=== PATIENT | female | born 1995 | race Caucasian/White ===

== ENCOUNTER 2017-11-25 06:38 | Emergency (ER) | payer MEDICAID, OTHER ==
[2017-11-25] MEDS ORDERED: Sodium Chloride 0.9% 1000 ML 1,000 ML IV STA ×2 (07:07→07:51)
--- NOTE | 2017-11-25 07:12 | ERPHSYRPT ---
- History of Present Illness Time Seen by Provider: 11/25/17 07:04 Source: patient Exam Limitations: no limitations Patient Subjective Stated Complaint: pt states her blood sugars have been running high since monday and she has Triage Nursing Assessment: pt alert and oriented, answers qeustions approp. pt ambulatory with steady gait noted. respirations nonlabored with lungs cta. Physician History: 22-year-old white female arrives with complaint of just not feeling well for the last 5 days she states that she has been having intermittent elevated blood sugars and ketones in her urine. No vomiting no abdominal pain denies urinary symptoms. Past medical history includes diabetes, anxiety, depression. Timing/Duration: day(s) Severity: moderate (5 days) Modifying Factors: Improves With: nothing Associated Symptoms: No nausea, No vomiting, No abdominal pain, No shortness of breath, No heartburn, No diaphoresis, No cough, No chills, No chest pain, No headaches, No loss of appetite, No malaise, No rash, No syncope, No seizure, No weakness Allergies/Adverse Reactions: No Known Drug Allergies Allergy (Verified 11/25/17 06:52) Home Medications: Insulin Aspart [NovoLOG Insulin] 10 unit SQ AC 11/25/17 [History] Insulin Glargine,Hum.rec.anlog [Basaglar Kwikpen U-100] 26 unit SQ HS 11/25/17 [ History] Hx Tetanus, Diphtheria Vaccination/Date Given: Yes (up to date) Hx Influenza Vaccination/Date Given: No Hx Pneumococcal Vaccination/Date Given: No Immunizations Up to Date: Yes - Review of Systems Constitutional: No Fever, No Chills Eyes: No Symptoms Ears, Nose, & Throat: No Symptoms Respiratory: No Cough, No Dyspnea Cardiac: No Chest Pain, No Edema, No Syncope Abdominal/Gastrointestinal: No Abdominal Pain, No Nausea, No Vomiting, No Diarrhea Genitourinary Symptoms: No Dysuria Musculoskeletal: No Back Pain, No Neck Pain Skin: No Rash Neurological: No Dizziness, No Focal Weakness, No Sensory Changes Psychological: No Symptoms Endocrine: No Symptoms All Other Systems: Reviewed and Negative - Past Medical History Pertinent Past Medical History: Yes Neurological History: Migraines ENT History: No Pertinent History Cardiac History: No Pertinent History Respiratory History: No Pertinent History Endocrine Medical History: Diabetes Type I Musculoskeletal History: No Pertinent History GI Medical History: No Pertinent History History: No Pertinent History Psycho-Social History: Anxiety, Depression Female Reproductive Disorders: No Pertinent History Other Medical History: DIABETES - Past Surgical History Past Surgical History: Yes Neuro Surgical History: No Pertinent History Cardiac: No Pertinent History Respiratory: No Pertinent History Gastrointestinal: No Pertinent History Genitourinary: No Pertinent History Musculoskeletal: No Pertinent History Female Surgical History: Dilation & Curettage Other Surgical History: INSULIN PUMP - Social History Smoking Status: Never smoker Exposure to second hand smoke: No Drug Use: none Patient Lives Alone: No - Female History Hx Last Menstrual Period: last month Hx Now: No - Nursing Vital Signs Nursing Vital Signs: Initial Vital Signs Temperature 97.4 F 11/25/17 06:44 Pulse Rate 84 11/25/17 06:44 Respiratory Rate 16 11/25/17 06:44 Blood Pressure 121/61 11/25/17 06:44 O2 Sat by Pulse Oximetry 100 11/25/17 06:44 Pain Scale Pain Intensity 0 - Physical Exam General Appearance: no apparent distress, alert Eye Exam: PERRL/EOMI, eyes nml inspection Ears, Nose, Throat Exam: normal ENT inspection, TMs normal, pharynx normal, moist mucous membranes Neck Exam: normal inspection, non-tender, supple, full range of motion Respiratory Exam: normal breath sounds, lungs clear, No respiratory distress Cardiovascular Exam: regular rate/rhythm, normal heart sounds, normal peripheral pulses Gastrointestinal/Abdomen Exam: soft, normal bowel sounds, No tenderness, No mass Back Exam: normal inspection, normal range of motion, No CVA tenderness, No vertebral tenderness Extremity Exam: normal inspection, normal range of motion, pelvis stable Neurologic Exam: alert, oriented x 3, cooperative, 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, normal mood/affect, nml cerebellar function, nml station & gait, sensation nml, No motor deficits Skin Exam: normal color, warm, dry, No rash Lymphatic Exam: No adenopathy SpO2 Interpretation: normal (100%) SpO2: 100 Oxygen Delivery: Room Air Ordered Tests: Active Orders 24 hr Category Date Time Status Accucheck STAT Care 11/25/17 07:07 Active Accucheck STAT Care 11/25/17 09:33 Active IV Insertion STAT Care 11/25/17 07:07 Active CBC W DIFF Stat Lab 11/25/17 06:55 Completed CMP Stat Lab 11/25/17 06:55 Completed CULTURE,URINE Stat Lab 11/25/17 07:07 Received HCG QUALITATIVE,SERUM Stat Lab 11/25/17 06:55 Completed UA W/ MICROSCOPIC Stat Lab 11/25/17 07:07 Completed VENOUS BLOOD GAS Urgent Lab 11/25/17 07:25 Completed Medication Summary Discontinued Medications Generic Name Dose Route Start Last Admin Trade Name Chioma PRN Reason Stop Dose Admin Sodium Chloride 1,000 mls @ 999 mls/hr 11/25/17 07:07 11/25/17 09:06 Sodium Chloride 0.9% 1000 Ml IV 11/25/17 08:07 Infused .Q1H1M STA Infusion Sodium Chloride Confirm 11/25/17 07:20 Sodium Chloride 0.9% 1000 Ml Administered 11/25/17 07:21 Dose 1,000 mls @ ud .ROUTE .STK-MED ONE Ceftriaxone Sodium/Dextrose 1 g in 50 mls @ 100 mls/hr 11/25/17 07:42 09:04 Rocephin 1 Gm-D5w 50 Ml Bag IV 11/25/17 08:11 Infused STAT STA Infusion Ceftriaxone Sodium/Dextrose Confirm 11/25/17 07:44 Rocephin 1 Gm-D5w 50 Ml Bag Administered 11/25/17 07:45 Dose 1 g in 50 mls @ ud IV .STK-MED ONE Sodium Chloride 1,000 mls @ 999 mls/hr 11/25/17 07:51 11/25/17 08:10 Sodium Chloride 0.9% 1000 Ml IV 11/25/17 08:51 999 mls/hr .Q1H1M STA Administration Sodium Chloride Confirm 11/25/17 08:10 Sodium Chloride 0.9% 1000 Ml Administered 11/25/17 08:11 Dose 1,000 mls @ ud .ROUTE .STK-MED ONE Potassium Bicarbonate 25 meq 11/25/17 08:15 11/25/17 08:21 K-Lyte 25 Meq PO 11/25/17 08:16 25 meq STAT ONE Administration Potassium Bicarbonate Confirm 11/25/17 08:19 K-Lyte 25 Meq Administered 11/25/17 08:20 Dose 25 meq .ROUTE .STK-MED ONE Potassium Chloride 20 meq 11/25/17 08:02 09/08/18 08:37 Klor Con 10 Meq PO 11/25/17 08:03 Not Given STAT ONE Potassium Chloride Confirm 11/25/17 08:10 Klor Con 10 Meq Administered 11/25/17 08:11 Dose 20 meq PO .STK-MED ONE Lab/Rad Data: Laboratory Result Diagrams 11/25/17 06:55 11/25/17 06:55 Laboratory Results 11/25/17 11/25/17 11/25/17 Range/Units 07:25 07:07 06:55 WBC (4.0-10.5) K/mm3 RBC (4.1-5.4) M/mm3 Hgb (12.0-16.0) gm/dl Hct (35-47) % MCV (78-100) fl MCH (26-32) pg MCHC (32-36) g/dl RDW (11.5-14.0) % Plt Count (150-450) K/mm3 MPV (6-9.5) fl Gran % (36.0-66.0) % Eos # (Auto) (0-0.5) Absolute Lymphs (auto) (1.0-4.6) Absolute Monos (auto) (0.0-1.3) Lymphocytes % (24.0-44.0) % Monocytes % (0.0-12.0) % Eosinophils % (0.00-5.0) % Basophils % (0.0-0.4) % Absolute Granulocytes (1.4-6.9) Basophils # (0-0.4) pO2/FiO2 Ratio 21.0 % VBG pH 7.32 (7.32-7.42) VBG pCO2 at Pat Temp 41 L (42-55) mm/Hg VBG pO2 at Pat Temp 35 (25-40) mm/Hg VBG HCO3 21.1 L (22-28) meq/L VBG O2 Sat (Jason) 71.1 L (95-100) VBG Base Excess -4.8 L (-2.0-2.0) VBG Hemoglobin 13.8 VBG Carboxyhemoglobin 3.0 (0.0-6.9) % T HGB POC Potassium 4.0 (3.5-5.1) Sodium (137-145) mmol/L Potassium (3.5-5.1) mmol/L Chloride (98-107) mmol/L Carbon Dioxide (22-30) mmol/L Anion Gap (5-15) MEQ/L BUN (7-17) mg/dL Creatinine (0.52-1.04) mg/dL Estimated GFR ML/MIN Glucose (74-106) mg/dL Calcium (8.4-10.2) mg/dL Total Bilirubin (0.2-1.3) mg/dL AST (14-36) U/L ALT (0-35) U/L Alkaline Phosphatase (38-126) U/L Serum Total Protein (6.3-8.2) g/dL Albumin (3.5-5.0) g/dL Serum , Qual NEGATIVE (Negative) Ur Collection Type VOID Urine Color YELLOW (YELLOW) Urine Appearance HAZY (CLEAR) Urine pH 5.0 (5-6) Ur Specific [place] 1.020 (1.005-1.025) Urine Protein NEGATIVE (Negative) Urine Ketones LARGE (NEGATIVE) Urine Blood 5-10 (0-5) Isaac/ul Urine Nitrite NEGATIVE (NEGATIVE) Urine Bilirubin NEGATIVE (NEGATIVE) Urine Urobilinogen NORMAL (0-1) mg/dL Ur Leukocyte Esterase 2+ (NEGATIVE) Urine Microscopic RBC 2-5 (0-2) /HPF Urine Microscopic WBC 50-100 (0-5) /HPF Ur Epithelial Cells MODERATE (FEW) /HPF Urine Bacteria MODERATE (NEGATIVE) /HPF Urine Yeast FEW (NEGATIVE) /HPF Urine Culture Reflexed YES (NO) Urine Glucose 1000 (NEGATIVE) mg/dL Specimen Received 11/26/17 0700 11/25/17 11/25/17 Range/Units 06:55 06:55 WBC 9.9 (4.0-10.5) K/mm3 RBC 4.17 (4.1-5.4) M/mm3 Hgb 12.9 (12.0-16.0) gm/dl Hct 37.7 (35-47) % MCV 90.4 (78-100) fl MCH 30.9 (26-32) pg MCHC 34.2 (32-36) g/dl RDW 13.3 (11.5-14.0) % Plt Count 287 (150-450) K/mm3 MPV 10.8 H (6-9.5) fl Gran % 73.7 H (36.0-66.0) % Eos # (Auto) 0.13 (0-0.5) Absolute Lymphs (auto) 1.55 (1.0-4.6) Absolute Monos (auto) 0.90 (0.0-1.3) Lymphocytes % 15.7 L (24.0-44.0) % Monocytes % 9.1 (0.0-12.0) % Eosinophils % 1.3 (0.00-5.0) % Basophils % 0.2 (0.0-0.4) % Absolute Granulocytes 7.27 H (1.4-6.9) Basophils # 0.02 (0-0.4) pO2/FiO2 Ratio % VBG pH (7.32-7.42) VBG pCO2 at Pat Temp (42-55) mm/Hg VBG pO2 at Pat Temp (25-40) mm/Hg VBG HCO3 (22-28) meq/L VBG O2 Sat (Jason) (95-100) VBG Base Excess (-2.0-2.0) VBG Hemoglobin VBG Carboxyhemoglobin (0.0-6.9) % T HGB POC Potassium (3.5-5.1) Sodium 138 (137-145) mmol/L Potassium 3.9 (3.5-5.1) mmol/L Chloride 105 (98-107) mmol/L Carbon Dioxide 20 L (22-30) mmol/L Anion Gap 17.0 H (5-15) MEQ/L BUN 13 (7-17) mg/dL Creatinine 0.53 (0.52-1.04) mg/dL Estimated GFR > 60.0 ML/MIN Glucose 348 H (74-106) mg/dL Calcium 8.7 (8.4-10.2) mg/dL Total Bilirubin 0.40 (0.2-1.3) mg/dL AST 10 L (14-36) U/L ALT 8 (0-35) U/L Alkaline Phosphatase 60 (38-126) U/L Serum Total Protein 6.9 (6.3-8.2) g/dL Albumin 4.0 (3.5-5.0) g/dL Serum , Qual (Negative) Ur Collection Type Urine Color (YELLOW) Urine Appearance (CLEAR) Urine pH (5-6) Ur Specific [place] (1.005-1.025) Urine Protein (Negative) Urine Ketones (NEGATIVE) Urine Blood (0-5) Isaac/ul Urine Nitrite (NEGATIVE) Urine Bilirubin (NEGATIVE) Urine Urobilinogen (0-1) mg/dL Ur Leukocyte Esterase (NEGATIVE) Urine Microscopic RBC (0-2) /HPF Urine Microscopic WBC (0-5) /HPF Ur Epithelial Cells (FEW) /HPF Urine Bacteria (NEGATIVE) /HPF Urine Yeast (NEGATIVE) /HPF Urine Culture Reflexed (NO) Urine Glucose (NEGATIVE) mg/dL Specimen Received - Progress Progress: improved Progress Note: 11/25/17 09 This is a 22-year-old white female with history of diabetes she has been feeling ill for the last several days she states her blood sugars have been going up and down and she's had ketones in her urine. Patient does not appear to be in acute distress on arrival she does have a blood sugar which is 348 on her chemistry she has a CO2 on her chemistry of 20 and and gap is 17 she does have 50-100 white cells per high-power field in her urine, also large amount of ketones in her urine pH on her ABGs are 7.32 PCO2 is 41 CBC essentially normal Patient is feeling better after IV normal saline urine culture and sensitivity has been obtained patient was given Rocephin 1 g IV. Repeat Accu-Chek is 226. Will plan to discharge patient on Bactrim DS one orally twice a day patient to continue her insulin regime and make note of her blood sugars. She is to follow-up with her family doctor - Departure Time of Disposition: 09:53 Departure Disposition: Home Clinical Impression: Hyperglycemia Urinary tract infection Qualifiers: Urinary tract infection type: site unspecified Hematuria presence: without hematuria Qualified Code(s): N39.0 - Urinary tract infection, site not specified Condition: Fair Critical Care Time: No Referrals: MAGDY ORTA [Primary Care Provider] - Instructions: Hyperglycemia, Adult (DC) Additional Instructions: Return home. Plenty of fluids. Continue your current insulin regime. Monitor your blood sugars and write down. Bactrim DS one orally twice a day for 10 days. Follow-up with her family doctor and/or your backbreaker. Return for acute distress or for severe symptoms. Prescriptions: Smz/Tmp Ds Tablet [Bactrim Ds Tablet] 1 tab PO BID #20 tablet
[2017-11-25 07:20] LABS: Appearance HAZY (CLEAR); Bilirubin NEGATIVE (NEGATIVE); Glucose 1000 mg/dL (NEGATIVE); Ketones LARGE (NEGATIVE); Leukocyte Esterase 2+ (NEGATIVE); Nitrite NEGATIVE (NEGATIVE); Protein,Urine Dip NEGATIVE (Negative); Urobilinogen NORMAL mg/dL (0-1)
[2017-11-25] MEDS ORDERED: Sodium Chloride 0.9% 1000 ML 1,000 ML ONE ×2 (07:20→08:10)
[2017-11-25 07:24] LABS: BASOPHIL % 0.2 % (0.0-0.4); Basophil (Absolute #) 0.02 (0-0.4); Eosinophil % 1.3 % (0.00-5.0); Eosinophil (Absolute #) 0.13 (0-0.5); Granulocyte Absolute (ANC) 7.27 (1.4-6.9); Granulocytes % 73.7 % (36.0-66.0); Hematocrit 37.7 % (35-47); Hemoglobin 12.9 gm/dl (12.0-16.0); Lymphocyte (Absolute #) 1.55 (1.0-4.6); Lymphocytes % 15.7 % (24.0-44.0); Mean Cell Volume 90.4 fl (78-100); Mean Corpuscular Hemoglobin 30.9 pg (26-32); Mean Corpuscular Hgb Concent. 34.2 g/dl (32-36); Mean Platelet Volume 10.8 fl (6-9.5); Monocytes % 9.1 % (0.0-12.0); Platelet Count 287 K/mm3 (150-450); Red Blood Count 4.17 M/mm3 (4.1-5.4); Red Cell Distribution Width 13.3 % (11.5-14.0); White Blood Count 9.9 K/mm3 (4.0-10.5)
[2017-11-25 07:26] LABS: Bacteria MODERATE /HPF (NEGATIVE); Epithelial Cells MODERATE /HPF (FEW); WBC 50-100 /HPF (0-5)
[2017-11-25 07:31] LABS: VBG BASE EXCESS -4.8 (-2.0-2.0); VBG HCO3- 21.1 meq/L (22-28); VBG HEMOGLOBIN 13.8; VBG O2 SATURATION 71.1 (95-100); VBG pH 7.32 (7.32-7.42)
[2017-11-25] MEDS ORDERED: ROCEPHIN 1 Gm-D5w 50 ml Bag** 1 G/50 ML IVPB IV STA (07:42)
[2017-11-25] MEDS ORDERED: ROCEPHIN 1 Gm-D5w 50 ml Bag** 1 G/50 ML IVPB IV ONE (07:44)
[2017-11-25 07:46] LABS: ALKALINE PHOSPHATASE 60 U/L (38-126); BLOOD UREA NITROGEN 13 mg/dL (7-17); CHLORIDE 105 mmol/L (98-107); Calcium 8.7 mg/dL (8.4-10.2); Carbon Dioxide 20 mmol/L (22-30); Creatinine 1 0.53 mg/dL (0.52-1.04); Glucose 348 mg/dL (74-106); Potassium 3.9 mmol/L (3.5-5.1); SGOT/AST 10 U/L (14-36); SGPT/ALT 8 U/L (0-35); SODIUM 138 mmol/L (137-145); Total Protein 6.9 g/dL (6.3-8.2)
[2017-11-25] MEDS ORDERED: Klor Con 10 MEQ PO ONE (08:10)
[2017-11-25] MEDS: Klor Con 10 MEQ PO ONE ×2 (08:10→08:37)
[2017-11-25] MEDS ORDERED: K-LYTE 25 MEQ PO ONE (08:15)
[2017-11-25] MEDS ORDERED: K-LYTE 25 MEQ ONE (08:19)
[2017-11-25 09:38] VITALS: PULSE 98
[2017-11-25 10:12] VITALS: BP 108/60; O2SAT 99
== END 2017-11-25 10:13 | disposition home or self-care (01) ==
LOC: ED 06:38
DX: E10.65 Type 1 diabetes mellitus with hyperglycemia (principal); N39.0 Urinary tract infection, site not specified; Z79.4 Long term (current) use of insulin
CPT/HCPCS: 36415; 80053; 81000; 82805; 82962; 84703; 85025; 87086; 96360; 96361; 96365; 99284; J0696; A9270-GY

== ENCOUNTER 2017-12-06 02:29 | Emergency (ER) | payer OTHER ==
--- NOTE | 2017-12-06 02:46 | ERPHSYRPT ---
- History of Present Illness Time Seen by Provider: 12/06/17 02:45 Source: patient Exam Limitations: no limitations Physician History: 22 y/o iddm white female presents with generalized myalgias and arthralgias every instance she takes bactrim ds she was prescribed 11/25/17 for uti. seen at another facility which told her to continue taking meds. took meds again today and sx recurred. no rash and no respiratory issues. Timing/Duration: day(s) (10), intermittent Severity: mild Modifying Factors: Improves With: medication (associated with) Associated Symptoms: other (arthralgias and malgias), No nausea, No vomiting, No abdominal pain, No shortness of breath, No chest pain, No fever, No headaches , No malaise, No rash, No syncope Allergies/Adverse Reactions: No Known Drug Allergies Allergy (Verified 12/06/17 02:52) Home Medications: Insulin Aspart [NovoLOG Insulin] 10 unit SQ AC 11/25/17 [History] Insulin Glargine,Hum.rec.anlog [Basaglar Kwikpen U-100] 26 unit SQ HS 11/25/17 [ History] Hx Tetanus, Diphtheria Vaccination/Date Given: Yes (up to date) Hx Influenza Vaccination/Date Given: No Hx Pneumococcal Vaccination/Date Given: No - Review of Systems Constitutional: No Symptoms, No Fever Eyes: No Symptoms, No Discharge, No Eye Pain Ears, Nose, & Throat: No Symptoms, No Ear Pain, No Ear Discharge Respiratory: No Symptoms, No Cough, No Dyspnea, No Stridor, No Wheezing Cardiac: No Symptoms, No Chest Pain, No Palpitations, No Syncope Abdominal/Gastrointestinal: No Symptoms, No Abdominal Pain Genitourinary Symptoms: No Symptoms, No Dysuria, No Frequency, No Hematuria Musculoskeletal: Arthralgias, Myalgias Skin: No Symptoms Neurological: No Symptoms, No Dizziness, No Headache Psychological: No Symptoms, No Alcohol Abuse, No Drug Abuse, No Anxiety Endocrine: No Symptoms Hematologic/Lymphatic: No Symptoms Immunological/Allergic: No Symptoms All Other Systems: Reviewed and Negative - Past Medical History Pertinent Past Medical History: Yes Neurological History: Migraines ENT History: No Pertinent History Cardiac History: No Pertinent History Respiratory History: No Pertinent History Endocrine Medical History: Diabetes Type I Musculoskeletal History: No Pertinent History GI Medical History: No Pertinent History History: No Pertinent History Psycho-Social History: Anxiety, Depression Female Reproductive Disorders: No Pertinent History Other Medical History: DIABETES - Past Surgical History Past Surgical History: Yes Neuro Surgical History: No Pertinent History Cardiac: No Pertinent History Respiratory: No Pertinent History Gastrointestinal: No Pertinent History Genitourinary: No Pertinent History Musculoskeletal: No Pertinent History Female Surgical History: Dilation & Curettage Other Surgical History: INSULIN PUMP - Social History Smoking Status: Never smoker Exposure to second hand smoke: No Drug Use: none Patient Lives Alone: No - Nursing Vital Signs Nursing Vital Signs: Initial Vital Signs Temperature 98.9 F 12/06/17 02:37 Pulse Rate 80 12/06/17 02:37 Blood Pressure 130/70 12/06/17 02:37 O2 Sat by Pulse Oximetry 98 12/06/17 02:37 Pain Scale Pain Intensity 3 - Physical Exam General Appearance: no apparent distress, alert, anxiety Eye Exam: PERRL/EOMI, eyes nml inspection Ears, Nose, Throat Exam: normal ENT inspection, TMs normal Neck Exam: normal inspection, non-tender, supple, full range of motion Respiratory Exam: normal breath sounds, lungs clear, airway intact, No respiratory distress, No accessory muscle use, No rhonchi, No wheezing, No stridor Cardiovascular Exam: regular rate/rhythm, normal heart sounds, normal peripheral pulses Gastrointestinal/Abdomen Exam: soft, normal bowel sounds, No tenderness, No guarding, No rebound Pelvic Exam: not done Rectal Exam: not done Extremity Exam: normal inspection, normal range of motion, pelvis stable Neurologic Exam: alert, oriented x 3, cooperative, 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, normal mood/affect Skin Exam: normal color, warm, dry Lymphatic Exam: No adenopathy SpO2 Interpretation: normal - Course Nursing assessment & vital signs reviewed: Yes Ordered Tests: Active Orders 24 hr Category Date Time Status HCG,QUALITATIVE URINE Stat Lab 12/06/17 02:50 Completed UA W/ MICROSCOPIC Stat Lab 12/06/17 02:50 Completed Lab/Rad Data: Laboratory Results 12/06/17 12/06/17 Range/Units 02:50 02:50 Ur Collection Type CLEAN CATCH Urine Color LT.YELLOW (YELLOW) Urine Appearance CLEAR (CLEAR) Urine pH 7.0 (5-6) Ur Specific [place] 1.005 (1.005-1.025) Urine Protein NEGATIVE (Negative) Urine Ketones MODERATE (NEGATIVE) Urine Blood TRACE NON-HEM (0-5) Isaac/ul Urine Nitrite NEGATIVE (NEGATIVE) Urine Bilirubin NEGATIVE (NEGATIVE) Urine Urobilinogen NORMAL (0-1) mg/dL Ur Leukocyte Esterase 1+ (NEGATIVE) Urine Microscopic RBC 0-2 (0-2) /HPF Urine Microscopic WBC 0-2 (0-5) /HPF Ur Epithelial Cells FEW (FEW) /HPF Urine Bacteria RARE (NEGATIVE) /HPF Urine Culture Reflexed NO (NO) Urine Glucose 1000 (NEGATIVE) mg/dL Urine HCG, Qual NEGATIVE (Negative) - Progress Progress: improved, re-examined Counseled pt/family regarding: lab results, diagnosis, need for follow-up - Departure Time of Disposition: 04:25 Departure Disposition: Home Clinical Impression: UTI (urinary tract infection), Dehydration Condition: Stable Critical Care Time: No Referrals: MAGDY ORTA [Primary Care Provider] - Additional Instructions: drink lots of fluids at home. use tylenol and ibuprofen at home.follow up with primary doctor for further management Prescriptions: Nitrofurantoin Macrocrystal [Macrodantin] 100 mg PO BID 7 Days #14 capsule
[2017-12-06 03:44] LABS: Appearance CLEAR (CLEAR); Bilirubin NEGATIVE (NEGATIVE); Glucose 1000 mg/dL (NEGATIVE); Ketones MODERATE (NEGATIVE); Leukocyte Esterase 1+ (NEGATIVE); Nitrite NEGATIVE (NEGATIVE); Protein,Urine Dip NEGATIVE (Negative); Specific Gravity 1.005 (1.005-1.025); Urobilinogen NORMAL mg/dL (0-1)
[2017-12-06 03:45] LABS: Blood TRACE NON-HEM Ery/ul (0-5)
[2017-12-06 03:50] LABS: Bacteria RARE /HPF (NEGATIVE); Epithelial Cells FEW /HPF (FEW); RBC 0-2 /HPF (0-2); WBC 0-2 /HPF (0-5)
[2017-12-06 04:02] VITALS: PULSE 103
[2017-12-06] MEDS ORDERED: Macrobid 100MG Capsule PO ONE (04:23)
[2017-12-06] MEDS ORDERED: Macrobid 100MG Capsule ONE (04:38)
[2017-12-06] MEDS ORDERED: NORCO 5/325 MG ONE (04:38)
[2017-12-06] MEDS: NORCO 5/325 MG PO ONE ×2 (04:39→04:40)
[2017-12-06] MEDS ORDERED: MOTRIN 400 MG PO ONE (04:41)
[2017-12-06] MEDS ORDERED: MOTRIN 400 MG ONE (04:42)
[2017-12-06 04:45] VITALS: BP 119/65; O2SAT 99
== END 2017-12-06 04:51 | disposition home or self-care (01) ==
LOC: ED 02:29
DX: N39.0 Urinary tract infection, site not specified (principal); E86.0 Dehydration; E10.9 Type 1 diabetes mellitus without complications; Z79.4 Long term (current) use of insulin
CPT/HCPCS: 81000; 84703; 99283; A9270-GY

== ENCOUNTER 2018-11-10 12:14 | Emergency (ER) | payer MEDICAID, OTHER ==
[2018-11-10 12:48] VITALS: O2SAT 100
[2018-11-10 13:19] LABS: BASOPHIL % 0.2 % (0.0-0.4); Basophil (Absolute #) 0.01 (0-0.4); Eosinophil % 0.7 % (0.00-5.0); Eosinophil (Absolute #) 0.04 (0-0.5); Granulocyte Absolute (ANC) 4.19 (1.4-6.9); Granulocytes % 77.3 % (36.0-66.0); Hematocrit 35.8 % (35-47); Hemoglobin 11.9 gm/dl (12.0-16.0); Lymphocyte (Absolute #) 0.92 (1.0-4.6); Mean Cell Volume 94.7 fl (78-100); Mean Corpuscular Hemoglobin 31.4 pg (26-32); Mean Corpuscular Hgb Concent. 33.2 g/dl (32-36); Mean Platelet Volume 10.3 fl (6-9.5); Monocyte (Absolute #) 0.26 (0.0-1.3); Monocytes % 4.8 % (0.0-12.0); Platelet Count 282 K/mm3 (150-450); Red Blood Count 3.78 M/mm3 (4.1-5.4); Red Cell Distribution Width 13.2 % (11.5-14.0); White Blood Count 5.4 K/mm3 (4.0-10.5)
[2018-11-10 13:27] LABS: Appearance CLEAR (CLEAR); Bacteria RARE /HPF (NEGATIVE); Bilirubin NEGATIVE (NEGATIVE); Blood MODERATE Ery/ul (0-5); Glucose >=500 mg/dL (NEGATIVE); Ketones MODERATE (NEGATIVE); Leukocyte Esterase NEGATIVE (NEGATIVE); Mucus SLIGHT /HPF (NEGATIVE); Nitrite NEGATIVE (NEGATIVE); Protein,Urine Dip NEGATIVE (Negative); Specific Gravity 1.018 (1.005-1.025); Urobilinogen NEGATIVE mg/dL (0-1)
[2018-11-10 13:30] LABS: ALBUMIN 3.9 g/dL (3.5-5.0); ALKALINE PHOSPHATASE 53 U/L (38-126); ANION GAP 15.1 MEQ/L (5-15); BLOOD UREA NITROGEN 8 mg/dL (7-17); CHLORIDE 102 mmol/L (98-107); Carbon Dioxide 23 mmol/L (22-30); Creatinine 1 0.43 mg/dL (0.52-1.04); Glucose 376 mg/dL (74-106); Potassium 4.1 mmol/L (3.5-5.1); SGOT/AST 15 U/L (14-36); SGPT/ALT 9 U/L (0-35); SODIUM 137 mmol/L (137-145); Total Protein 6.9 g/dL (6.3-8.2)
[2018-11-10 13:40] LABS: ACETAMINOPHEN < 10 ug/ml (10-30); Amphetamine,Urine NEGATIVE (NEGATIVE); Barbiturate,Urine NEGATIVE (NEGATIVE); Benzodiazepine,Urine NEGATIVE (NEGATIVE); Cocaine,Urine NEGATIVE (NEGATIVE); ETHYL ALCOHOL < 10 mg/dL (0-10); Methadone,Urine NEGATIVE (NEGATIVE); Opiate,Urine NEGATIVE (NEGATIVE); PCP,Urine NEGATIVE (NEGATIVE); SALICYLATE < 1.0 mg/dL (2-20); THC,Urine NEGATIVE (NEGATIVE)
[2018-11-10] MEDS ORDERED: NovoLOG Insulin SQ ONE (14:21)
--- NOTE | 2018-11-10 14:25 | ERPHSYRPT ---
- History of Present Illness Time Seen by Provider: 11/10/18 12:56 Source: patient Exam Limitations: no limitations Patient Subjective Stated Complaint: pt is stressed, felt this morning that she wanted to harm self. pt states that for several weeks she has been feeling stressed. states that her stress has been building up for a while and she cant take any more. has history of depression. Triage Nursing Assessment: pt is alert and oriented, states that she is stresses and cannot handle all the stress. pt mother with her today. states that pt has been having trouble in her marriage and work life. Physician History: Pt states, she has been depressed for about one month, became suicidal, but denies any specific plan, or attempt. She is insulin dependent diabetic, she has been using Basaglar 26 units every evening, and Humalog as needed SQ. She states, she had breakfast today, denies vomiting, diarrhea, headaches, fever or other complaints. Timing/Duration: week(s) (4), constant Severity of Symptoms-Max: moderate Severity of Symptoms-Current: moderate Context related to: other (denies) Associated Symptoms: denies symptoms Previous symptoms: same symptoms as today Allergies/Adverse Reactions: sulfamethoxazole [From Bactrim] Allergy (Verified 11/10/18 12:55) trimethoprim [From Bactrim] Allergy (Verified 11/10/18 12:55) Home Medications: Insulin Aspart [NovoLOG Insulin] 10 unit SQ AC 11/25/17 [History] Insulin Glargine,Hum.rec.anlog [Basaglar Kwikpen U-100] 26 unit SQ HS 11/25/17 [ History] Hx Tetanus, Diphtheria Vaccination/Date Given: Yes (up to date) Hx Influenza Vaccination/Date Given: No Hx Pneumococcal Vaccination/Date Given: No - Past Medical History Pertinent Past Medical History: Yes Neurological History: No Pertinent History ENT History: No Pertinent History Cardiac History: No Pertinent History Respiratory History: No Pertinent History Endocrine Medical History: Diabetes Type I Musculoskeletal History: No Pertinent History GI Medical History: No Pertinent History History: No Pertinent History Psycho-Social History: Depression Female Reproductive Disorders: No Pertinent History Other Medical History: DIABETES - Past Surgical History Past Surgical History: Yes (d&c june 2016) Neuro Surgical History: No Pertinent History Cardiac: No Pertinent History Respiratory: No Pertinent History Gastrointestinal: No Pertinent History Genitourinary: No Pertinent History Musculoskeletal: No Pertinent History Female Surgical History: Dilation & Curettage Other Surgical History: INSULIN PUMP - Social History Smoking Status: Never smoker How long have you smoked: 2 years Exposure to second hand smoke: Yes Drug Use: none Patient Lives Alone: No - Female History Hx Last Menstrual Period: 11/11/18 Hx Now: No - Review of Systems Constitutional: No Symptoms Eyes: No Symptoms Ears, Nose, & Throat: No Symptoms Respiratory: No Symptoms Cardiac: No Symptoms Genitourinary Symptoms: No Symptoms Musculoskeletal: No Symptoms Skin: No Symptoms Neurological: No Symptoms Psychological: Depression All Other Systems: Reviewed and Negative - Nursing Vital Signs Nursing Vital Signs: Initial Vital Signs Temperature 98.1 F 11/10/18 12:29 Pulse Rate 100 H 11/10/18 12:29 Respiratory Rate 16 11/10/18 12:29 Blood Pressure 124/87 11/10/18 12:29 O2 Sat by Pulse Oximetry 100 11/10/18 12:29 Pain Scale Pain Intensity 0 - Physical Exam General Appearance: no apparent distress Eyes, Ears, Nose, Throat Exam: normal ENT inspection, pharynx normal, moist mucous membranes Neck Exam: normal inspection, non-tender, supple, No JVD Respiratory Exam: normal breath sounds, lungs clear, airway intact Cardiovascular Exam: regular rate/rhythm, normal heart sounds, normal peripheral pulses, capillary refill <2 sec, No murmur Gastrointestinal/Abdominal Exam: soft, normal bowel sounds, No tenderness, No distention, No mass, No ecchymosis Extremities Exam: normal inspection, No edema Peripheral Pulses: dorsalis-pedis (R): 3+, dorsalis-pedis (L): 3+ Current Suicidality: denies suicide plan Neurological Exam: alert, normal mood/affect, oriented x 3 Appearance: appropriate appearance Behavior/Eye Contact/Speech: alert & cooperative Thoughts/Hallucinations: normal thought pattern, no apparent hallucination, No delusions Skin Exam: normal color, warm, dry, No rash, No petechiae, No diaphoresis SpO2 Interpretation: normal SpO2: 100 O2 Delivery: Room Air - Course Nursing assessment & vital signs reviewed: Yes EKG Interpreted by Me: RATE (100/min), Sinus Tach, NORMAL AXIS, NORMAL INTERVALS , NORMAL QRS, NORMAL ST-T Ordered Tests: Active Orders 24 hr Category Date Time Status ACCUCHECK [Accucheck] STAT Care 11/10/18 15:07 Active EKG-ER Only STAT Care 11/10/18 12:56 Active ACETAMINOPHEN Stat Lab 11/10/18 13:17 Completed CBC W DIFF Stat Lab 11/10/18 13:17 Completed CMP Stat Lab 11/10/18 13:17 Completed ETHYL ALCOHOL Stat Lab 11/10/18 13:17 Completed HCG,QUALITATIVE URINE Stat Lab 11/10/18 13:17 Completed SALICYLATE Stat Lab 11/10/18 13:17 Completed UA W/RFX UR CULTURE Stat Lab 11/10/18 13:17 Completed Urine Triage Profile Stat Lab 11/10/18 13:17 Completed Medication Summary Discontinued Medications Generic Name Dose Route Start Last Admin Trade Name Freq PRN Reason Stop Dose Admin Insulin Aspart 10 unit 11/10/18 14:21 11/10/18 14:33 Novolog Insulin SQ 11/10/18 14:22 10 unit STAT ONE Administration Insulin Aspart Confirm 11/10/18 14:28 Novolog Insulin Administered 11/10/18 14:29 Dose 10 unit .ROUTE .STK-MED ONE Lab/Rad Data: Laboratory Result Diagrams 11/10/18 13:17 11/10/18 13:17 Laboratory Results 11/10/18 11/10/18 11/10/18 Range/Units 13:17 13:17 13:17 WBC (4.0-10.5) K/mm3 RBC (4.1-5.4) M/mm3 Hgb (12.0-16.0) gm/dl Hct (35-47) % MCV (78-100) fl MCH (26-32) pg MCHC (32-36) g/dl RDW (11.5-14.0) % Plt Count (150-450) K/mm3 MPV (6-9.5) fl Gran % (36.0-66.0) % Eos # (Auto) (0-0.5) Absolute Lymphs (auto) (1.0-4.6) Absolute Monos (auto) (0.0-1.3) Lymphocytes % (24.0-44.0) % Monocytes % (0.0-12.0) % Eosinophils % (0.00-5.0) % Basophils % (0.0-0.4) % Absolute Granulocytes (1.4-6.9) Basophils # (0-0.4) Sodium (137-145) mmol/L Potassium (3.5-5.1) mmol/L Chloride (98-107) mmol/L Carbon Dioxide (22-30) mmol/L Anion Gap (5-15) MEQ/L BUN (7-17) mg/dL Creatinine (0.52-1.04) mg/dL Estimated GFR ML/MIN Glucose (74-106) mg/dL Calcium (8.4-10.2) mg/dL Total Bilirubin (0.2-1.3) mg/dL AST (14-36) U/L ALT (0-35) U/L Alkaline Phosphatase (38-126) U/L Serum Total Protein (6.3-8.2) g/dL Albumin (3.5-5.0) g/dL Urine Color YELLOW (YELLOW) Urine Appearance CLEAR (CLEAR) Urine pH 5.0 (5-6) Ur Specific [place] 1.018 (1.005-1.025) Urine Protein NEGATIVE (Negative) Urine Ketones MODERATE (NEGATIVE) Urine Blood MODERATE (0-5) Isaac/ul Urine Nitrite NEGATIVE (NEGATIVE) Urine Bilirubin NEGATIVE (NEGATIVE) Urine Urobilinogen NEGATIVE (0-1) mg/dL Ur Leukocyte Esterase NEGATIVE (NEGATIVE) Urine WBC (Auto) 3-5 (0-5) /HPF Urine RBC (Auto) NONE (0-2) /HPF U Epithel Cells (Auto) NONE (FEW) /HPF Urine Bacteria (Auto) RARE (NEGATIVE) /HPF Urine Mucus (Auto) SLIGHT (NEGATIVE) /HPF Urine Culture Reflexed NO (NO) Urine Glucose >=500 (NEGATIVE) mg/dL Urine HCG, Qual NEGATIVE (Negative) Salicylates (2-20) mg/dL Urine Opiates Level NEGATIVE (NEGATIVE) Ur Methadone NEGATIVE (NEGATIVE) Acetaminophen (10-30) ug/ml Urine Barbiturates NEGATIVE (NEGATIVE) Ur Phencyclidine (PCP) NEGATIVE (NEGATIVE) Urine Amphetamine NEGATIVE (NEGATIVE) U Benzodiazepine Level NEGATIVE (NEGATIVE) Urine Cocaine NEGATIVE (NEGATIVE) Urine Marijuana (THC) NEGATIVE (NEGATIVE) Ethyl Alcohol (0-10) mg/dL 11/10/18 11/10/18 Range/Units 13:17 13:17 WBC 5.4 (4.0-10.5) K/mm3 RBC 3.78 L (4.1-5.4) M/mm3 Hgb 11.9 L (12.0-16.0) gm/dl Hct 35.8 (35-47) % MCV 94.7 (78-100) fl MCH 31.4 (26-32) pg MCHC 33.2 (32-36) g/dl RDW 13.2 (11.5-14.0) % Plt Count 282 (150-450) K/mm3 MPV 10.3 H (6-9.5) fl Gran % 77.3 H (36.0-66.0) % Eos # (Auto) 0.04 (0-0.5) Absolute Lymphs (auto) 0.92 L (1.0-4.6) Absolute Monos (auto) 0.26 (0.0-1.3) Lymphocytes % 17.0 L (24.0-44.0) % Monocytes % 4.8 (0.0-12.0) % Eosinophils % 0.7 (0.00-5.0) % Basophils % 0.2 (0.0-0.4) % Absolute Granulocytes 4.19 (1.4-6.9) Basophils # 0.01 (0-0.4) Sodium 137 (137-145) mmol/L Potassium 4.1 (3.5-5.1) mmol/L Chloride 102 (98-107) mmol/L Carbon Dioxide 23 (22-30) mmol/L Anion Gap 15.1 H (5-15) MEQ/L BUN 8 (7-17) mg/dL Creatinine 0.43 L (0.52-1.04) mg/dL Estimated GFR > 60.0 ML/MIN Glucose 376 H (74-106) mg/dL Calcium 9.0 (8.4-10.2) mg/dL Total Bilirubin 0.40 (0.2-1.3) mg/dL AST 15 (14-36) U/L ALT 9 (0-35) U/L Alkaline Phosphatase 53 (38-126) U/L Serum Total Protein 6.9 (6.3-8.2) g/dL Albumin 3.9 (3.5-5.0) g/dL Urine Color (YELLOW) Urine Appearance (CLEAR) Urine pH (5-6) Ur Specific [place] (1.005-1.025) Urine Protein (Negative) Urine Ketones (NEGATIVE) Urine Blood (0-5) Isaac/ul Urine Nitrite (NEGATIVE) Urine Bilirubin (NEGATIVE) Urine Urobilinogen (0-1) mg/dL Ur Leukocyte Esterase (NEGATIVE) Urine WBC (Auto) (0-5) /HPF Urine RBC (Auto) (0-2) /HPF U Epithel Cells (Auto) (FEW) /HPF Urine Bacteria (Auto) (NEGATIVE) /HPF Urine Mucus (Auto) (NEGATIVE) /HPF Urine Culture Reflexed (NO) Urine Glucose (NEGATIVE) mg/dL Urine HCG, Qual (Negative) Salicylates < 1.0 L (2-20) mg/dL Urine Opiates Level (NEGATIVE) Ur Methadone (NEGATIVE) Acetaminophen < 10 L (10-30) ug/ml Urine Barbiturates (NEGATIVE) Ur Phencyclidine (PCP) (NEGATIVE) Urine Amphetamine (NEGATIVE) U Benzodiazepine Level (NEGATIVE) Urine Cocaine (NEGATIVE) Urine Marijuana (THC) (NEGATIVE) Ethyl Alcohol < 10 (0-10) mg/dL - Progress Progress: unchanged Progress Note: 11/10/18 15:08 Pt was given 10 units of Humalog SQ, blood glucose is 325, she is asymptomatic, medically stable for psychiatric evaluation and care. Counseled pt/family regarding: lab results, diagnosis, need for follow-up - Departure Departure Disposition: Transfer ([facility] Extended Care Facility Clinical Impression: Suicidal ideation, Acute hyperglycemia Condition: Stable Critical Care Time: No Referrals: MAGDY ORTA [Primary Care Provider] - Instructions: Hyperglycemia, Adult (DC), Self-Harm (DC) Additional Instructions: Return if severe weakness, dizziness, vomiting, or blood glucose > 450 or < 60!
[2018-11-10] MEDS ORDERED: NovoLOG Insulin ONE (14:28)
[2018-11-10 15:11] VITALS: BP 118/74; PULSE 80
== END 2018-11-10 17:55 | disposition short-term general hospital (02) ==
LOC: ED 12:14
DX: R45.851 Suicidal ideations (principal); E10.65 Type 1 diabetes mellitus with hyperglycemia
CPT/HCPCS: 36415; 80053; 80307; 81001; 82962; 84703; 85025; 93005; 96372; 99285; G0481; 90791; Q3014; A9270-GY; G0480

== ENCOUNTER 2021-11-06 13:41 | Emergency (ER) | payer OTHER ==
[2021-11-06] MEDS ORDERED: Zofran 4 MG/2 ML VIAL IV ONE (14:26)
[2021-11-06] MEDS ORDERED: MORPHINE SULFATE 4 MG INJ IV ONE (14:26)
[2021-11-06] MEDS ORDERED: Sodium Chloride 0.9% 1000 ML 1,000 ML IV STA ×2 (14:26→16:51)
[2021-11-06] MEDS ORDERED: Zofran 4 MG/2 ML VIAL ONE (14:32)
[2021-11-06] MEDS ORDERED: Sodium Chloride 0.9% 1000 ML 1,000 ML ONE ×2 (14:33→17:27)
[2021-11-06] MEDS ORDERED: MORPHINE SULFATE 4 MG INJ ONE (14:33)
--- NOTE | 2021-11-06 14:36 | ERPHSYRPT ---
- History of Present Illness Time Seen by Provider: 11/06/21 13:50 Source: patient Exam Limitations: no limitations Patient Subjective Stated Complaint: pt here for n/v for 4 days, with weakness. no fever pt is diabetic and states bs have been low and high . does co lower abd pain today Triage Nursing Assessment: pt alert, resp easy, skin w/d/pale, no edema noted, face mask in place, no cough abd soft Physician History: 26 years old type I diabetic on insulin pump presented in the ER with 4-day history of feeling generalized body aches fatigue tiredness, congestion, and nonproductive cough and occasional lower abdominal cramping. Also reports 2-3 episodes of nonprojectile, nonbilious vomiting yesterday. Abdominal cramping is better at present and thinks is more because of her being on cycle and also possible constipation. Does have history of chronic constipation. Patient has a positive contact with COVID-19 at home. No difficulty breathing or chest pain reported. This morning she woke up and her blood sugar was in 60s and currently in 200s. Timing/Duration: day(s) (4), intermittent, gradual onset, worse Severity: moderate Modifying Factors: Improves With: rest Associated Symptoms: nausea, vomiting, abdominal pain, chills, fever, headaches, loss of appetite, malaise, weakness, No shortness of breath Allergies/Adverse Reactions: sulfamethoxazole [From Bactrim] Allergy (Verified 11/06/21 13:55) trimethoprim [From Bactrim] Allergy (Verified 11/06/21 13:55) Home Medications: Dextroamphetamine/Amphetamine [Dextroamp-Amphet ER 20 mg Cap] 20 mg PO DAILY 11/06/21 [History] Insulin Aspart Prot/Insuln Asp [Relion Novolog Mix 70-30 Flxpn] 100 unit SQ DAILY 11/06/21 [History] Ondansetron [Ondansetron Odt ] 4 mg PO Q6H PRN 11/06/21 [History] Sertraline HCl [Zoloft] 100 mg PO DAILY 11/06/21 [History] Hx Tetanus, Diphtheria Vaccination/Date Given: No Hx Influenza Vaccination/Date Given: Yes Hx Pneumococcal Vaccination/Date Given: No Immunizations Up to Date: Yes Travel Risk - International Travel Have you traveled outside of the country in past 3 weeks: No - Coronavirus Screening Are you exhibiting any of the following symptoms?: Yes Symptoms: Vomiting/Diarrhea, Headaches/Body Aches/Fatigue Close contact with a COVID-19 positive Pt in past 14-21 Days: Yes - Vaccine Status Have you recieved a Covid-19 vaccination: No - Review of Systems Constitutional: Fever, Chills, Fatigue, Weakness Eyes: No Symptoms Ears, Nose, & Throat: Nose Congestion, Throat Pain Respiratory: Cough, No Dyspnea Cardiac: No Symptoms Abdominal/Gastrointestinal: Abdominal Pain, Nausea, Vomiting, Constipation Musculoskeletal: Myalgias Neurological: Headache Psychological: No Symptoms Endocrine: No Symptoms Hematologic/Lymphatic: No Symptoms Immunological/Allergic: No Symptoms - Past Medical History Pertinent Past Medical History: Yes Neurological History: No Pertinent History ENT History: No Pertinent History Cardiac History: No Pertinent History Respiratory History: No Pertinent History Endocrine Medical History: Diabetes Type I Musculoskeletal History: No Pertinent History GI Medical History: No Pertinent History History: No Pertinent History Psycho-Social History: Depression Female Reproductive Disorders: No Pertinent History Other Medical History: DIABETES - Past Surgical History Past Surgical History: Yes (d&c june 2016) Neuro Surgical History: No Pertinent History Cardiac: No Pertinent History Respiratory: No Pertinent History Gastrointestinal: No Pertinent History Genitourinary: No Pertinent History Musculoskeletal: No Pertinent History Female Surgical History: Dilation & Curettage, Section Other Surgical History: INSULIN PUMP - Social History Smoking Status: Never smoker How long have you smoked: 2 years Exposure to second hand smoke: No Drug Use: marijuana Patient Lives Alone: No - Female History Hx Last Menstrual Period: now Hx Now: No - Nursing Vital Signs Nursing Vital Signs: Initial Vital Signs Pulse Rate 80 11/06/21 14:17 Respiratory Rate 20 11/06/21 14:17 Blood Pressure 126/70 11/06/21 14:17 O2 Sat by Pulse Oximetry 100 11/06/21 14:17 Pain Scale Pain Intensity 2 - Physical Exam General Appearance: no apparent distress, alert Eye Exam: PERRL/EOMI, eyes nml inspection Ears, Nose, Throat Exam: normal ENT inspection, TMs normal, pharynx normal, moist mucous membranes Neck Exam: normal inspection, non-tender, supple, full range of motion Respiratory Exam: normal breath sounds, lungs clear Cardiovascular Exam: regular rate/rhythm, normal heart sounds Gastrointestinal/Abdomen Exam: soft, normal bowel sounds, tenderness (Minimal tenderness in suprapubic and bilateral lower quadrants without guarding or rebound tenderness.) Back Exam: normal inspection, normal range of motion, No CVA tenderness Extremity Exam: normal inspection, normal range of motion Neurologic Exam: alert, oriented x 3, cooperative Skin Exam: normal color SpO2 Interpretation: normal SpO2: 100 O2 Delivery: Room Air Ordered Tests: Active Orders 24 hr Category Date Time Status IV Insertion STAT Care 11/06/21 14:26 Active OBSTR/ACUTE ABDOMEN SERIES Stat Exams 11/06/21 14:27 Taken BMP Stat Lab 11/06/21 18:04 Completed CBC W DIFF Stat Lab 11/06/21 14:49 Completed CMP Stat Lab 11/06/21 14:49 Completed HCG QUALITATIVE,SERUM Stat Lab 11/06/21 Completed LIPASE Stat Lab 11/06/21 14:49 Completed Lactic Acid Stat Lab 11/06/21 14:40 Completed POCT GLUCOSE Stat Lab 11/06/21 14:03 Completed UA W/RFX CULTURE Stat Lab 11/06/21 17:30 Completed VENOUS BLOOD GAS Stat Lab 11/06/21 16:06 Completed Medication Summary Discontinued Medications Generic Name Dose Route Start Last Admin Trade Name Freq PRN Reason Stop Dose Admin Sodium Chloride 1,000 mls @ 999 mls/hr 11/06/21 14:26 11/06/21 15:49 Sodium Chloride 0.9% 1000 Ml IV 11/06/21 15:26 Infused .Q1H1M STA Infusion Sodium Chloride Confirm 11/06/21 14:33 Sodium Chloride 0.9% 1000 Ml Administered 11/06/21 14:34 Dose 1,000 mls @ ud .ROUTE .STK-MED ONE Sodium Chloride 1,000 mls @ 999 mls/hr 11/06/21 16:51 11/06/21 18:34 Sodium Chloride 0.9% 1000 Ml IV 11/06/21 17:51 Infused .Q1H1M STA Infusion Sodium Chloride Confirm 11/06/21 17:27 Sodium Chloride 0.9% 1000 Ml Administered 11/06/21 17:28 Dose 1,000 mls @ ud .ROUTE .STK-MED ONE Morphine Sulfate 4 mg 11/06/21 14:26 11/06/21 14:34 Morphine Sulfate 4 Mg/Ml Injection IV 11/06/21 14:27 4 mg STAT ONE Administration Morphine Sulfate Confirm 11/06/21 14:33 Morphine Sulfate 4 Mg/Ml Injection Administered 11/06/21 14:34 Dose 4 mg .ROUTE .STK-MED ONE Ondansetron HCl 4 mg 11/06/21 14:26 11/06/21 14:34 Ondansetron Hcl 4 Mg/2 Ml Vial IV 11/06/21 14:27 4 mg STAT ONE Administration Ondansetron HCl Confirm 11/06/21 14:32 Ondansetron Hcl 4 Mg/2 Ml Vial Administered 11/06/21 14:33 Dose 4 mg .ROUTE .STK-MED ONE Lab/Rad Data: Laboratory Result Diagrams 11/06/21 14:49 11/06/21 18:04 Laboratory Results 11/06/21 11/06/21 11/06/21 Range/Units Unknown Unknown 18:04 WBC (4.0-10.5) x10^3/uL RBC (4.1-5.4) x10^6/uL Hgb (12.0-16.0) g/dL Hct (35-47) % MCV (78-100) fL MCH (26-32) pg MCHC (32-36) g/dL RDW (11.5-14.0) % Plt Count (150-450) x10^3/uL MPV (7.5-11.0) fL Gran % (36.0-66.0) % Immature Gran % (Auto) (0.00-0.4) % Nucleat RBC Rel Count (0.00-0.1) % Eos # (Auto) (0-0.5) x10^3/uL Immature Gran # (Auto) (0.00-0.03) x10^3u/L Absolute Lymphs (auto) (1.0-4.6) x10^3/uL Absolute Monos (auto) (0.0-1.3) x10^3/uL Absolute Nucleated RBC (0.00-0.01) x10^3u/L Lymphocytes % (24.0-44.0) % Monocytes % (0.0-12.0) % Eosinophils % (0.00-5.0) % Basophils % (0.0-0.4) % Absolute Granulocytes (1.4-6.9) x10^3/uL Basophils # (0-0.4) x10^3/uL pO2/FiO2 Ratio % VBG pH (7.32-7.42) VBG pCO2 at Pat Temp (42-55) mm/Hg VBG pO2 at Pat Temp (25-40) mm/Hg VBG HCO3 (22-28) meq/L VBG O2 Sat (Jason) (95-100) VBG Base Excess (-2.0-2.0) VBG Hemoglobin VBG Carboxyhemoglobin (0.0-6.9) % T HGB POC Potassium (3.5-5.1) Sodium 138 (137-145) mmol/L Potassium 4.1 (3.5-5.1) mmol/L Chloride 105 (98-107) mmol/L Carbon Dioxide 20 L (22-30) mmol/L Anion Gap 17.1 H (5-15) MEQ/L BUN 8 (7-17) mg/dL Creatinine 0.60 (0.52-1.04) mg/dL Estimated GFR > 60.0 ML/MIN Glucose 181 H (74-106) mg/dL POC Glucometer (74 to 106) mg/dL Lactic Acid (0.4-2.0) Calcium 8.5 (8.4-10.2) mg/dL Total Bilirubin (0.2-1.3) mg/dL AST (14-36) U/L ALT (0-35) U/L Alkaline Phosphatase (38-126) U/L Serum Total Protein (6.3-8.2) g/dL Albumin (3.5-5.0) g/dL Lipase (23-300) U/L Serum , Qual NEGATIVE (Negative) Urinalys Dipstick Clnc Urine Color (YELLOW) Urine Appearance (CLEAR) Urine pH (5-6) Ur Specific [place] (1.005-1.025) POC Urine Protein Conf (Negative) Urine Ketones (NEGATIVE) Urine Nitrite (NEGATIVE) Urine Bilirubin (NEGATIVE) Urine Urobilinogen (0-1) mg/dL Urine Leukocytes (NEGATIVE) Urine WBC (Auto) (0-5) /HPF Urine RBC (Auto) (0-2) /HPF U Epithel Cells (Auto) (FEW) /HPF Urine Bacteria (Auto) (NEGATIVE) /HPF Urine RBC (0-5) Isaac/ul Urine Mucus (Auto) (NEGATIVE) /HPF Ur Culture Indicated? Urine Glucose (NEGATIVE) mg/dL Influenza Type A Ag NEGATIVE (NEGATIVE) Influenza Type B Ag NEGATIVE (NEGATIVE) RSV (PCR) NEGATIVE (Negative) SARS-CoV-2 (PCR) POSITIVE A (NEGATIVE) 11/06/21 11/06/21 11/06/21 Range/Units 17:30 16:06 14:49 WBC (4.0-10.5) x10^3/uL RBC (4.1-5.4) x10^6/uL Hgb (12.0-16.0) g/dL Hct (35-47) % MCV (78-100) fL MCH (26-32) pg MCHC (32-36) g/dL RDW (11.5-14.0) % Plt Count (150-450) x10^3/uL MPV (7.5-11.0) fL Gran % (36.0-66.0) % Immature Gran % (Auto) (0.00-0.4) % Nucleat RBC Rel Count (0.00-0.1) % Eos # (Auto) (0-0.5) x10^3/uL Immature Gran # (Auto) (0.00-0.03) x10^3u/L Absolute Lymphs (auto) (1.0-4.6) x10^3/uL Absolute Monos (auto) (0.0-1.3) x10^3/uL Absolute Nucleated RBC (0.00-0.01) x10^3u/L Lymphocytes % (24.0-44.0) % Monocytes % (0.0-12.0) % Eosinophils % (0.00-5.0) % Basophils % (0.0-0.4) % Absolute Granulocytes (1.4-6.9) x10^3/uL Basophils # (0-0.4) x10^3/uL pO2/FiO2 Ratio 21.0 % VBG pH 7.42 (7.32-7.42) VBG pCO2 at Pat Temp 25 L (42-55) mm/Hg VBG pO2 at Pat Temp 126 H (25-40) mm/Hg VBG HCO3 16.2 L* (22-28) meq/L VBG O2 Sat (Jason) 99.4 (95-100) VBG Base Excess -6.5 L (-2.0-2.0) VBG Hemoglobin 12.7 VBG Carboxyhemoglobin 2.5 (0.0-6.9) % T HGB POC Potassium 4.5 (3.5-5.1) Sodium 135 L (137-145) mmol/L Potassium 4.2 (3.5-5.1) mmol/L Chloride 103 (98-107) mmol/L Carbon Dioxide 15 L* (22-30) mmol/L Anion Gap 20.8 H (5-15) MEQ/L BUN 10 (7-17) mg/dL Creatinine 0.58 (0.52-1.04) mg/dL Estimated GFR > 60.0 ML/MIN Glucose 294 H (74-106) mg/dL POC Glucometer (74 to 106) mg/dL Lactic Acid (0.4-2.0) Calcium 8.7 (8.4-10.2) mg/dL Total Bilirubin 0.40 (0.2-1.3) mg/dL AST 23 (14-36) U/L ALT 11 (0-35) U/L Alkaline Phosphatase 59 (38-126) U/L Serum Total Protein 6.9 (6.3-8.2) g/dL Albumin 4.0 (3.5-5.0) g/dL Lipase 51 (23-300) U/L Serum , Qual (Negative) Urinalys Dipstick Clnc MAIN LAB Urine Color YELLOW (YELLOW) Urine Appearance CLEAR (CLEAR) Urine pH 5.5 (5-6) Ur Specific [place] 1.020 (1.005-1.025) POC Urine Protein Conf NEGATIVE (Negative) Urine Ketones >=160 (NEGATIVE) Urine Nitrite NEGATIVE (NEGATIVE) Urine Bilirubin SMALL (NEGATIVE) Urine Urobilinogen 0.2 (0-1) mg/dL Urine Leukocytes NEGATIVE (NEGATIVE) Urine WBC (Auto) 3-5 (0-5) /HPF Urine RBC (Auto) 51-100 (0-2) /HPF U Epithel Cells (Auto) RARE (FEW) /HPF Urine Bacteria (Auto) NONE SEEN (NEGATIVE) /HPF Urine RBC LARGE (0-5) Isaac/ul Urine Mucus (Auto) SLIGHT (NEGATIVE) /HPF Ur Culture Indicated? NO Urine Glucose 250 (NEGATIVE) mg/dL Influenza Type A Ag (NEGATIVE) Influenza Type B Ag (NEGATIVE) RSV (PCR) (Negative) SARS-CoV-2 (PCR) (NEGATIVE) 11/06/21 11/06/21 11/06/21 Range/Units 14:49 14:40 14:03 WBC 7.6 (4.0-10.5) x10^3/uL RBC 4.17 (4.1-5.4) x10^6/uL Hgb 12.2 (12.0-16.0) g/dL Hct 37.6 (35-47) % MCV 90.2 (78-100) fL MCH 29.3 (26-32) pg MCHC 32.4 (32-36) g/dL RDW 13.4 (11.5-14.0) % Plt Count 192 (150-450) x10^3/uL MPV 10.1 (7.5-11.0) fL Gran % 85.1 H (36.0-66.0) % Immature Gran % (Auto) 0.3 (0.00-0.4) % Nucleat RBC Rel Count 0.0 (0.00-0.1) % Eos # (Auto) 0.03 (0-0.5) x10^3/uL Immature Gran # (Auto) 0.02 (0.00-0.03) x10^3u/L Absolute Lymphs (auto) 0.70 L (1.0-4.6) x10^3/uL Absolute Monos (auto) 0.36 (0.0-1.3) x10^3/uL Absolute Nucleated RBC 0.00 (0.00-0.01) x10^3u/L Lymphocytes % 9.2 L (24.0-44.0) % Monocytes % 4.7 (0.0-12.0) % Eosinophils % 0.4 (0.00-5.0) % Basophils % 0.3 (0.0-0.4) % Absolute Granulocytes 6.49 (1.4-6.9) x10^3/uL Basophils # 0.02 (0-0.4) x10^3/uL pO2/FiO2 Ratio % VBG pH (7.32-7.42) VBG pCO2 at Pat Temp (42-55) mm/Hg VBG pO2 at Pat Temp (25-40) mm/Hg VBG HCO3 (22-28) meq/L VBG O2 Sat (Jason) (95-100) VBG Base Excess (-2.0-2.0) VBG Hemoglobin VBG Carboxyhemoglobin (0.0-6.9) % T HGB POC Potassium (3.5-5.1) Sodium (137-145) mmol/L Potassium (3.5-5.1) mmol/L Chloride (98-107) mmol/L Carbon Dioxide (22-30) mmol/L Anion Gap (5-15) MEQ/L BUN (7-17) mg/dL Creatinine (0.52-1.04) mg/dL Estimated GFR ML/MIN Glucose (74-106) mg/dL POC Glucometer 244 H (74 to 106) mg/dL Lactic Acid 0.6 (0.4-2.0) Calcium (8.4-10.2) mg/dL Total Bilirubin (0.2-1.3) mg/dL AST (14-36) U/L ALT (0-35) U/L Alkaline Phosphatase (38-126) U/L Serum Total Protein (6.3-8.2) g/dL Albumin (3.5-5.0) g/dL Lipase (23-300) U/L Serum , Qual (Negative) Urinalys Dipstick Clnc Urine Color (YELLOW) Urine Appearance (CLEAR) Urine pH (5-6) Ur Specific [place] (1.005-1.025) POC Urine Protein Conf (Negative) Urine Ketones (NEGATIVE) Urine Nitrite (NEGATIVE) Urine Bilirubin (NEGATIVE) Urine Urobilinogen (0-1) mg/dL Urine Leukocytes (NEGATIVE) Urine WBC (Auto) (0-5) /HPF Urine RBC (Auto) (0-2) /HPF U Epithel Cells (Auto) (FEW) /HPF Urine Bacteria (Auto) (NEGATIVE) /HPF Urine RBC (0-5) Isaac/ul Urine Mucus (Auto) (NEGATIVE) /HPF Ur Culture Indicated? Urine Glucose (NEGATIVE) mg/dL Influenza Type A Ag (NEGATIVE) Influenza Type B Ag (NEGATIVE) RSV (PCR) (Negative) SARS-CoV-2 (PCR) (NEGATIVE) - Progress Progress: improved, re-examined Progress Note: 11/06/21 18:42 26-year-old is evaluated for nausea vomiting with flulike symptoms. She also had abdominal pain but on exam no peritoneal signs. She is given fluid bolus along with symptomatic treatment, on reevaluation she is feeling much better. Work-up showed blood glucose in 200s with a gap of almost 21 and bicarb of 15 with normal venous pH. Does have ketones in urine. I have repeated BMP and has improvement in gap and bicarb. Blood sugar is 181. Patient does have insulin pump. Reports that blood sugar usually stays between [id number]. I think patient's work-up is more secondary to dehydration, she is getting second bolus of fluid. I have offered her observation admission but she wants to go home. Feel the COVID-positive as well but chest x-ray with, x-ray of abdomen reviewed by me did not show any acute findings. He is being discharged with outpatient follow-up. Discussed signs symptoms of worsening needing return to ER which he seems understanding. Counseled pt/family regarding: lab results, diagnosis, need for follow-up, rad results - Departure Departure Disposition: Home Clinical Impression: Nausea & vomiting, Dehydration, Hyperglycemia due to type 1 diabetes mellitus, COVID-19 Condition: Stable Critical Care Time: No Referrals: MAGDY BELTRAN [Primary Care Provider] - Follow up/PCP as directed (In 2 days for reevaluation.) Instructions: High Blood Sugar, Adult (DC), COVID-19 (DC) Additional Instructions: Drink plenty of fluids. Follow-up with primary care for reevaluation. Monitor your blood sugar regularly and increase dose of insulin if needed. Return to ER for having abdominal pain, intractable nausea vomiting. Take Tylenol as needed for fever or chills. Follow contact/droplet precautions for COVID-19.
[2021-11-06 14:51] LABS: Absolute Neutrophil Ct (ANC) 6.49 x10^3/uL (1.4-6.9); Basophil (Absolute #) 0.02 x10^3/uL (0-0.4); Eosinophil % 0.4 % (0.00-5.0); Eosinophil (Absolute #) 0.03 x10^3/uL (0-0.5); Hematocrit 37.6 % (35-47); Hemoglobin 12.2 g/dL (12.0-16.0); Lymphocytes % 9.2 % (24.0-44.0); Mean Cell Volume 90.2 fL (78-100); Mean Corpuscular Hemoglobin 29.3 pg (26-32); Mean Corpuscular Hgb Concent. 32.4 g/dL (32-36); Mean Platelet Volume 10.1 fL (7.5-11.0); Monocyte (Absolute #) 0.36 x10^3/uL (0.0-1.3); Monocytes % 4.7 % (0.0-12.0); Neutrophil % 85.1 % (36.0-66.0); Platelet Count 192 x10^3/uL (150-450); Red Blood Count 4.17 x10^6/uL (4.1-5.4); Red Cell Distribution Width 13.4 % (11.5-14.0); White Blood Count 7.6 x10^3/uL (4.0-10.5)
[2021-11-06 15:05] LABS: ALKALINE PHOSPHATASE 59 U/L (38-126); ANION GAP 20.8 MEQ/L (5-15); BLOOD UREA NITROGEN 10 mg/dL (7-17); CHLORIDE 103 mmol/L (98-107); Calcium 8.7 mg/dL (8.4-10.2); Creatinine 1 0.58 mg/dL (0.52-1.04); EST GLOMERULAR FILTRATION RATE > 60.0 ML/MIN; Glucose 294 mg/dL (74-106); LIPASE 51 U/L (23-300); Potassium 4.2 mmol/L (3.5-5.1); SGOT/AST 23 U/L (14-36); SGPT/ALT 11 U/L (0-35); SODIUM 135 mmol/L (137-145); Total Protein 6.9 g/dL (6.3-8.2)
[2021-11-06 15:06] LABS: Carbon Dioxide 15 mmol/L (22-30)
[2021-11-06 15:55] LABS: INFLUENZA A NEGATIVE (NEGATIVE); INFLUENZA B NEGATIVE (NEGATIVE); RESPIRATORY SYNCTIAL VIRUS NEGATIVE (Negative)
[2021-11-06 16:00] LABS: SARS-CoV-2 Xpert Express POSITIVE (NEGATIVE)
[2021-11-06 16:10] LABS: VBG BASE EXCESS -6.5 (-2.0-2.0); VBG CARBOXYHEMOGLOBIN 2.5 % T HGB (0.0-6.9); VBG HCO3- 16.2 meq/L (22-28); VBG HEMOGLOBIN 12.7; VBG O2 SATURATION 99.4 (95-100); VBG POTASSIUM 4.5 (3.5-5.1); VBG pH 7.42 (7.32-7.42)
[2021-11-06 17:52] LABS: Epithelial Cells RARE /HPF (FEW); Mucus SLIGHT /HPF (NEGATIVE); RBC 51-100 /HPF (0-2)
[2021-11-06 17:53] LABS: Appearance CLEAR (CLEAR); Bilirubin SMALL (NEGATIVE); Dipstick done @ ? MAIN LAB; Glucose 250 mg/dL (NEGATIVE); Ketones >=160 (NEGATIVE); Nitrite NEGATIVE (NEGATIVE); Ph 5.5 (5-6); Protein,Urine Dip NEGATIVE (Negative); RBC LARGE Ery/ul (0-5); Urobilinogen 0.2 mg/dL (0-1)
[2021-11-06 17:54] LABS: Bacteria NONE SEEN /HPF (NEGATIVE); Urine Cultured Indicated? NO
[2021-11-06 18:18] LABS: ANION GAP 17.1 MEQ/L (5-15); BLOOD UREA NITROGEN 8 mg/dL (7-17); CHLORIDE 105 mmol/L (98-107); Calcium 8.5 mg/dL (8.4-10.2); Carbon Dioxide 20 mmol/L (22-30); EST GLOMERULAR FILTRATION RATE > 60.0 ML/MIN; Glucose 181 mg/dL (74-106); Potassium 4.1 mmol/L (3.5-5.1); SODIUM 138 mmol/L (137-145)
[2021-11-06 19:38] VITALS: BP 125/66; PULSE 64; O2SAT 100
--- NOTE | 2021-11-06 21:22 | XRAY ---
Indication: Cough and cramps. Comparison: Chest exam January 01, 2016 2 view abdomen nonacute and nonobstructed with incidental right lateral electronic device. Solid organs unremarkable. Osseous structures intact with mild double curvature thoracolumbar scoliosis. AP chest again demonstrates normal heart, lungs, and bony thorax. Impression: Negative abdomen. Continued normal 1 view chest. Incidental scoliosis.
== END 2021-11-06 19:40 | disposition home or self-care (01) ==
LOC: ED 13:41
DX: E86.0 Dehydration (principal); R11.2 Nausea with vomiting, unspecified; E10.65 Type 1 diabetes mellitus with hyperglycemia; U07.1 COVID-19; M79.10 Myalgia, unspecified site; R53.83 Other fatigue; R09.81 Nasal congestion; R05.9 Cough, unspecified; Z79.4 Long term (current) use of insulin; Z96.41 Presence of insulin pump (external) (internal); Z28.310 Unvaccinated for COVID-19; Z20.822 Contact with and (suspected) exposure to COVID-19
CPT/HCPCS: 0241U; 36000; 36415; 74022; 80048; 80053; 81015; 82805; 82947; 83605; 83690; 84703; 85025; 96360; 96361; 96374; 96375; 99284; J2270; J2405

== ENCOUNTER 2022-04-19 18:57 | Emergency (ER) | payer OTHER ==
--- NOTE | 2022-04-19 19:02 | ERPHSYRPT ---
- History of Present Illness Time Seen by Provider: 04/19/22 19:02 Historian: patient Exam Limitations: no limitations Physician History: This is a 26-year-old white female who has a history of insulin-dependent diabetes and has insulin pump in place. She was brought into the emergency room 1-1/2 hours after sudden onset of generalized abdominal pain with immediate vo miting and several episodes of dry heaving. In the emergency department, her significant other brought her and confirmed the history. Patient woke up this morning feeling fine. Patient has no known exposure to any individuals with flulike symptoms. Patient did not suffer any trauma to her abdomen. Patient has not had any diarrhea. Patient denies shortness of breath and denies chest pain Timing/Duration: today Activities at Onset: none Quality: cramping Abdominal Pain Onset Location: generalized abdomen Pain Radiation: no radiation Severity of Pain-Max: moderate Severity of Pain-Current: moderate Modifying Factors: Improves With: vomiting Associated Symptoms: loss of appetite, nausea, vomiting Previous symptoms: no prior history Allergies/Adverse Reactions: sulfamethoxazole [From Bactrim] Allergy (Verified 11/06/21 13:55) trimethoprim [From Bactrim] Allergy (Verified 11/06/21 13:55) Home Medications: Dextroamphetamine/Amphetamine [Dextroamp-Amphet ER 20 mg Cap] 20 mg PO DAILY 11/06/21 [History] Insulin Aspart Prot/Insuln Asp [Relion Novolog Mix 70-30 Flxpn] 100 unit SQ DAILY 11/06/21 [History] PARoxetine HCL [Paxil] 20 mg PO DAILY 04/19/22 [History] Hx Tetanus, Diphtheria Vaccination/Date Given: No Hx Influenza Vaccination/Date Given: Yes Hx Pneumococcal Vaccination/Date Given: No Travel Risk - International Travel Have you traveled outside of the country in past 3 weeks: No - Coronavirus Screening Are you exhibiting any of the following symptoms?: Yes Symptoms: Vomiting/Diarrhea, Headaches/Body Aches/Fatigue Close contact with a COVID-19 positive Pt in past 14-21 Days: No - Vaccine Status Have you recieved a Covid-19 vaccination: No - Review of Systems Constitutional: Weakness Eyes: No Symptoms Ears, Nose, & Throat: No Symptoms Respiratory: No Symptoms Cardiac: No Symptoms Abdominal/Gastrointestinal: Abdominal Pain, Nausea, Vomiting Genitourinary Symptoms: No Symptoms Musculoskeletal: No Symptoms Skin: No Symptoms Neurological: No Symptoms Psychological: No Symptoms Endocrine: No Symptoms Hematologic/Lymphatic: No Symptoms Immunological/Allergic: No Symptoms All Other Systems: Reviewed and Negative - Past Medical History Pertinent Past Medical History: Yes Neurological History: No Pertinent History ENT History: No Pertinent History Cardiac History: No Pertinent History Respiratory History: No Pertinent History Endocrine Medical History: Diabetes Type I Musculoskeletal History: No Pertinent History GI Medical History: No Pertinent History History: No Pertinent History Psycho-Social History: Depression Female Reproductive Disorders: No Pertinent History Other Medical History: DIABETES - Past Surgical History Past Surgical History: Yes (d&c june 2016) Neuro Surgical History: No Pertinent History Cardiac: No Pertinent History Respiratory: No Pertinent History Gastrointestinal: No Pertinent History Genitourinary: No Pertinent History Musculoskeletal: No Pertinent History Female Surgical History: Dilation & Curettage, Section Other Surgical History: INSULIN PUMP - Social History Smoking Status: Never smoker How long have you smoked: 2 years Exposure to second hand smoke: No Drug Use: marijuana Patient Lives Alone: No - Nursing Vital Signs Nursing Vital Signs: Initial Vital Signs Temperature 97.2 F 04/19/22 18:58 Pulse Rate 108 H 04/19/22 18:58 Respiratory Rate 28 H 04/19/22 18:58 Blood Pressure 112/72 04/19/22 18:58 O2 Sat by Pulse Oximetry 99 04/19/22 18:58 Pain Scale Pain Intensity 2 - Physical Exam General Appearance: mild distress, alert, anxiety, thin Eye Exam: PERRL/EOMI, eyes nml inspection Ears, Nose, Throat Exam: dry mucous membranes Neck Exam: normal inspection, non-tender, supple, full range of motion Respiratory Exam: normal breath sounds, lungs clear, airway intact, No chest tenderness, No respiratory distress Cardiovascular Exam: tachycardia Gastrointestinal/Abdomen Exam: soft, normal bowel sounds, tenderness (Gene ralized), guarding, No rebound Pelvic Exam: not done Rectal Exam: not done Back Exam: normal inspection, normal range of motion, No CVA tenderness Extremity Exam: normal inspection, normal range of motion, pelvis stable Neurologic Exam: alert, oriented x 3, cooperative, 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, normal mood/affect, nml cerebellar function, nml station & gait, sensation nml Skin Exam: normal color, warm, dry Lymphatic Exam: No adenopathy SpO2 Interpretation: normal O2 Delivery: Room Air - Course Nursing assessment & vital signs reviewed: Yes Ordered Tests: Active Orders 24 hr Category Date Time Status IV Insertion STAT Care 04/19/22 19:20 Active ABDOMEN AND PELVIS W/0 CONTRAS [CT] Stat Exams 04/19/22 19:20 Taken AMYLASE Stat Lab 04/19/22 19:20 Completed BMP Stat Lab 04/19/22 23:35 Completed CBC W DIFF Stat Lab 04/19/22 19:20 Completed CBC W DIFF Stat Lab 04/19/22 23:35 Completed CMP Stat Lab 04/19/22 19:20 Completed CULTURE,URINE Stat Lab 04/19/22 21:59 Received HCG QUALITATIVE,SERUM Stat Lab 04/19/22 19:00 Completed LIPASE Stat Lab 04/19/22 19:20 Completed UA W/RFX UR CULTURE Stat Lab 04/19/22 21:59 Completed Medication Summary Discontinued Medications Generic Name Dose Route Start Last Admin Trade Name Freq PRN Reason Stop Dose Admin Hydromorphone HCl 1 mg 04/19/22 19:20 04/19/22 19:28 Hydromorphone 1 Mg/1ml Inj 1 Mg/Ml Syringe IV 04/19/22 19:21 1 mg STAT ONE Administration Hydromorphone HCl Confirm 04/19/22 19:27 Hydromorphone 1 Mg/1ml Inj 1 Mg/Ml Syringe Administered 04/19/22 19:28 Dose 1 mg .ROUTE .STK-MED ONE Sodium Chloride 1,000 mls @ 999 mls/hr 04/19/22 19:20 04/19/22 20:52 Sodium Chloride 0.9% 1000 Ml IV 04/19/22 20:20 Infused .Q1H1M STA Infusion Sodium Chloride Confirm 04/19/22 19:27 Sodium Chloride 0.9% 1000 Ml Administered 04/19/22 19:28 Dose 1,000 mls @ ud .ROUTE .STK-MED ONE Sodium Chloride 1,000 mls @ 999 mls/hr 04/19/22 19:54 04/19/22 22:08 Sodium Chloride 0.9% 1000 Ml IV 04/19/22 20:54 Infused .Q1H1M STA Infusion Sodium Chloride Confirm 04/19/22 20:39 Sodium Chloride 0.9% 1000 Ml Administered 04/19/22 20:40 Dose 1,000 mls @ ud .ROUTE .STK-MED ONE Sodium Chloride 1,000 mls @ 999 mls/hr 04/19/22 22:03 04/20/22 00:04 Sodium Chloride 0.9% 1000 Ml IV 04/19/22 23:03 Infused .Q1H1M STA Infusion Sodium Chloride Confirm 04/19/22 22:11 Sodium Chloride 0.9% 1000 Ml Administered 04/19/22 22:12 Dose 1,000 mls @ ud .ROUTE .STK-MED ONE Ondansetron HCl 4 mg 04/19/22 19:20 04/19/22 19:28 Ondansetron Hcl 4 Mg/2 Ml Vial IV 04/19/22 19:21 4 mg STAT ONE Administration Ondansetron HCl Confirm 04/19/22 19:27 Ondansetron Hcl 4 Mg/2 Ml Vial Administered 04/19/22 19:28 Dose 4 mg .ROUTE .STK-MED ONE Lab/Rad Data: Laboratory Result Diagrams 04/19/22 23:35 04/19/22 23:35 Laboratory Results 04/19/22 04/19/22 04/19/22 Range/Units 23:35 23:35 21:59 WBC 12.1 H (4.0-10.5) x10^3/uL RBC 3.84 L (4.1-5.4) x10^6/uL Hgb 11.4 L D (12.0-16.0) g/dL Hct 35.6 (35-47) % MCV 92.7 D (78-100) fL MCH 29.7 (26-32) pg MCHC 32.0 (32-36) g/dL RDW 13.6 (11.5-14.0) % Plt Count 250 D (150-450) x10^3/uL MPV 9.9 (7.5-11.0) fL Gran % 95.5 H (36.0-66.0) % Immature Gran % (Auto) 0.2 (0.00-0.4) % Nucleat RBC Rel Count 0.0 (0.00-0.1) % Eos # (Auto) 0.01 (0-0.5) x10^3/uL Immature Gran # (Auto) 0.03 (0.00-0.03) x10^3u/L Absolute Lymphs (auto) 0.13 L (1.0-4.6) x10^3/uL Absolute Monos (auto) 0.35 (0.0-1.3) x10^3/uL Absolute Nucleated RBC 0.00 (0.00-0.01) x10^3u/L Lymphocytes % 1.1 L (24.0-44.0) % Monocytes % 2.9 (0.0-12.0) % Eosinophils % 0.1 (0.00-5.0) % Basophils % 0.2 (0.0-0.4) % Absolute Granulocytes 11.59 H (1.4-6.9) x10^3/uL Basophils # 0.02 (0-0.4) x10^3/uL Sodium 138 (137-145) mmol/L Potassium 4.2 (3.5-5.1) mmol/L Chloride 113 H (98-107) mmol/L Carbon Dioxide 18 L (22-30) mmol/L Anion Gap 10.9 (5-15) MEQ/L BUN 16 (7-17) mg/dL Creatinine 0.42 L (0.52-1.04) mg/dL Estimated GFR > 60.0 ML/MIN Glucose 158 H (74-106) mg/dL Calcium 6.9 L D (8.4-10.2) mg/dL Total Bilirubin (0.2-1.3) mg/dL AST (14-36) U/L ALT (0-35) U/L Alkaline Phosphatase (38-126) U/L Serum Total Protein (6.3-8.2) g/dL Albumin (3.5-5.0) g/dL Amylase (30-110) U/L Lipase (23-300) U/L Serum , Qual (Negative) Urine Color Yellow (Yellow) Urine Appearance Clear (Clear) Urine pH 6.0 (4.6-8.0) Ur Specific [place] 1.020 (1.005-1.030) Urine Protein Negative (Negative) Urine Glucose (UA) Negative (Negative) mg/dL Urine Ketones Trace A (Negative) Urine Blood Large A (Negative) Urine Nitrite Negative (Negative) Urine Bilirubin Negative (Negative) Urine Urobilinogen 0.2 (0.2) mg/dL Ur Leukocyte Esterase Trace A (Negative) U Hyaline Cast (Auto) NONE SEEN (0-2) /LPF Urine Microscopic RBC 6-10 A (0-5) /HPF Urine Microscopic WBC 6-10 A (0-5) /HPF Ur Epithelial Cells Few (None Seen) /HPF Urine Bacteria Rare A (None Seen) /HPF Urine Culture Reflexed YES (NO) Influenza Type A Ag (NEGATIVE) Influenza Type B Ag (NEGATIVE) RSV (PCR) (Negative) SARS-CoV-2 (PCR) (NEGATIVE) Slides for Path Review 04/19/22 04/19/22 04/19/22 Range/Units 19:20 19:20 19:20 WBC 21.1 H (4.0-10.5) x10^3/uL RBC 4.98 (4.1-5.4) x10^6/uL Hgb 14.6 (12.0-16.0) g/dL Hct 43.0 (35-47) % MCV 86.3 (78-100) fL MCH 29.3 (26-32) pg MCHC 34.0 (32-36) g/dL RDW 13.3 (11.5-14.0) % Plt Count 445 (150-450) x10^3/uL MPV 9.6 (7.5-11.0) fL Gran % 94.0 H (36.0-66.0) % Immature Gran % (Auto) 0.5 H (0.00-0.4) % Nucleat RBC Rel Count 0.0 (0.00-0.1) % Eos # (Auto) 0.01 (0-0.5) x10^3/uL Immature Gran # (Auto) 0.10 H (0.00-0.03) x10^3u/L Absolute Lymphs (auto) 0.44 L (1.0-4.6) x10^3/uL Absolute Monos (auto) 0.70 (0.0-1.3) x10^3/uL Absolute Nucleated RBC 0.00 (0.00-0.01) x10^3u/L Lymphocytes % 2.1 L (24.0-44.0) % Monocytes % 3.3 (0.0-12.0) % Eosinophils % 0.0 (0.00-5.0) % Basophils % 0.1 (0.0-0.4) % Absolute Granulocytes 19.85 H (1.4-6.9) x10^3/uL Basophils # 0.03 (0-0.4) x10^3/uL Sodium 133 L (137-145) mmol/L Potassium 3.6 (3.5-5.1) mmol/L Chloride 103 (98-107) mmol/L Carbon Dioxide 18 L (22-30) mmol/L Anion Gap 15.8 H (5-15) MEQ/L BUN 18 H (7-17) mg/dL Creatinine 0.58 (0.52-1.04) mg/dL Estimated GFR > 60.0 ML/MIN Glucose 168 H (74-106) mg/dL Calcium 9.4 (8.4-10.2) mg/dL Total Bilirubin 0.70 (0.2-1.3) mg/dL AST 26 (14-36) U/L ALT 16 (0-35) U/L Alkaline Phosphatase 69 (38-126) U/L Serum Total Protein 8.3 H (6.3-8.2) g/dL Albumin 4.8 (3.5-5.0) g/dL Amylase 82 (30-110) U/L Lipase 70 (23-300) U/L Serum , Qual (Negative) Urine Color (Yellow) Urine Appearance (Clear) Urine pH (4.6-8.0) Ur Specific [place] (1.005-1.030) Urine Protein (Negative) Urine Glucose (UA) (Negative) mg/dL Urine Ketones (Negative) Urine Blood (Negative) Urine Nitrite (Negative) Urine Bilirubin (Negative) Urine Urobilinogen (0.2) mg/dL Ur Leukocyte Esterase (Negative) U Hyaline Cast (Auto) (0-2) /LPF Urine Microscopic RBC (0-5) /HPF Urine Microscopic WBC (0-5) /HPF Ur Epithelial Cells (None Seen) /HPF Urine Bacteria (None Seen) /HPF Urine Culture Reflexed (NO) Influenza Type A Ag NEGATIVE (NEGATIVE) Influenza Type B Ag NEGATIVE (NEGATIVE) RSV (PCR) NEGATIVE (Negative) SARS-CoV-2 (PCR) NEGATIVE (NEGATIVE) Slides for Path Review YES 04/19/22 Range/Units 19:00 WBC (4.0-10.5) x10^3/uL RBC (4.1-5.4) x10^6/uL Hgb (12.0-16.0) g/dL Hct (35-47) % MCV (78-100) fL MCH (26-32) pg MCHC (32-36) g/dL RDW (11.5-14.0) % Plt Count (150-450) x10^3/uL MPV (7.5-11.0) fL Gran % (36.0-66.0) % Immature Gran % (Auto) (0.00-0.4) % Nucleat RBC Rel Count (0.00-0.1) % Eos # (Auto) (0-0.5) x10^3/uL Immature Gran # (Auto) (0.00-0.03) x10^3u/L Absolute Lymphs (auto) (1.0-4.6) x10^3/uL Absolute Monos (auto) (0.0-1.3) x10^3/uL Absolute Nucleated RBC (0.00-0.01) x10^3u/L Lymphocytes % (24.0-44.0) % Monocytes % (0.0-12.0) % Eosinophils % (0.00-5.0) % Basophils % (0.0-0.4) % Absolute Granulocytes (1.4-6.9) x10^3/uL Basophils # (0-0.4) x10^3/uL Sodium (137-145) mmol/L Potassium (3.5-5.1) mmol/L Chloride (98-107) mmol/L Carbon Dioxide (22-30) mmol/L Anion Gap (5-15) MEQ/L BUN (7-17) mg/dL Creatinine (0.52-1.04) mg/dL Estimated GFR ML/MIN Glucose (74-106) mg/dL Calcium (8.4-10.2) mg/dL Total Bilirubin (0.2-1.3) mg/dL AST (14-36) U/L ALT (0-35) U/L Alkaline Phosphatase (38-126) U/L Serum Total Protein (6.3-8.2) g/dL Albumin (3.5-5.0) g/dL Amylase (30-110) U/L Lipase (23-300) U/L Serum , Qual NEGATIVE (Negative) Urine Color (Yellow) Urine Appearance (Clear) Urine pH (4.6-8.0) Ur Specific [place] (1.005-1.030) Urine Protein (Negative) Urine Glucose (UA) (Negative) mg/dL Urine Ketones (Negative) Urine Blood (Negative) Urine Nitrite (Negative) Urine Bilirubin (Negative) Urine Urobilinogen (0.2) mg/dL Ur Leukocyte Esterase (Negative) U Hyaline Cast (Auto) (0-2) /LPF Urine Microscopic RBC (0-5) /HPF Urine Microscopic WBC (0-5) /HPF Ur Epithelial Cells (None Seen) /HPF Urine Bacteria (None Seen) /HPF Urine Culture Reflexed (NO) Influenza Type A Ag (NEGATIVE) Influenza Type B Ag (NEGATIVE) RSV (PCR) (Negative) SARS-CoV-2 (PCR) (NEGATIVE) Slides for Path Review - Progress Progress: improved Progress Note: 04/20/22 00:34 CAT scan of the abdomen and pelvis without contrast shows new moderate diffuse fluid distended small and large bowel with wall thickening favoring enterocolitis. There is also new gastroesophageal reflux disease. Medical decision making: This patient's medical problems today are of moderate complexity. Patient had sudden onset of abdominal pain with multiple episodes of vomiting and retching prior to admission into the emergency department. Patient's work-up was dictated by the patient's history, patient's complaint, the patient physical exam findings, additional history obtained from her significant other. The results of the lab work-up and radiographic studies additionally were used to determine the patient's treatment here in the emergency department. Overall, the patient states she is feeling much better and is now tolerating small amounts of liquid orally. Repeat labs here in the emergency department have improved over the initial labs. Patient is well- hydrated. She received antiemetics, intravenous pain medication and intravenous fluids. She is urinating well. Since her symptoms have improved significantly and her repeat labs have also improved with her blood glucose levels remaining at approximately 158, the patient desires to go home and not to be admitted or transferred. I think this is reasonable. Based on the above work-up and the results of it and the response the patient has had to management in the emergency department, I formulated the discharge plan which includes clear l iquid diet, avoid fatty greasy spicy foods, prescription for Zofran. Patient also is to return to the emergency department if symptoms worsen. However she should also contact her primary care provider later today to obtain a follow-up appointment. We will also send a prescription of Protonix and Keflex for treatment of UTI to her pharmacy. 04/20/22 00:40 04/20/22 00:46 Counseled pt/family regarding: lab results, diagnosis, need for follow-up, rad results - Departure Departure Disposition: Home Clinical Impression: Abdominal pain, Enterocolitis, Nausea and vomiting, UTI (urinary tract infection), Gastro-esophageal reflux Condition: Stable Critical Care Time: No Referrals: MAGDY BELTRAN [Primary Care Provider] - Follow up/PCP as directed Additional Instructions: Drink plenty of clear liquids. Do not advance your diet beyond clear liquids until you are tolerating clear liquids well. Avoid fatty greasy spicy foods. Take your medication as prescribed. Return to the emergency department symptoms worsen. Follow-up with your primary care doctor for further instructions and to obtain a follow-up appointment Prescriptions: Ondansetron ODT 4 MG [Zofran Odt 4 mg] 4 mg PO Q6H PRN PRN #10 tablet PRN Reason: Vomiting Metronidazole 500 mg [Flagyl 500 MG] 500 mg PO TID #21 tablet Cephalexin Mh 500 mg [Keflex 500 mg] 500 mg PO TID #21 cap Pantoprazole 20 mg [Protonix 20MG Tablet] 20 mg PO DAILY #7 tab
[2022-04-19] MEDS ORDERED: Hydromorphone 1 mg/ml Injection IV ONE (19:20)
[2022-04-19] MEDS ORDERED: Zofran 4 MG/2 ML VIAL IV ONE (19:20)
[2022-04-19] MEDS ORDERED: Sodium Chloride 0.9% 1000 ML 1,000 ML IV STA ×3 (19:20→22:03)
[2022-04-19] MEDS ORDERED: Zofran 4 MG/2 ML VIAL ONE (19:27)
[2022-04-19] MEDS ORDERED: Sodium Chloride 0.9% 1000 ML 1,000 ML ONE ×3 (19:27→22:11)
[2022-04-19] MEDS ORDERED: Hydromorphone 1 mg/ml Injection ONE (19:27)
[2022-04-19 19:30] LABS: Absolute Neutrophil Ct (ANC) 19.85 x10^3/uL (1.4-6.9); BASOPHIL % 0.1 % (0.0-0.4); Basophil (Absolute #) 0.03 x10^3/uL (0-0.4); Eosinophil (Absolute #) 0.01 x10^3/uL (0-0.5); Hemoglobin 14.6 g/dL (12.0-16.0); IMMATURE GRAN % 0.5 % (0.00-0.4); Lymphocyte (Absolute #) 0.44 x10^3/uL (1.0-4.6); Lymphocytes % 2.1 % (24.0-44.0); Mean Cell Volume 86.3 fL (78-100); Mean Corpuscular Hemoglobin 29.3 pg (26-32); Mean Platelet Volume 9.6 fL (7.5-11.0); Monocytes % 3.3 % (0.0-12.0); Platelet Count 445 x10^3/uL (150-450); Red Blood Count 4.98 x10^6/uL (4.1-5.4); Red Cell Distribution Width 13.3 % (11.5-14.0); White Blood Count 21.1 x10^3/uL (4.0-10.5)
[2022-04-19 19:38] LABS: ALBUMIN 4.8 g/dL (3.5-5.0); ALKALINE PHOSPHATASE 69 U/L (38-126); AMYLASE 82 U/L (30-110); ANION GAP 15.8 MEQ/L (5-15); BLOOD UREA NITROGEN 18 mg/dL (7-17); CHLORIDE 103 mmol/L (98-107); Calcium 9.4 mg/dL (8.4-10.2); Carbon Dioxide 18 mmol/L (22-30); Creatinine 1 0.58 mg/dL (0.52-1.04); EST GLOMERULAR FILTRATION RATE > 60.0 ML/MIN; Glucose 168 mg/dL (74-106); LIPASE 70 U/L (23-300); Potassium 3.6 mmol/L (3.5-5.1); SGOT/AST 26 U/L (14-36); SGPT/ALT 16 U/L (0-35); SODIUM 133 mmol/L (137-145); Total Protein 8.3 g/dL (6.3-8.2)
[2022-04-19 20:07] LABS: INFLUENZA A NEGATIVE (NEGATIVE); INFLUENZA B NEGATIVE (NEGATIVE); RESPIRATORY SYNCTIAL VIRUS NEGATIVE (Negative); SARS-CoV-2 Xpert Express NEGATIVE (NEGATIVE)
[2022-04-19 21:00] LABS: Slide Review 1 YES
[2022-04-19 22:21] LABS: Appearance Clear (Clear); Bacteria Rare /HPF (None Seen); Bilirubin Negative (Negative); Blood Large (Negative); Epithelial Cells Few /HPF (None Seen); Glucose, Urine Negative (Negative); Hyaline Casts NONE SEEN /LPF (0-2); Ketones Trace (Negative); Leukocyte Esterase Trace (Negative); Nitrite Negative (Negative); Protein,Urine Dip Negative (Negative); Urobilinogen 0.2 mg/dL (0.2)
[2022-04-19 22:32] LABS: ADD URINE CULTURE? YES (NO)
[2022-04-19 23:44] LABS: Absolute Neutrophil Ct (ANC) 11.59 x10^3/uL (1.4-6.9); BASOPHIL % 0.2 % (0.0-0.4); Basophil (Absolute #) 0.02 x10^3/uL (0-0.4); Eosinophil % 0.1 % (0.00-5.0); Eosinophil (Absolute #) 0.01 x10^3/uL (0-0.5); Hematocrit 35.6 % (35-47); Hemoglobin 11.4 g/dL (12.0-16.0); IMMATURE GRAN # 0.03 x10^3u/L (0.00-0.03); IMMATURE GRAN % 0.2 % (0.00-0.4); Lymphocyte (Absolute #) 0.13 x10^3/uL (1.0-4.6); Lymphocytes % 1.1 % (24.0-44.0); Mean Cell Volume 92.7 fL (78-100); Mean Corpuscular Hemoglobin 29.7 pg (26-32); Mean Platelet Volume 9.9 fL (7.5-11.0); Monocyte (Absolute #) 0.35 x10^3/uL (0.0-1.3); Monocytes % 2.9 % (0.0-12.0); Neutrophil % 95.5 % (36.0-66.0); Red Blood Count 3.84 x10^6/uL (4.1-5.4); Red Cell Distribution Width 13.6 % (11.5-14.0); White Blood Count 12.1 x10^3/uL (4.0-10.5)
[2022-04-19 23:56] LABS: ANION GAP 10.9 MEQ/L (5-15); BLOOD UREA NITROGEN 16 mg/dL (7-17); CHLORIDE 113 mmol/L (98-107); Carbon Dioxide 18 mmol/L (22-30); Creatinine 1 0.42 mg/dL (0.52-1.04); EST GLOMERULAR FILTRATION RATE > 60.0 ML/MIN; Glucose 158 mg/dL (74-106); Potassium 4.2 mmol/L (3.5-5.1); SODIUM 138 mmol/L (137-145)
[2022-04-19 23:57] LABS: Calcium 6.9 mg/dL (8.4-10.2)
[2022-04-19 23:58] LABS: Platelet Count 250 x10^3/uL (150-450)
[2022-04-20 00:05] VITALS: BP 116/80
[2022-04-20] MEDS ORDERED: ZOFRAN ODT 4 MG PO ONE (00:47)
[2022-04-20] MEDS ORDERED: Zofran 4 MG/2 ML VIAL IV ONE (00:47)
[2022-04-20] MEDS ORDERED: ZOFRAN ODT 4 MG ONE (00:50)
[2022-04-20] MEDS ORDERED: Zofran 4 MG/2 ML VIAL ONE (00:50)
[2022-04-20 01:09] VITALS: PULSE 84; O2SAT 100
--- NOTE | 2022-04-20 08:54 | XRAY ---
Indication: Abdomen pain, nausea, and vomiting. Multiple contiguous axial images obtained through the abdomen and pelvis without contrast. Comparison: December 14, 2015 Lung bases clear. Heart not enlarged. Visualized distal esophagus demonstrates new fluid leveling presumed from gastroesophageal reflux. Noncontrasted stomach and bowel loops appear nonobstructed. New moderate fluid distended small bowel loops throughout with lesser degree seen of the right hemicolon. Several jejunal bowel loops also demonstrates circumferential wall thickening. Findings favor enterocolitis. Appendix not visualized. No free fluid/air. Remaining liver, gallbladder, pancreas, spleen, adrenal glands, kidneys, ureters, bladder, uterus, and aorta are unremarkable for noncontrast exam. Osseous structures intact with mild levoscoliosis. Impression: New CT findings favoring enterocolitis. Incidental GERD.
== END 2022-04-20 01:10 | disposition home or self-care (01) ==
LOC: ED 18:57
DX: K52.9 Noninfective gastroenteritis and colitis, unspecified (principal); N39.0 Urinary tract infection, site not specified; K21.9 Gastro-esophageal reflux disease without esophagitis; R11.2 Nausea with vomiting, unspecified; R10.84 Generalized abdominal pain; E10.9 Type 1 diabetes mellitus without complications; Z79.4 Long term (current) use of insulin; Z96.41 Presence of insulin pump (external) (internal); Z79.899 Other long term (current) drug therapy; Z28.310 Unvaccinated for COVID-19
CPT/HCPCS: 0241U; 36000; 36415; 74176; 80048; 80053; 81001; 82150; 83690; 84703; 85025; 87086; 96360; 96361; 96374; 96375; 96376; 99284; 87077; 87186; J1170; J2405; Q0162

== ENCOUNTER 2023-03-25 08:58 | Observation (INO) | payer OTHER ==
[2023-03-25] MEDS ORDERED: Sodium Chloride 0.9% 1000 ML 1,000 ML ONE (09:21)
[2023-03-25] MEDS ORDERED: Zofran 4 MG/2 ML VIAL ONE (09:21)
[2023-03-25] MEDS ORDERED: Zofran 4 MG/2 ML VIAL IV ONE (09:35)
[2023-03-25 09:41] LABS: Lactic Acid 2.3 (0.4-2.0); VBG CARBOXYHEMOGLOBIN 3.2 % T HGB (0.0-6.9); VBG HCO3- 6.8 meq/L (22-28); VBG HEMOGLOBIN 17.3; VBG O2 SATURATION 73.5 (95-100); VBG POTASSIUM 4.7 (3.5-5.1)
[2023-03-25 09:42] LABS: VBG pH 7.06 (7.32-7.42)
[2023-03-25] MEDS ORDERED: Sodium Chloride 0.9% 1000 ML 1,000 ML IV SCH ×2 (09:45→12:30)
[2023-03-25 09:48] LABS: Absolute Neutrophil Ct (ANC) 14.39 x10^3/uL (1.4-6.9); BASOPHIL % 0.2 % (0.0-0.4); Basophil (Absolute #) 0.04 x10^3/uL (0-0.4); Eosinophil % 0.1 % (0.00-5.0); Eosinophil (Absolute #) 0.01 x10^3/uL (0-0.5); Hematocrit 51.5 % (35-47); Hemoglobin 16.5 g/dL (12.0-16.0); IMMATURE GRAN # 0.07 x10^3u/L (0.00-0.03); IMMATURE GRAN % 0.4 % (0.00-0.4); Lymphocyte (Absolute #) 1.21 x10^3/uL (1.0-4.6); Lymphocytes % 7.5 % (24.0-44.0); Mean Cell Volume 94.8 fL (78-100); Mean Corpuscular Hemoglobin 30.4 pg (26-32); Mean Platelet Volume 9.5 fL (7.5-11.0); Monocyte (Absolute #) 0.42 x10^3/uL (0.0-1.3); Monocytes % 2.6 % (0.0-12.0); Neutrophil % 89.2 % (36.0-66.0); Platelet Count 529 x10^3/uL (150-450); Red Blood Count 5.43 x10^6/uL (4.1-5.4); Red Cell Distribution Width 12.8 % (11.5-14.0); White Blood Count 16.1 x10^3/uL (4.0-10.5)
[2023-03-25 10:00] LABS: Appearance Clear (Clear); Bacteria Few /HPF (None Seen); Bilirubin Negative (Negative); Blood Trace (Negative); Epithelial Cells Rare /HPF (None Seen); Glucose, Urine >=1000 mg/dL (Negative); Ketones >=160 (Negative); Leukocyte Esterase Small (Negative); Nitrite Negative (Negative); Protein,Urine Dip 30 (Negative); RBC 0-2 /HPF (0-5); Specific Gravity 1.025 (1.005-1.030); Urobilinogen 0.2 mg/dL (0.2); WBC 21-50 /HPF (0-5)
[2023-03-25 10:05] LABS: HCG SERUM TEST NEGATIVE (NEGATIVE)
[2023-03-25 10:06] LABS: ALBUMIN 5.7 g/dL (3.5-5.0); ALKALINE PHOSPHATASE 103 U/L (38-126); BLOOD UREA NITROGEN 12 mg/dL (7-17); CHLORIDE 100 mmol/L (98-107); Calcium 9.9 mg/dL (8.4-10.2); Creatinine 1 0.87 mg/dL (0.52-1.04); EST GLOMERULAR FILTRATION RATE 94.8 ML/MIN; Glucose 408 mg/dL (74-106); LIPASE 54 U/L (23-300); Potassium 4.5 mmol/L (3.5-5.1); SGOT/AST 22 U/L (14-36); SGPT/ALT 18 U/L (0-35); SODIUM 133 mmol/L (137-145); Total Protein 10.4 g/dL (6.3-8.2)
[2023-03-25 10:08] LABS: ADD URINE CULTURE? YES (NO)
[2023-03-25 10:09] LABS: Amphetamine,Urine NEGATIVE (NEGATIVE); Barbiturate,Urine NEGATIVE (NEGATIVE); Benzodiazepine,Urine NEGATIVE (NEGATIVE); Cocaine,Urine NEGATIVE (NEGATIVE); Methadone,Urine NEGATIVE (NEGATIVE); Opiate,Urine NEGATIVE (NEGATIVE); PCP,Urine NEGATIVE (NEGATIVE); THC,Urine POSITIVE (NEGATIVE)
[2023-03-25 10:18] LABS: Carbon Dioxide < 5 mmol/L (22-30)
[2023-03-25 10:25] LABS: INFLUENZA A NEGATIVE (NEGATIVE); INFLUENZA B NEGATIVE (NEGATIVE); RESPIRATORY SYNCTIAL VIRUS NEGATIVE (NEGATIVE); SARS-CoV-2 Xpert Express NEGATIVE (NEGATIVE)
[2023-03-25] MEDS ORDERED: Sodium Chloride 0.9% 1000 ML 1,000 ML IV STA (11:11)
[2023-03-25] MEDS: MYXREDLIN 100 UNIT/100 ML BAG 100 UNIT/100 ML PLAST..BAG IV PRN (11:38)
[2023-03-25] MEDS ORDERED: ROCEPHIN 1 Gm-D5w 50 ml Bag** 1 G/50 ML IVPB IV STA (11:50)
--- NOTE | 2023-03-25 11:54 | ERPHSYRPT ---
- History of Present Illness Time Seen by Provider: 03/25/23 11:17 Source: patient, family Exam Limitations: no limitations Patient Subjective Stated Complaint: pt here for n/v for 3 days, she thinks she is in DKA, but does not know what her BS is, she does not have her monitor in place Triage Nursing Assessment: pt alert, walked in, appears ill, skin w/d/pale, no edema noted,dry mucus membranes Physician History: 27 years old female with type 1 diabetes mellitus presented in the ER with chief complaint of off-and-on vomiting with some abdominal discomfort/cramping for the last 3 to 4 days. Last vomiting was earlier this morning and she vomited once last night as well. Patient denies any hematemesis. It was nonprojectile, nonbilious. No diarrhea reported. Patient report her Dexcom was not working and does not know how her blood sugar has been lately. Does have a history of DKA and thinks she is in early DKA. Complaining of cough and congestion without difficulty breathing. No fever or chills reported. Abdominal pain is minimal currently and only with vomiting. She is feeling weak fatigued tired and dehydrated. Allergies/Adverse Reactions: sulfamethoxazole [From Bactrim] Allergy (Verified 03/25/23 09:08) trimethoprim [From Bactrim] Allergy (Verified 03/25/23 09:08) Home Medications: Dextroamphetamine/Amphetamine [Dextroamp-Amphet ER 20 mg Cap] 30 mg PO DAILY 11/06/21 [History] Insulin Aspart Prot/Insuln Asp [Relion Novolog Mix 70-30 Flxpn] 100 unit SQ DAILY 11/06/21 [History] Aripiprazole 10 mg [Abilify 10 MG] 10 mg PO DAILY 03/25/23 [History] Sertraline HCl [Zoloft] 100 mg PO DAILY 03/25/23 [History] Hx Tetanus, Diphtheria Vaccination/Date Given: No Hx Influenza Vaccination/Date Given: Yes Hx Pneumococcal Vaccination/Date Given: No Immunizations Up to Date: Yes Travel Risk - International Travel Have you traveled outside of the country in past 3 weeks: No - Coronavirus Screening Are you exhibiting any of the following symptoms?: No Close contact with a COVID-19 positive Pt in past 14-21 Days: No - Vaccine Status Have you recieved a Covid-19 vaccination: No - Review of Systems Constitutional: Fatigue, Weakness Eyes: No Symptoms Ears, Nose, & Throat: No Symptoms Respiratory: Cough Cardiac: No Symptoms Abdominal/Gastrointestinal: Abdominal Pain, Nausea, Vomiting Genitourinary Symptoms: No Symptoms Musculoskeletal: Myalgias Skin: No Symptoms Neurological: No Symptoms Endocrine: No Symptoms Hematologic/Lymphatic: No Symptoms Immunological/Allergic: No Symptoms - Past Medical History Pertinent Past Medical History: Yes Neurological History: No Pertinent History ENT History: No Pertinent History Cardiac History: No Pertinent History Respiratory History: No Pertinent History Endocrine Medical History: Diabetes Type I Musculoskeletal History: No Pertinent History GI Medical History: No Pertinent History History: No Pertinent History Psycho-Social History: Depression Female Reproductive Disorders: No Pertinent History Other Medical History: DIABETES - Past Surgical History Past Surgical History: Yes (d&c june 2016) Neuro Surgical History: No Pertinent History Cardiac: No Pertinent History Respiratory: No Pertinent History Gastrointestinal: No Pertinent History Genitourinary: No Pertinent History Musculoskeletal: No Pertinent History Female Surgical History: Dilation & Curettage, Section Other Surgical History: INSULIN PUMP - Social History Smoking Status: Former smoker How long have you smoked: 2 years Exposure to second hand smoke: No Drug Use: marijuana Patient Lives Alone: No - Female History Hx Last Menstrual Period: feb Hx Now: No - Nursing Vital Signs Nursing Vital Signs: Initial Vital Signs Pulse Rate 92 H 03/25/23 09:15 Respiratory Rate 25 H 03/25/23 09:15 Blood Pressure 128/86 03/25/23 09:15 Pain Scale Pain Intensity 0 - Physical Exam General Appearance: no apparent distress, alert Eye Exam: PERRL/EOMI Ears, Nose, Throat Exam: normal ENT inspection, TMs normal, pharynx normal, dry mucous membranes Neck Exam: normal inspection, non-tender, supple, full range of motion Respiratory Exam: normal breath sounds, lungs clear Cardiovascular Exam: regular rate/rhythm, normal heart sounds Gastrointestinal/Abdomen Exam: soft, normal bowel sounds, No tenderness, No distention, No guarding Extremity Exam: normal inspection, normal range of motion Neurologic Exam: alert, oriented x 3, cooperative, grinder needle tip II-XII nml as tested Skin Exam: normal color SpO2 Interpretation: normal SpO2: 100 O2 Delivery: Room Air Ordered Tests: Active Orders 24 hr Category Date Time Status Machine Former STAT Care 03/25/23 09:35 Active Clean Catch Urine Specimen STAT Care 03/25/23 09:33 Active Pulse Oximetry (ED) STAT Care 03/25/23 09:35 Active CHEST 2 VIEWS (PA AND LAT) Stat Exams 03/25/23 09:31 Taken CBC W DIFF Stat Lab 03/25/23 09:15 Completed CMP Stat Lab 03/25/23 09:15 Completed CULTURE,URINE Stat Lab 03/25/23 09:34 Received HCG QUALITATIVE, SERUM Stat Lab 03/25/23 09:15 Completed LIPASE Stat Lab 03/25/23 09:15 Completed Lactic Acid Stat Lab 03/25/23 09:35 Completed POCT GLUCOSE Stat Lab 03/25/23 09:16 Completed POCT GLUCOSE Stat Lab 03/25/23 11:08 Completed UA W/RFX UR CULTURE Stat Lab 03/25/23 09:34 Completed Urine Triage Profile Stat Lab 03/25/23 09:34 Completed VENOUS BLOOD GAS Stat Lab 03/25/23 09:35 Completed Transfer Order Routine Transfer 03/25/23 Ordered Medication Summary Generic Name Dose Route Start Last Admin Trade Name Freq PRN Reason Stop Dose Admin Sodium Chloride 1,000 mls @ 100 mls/hr 03/25/23 09:45 03/25/23 09:45 Sodium Chloride 0.9% 1000 Ml IV 04/24/23 09:44 100 mls/hr .Q10H TRISH Administration Sodium Chloride 1,000 mls @ 999 mls/hr 03/25/23 11:11 03/25/23 11:21 Sodium Chloride 0.9% 1000 Ml IV 03/25/23 12:11 999 mls/hr .Q1H1M STA Administration INSULIN REGULAR IN 0.9 % NACL 100 unit in 100 mls @ 4.5 mls/hr 03/25/23 11:20 03/25/23 11:38 Myxredlin 100 Unit/100 Ml Bag IV 04/24/23 11:19 0.1 unit/kg/hr .[id number] PRN 4.5 mls/hr HYPERGLYCEMIA Administration Protocol 0.1 UNIT/KG/HR Ceftriaxone Sodium/Dextrose 1 g in 50 mls @ 100 mls/hr 03/25/23 11:50 Rocephin 1 Gm-D5w 50 Ml Bag IV 03/25/23 12:19 STAT STA Discontinued Medications Generic Name Dose Route Start Last Admin Trade Name Chioma PRN Reason Stop Dose Admin Sodium Chloride Confirm 03/25/23 09:21 Sodium Chloride 0.9% 1000 Ml Administered 03/25/23 09:22 Dose 1,000 mls @ ud .ROUTE .STK-MED ONE Ondansetron HCl Confirm 03/25/23 09:21 Ondansetron Hcl 4 Mg/2 Ml Vial Administered 03/25/23 09:22 Dose 4 mg .ROUTE .STK-MED ONE Ondansetron HCl 4 mg 03/25/23 09:35 03/25/23 09:45 Ondansetron Hcl 4 Mg/2 Ml Vial IV 03/25/23 09:36 4 mg STAT ONE Administration Lab/Rad Data: Laboratory Result Diagrams 03/25/23 09:15 03/25/23 09:15 Laboratory Results 03/25/23 03/25/23 03/25/23 Range/Units 11:08 09:40 09:35 WBC (4.0-10.5) x10^3/uL RBC (4.1-5.4) x10^6/uL Hgb (12.0-16.0) g/dL Hct (35-47) % MCV (78-100) fL MCH (26-32) pg MCHC (32-36) g/dL RDW (11.5-14.0) % Plt Count (150-450) x10^3/uL MPV (7.5-11.0) fL Gran % (36.0-66.0) % Immature Gran % (Auto) (0.00-0.4) % Nucleat RBC Rel Count (0.00-0.1) % Eos # (Auto) (0-0.5) x10^3/uL Immature Gran # (Auto) (0.00-0.03) x10^3u/L Absolute Lymphs (auto) (1.0-4.6) x10^3/uL Absolute Monos (auto) (0.0-1.3) x10^3/uL Absolute Nucleated RBC (0.00-0.01) x10^3u/L Lymphocytes % (24.0-44.0) % Monocytes % (0.0-12.0) % Eosinophils % (0.00-5.0) % Basophils % (0.0-0.4) % Absolute Granulocytes (1.4-6.9) x10^3/uL Basophils # (0-0.4) x10^3/uL pO2/FiO2 Ratio 21.0 % VBG pH 7.06 L* (7.32-7.42) VBG pCO2 at Pat Temp 24 L (42-55) mm/Hg VBG pO2 at Pat Temp 45 H (25-40) mm/Hg VBG HCO3 6.8 L* (22-28) meq/L VBG O2 Sat (Jason) 73.5 L (95-100) VBG Base Excess -22.0 L (-2.0-2.0) VBG Hemoglobin 17.3 VBG Carboxyhemoglobin 3.2 (0.0-6.9) % T HGB POC Potassium 4.7 (3.5-5.1) Sodium (137-145) mmol/L Potassium (3.5-5.1) mmol/L Chloride (98-107) mmol/L Carbon Dioxide (22-30) mmol/L BUN (7-17) mg/dL Creatinine (0.52-1.04) mg/dL Estimated GFR ML/MIN Glucose (74-106) mg/dL POC Glucometer 386 H (74 to 106) mg/dL Lactic Acid 2.3 H (0.4-2.0) Calcium (8.4-10.2) mg/dL Total Bilirubin (0.2-1.3) mg/dL AST (14-36) U/L ALT (0-35) U/L Alkaline Phosphatase (38-126) U/L Serum Total Protein (6.3-8.2) g/dL Albumin (3.5-5.0) g/dL Lipase (23-300) U/L Serum HCG, Qual (NEGATIVE) Urine Color (Yellow) Urine Appearance (Clear) Urine pH (4.6-8.0) Ur Specific Aiken (1.005-1.030) Urine Protein (Negative) Urine Glucose (UA) (Negative) mg/dL Urine Ketones (Negative) Urine Blood (Negative) Urine Nitrite (Negative) Urine Bilirubin (Negative) Urine Urobilinogen (0.2) mg/dL Ur Leukocyte Esterase (Negative) U Hyaline Cast (Auto) (0-2) /LPF Urine Microscopic RBC (0-5) /HPF Urine Microscopic WBC (0-5) /HPF Ur Epithelial Cells (None Seen) /HPF Urine Bacteria (None Seen) /HPF Urine Culture Reflexed (NO) Urine Opiates Level (NEGATIVE) Ur Methadone (NEGATIVE) Urine Barbiturates (NEGATIVE) Ur Phencyclidine (PCP) (NEGATIVE) Urine Amphetamine (NEGATIVE) U Benzodiazepine Level (NEGATIVE) Urine Cocaine (NEGATIVE) Urine Marijuana (THC) (NEGATIVE) Influenza Type A Ag NEGATIVE (NEGATIVE) Influenza Type B Ag NEGATIVE (NEGATIVE) RSV (PCR) NEGATIVE (NEGATIVE) SARS-CoV-2 (PCR) NEGATIVE (NEGATIVE) 03/25/23 03/25/23 03/25/23 Range/Units 09:34 09:34 09:16 WBC (4.0-10.5) x10^3/uL RBC (4.1-5.4) x10^6/uL Hgb (12.0-16.0) g/dL Hct (35-47) % MCV (78-100) fL MCH (26-32) pg MCHC (32-36) g/dL RDW (11.5-14.0) % Plt Count (150-450) x10^3/uL MPV (7.5-11.0) fL Gran % (36.0-66.0) % Immature Gran % (Auto) (0.00-0.4) % Nucleat RBC Rel Count (0.00-0.1) % Eos # (Auto) (0-0.5) x10^3/uL Immature Gran # (Auto) (0.00-0.03) x10^3u/L Absolute Lymphs (auto) (1.0-4.6) x10^3/uL Absolute Monos (auto) (0.0-1.3) x10^3/uL Absolute Nucleated RBC (0.00-0.01) x10^3u/L Lymphocytes % (24.0-44.0) % Monocytes % (0.0-12.0) % Eosinophils % (0.00-5.0) % Basophils % (0.0-0.4) % Absolute Granulocytes (1.4-6.9) x10^3/uL Basophils # (0-0.4) x10^3/uL pO2/FiO2 Ratio % VBG pH (7.32-7.42) VBG pCO2 at Pat Temp (42-55) mm/Hg VBG pO2 at Pat Temp (25-40) mm/Hg VBG HCO3 (22-28) meq/L VBG O2 Sat (Jason) (95-100) VBG Base Excess (-2.0-2.0) VBG Hemoglobin VBG Carboxyhemoglobin (0.0-6.9) % T HGB POC Potassium (3.5-5.1) Sodium (137-145) mmol/L Potassium (3.5-5.1) mmol/L Chloride (98-107) mmol/L Carbon Dioxide (22-30) mmol/L BUN (7-17) mg/dL Creatinine (0.52-1.04) mg/dL Estimated GFR ML/MIN Glucose (74-106) mg/dL POC Glucometer 376 H (74 to 106) mg/dL Lactic Acid (0.4-2.0) Calcium (8.4-10.2) mg/dL Total Bilirubin (0.2-1.3) mg/dL AST (14-36) U/L ALT (0-35) U/L Alkaline Phosphatase (38-126) U/L Serum Total Protein (6.3-8.2) g/dL Albumin (3.5-5.0) g/dL Lipase (23-300) U/L Serum HCG, Qual (NEGATIVE) Urine Color Yellow (Yellow) Urine Appearance Clear (Clear) Urine pH 5.0 (4.6-8.0) Ur Specific Aiken 1.025 (1.005-1.030) Urine Protein 30 (Negative) Urine Glucose (UA) >=1000 A (Negative) mg/dL Urine Ketones >=160 A (Negative) Urine Blood Trace (Negative) Urine Nitrite Negative (Negative) Urine Bilirubin Negative (Negative) Urine Urobilinogen 0.2 (0.2) mg/dL Ur Leukocyte Esterase Small A (Negative) U Hyaline Cast (Auto) 3-5 A (0-2) /LPF Urine Microscopic RBC 0-2 (0-5) /HPF Urine Microscopic WBC 21-50 A (0-5) /HPF Ur Epithelial Cells Rare (None Seen) /HPF Urine Bacteria Few A (None Seen) /HPF Urine Culture Reflexed YES (NO) Urine Opiates Level NEGATIVE (NEGATIVE) Ur Methadone NEGATIVE (NEGATIVE) Urine Barbiturates NEGATIVE (NEGATIVE) Ur Phencyclidine (PCP) NEGATIVE (NEGATIVE) Urine Amphetamine NEGATIVE (NEGATIVE) U Benzodiazepine Level NEGATIVE (NEGATIVE) Urine Cocaine NEGATIVE (NEGATIVE) Urine Marijuana (THC) POSITIVE A (NEGATIVE) Influenza Type A Ag (NEGATIVE) Influenza Type B Ag (NEGATIVE) RSV (PCR) (NEGATIVE) SARS-CoV-2 (PCR) (NEGATIVE) 03/25/23 03/25/23 03/25/23 Range/Units 09:15 09:15 09:15 WBC 16.1 H (4.0-10.5) x10^3/uL RBC 5.43 H (4.1-5.4) x10^6/uL Hgb 16.5 H (12.0-16.0) g/dL Hct 51.5 H (35-47) % MCV 94.8 (78-100) fL MCH 30.4 (26-32) pg MCHC 32.0 (32-36) g/dL RDW 12.8 (11.5-14.0) % Plt Count 529 H (150-450) x10^3/uL MPV 9.5 (7.5-11.0) fL Gran % 89.2 H (36.0-66.0) % Immature Gran % (Auto) 0.4 (0.00-0.4) % Nucleat RBC Rel Count 0.0 (0.00-0.1) % Eos # (Auto) 0.01 (0-0.5) x10^3/uL Immature Gran # (Auto) 0.07 H (0.00-0.03) x10^3u/L Absolute Lymphs (auto) 1.21 (1.0-4.6) x10^3/uL Absolute Monos (auto) 0.42 (0.0-1.3) x10^3/uL Absolute Nucleated RBC 0.00 (0.00-0.01) x10^3u/L Lymphocytes % 7.5 L (24.0-44.0) % Monocytes % 2.6 (0.0-12.0) % Eosinophils % 0.1 (0.00-5.0) % Basophils % 0.2 (0.0-0.4) % Absolute Granulocytes 14.39 H (1.4-6.9) x10^3/uL Basophils # 0.04 (0-0.4) x10^3/uL pO2/FiO2 Ratio % VBG pH (7.32-7.42) VBG pCO2 at Pat Temp (42-55) mm/Hg VBG pO2 at Pat Temp (25-40) mm/Hg VBG HCO3 (22-28) meq/L VBG O2 Sat (Jason) (95-100) VBG Base Excess (-2.0-2.0) VBG Hemoglobin VBG Carboxyhemoglobin (0.0-6.9) % T HGB POC Potassium (3.5-5.1) Sodium 133 L (137-145) mmol/L Potassium 4.5 (3.5-5.1) mmol/L Chloride 100 (98-107) mmol/L Carbon Dioxide < 5 L* (22-30) mmol/L BUN 12 (7-17) mg/dL Creatinine 0.87 (0.52-1.04) mg/dL Estimated GFR 94.8 ML/MIN Glucose 408 H (74-106) mg/dL POC Glucometer (74 to 106) mg/dL Lactic Acid (0.4-2.0) Calcium 9.9 (8.4-10.2) mg/dL Total Bilirubin 1.00 (0.2-1.3) mg/dL AST 22 (14-36) U/L ALT 18 (0-35) U/L Alkaline Phosphatase 103 (38-126) U/L Serum Total Protein 10.4 H (6.3-8.2) g/dL Albumin 5.7 H (3.5-5.0) g/dL Lipase 54 (23-300) U/L Serum HCG, Qual NEGATIVE (NEGATIVE) Urine Color (Yellow) Urine Appearance (Clear) Urine pH (4.6-8.0) Ur Specific Aiken (1.005-1.030) Urine Protein (Negative) Urine Glucose (UA) (Negative) mg/dL Urine Ketones (Negative) Urine Blood (Negative) Urine Nitrite (Negative) Urine Bilirubin (Negative) Urine Urobilinogen (0.2) mg/dL Ur Leukocyte Esterase (Negative) U Hyaline Cast (Auto) (0-2) /LPF Urine Microscopic RBC (0-5) /HPF Urine Microscopic WBC (0-5) /HPF Ur Epithelial Cells (None Seen) /HPF Urine Bacteria (None Seen) /HPF Urine Culture Reflexed (NO) Urine Opiates Level (NEGATIVE) Ur Methadone (NEGATIVE) Urine Barbiturates (NEGATIVE) Ur Phencyclidine (PCP) (NEGATIVE) Urine Amphetamine (NEGATIVE) U Benzodiazepine Level (NEGATIVE) Urine Cocaine (NEGATIVE) Urine Marijuana (THC) (NEGATIVE) Influenza Type A Ag (NEGATIVE) Influenza Type B Ag (NEGATIVE) RSV (PCR) (NEGATIVE) SARS-CoV-2 (PCR) (NEGATIVE) - Progress Progress: improved, re-examined Progress Note: 03/25/23 11:51 27-year-old is evaluated for off-and-on vomiting with some abdominal discomfort, mild cough for the last few days. Dexcom is not working and she is not sure about her blood sugar control lately. She is feeling weak fatigued tired dehydrated with symptoms similar to last time when she was in DKA. She is given fluid bolus along with Zofran. She is feeling much better on reevaluation. Her workup showed white count of 16, lactate of 2.3 with venous pH of 7.06 and a bicarb of 6.8 and a gap of around 27. She is given another bolus of fluids and started on insulin drip as her blood sugar initially was 408 and it improved to 386 only after fluid bolus. She is in DKA with a lot of ketones in urine as well. She does have UTI and given a dose of Rocephin. Discussed with Dr. Ford, reviewed history, workup and agreed with admission. I have discussed the results of workup and plan of admission with patient who understand and agrees with it. Abdominal exam is soft nontender with good bowel sounds and no guard ing or rebound tenderness, do not think she needs any imaging. Discussed with Dr.: Other (Dr. COLEMAN [id number]) Counseled pt/family regarding: lab results, diagnosis, rad results Medical Desision Making - Independent Historian Additional History obtained from: Spouse - Discussion of managment Care discussed with:: hospitalist Reviewed:: Test results Agreed on:: Treatment plan, decision to admit Will see patient: in hospital - Diagnostic Testing Diagnostic test were ordered, analyzed, and reviewed by me: Yes Radiological Interpretation: Interpreted by me, Reviewed by me - Risk of complications The pt has a high risk of morbidity or mortality based on: Decision regarding hospitilization or escalation of hosp level of care - Departure Departure Disposition: Observation Clinical Impression: DKA (diabetic ketoacidosis), Urinary tract infection Condition: Stable Critical Care Time: No Referrals: DOCTOR,NO FAMILY [Primary Care Provider] - Follow up/PCP as directed
[2023-03-25] MEDS ORDERED: ROCEPHIN 1 Gm-D5w 50 ml Bag** 1 G/50 ML IVPB IV ONE (12:08)
[2023-03-25] MEDS ORDERED: Zofran 4 MG/2 ML VIAL IV PRN (13:42)
[2023-03-25 14:04] LABS: A-aADO2 -43; ABG POTASSIUM 3.9 (3.5-5.1); ARTERIAL BLD GAS O2 SATURATION 99.3 % (95-100); ARTERIAL BLOOD GAS BASE EXCESS -20.3 (-2.0-2.0); ARTERIAL BLOOD GAS FIO2 21 %; ARTERIAL BLOOD GAS PO2 174 mmHg (75-100); CARBOXYHEMOGLOBIN 3.3 % THgb (0.0-6.9); HCO3- 5.6 (22-28); HGB O2 SAT 95.1 g/dF (94-100); paO2 pAO1 1.33
[2023-03-25 14:05] LABS: ARTERIAL BLOOD GAS pH 7.18 (7.35-7.45)
[2023-03-25 14:06] LABS: ARTERIAL BLOOD GAS PCO2 15 mmHg (35-45)
[2023-03-25 14:07] LABS: ABG SITE RIGHT BRACHIAL
[2023-03-25 14:08] LABS: ALBUMIN 4.1 g/dL (3.5-5.0); ALKALINE PHOSPHATASE 61 U/L (38-126); BLOOD UREA NITROGEN 11 mg/dL (7-17); CHLORIDE 115 mmol/L (98-107); Calcium 8.1 mg/dL (8.4-10.2); Creatinine 1 0.61 mg/dL (0.52-1.04); EST GLOMERULAR FILTRATION RATE 127.2 ML/MIN; Glucose 221 mg/dL (74-106); Potassium 3.8 mmol/L (3.5-5.1); SGOT/AST 19 U/L (14-36); SGPT/ALT 14 U/L (0-35); SODIUM 137 mmol/L (137-145); Total Protein 7.3 g/dL (6.3-8.2)
--- NOTE | 2023-03-25 14:09 | PCM.HP ---
History of Present Illness - Chief Complaint Chief Complaint: DKA History of Present Illness: is a 27 year old female with PMHX of type 1 diabetes mellitus. She presented in the ER today with chief complaint of off-and-on vomiting with some abdominal discomfort/cramping for the last 3 to 4 days. Last vomiting was earlier this morning and she vomited once last night as well. Patient denies any hematemesis. It was nonprojectile, nonbilious. No diarrhea reported. Patient report her Dexcom feel off and she just did not find the time to place it back on. Therefore she did not know what her blood sugar has been lately. Does have a history of DKA and thinks she is in early DKA. Complaining of cough and congestion without difficulty breathing. No fever or chills reported. Abdominal pain is minimal currently and only with vomiting. She is feeling weak fatigued tired and dehydrated. Insulin pump removed IP, insulin gtt resumed and IVF. Rocephin started in the ER for UTI and will continue. Will keep NPO for now and labs Q4 hours per protocol. She denies any further concerns. - Review of Systems Constitutional: No Fever, No Chills Eyes: No Symptoms Ears, Nose, & Throat: No Symptoms Respiratory: No Cough, No Short Of Breath Cardiac: No Chest Pain, No Edema, No Syncope Abdominal/Gastrointestinal: No Abdominal Pain, No Nausea, No Vomiting, No Diarrhea Genitourinary Symptoms: No Dysuria Musculoskeletal: No Back Pain, No Neck Pain Skin: No Rash Neurological: No Dizziness, No Focal Weakness, No Sensory Changes Psychological: No Symptoms Endocrine: No Symptoms Hematologic/Lymphatic: No Symptoms Immunological/Allergic: No Symptoms Medications & Allergies Home Medications: Home Medication List Dextroamphetamine/Amphetamine [Dextroamp-Amphet ER 20 mg Cap] 30 mg PO DAILY 11/06/21 [History Confirmed 03/25/23] Aripiprazole 10 mg [Abilify 10 MG] 7 mg PO DAILY 03/25/23 [History Confirmed 03/25/23] Insulin Lispro [Humalog] 40 unit SQ DAILY 03/25/23 [History Confirmed 03/25/23] Sertraline HCl [Zoloft] 100 mg PO DAILY 03/25/23 [History Confirmed 03/25/23] Allergies/Adverse Reactions: Allergies Allergy/AdvReac Type Severity Reaction Status Date / Time sulfamethoxazole Allergy Verified 03/25/23 09:08 [From Bactrim] trimethoprim [From Bactrim] Allergy Verified 03/25/23 09:08 - Past Medical History Past Medical History: Yes Neurological History: No Pertinent History ENT History: No Pertinent History Cardiac History: No Pertinent History Respiratory History: No Pertinent History Endocrine Medical History: Diabetes Type I Musculoskelatal History: No Pertinent History GI Medical History: No Pertinent History History: No Pertinent History Pyscho-Social History: Anxiety, Bipolar, Depression Reproductive Disorders: No Pertinent History Comment: DIABETES - Female History Hx Last Menstrual Period: dec Are you now?: No - Past Surgical History Past Surgical History: Yes (d&c june 2016) Neuro Surgical History: No Pertinent History Cardiac History: No Pertinent History Respiratory Surgery: No Pertinent History GI Surgical History: No Pertinent History Genitourinary Surgical Hx: No Pertinent History Musculskeletal Surgical Hx: No Pertinent History Female Surgical History: Dilation & Curettage, Section Other Surgical History: INSULIN PUMP - Social History Smoking Status: Former smoker How long have you smoked: 2 years Exposure to second hand smoke: No Alcohol: None Drug Use: marijuana - Physical Exam Vital Signs: Vital Signs - 24 hr Temp Pulse Resp BP BP Pulse Ox 03/25/23 13:02 86 25 H 126/80 100 03/25/23 13:00 84 03/25/23 12:15 141/84 03/25/23 12:14 100 03/25/23 12:00 104 H 18 143/92 100 03/25/23 11:45 104 H 22 125/80 100 03/25/23 11:30 103 H 20 144/90 100 03/25/23 11:15 93 H 17 133/72 100 03/25/23 11:00 104 H 29 H 130/86 100 03/25/23 10:45 105 H 24 115/72 100 03/25/23 10:30 95 H 25 H 124/78 100 03/25/23 10:15 96 H 26 H 122/80 100 03/25/23 10:00 89 21 131/91 100 03/25/23 09:45 93 H 18 142/92 100 03/25/23 09:36 100 03/25/23 09:30 101 H 26 H 136/97 100 03/25/23 09:22 105 H 22 126/92 100 03/25/23 09:18 97.4 F 85 20 128/86 100 03/25/23 09:15 92 H 25 H 128/86 General Appearance: no apparent distress, alert Neurologic Exam: alert, oriented x 3, cooperative, normal mood/affect, nml cerebellar function, nml station & gait, sensation nml, No motor deficits Eye Exam: PERRL/EOMI, eyes nml inspection Ears, Nose, Throat Exam: normal ENT inspection, TMs normal, pharynx normal, moist mucous membranes Neck Exam: normal inspection, non-tender, supple, full range of motion Respiratory Exam: normal breath sounds, lungs clear, No respiratory distress Cardiovascular Exam: regular rate/rhythm, normal heart sounds, normal peripheral pulses Gastrointestinal/Abdomen Exam: soft, normal bowel sounds, No tenderness, No mass Back Exam: normal inspection, normal range of motion, No CVA tenderness, No vertebral tenderness Extremity Exam: normal inspection, normal range of motion, pelvis stable Skin Exam: normal color, warm, dry, No rash Lymphatic Exam: No adenopathy Results - Labs Lab/Micro Results: Lab Results-Last 24 Hours 03/25/23 03/25/23 03/25/23 Range/Units 09:15 09:15 09:15 WBC 16.1 H (4.0-10.5) x10^3/uL RBC 5.43 H (4.1-5.4) x10^6/uL Hgb 16.5 H (12.0-16.0) g/dL Hct 51.5 H (35-47) % MCV 94.8 (78-100) fL MCH 30.4 (26-32) pg MCHC 32.0 (32-36) g/dL RDW 12.8 (11.5-14.0) % Plt Count 529 H (150-450) x10^3/uL MPV 9.5 (7.5-11.0) fL Gran % 89.2 H (36.0-66.0) % Immature Gran % (Auto) 0.4 (0.00-0.4) % Nucleat RBC Rel Count 0.0 (0.00-0.1) % Eos # (Auto) 0.01 (0-0.5) x10^3/uL Immature Gran # (Auto) 0.07 H (0.00-0.03) x10^3u/L Absolute Lymphs (auto) 1.21 (1.0-4.6) x10^3/uL Absolute Monos (auto) 0.42 (0.0-1.3) x10^3/uL Absolute Nucleated RBC 0.00 (0.00-0.01) x10^3u/L Lymphocytes % 7.5 L (24.0-44.0) % Monocytes % 2.6 (0.0-12.0) % Eosinophils % 0.1 (0.00-5.0) % Basophils % 0.2 (0.0-0.4) % Absolute Granulocytes 14.39 H (1.4-6.9) x10^3/uL Basophils # 0.04 (0-0.4) x10^3/uL pO2/FiO2 Ratio % VBG pH (7.32-7.42) VBG pCO2 at Pat Temp (42-55) mm/Hg VBG pO2 at Pat Temp (25-40) mm/Hg VBG HCO3 (22-28) meq/L VBG O2 Sat (Jason) (95-100) VBG Base Excess (-2.0-2.0) VBG Hemoglobin VBG Carboxyhemoglobin (0.0-6.9) % T HGB POC Potassium (3.5-5.1) Sodium 133 L (137-145) mmol/L Potassium 4.5 (3.5-5.1) mmol/L Chloride 100 (98-107) mmol/L Carbon Dioxide < 5 L* (22-30) mmol/L BUN 12 (7-17) mg/dL Creatinine 0.87 (0.52-1.04) mg/dL Estimated GFR 94.8 ML/MIN Glucose 408 H (74-106) mg/dL POC Glucometer (74 to 106) mg/dL Lactic Acid (0.4-2.0) Calcium 9.9 (8.4-10.2) mg/dL Total Bilirubin 1.00 (0.2-1.3) mg/dL AST 22 (14-36) U/L ALT 18 (0-35) U/L Alkaline Phosphatase 103 (38-126) U/L Serum Total Protein 10.4 H (6.3-8.2) g/dL Albumin 5.7 H (3.5-5.0) g/dL Lipase 54 (23-300) U/L Serum HCG, Qual NEGATIVE (NEGATIVE) Urine Color (Yellow) Urine Appearance (Clear) Urine pH (4.6-8.0) Ur Specific [place] (1.005-1.030) Urine Protein (Negative) Urine Glucose (UA) (Negative) mg/dL Urine Ketones (Negative) Urine Blood (Negative) Urine Nitrite (Negative) Urine Bilirubin (Negative) Urine Urobilinogen (0.2) mg/dL Ur Leukocyte Esterase (Negative) U Hyaline Cast (Auto) (0-2) /LPF Urine Microscopic RBC (0-5) /HPF Urine Microscopic WBC (0-5) /HPF Ur Epithelial Cells (None Seen) /HPF Urine Bacteria (None Seen) /HPF Urine Culture Reflexed (NO) Urine Opiates Level (NEGATIVE) Ur Methadone (NEGATIVE) Urine Barbiturates (NEGATIVE) Ur Phencyclidine (PCP) (NEGATIVE) Urine Amphetamine (NEGATIVE) U Benzodiazepine Level (NEGATIVE) Urine Cocaine (NEGATIVE) Urine Marijuana (THC) (NEGATIVE) Influenza Type A Ag (NEGATIVE) Influenza Type B Ag (NEGATIVE) RSV (PCR) (NEGATIVE) SARS-CoV-2 (PCR) (NEGATIVE) 03/25/23 03/25/23 03/25/23 Range/Units 09:16 09:34 09:34 WBC (4.0-10.5) x10^3/uL RBC (4.1-5.4) x10^6/uL Hgb (12.0-16.0) g/dL Hct (35-47) % MCV (78-100) fL MCH (26-32) pg MCHC (32-36) g/dL RDW (11.5-14.0) % Plt Count (150-450) x10^3/uL MPV (7.5-11.0) fL Gran % (36.0-66.0) % Immature Gran % (Auto) (0.00-0.4) % Nucleat RBC Rel Count (0.00-0.1) % Eos # (Auto) (0-0.5) x10^3/uL Immature Gran # (Auto) (0.00-0.03) x10^3u/L Absolute Lymphs (auto) (1.0-4.6) x10^3/uL Absolute Monos (auto) (0.0-1.3) x10^3/uL Absolute Nucleated RBC (0.00-0.01) x10^3u/L Lymphocytes % (24.0-44.0) % Monocytes % (0.0-12.0) % Eosinophils % (0.00-5.0) % Basophils % (0.0-0.4) % Absolute Granulocytes (1.4-6.9) x10^3/uL Basophils # (0-0.4) x10^3/uL pO2/FiO2 Ratio % VBG pH (7.32-7.42) VBG pCO2 at Pat Temp (42-55) mm/Hg VBG pO2 at Pat Temp (25-40) mm/Hg VBG HCO3 (22-28) meq/L VBG O2 Sat (Jason) (95-100) VBG Base Excess (-2.0-2.0) VBG Hemoglobin VBG Carboxyhemoglobin (0.0-6.9) % T HGB POC Potassium (3.5-5.1) Sodium (137-145) mmol/L Potassium (3.5-5.1) mmol/L Chloride (98-107) mmol/L Carbon Dioxide (22-30) mmol/L BUN (7-17) mg/dL Creatinine (0.52-1.04) mg/dL Estimated GFR ML/MIN Glucose (74-106) mg/dL POC Glucometer 376 H (74 to 106) mg/dL Lactic Acid (0.4-2.0) Calcium (8.4-10.2) mg/dL Total Bilirubin (0.2-1.3) mg/dL AST (14-36) U/L ALT (0-35) U/L Alkaline Phosphatase (38-126) U/L Serum Total Protein (6.3-8.2) g/dL Albumin (3.5-5.0) g/dL Lipase (23-300) U/L Serum HCG, Qual (NEGATIVE) Urine Color Yellow (Yellow) Urine Appearance Clear (Clear) Urine pH 5.0 (4.6-8.0) Ur Specific [place] 1.025 (1.005-1.030) Urine Protein 30 (Negative) Urine Glucose (UA) >=1000 A (Negative) mg/dL Urine Ketones >=160 A (Negative) Urine Blood Trace (Negative) Urine Nitrite Negative (Negative) Urine Bilirubin Negative (Negative) Urine Urobilinogen 0.2 (0.2) mg/dL Ur Leukocyte Esterase Small A (Negative) U Hyaline Cast (Auto) 3-5 A (0-2) /LPF Urine Microscopic RBC 0-2 (0-5) /HPF Urine Microscopic WBC 21-50 A (0-5) /HPF Ur Epithelial Cells Rare (None Seen) /HPF Urine Bacteria Few A (None Seen) /HPF Urine Culture Reflexed YES (NO) Urine Opiates Level NEGATIVE (NEGATIVE) Ur Methadone NEGATIVE (NEGATIVE) Urine Barbiturates NEGATIVE (NEGATIVE) Ur Phencyclidine (PCP) NEGATIVE (NEGATIVE) Urine Amphetamine NEGATIVE (NEGATIVE) U Benzodiazepine Level NEGATIVE (NEGATIVE) Urine Cocaine NEGATIVE (NEGATIVE) Urine Marijuana (THC) POSITIVE A (NEGATIVE) Influenza Type A Ag (NEGATIVE) Influenza Type B Ag (NEGATIVE) RSV (PCR) (NEGATIVE) SARS-CoV-2 (PCR) (NEGATIVE) 03/25/23 03/25/23 03/25/23 Range/Units 09:35 09:40 11:08 WBC (4.0-10.5) x10^3/uL RBC (4.1-5.4) x10^6/uL Hgb (12.0-16.0) g/dL Hct (35-47) % MCV (78-100) fL MCH (26-32) pg MCHC (32-36) g/dL RDW (11.5-14.0) % Plt Count (150-450) x10^3/uL MPV (7.5-11.0) fL Gran % (36.0-66.0) % Immature Gran % (Auto) (0.00-0.4) % Nucleat RBC Rel Count (0.00-0.1) % Eos # (Auto) (0-0.5) x10^3/uL Immature Gran # (Auto) (0.00-0.03) x10^3u/L Absolute Lymphs (auto) (1.0-4.6) x10^3/uL Absolute Monos (auto) (0.0-1.3) x10^3/uL Absolute Nucleated RBC (0.00-0.01) x10^3u/L Lymphocytes % (24.0-44.0) % Monocytes % (0.0-12.0) % Eosinophils % (0.00-5.0) % Basophils % (0.0-0.4) % Absolute Granulocytes (1.4-6.9) x10^3/uL Basophils # (0-0.4) x10^3/uL pO2/FiO2 Ratio 21.0 % VBG pH 7.06 L* (7.32-7.42) VBG pCO2 at Pat Temp 24 L (42-55) mm/Hg VBG pO2 at Pat Temp 45 H (25-40) mm/Hg VBG HCO3 6.8 L* (22-28) meq/L VBG O2 Sat (Jason) 73.5 L (95-100) VBG Base Excess -22.0 L (-2.0-2.0) VBG Hemoglobin 17.3 VBG Carboxyhemoglobin 3.2 (0.0-6.9) % T HGB POC Potassium 4.7 (3.5-5.1) Sodium (137-145) mmol/L Potassium (3.5-5.1) mmol/L Chloride (98-107) mmol/L Carbon Dioxide (22-30) mmol/L BUN (7-17) mg/dL Creatinine (0.52-1.04) mg/dL Estimated GFR ML/MIN Glucose (74-106) mg/dL POC Glucometer 386 H (74 to 106) mg/dL Lactic Acid 2.3 H (0.4-2.0) Calcium (8.4-10.2) mg/dL Total Bilirubin (0.2-1.3) mg/dL AST (14-36) U/L ALT (0-35) U/L Alkaline Phosphatase (38-126) U/L Serum Total Protein (6.3-8.2) g/dL Albumin (3.5-5.0) g/dL Lipase (23-300) U/L Serum HCG, Qual (NEGATIVE) Urine Color (Yellow) Urine Appearance (Clear) Urine pH (4.6-8.0) Ur Specific [place] (1.005-1.030) Urine Protein (Negative) Urine Glucose (UA) (Negative) mg/dL Urine Ketones (Negative) Urine Blood (Negative) Urine Nitrite (Negative) Urine Bilirubin (Negative) Urine Urobilinogen (0.2) mg/dL Ur Leukocyte Esterase (Negative) U Hyaline Cast (Auto) (0-2) /LPF Urine Microscopic RBC (0-5) /HPF Urine Microscopic WBC (0-5) /HPF Ur Epithelial Cells (None Seen) /HPF Urine Bacteria (None Seen) /HPF Urine Culture Reflexed (NO) Urine Opiates Level (NEGATIVE) Ur Methadone (NEGATIVE) Urine Barbiturates (NEGATIVE) Ur Phencyclidine (PCP) (NEGATIVE) Urine Amphetamine (NEGATIVE) U Benzodiazepine Level (NEGATIVE) Urine Cocaine (NEGATIVE) Urine Marijuana (THC) (NEGATIVE) Influenza Type A Ag NEGATIVE (NEGATIVE) Influenza Type B Ag NEGATIVE (NEGATIVE) RSV (PCR) NEGATIVE (NEGATIVE) SARS-CoV-2 (PCR) NEGATIVE (NEGATIVE) 03/25/23 03/25/23 03/25/23 Range/Units 12:12 13:01 13:57 WBC (4.0-10.5) x10^3/uL RBC (4.1-5.4) x10^6/uL Hgb (12.0-16.0) g/dL Hct (35-47) % MCV (78-100) fL MCH (26-32) pg MCHC (32-36) g/dL RDW (11.5-14.0) % Plt Count (150-450) x10^3/uL MPV (7.5-11.0) fL Gran % (36.0-66.0) % Immature Gran % (Auto) (0.00-0.4) % Nucleat RBC Rel Count (0.00-0.1) % Eos # (Auto) (0-0.5) x10^3/uL Immature Gran # (Auto) (0.00-0.03) x10^3u/L Absolute Lymphs (auto) (1.0-4.6) x10^3/uL Absolute Monos (auto) (0.0-1.3) x10^3/uL Absolute Nucleated RBC (0.00-0.01) x10^3u/L Lymphocytes % (24.0-44.0) % Monocytes % (0.0-12.0) % Eosinophils % (0.00-5.0) % Basophils % (0.0-0.4) % Absolute Granulocytes (1.4-6.9) x10^3/uL Basophils # (0-0.4) x10^3/uL pO2/FiO2 Ratio % VBG pH (7.32-7.42) VBG pCO2 at Pat Temp (42-55) mm/Hg VBG pO2 at Pat Temp (25-40) mm/Hg VBG HCO3 (22-28) meq/L VBG O2 Sat (Jason) (95-100) VBG Base Excess (-2.0-2.0) VBG Hemoglobin VBG Carboxyhemoglobin (0.0-6.9) % T HGB POC Potassium (3.5-5.1) Sodium (137-145) mmol/L Potassium (3.5-5.1) mmol/L Chloride (98-107) mmol/L Carbon Dioxide (22-30) mmol/L BUN (7-17) mg/dL Creatinine (0.52-1.04) mg/dL Estimated GFR ML/MIN Glucose (74-106) mg/dL POC Glucometer 330 H 334 H 227 H (74 to 106) mg/dL Lactic Acid (0.4-2.0) Calcium (8.4-10.2) mg/dL Total Bilirubin (0.2-1.3) mg/dL AST (14-36) U/L ALT (0-35) U/L Alkaline Phosphatase (38-126) U/L Serum Total Protein (6.3-8.2) g/dL Albumin (3.5-5.0) g/dL Lipase (23-300) U/L Serum HCG, Qual (NEGATIVE) Urine Color (Yellow) Urine Appearance (Clear) Urine pH (4.6-8.0) Ur Specific [place] (1.005-1.030) Urine Protein (Negative) Urine Glucose (UA) (Negative) mg/dL Urine Ketones (Negative) Urine Blood (Negative) Urine Nitrite (Negative) Urine Bilirubin (Negative) Urine Urobilinogen (0.2) mg/dL Ur Leukocyte Esterase (Negative) U Hyaline Cast (Auto) (0-2) /LPF Urine Microscopic RBC (0-5) /HPF Urine Microscopic WBC (0-5) /HPF Ur Epithelial Cells (None Seen) /HPF Urine Bacteria (None Seen) /HPF Urine Culture Reflexed (NO) Urine Opiates Level (NEGATIVE) Ur Methadone (NEGATIVE) Urine Barbiturates (NEGATIVE) Ur Phencyclidine (PCP) (NEGATIVE) Urine Amphetamine (NEGATIVE) U Benzodiazepine Level (NEGATIVE) Urine Cocaine (NEGATIVE) Urine Marijuana (THC) (NEGATIVE) Influenza Type A Ag (NEGATIVE) Influenza Type B Ag (NEGATIVE) RSV (PCR) (NEGATIVE) SARS-CoV-2 (PCR) (NEGATIVE) Accuchecks Date 03/25/23 Date 03/25/23 Time 11:12 Time 09:19 - Radiology Impressions Radiology Exams & Impressions: Radiology Procedures Category Date Time Status CHEST 2 VIEWS (PA AND LAT) Stat Exams 03/25/23 09:31 Taken - Other Procedures and Tests Respiratory Therapy 03/25/23 12:47 Respiratory Therapy Consult ONCE 03/25/23 13:44 EKG STAT Assessment/Plan (1) DKA (diabetic ketoacidoses) Current Visit: Yes Status: Acute Qualifiers: Assessment & Plan: - 2:2 N/V , UTI - Pt has not been checking her blood sugars as her meter fell off and she reports she just did not make time to place it back on. - on insulin pump at home - DKA protocol with insulin drip - Labs q4 hr BMP, K+, Phos, Mg+ - NPO due to nausea - Start clear liquid diet when N/V resolved. Code(s): E13.10 - OTH DIABETES MELLITUS WITH KETOACIDOSIS WITHOUT COMA (2) Sinus arrhythmia Current Visit: Yes Status: Acute Assessment & Plan: - as seen on Tele and EKG - denies Cp - Chest XR pending Code(s): I49.8 - OTHER SPECIFIED CARDIAC ARRHYTHMIAS (3) Urinary tract infection Current Visit: Yes Status: Acute Assessment & Plan: - Rocephin - IVF - UC pending - WBC 16.1 Code(s): N39.0 - URINARY TRACT INFECTION, SITE NOT SPECIFIED (4) Fatigue Current Visit: No Status: Acute Assessment & Plan: - 2:2 DKA, UTI - BR with BRP Code(s): R53.83 - OTHER FATIGUE (5) Hyperglycemia Current Visit: No Status: Acute Assessment & Plan: - 2:2 UTI - In DKA - A1C pending - Lipid panel in AM Code(s): R73.9 - HYPERGLYCEMIA, UNSPECIFIED (6) Nausea & vomiting Current Visit: No Status: Acute Assessment & Plan: - May be r/t UTI, DKA vs. cyclical vomiting due to marijuana use - Zofran PRN Code(s): R11.2 - NAUSEA WITH VOMITING, UNSPECIFIED (7) Marijuana smoker Current Visit: Yes Status: Acute Assessment & Plan: - advised cessation - N/V may be r/t cyclical vomiting due to marijuana use- can determine once DKA resolved DVT: lovenox PPI: protonix Next of Kin: Haydee Merrykenyatta [phone] D/c plan: 1-2 days Code status: Full Code(s): F12.90 - CANNABIS USE, UNSPECIFIED, UNCOMPLICATED
[2023-03-25 14:16] LABS: MAGNESIUM 1.8 mg/dL (1.6-2.3)
[2023-03-25 14:20] LABS: Carbon Dioxide < 5 mmol/L (22-30)
[2023-03-25] MEDS ORDERED: D5W/0.45NS W/ 20mEq KCl 1000 ML 1,000 ML IV SCH (14:30)
[2023-03-25] MEDS: ENOXAPARIN SODIUM SQ SCH (15:00)
[2023-03-25] MEDS ORDERED: Neutra-Phos Packet PO ONE (16:09)
[2023-03-25 19:37] LABS: ANION GAP 13.2 MEQ/L (5-15); Calcium 8.8 mg/dL (8.4-10.2); Creatinine 1 0.54 mg/dL (0.52-1.04); MAGNESIUM 1.6 mg/dL (1.6-2.3); PHOSPHOROUS 1.5 mg/dL (2.5-4.5); Potassium 3.8 mmol/L (3.5-5.1)
--- NOTE | 2023-03-25 20:40 | XRAY ---
Indication: Weakness. Dehydration. Comparison: January 01, 2016 PA/lateral chest again demonstrates normal heart and lungs. Bony thorax intact with worsening mild dextroscoliosis. No new/acute findings.
[2023-03-26 02:10] LABS: Hematocrit 39.7 % (35-47); Hemoglobin 12.9 g/dL (12.0-16.0); Mean Cell Volume 95.4 fL (78-100); Mean Corpuscular Hgb Concent. 32.5 g/dL (32-36); Mean Platelet Volume 9.6 fL (7.5-11.0); Platelet Count 320 x10^3/uL (150-450); Red Blood Count 4.16 x10^6/uL (4.1-5.4); White Blood Count 12.1 x10^3/uL (4.0-10.5)
[2023-03-26 02:21] LABS: MAGNESIUM 1.7 mg/dL (1.6-2.3); PHOSPHOROUS 2.3 mg/dL (2.5-4.5)
[2023-03-26 02:22] LABS: BLOOD UREA NITROGEN 11 mg/dL (7-17); CHLORIDE 109 mmol/L (98-107); Calcium 8.6 mg/dL (8.4-10.2); Creatinine 1 0.65 mg/dL (0.52-1.04); EST GLOMERULAR FILTRATION RATE 125.2 ML/MIN; Glucose 427 mg/dL (74-106); Potassium 4.4 mmol/L (3.5-5.1); SODIUM 131 mmol/L (137-145)
[2023-03-26 02:31] LABS: Risk Ratio 3.3
[2023-03-26 02:33] LABS: Carbon Dioxide < 5 mmol/L (22-30)
[2023-03-26] MEDS ORDERED: SODIUM BICARBONATE 50 MEQ/50 ML ABBOJECT IV ONE ×2 (02:42→06:50)
[2023-03-26] MEDS: SODIUM BICARBONATE 50 MEQ/50 ML ABBOJECT IV ONE ×2 (02:53→07:00)
[2023-03-26] MEDS: MYXREDLIN 100 UNIT/100 ML BAG 100 UNIT/100 ML PLAST..BAG IV PRN (05:53)
[2023-03-26 06:27] LABS: ANION GAP 18.5 MEQ/L (5-15); Calcium 8.8 mg/dL (8.4-10.2); Creatinine 1 0.61 mg/dL (0.52-1.04); EST GLOMERULAR FILTRATION RATE 127.2 ML/MIN; MAGNESIUM 1.8 mg/dL (1.6-2.3); PHOSPHOROUS 1.1 mg/dL (2.5-4.5); Potassium 3.5 mmol/L (3.5-5.1)
[2023-03-26] MEDS ORDERED: Neutra-Phos Packet PO SCH (07:15)
[2023-03-26] MEDS: D5W/0.45NS W/ 20mEq KCl 1000 ML 1,000 ML IV SCH ×3 (07:39→19:16)
[2023-03-26] MEDS: ENOXAPARIN SODIUM SQ SCH (09:15)
[2023-03-26] MEDS ORDERED: ROCEPHIN 1 Gm-D5w 50 ml Bag** 1 G/50 ML IVPB IV SCH (10:00)
--- NOTE | 2023-03-26 11:11 | PCM.NOTE ---
Date and Time: 03/26/23 1100 Subjective Assessment: 03/25/23 is a 27 year old female with PMHX of type 1 diabetes mellitus. She presented in the ER today with chief complaint of off-and-on vomiting with some abdominal discomfort/cramping for the last 3 to 4 days. Last vomiting was earlier this morning and she vomited once last night as well. Patient denies any hematemesis. It was nonprojectile, nonbilious. No diarrhea reported. Patient report her Dexcom feel off and she just did not find the time to place it back on. Therefore she did not know what her blood sugar has been lately. Does have a history of DKA and thinks she is in early DKA. Complaining of cough and congestion without difficulty breathing. No fever or chills reported. Abd ominal pain is minimal currently and only with vomiting. She is feeling weak fatigued tired and dehydrated. Insulin pump removed IP, insulin gtt resumed and IVF. Rocephin started in the ER for UTI and will continue. Will keep NPO for now and labs Q4 hours per protocol. She denies any further concerns. 03/26/23 Pt is resting in bed. She continues to be on the insulin gtt. IV fluids were stopped by operations supervisor 2nd shift nurse and then NS started without an order. Per DKA protocol D5 1/2 NS with 20 KCl restarted. Q4 hour labs were also cancelled last night by operations supervisor 2nd shift nurse. This was again reordered per DKA protocol. Pt reports she also ate a salad last night as operations supervisor 2nd shift nurse let her do so per pt. She was not transitioned to a clear liquid diet per DKA protocol. Advised day shift nurse to transition to clear liquids as labs are worse this morning and she continued to require insulin gtt. Anion gap is 18.5 and Co2 is now 9 this morning. Rocephin stopped as UC was negative. It appears bicarb x2 was given last night. Phos was also replaced last night. Labs will improve if DKA protocol is followed. Will continue to monitor Q 4 hour labs. Pt explains she is feeling better. She denies Cp, SOb, abd. pain, N/V/D. - Review of Systems Constitutional: No Fever, No Chills Eyes: No Symptoms Ears, Nose, & Throat: No Symptoms Respiratory: No Cough, No Short Of Breath Cardiac: No Chest Pain, No Edema, No Syncope Abdominal/Gastrointestinal: No Abdominal Pain, No Nausea, No Vomiting, No Diarrhea Genitourinary Symptoms: No Dysuria Musculoskeletal: No Back Pain, No Neck Pain Skin: No Rash Neurological: No Dizziness, No Focal Weakness, No Sensory Changes Psychological: No Symptoms Endocrine: No Symptoms Hematologic/Lymphatic: No Symptoms Immunological/Allergic: No Symptoms Objective Exam General Appearance: no apparent distress, alert Neurologic Exam: alert, oriented x 3, cooperative, normal mood/affect, nml cerebellar function, sensation nml, No motor deficits Skin Exam: normal color, warm, dry Eye Exam: PERRL, EOMI, eyes nml inspection Ears, Nose, Throat Exam: normal ENT inspection, pharynx normal, moist mucous membranes Neck Exam: normal inspection, non-tender, supple, full range of motion Respiratory Exam: normal breath sounds, lungs clear, No respiratory distress Cardiovascular Exam: regular rate/rhythm, normal heart sounds Gastrointestinal/Abdomen Exam: soft, No tenderness, No mass Extremity Exam: normal inspection, normal range of motion Back Exam: normal inspection, normal range of motion, No CVA tenderness, No vert ebral tenderness Pelvic Exam: deferred Rectal Exam: deferred OBJECTIVE DATA Vital Signs: Vital Signs - 24 hr Temp Pulse Resp BP BP Pulse Ox 03/26/23 10:00 97.6 F 91 H 24 111/66 100 03/26/23 09:00 87 27 H 109/68 100 03/26/23 08:00 103 H 21 111/74 98 03/26/23 07:00 95 H 23 103/57 99 03/26/23 05:55 104 H 25 H 99/66 100 03/26/23 05:00 104 H 24 100/60 03/26/23 04:00 77 22 126/74 03/26/23 03:43 90 03/26/23 03:15 86 24 110/62 100 03/26/23 03:13 85 22 110/63 100 03/26/23 02:09 98.0 F 90 19 100/58 100 03/26/23 02:08 88 19 03/26/23 02:00 98 F 86 23 100/68 100 03/26/23 01:00 80 22 03/26/23 00:03 82 22 03/25/23 23:50 97.9 F 80 23 114/68 100 03/25/23 23:08 82 23 114/68 03/25/23 23:00 82 23 03/25/23 22:00 86 20 03/25/23 21:26 82 18 03/25/23 20:00 90/51 03/25/23 19:00 78 98/57 100 03/25/23 18:00 84 27 H 103/64 100 03/25/23 17:00 78 21 100/61 100 03/25/23 16:00 95 H 17 110/60 99 03/25/23 15:00 78 18 112/68 100 03/25/23 14:00 97.8 F 81 27 H 98/75 100 03/25/23 13:44 87 16 100 03/25/23 13:02 86 25 H 126/80 100 03/25/23 13:00 84 100 03/25/23 12:15 141/84 03/25/23 12:14 100 03/25/23 12:00 104 H 18 143/92 100 03/25/23 11:45 104 H 22 125/80 100 03/25/23 11:30 103 H 20 144/90 100 03/25/23 11:15 93 H 17 133/72 100 Pain Assessment - Last Documented Pain Intensity 0 Intake and Output: Intake & Output 03/23/23 03/24/23 03/25/23 03/26/23 11:59 11:59 11:59 11:59 Intake Total 910 Output Total 600 Balance 310 Weight 45 kg 44.6 kg Lab Results: Lab Results-Last 24 Hours 03/25/23 03/25/23 03/25/23 Range/Units 09:30 11:08 12:12 WBC (4.0-10.5) x10^3/uL RBC (4.1-5.4) x10^6/uL Hgb (12.0-16.0) g/dL Hct (35-47) % MCV (78-100) fL MCH (26-32) pg MCHC (32-36) g/dL RDW (11.5-14.0) % Plt Count (150-450) x10^3/uL MPV (7.5-11.0) fL Puncture Site pCO2 (35-45) mmHg pO2 (75-100) mmHg Base Excess (-2.0-2.0) O2 Saturation (94-100) g/dF ABG pH (7.35-7.45) ABG HCO3 (22-28) ABG O2 Sat (Measured) (95-100) % Everett Test A-a Gradient a/A Ratio Hemoglobin Carboxyhemoglobin (0.0-6.9) % THgb Methemoglobin (1.4-1.5) % Potassium (3.5-5.1) Temperature C POC O2 Flow Rate % Sodium (137-145) mmol/L Chloride (98-107) mmol/L Carbon Dioxide (22-30) mmol/L Anion Gap (5-15) MEQ/L BUN (7-17) mg/dL Creatinine (0.52-1.04) mg/dL Estimated GFR ML/MIN Glucose (74-106) mg/dL POC Glucometer 386 H 330 H (74 to 106) mg/dL Hemoglobin A1c 11.18 H (4.5-6.0) % Lactic Acid (0.4-2.0) Calcium (8.4-10.2) mg/dL Phosphorus (2.5-4.5) mg/dL Magnesium (1.6-2.3) mg/dL Total Bilirubin (0.2-1.3) mg/dL AST (14-36) U/L ALT (0-35) U/L Alkaline Phosphatase (38-126) U/L Serum Total Protein (6.3-8.2) g/dL Albumin (3.5-5.0) g/dL Triglycerides (30-150) mg/dL Cholesterol (50-200) mg/dL LDL Cholesterol (30-100) mg/dL HDL Cholesterol (40-60) mg/dL Heart Disease Risk Ratio 03/25/23 03/25/23 03/25/23 Range/Units 13:01 13:50 13:50 WBC (4.0-10.5) x10^3/uL RBC (4.1-5.4) x10^6/uL Hgb (12.0-16.0) g/dL Hct (35-47) % MCV (78-100) fL MCH (26-32) pg MCHC (32-36) g/dL RDW (11.5-14.0) % Plt Count (150-450) x10^3/uL MPV (7.5-11.0) fL Puncture Site pCO2 (35-45) mmHg pO2 (75-100) mmHg Base Excess (-2.0-2.0) O2 Saturation (94-100) g/dF ABG pH (7.35-7.45) ABG HCO3 (22-28) ABG O2 Sat (Measured) (95-100) % [place]rett Test A-a Gradient a/A Ratio Hemoglobin Carboxyhemoglobin (0.0-6.9) % THgb Methemoglobin (1.4-1.5) % Potassium 3.8 (3.5-5.1) Temperature C POC O2 Flow Rate % Sodium 137 (137-145) mmol/L Chloride 115 H D (98-107) mmol/L Carbon Dioxide < 5 L* (22-30) mmol/L Anion Gap (5-15) MEQ/L BUN 11 (7-17) mg/dL Creatinine 0.61 (0.52-1.04) mg/dL Estimated GFR 127.2 ML/MIN Glucose 221 H (74-106) mg/dL POC Glucometer 334 H (74 to 106) mg/dL Hemoglobin A1c (4.5-6.0) % Lactic Acid 1.6 (0.4-2.0) Calcium 8.1 L D (8.4-10.2) mg/dL Phosphorus (2.5-4.5) mg/dL Magnesium (1.6-2.3) mg/dL Total Bilirubin 0.50 (0.2-1.3) mg/dL AST 19 (14-36) U/L ALT 14 (0-35) U/L Alkaline Phosphatase 61 (38-126) U/L Serum Total Protein 7.3 (6.3-8.2) g/dL Albumin 4.1 (3.5-5.0) g/dL Triglycerides (30-150) mg/dL Cholesterol (50-200) mg/dL LDL Cholesterol (30-100) mg/dL HDL Cholesterol (40-60) mg/dL Heart Disease Risk Ratio 03/25/23 03/25/23 03/25/23 Range/Units 13:50 13:50 13:57 WBC (4.0-10.5) x10^3/uL RBC (4.1-5.4) x10^6/uL Hgb (12.0-16.0) g/dL Hct (35-47) % MCV (78-100) fL MCH (26-32) pg MCHC (32-36) g/dL RDW (11.5-14.0) % Plt Count (150-450) x10^3/uL MPV (7.5-11.0) fL Puncture Site RIGHT BRACHIAL pCO2 15 L* (35-45) mmHg pO2 174 H* (75-100) mmHg Base Excess -20.3 L (-2.0-2.0) O2 Saturation 95.1 (94-100) g/dF ABG pH 7.18 L* (7.35-7.45) ABG HCO3 5.6 L* (22-28) ABG O2 Sat (Measured) 99.3 (95-100) % Everett Test NOT APPLICABLE A-a Gradient -43 a/A Ratio 1.33 Hemoglobin 14.0 Carboxyhemoglobin 3.3 (0.0-6.9) % THgb Methemoglobin 1.0 L (1.4-1.5) % Potassium 3.9 (3.5-5.1) Temperature 37.0 C POC O2 Flow Rate 21 % Sodium (137-145) mmol/L Chloride (98-107) mmol/L Carbon Dioxide (22-30) mmol/L Anion Gap (5-15) MEQ/L BUN (7-17) mg/dL Creatinine (0.52-1.04) mg/dL Estimated GFR ML/MIN Glucose (74-106) mg/dL POC Glucometer 227 H (74 to 106) mg/dL Hemoglobin A1c (4.5-6.0) % Lactic Acid (0.4-2.0) Calcium (8.4-10.2) mg/dL Phosphorus 2.0 L (2.5-4.5) mg/dL Magnesium 1.8 (1.6-2.3) mg/dL Total Bilirubin (0.2-1.3) mg/dL AST (14-36) U/L ALT (0-35) U/L Alkaline Phosphatase (38-126) U/L Serum Total Protein (6.3-8.2) g/dL Albumin (3.5-5.0) g/dL Triglycerides (30-150) mg/dL Cholesterol (50-200) mg/dL LDL Cholesterol (30-100) mg/dL HDL Cholesterol (40-60) mg/dL Heart Disease Risk Ratio 03/25/23 03/25/23 03/25/23 Range/Units 14:57 16:01 16:57 WBC (4.0-10.5) x10^3/uL RBC (4.1-5.4) x10^6/uL Hgb (12.0-16.0) g/dL Hct (35-47) % MCV (78-100) fL MCH (26-32) pg MCHC (32-36) g/dL RDW (11.5-14.0) % Plt Count (150-450) x10^3/uL MPV (7.5-11.0) fL Puncture Site pCO2 (35-45) mmHg pO2 (75-100) mmHg Base Excess (-2.0-2.0) O2 Saturation (94-100) g/dF ABG pH (7.35-7.45) ABG HCO3 (22-28) ABG O2 Sat (Measured) (95-100) % [place]rett Test A-a Gradient a/A Ratio Hemoglobin Carboxyhemoglobin (0.0-6.9) % THgb Methemoglobin (1.4-1.5) % Potassium (3.5-5.1) Temperature C POC O2 Flow Rate % Sodium (137-145) mmol/L Chloride (98-107) mmol/L Carbon Dioxide (22-30) mmol/L Anion Gap (5-15) MEQ/L BUN (7-17) mg/dL Creatinine (0.52-1.04) mg/dL Estimated GFR ML/MIN Glucose (74-106) mg/dL POC Glucometer 228 H 273 H 271 H (74 to 106) mg/dL Hemoglobin A1c (4.5-6.0) % Lactic Acid (0.4-2.0) Calcium (8.4-10.2) mg/dL Phosphorus (2.5-4.5) mg/dL Magnesium (1.6-2.3) mg/dL Total Bilirubin (0.2-1.3) mg/dL AST (14-36) U/L ALT (0-35) U/L Alkaline Phosphatase (38-126) U/L Serum Total Protein (6.3-8.2) g/dL Albumin (3.5-5.0) g/dL Triglycerides (30-150) mg/dL Cholesterol (50-200) mg/dL LDL Cholesterol (30-100) mg/dL HDL Cholesterol (40-60) mg/dL Heart Disease Risk Ratio 03/25/23 03/25/23 03/25/23 Range/Units 17:59 18:52 19:20 WBC (4.0-10.5) x10^3/uL RBC (4.1-5.4) x10^6/uL Hgb (12.0-16.0) g/dL Hct (35-47) % MCV (78-100) fL MCH (26-32) pg MCHC (32-36) g/dL RDW (11.5-14.0) % Plt Count (150-450) x10^3/uL MPV (7.5-11.0) fL Puncture Site pCO2 (35-45) mmHg pO2 (75-100) mmHg Base Excess (-2.0-2.0) O2 Saturation (94-100) g/dF ABG pH (7.35-7.45) ABG HCO3 (22-28) ABG O2 Sat (Measured) (95-100) % [facility]rett Test A-a Gradient a/A Ratio Hemoglobin Carboxyhemoglobin (0.0-6.9) % THgb Methemoglobin (1.4-1.5) % Potassium 3.8 (3.5-5.1) Temperature C POC O2 Flow Rate % Sodium 133 L (137-145) mmol/L Chloride 113 H (98-107) mmol/L Carbon Dioxide 11 L* (22-30) mmol/L Anion Gap 13.2 (5-15) MEQ/L BUN 9 (7-17) mg/dL Creatinine 0.54 (0.52-1.04) mg/dL Estimated GFR 131.0 ML/MIN Glucose 159 H (74-106) mg/dL POC Glucometer 236 H 193 H (74 to 106) mg/dL Hemoglobin A1c (4.5-6.0) % Lactic Acid (0.4-2.0) Calcium 8.8 (8.4-10.2) mg/dL Phosphorus 1.5 L (2.5-4.5) mg/dL Magnesium 1.6 (1.6-2.3) mg/dL Total Bilirubin (0.2-1.3) mg/dL AST (14-36) U/L ALT (0-35) U/L Alkaline Phosphatase (38-126) U/L Serum Total Protein (6.3-8.2) g/dL Albumin (3.5-5.0) g/dL Triglycerides (30-150) mg/dL Cholesterol (50-200) mg/dL LDL Cholesterol (30-100) mg/dL HDL Cholesterol (40-60) mg/dL Heart Disease Risk Ratio 03/25/23 03/25/23 03/26/23 Range/Units 19:20 23:12 01:47 WBC (4.0-10.5) x10^3/uL RBC (4.1-5.4) x10^6/uL Hgb (12.0-16.0) g/dL Hct (35-47) % MCV (78-100) fL MCH (26-32) pg MCHC (32-36) g/dL RDW (11.5-14.0) % Plt Count (150-450) x10^3/uL MPV (7.5-11.0) fL Puncture Site pCO2 (35-45) mmHg pO2 (75-100) mmHg Base Excess (-2.0-2.0) O2 Saturation (94-100) g/dF ABG pH (7.35-7.45) ABG HCO3 (22-28) ABG O2 Sat (Measured) (95-100) % [facility]rett Test A-a Gradient a/A Ratio Hemoglobin Carboxyhemoglobin (0.0-6.9) % THgb Methemoglobin (1.4-1.5) % Potassium (3.5-5.1) Temperature C POC O2 Flow Rate % Sodium (137-145) mmol/L Chloride (98-107) mmol/L Carbon Dioxide (22-30) mmol/L Anion Gap (5-15) MEQ/L BUN (7-17) mg/dL Creatinine (0.52-1.04) mg/dL Estimated GFR ML/MIN Glucose (74-106) mg/dL POC Glucometer 143 H 210 H 333 H (74 to 106) mg/dL Hemoglobin A1c (4.5-6.0) % Lactic Acid (0.4-2.0) Calcium (8.4-10.2) mg/dL Phosphorus (2.5-4.5) mg/dL Magnesium (1.6-2.3) mg/dL Total Bilirubin (0.2-1.3) mg/dL AST (14-36) U/L ALT (0-35) U/L Alkaline Phosphatase (38-126) U/L Serum Total Protein (6.3-8.2) g/dL Albumin (3.5-5.0) g/dL Triglycerides (30-150) mg/dL Cholesterol (50-200) mg/dL LDL Cholesterol (30-100) mg/dL HDL Cholesterol (40-60) mg/dL Heart Disease Risk Ratio 03/26/23 03/26/23 03/26/23 Range/Units 02:06 02:06 02:06 WBC (4.0-10.5) x10^3/uL RBC (4.1-5.4) x10^6/uL Hgb (12.0-16.0) g/dL Hct (35-47) % MCV (78-100) fL MCH (26-32) pg MCHC (32-36) g/dL RDW (11.5-14.0) % Plt Count (150-450) x10^3/uL MPV (7.5-11.0) fL Puncture Site pCO2 (35-45) mmHg pO2 (75-100) mmHg Base Excess (-2.0-2.0) O2 Saturation (94-100) g/dF ABG pH (7.35-7.45) ABG HCO3 (22-28) ABG O2 Sat (Measured) (95-100) % [facility]rett Test A-a Gradient a/A Ratio Hemoglobin Carboxyhemoglobin (0.0-6.9) % THgb Methemoglobin (1.4-1.5) % Potassium 4.4 (3.5-5.1) Temperature C POC O2 Flow Rate % Sodium 131 L (137-145) mmol/L Chloride 109 H (98-107) mmol/L Carbon Dioxide < 5 L* (22-30) mmol/L Anion Gap (5-15) MEQ/L BUN 11 (7-17) mg/dL Creatinine 0.65 (0.52-1.04) mg/dL Estimated GFR 125.2 ML/MIN Glucose 427 H (74-106) mg/dL POC Glucometer (74 to 106) mg/dL Hemoglobin A1c (4.5-6.0) % Lactic Acid (0.4-2.0) Calcium 8.6 (8.4-10.2) mg/dL Phosphorus 2.3 L (2.5-4.5) mg/dL Magnesium 1.7 (1.6-2.3) mg/dL Total Bilirubin (0.2-1.3) mg/dL AST (14-36) U/L ALT (0-35) U/L Alkaline Phosphatase (38-126) U/L Serum Total Protein (6.3-8.2) g/dL Albumin (3.5-5.0) g/dL Triglycerides 160 H (30-150) mg/dL Cholesterol 180 (50-200) mg/dL LDL Cholesterol 94 (30-100) mg/dL HDL Cholesterol 55 (40-60) mg/dL Heart Disease Risk Ratio 3.3 03/26/23 03/26/23 03/26/23 Range/Units 02:06 02:59 03:59 WBC 12.1 H (4.0-10.5) x10^3/uL RBC 4.16 (4.1-5.4) x10^6/uL Hgb 12.9 D (12.0-16.0) g/dL Hct 39.7 (35-47) % MCV 95.4 (78-100) fL MCH 31.0 (26-32) pg MCHC 32.5 (32-36) g/dL RDW 13.0 (11.5-14.0) % Plt Count 320 D (150-450) x10^3/uL MPV 9.6 (7.5-11.0) fL Puncture Site pCO2 (35-45) mmHg pO2 (75-100) mmHg Base Excess (-2.0-2.0) O2 Saturation (94-100) g/dF ABG pH (7.35-7.45) ABG HCO3 (22-28) ABG O2 Sat (Measured) (95-100) % [facility]rett Test A-a Gradient a/A Ratio Hemoglobin Carboxyhemoglobin (0.0-6.9) % THgb Methemoglobin (1.4-1.5) % Potassium (3.5-5.1) Temperature C POC O2 Flow Rate % Sodium (137-145) mmol/L Chloride (98-107) mmol/L Carbon Dioxide (22-30) mmol/L Anion Gap (5-15) MEQ/L BUN (7-17) mg/dL Creatinine (0.52-1.04) mg/dL Estimated GFR ML/MIN Glucose (74-106) mg/dL POC Glucometer 368 H 288 H (74 to 106) mg/dL Hemoglobin A1c (4.5-6.0) % Lactic Acid (0.4-2.0) Calcium (8.4-10.2) mg/dL Phosphorus (2.5-4.5) mg/dL Magnesium (1.6-2.3) mg/dL Total Bilirubin (0.2-1.3) mg/dL AST (14-36) U/L ALT (0-35) U/L Alkaline Phosphatase (38-126) U/L Serum Total Protein (6.3-8.2) g/dL Albumin (3.5-5.0) g/dL Triglycerides (30-150) mg/dL Cholesterol (50-200) mg/dL LDL Cholesterol (30-100) mg/dL HDL Cholesterol (40-60) mg/dL Heart Disease Risk Ratio 03/26/23 03/26/23 03/26/23 Range/Units 04:58 05:47 06:05 WBC (4.0-10.5) x10^3/uL RBC (4.1-5.4) x10^6/uL Hgb (12.0-16.0) g/dL Hct (35-47) % MCV (78-100) fL MCH (26-32) pg MCHC (32-36) g/dL RDW (11.5-14.0) % Plt Count (150-450) x10^3/uL MPV (7.5-11.0) fL Puncture Site pCO2 (35-45) mmHg pO2 (75-100) mmHg Base Excess (-2.0-2.0) O2 Saturation (94-100) g/dF ABG pH (7.35-7.45) ABG HCO3 (22-28) ABG O2 Sat (Measured) (95-100) % [facility]rett Test A-a Gradient a/A Ratio Hemoglobin Carboxyhemoglobin (0.0-6.9) % THgb Methemoglobin (1.4-1.5) % Potassium 3.5 D (3.5-5.1) Temperature C POC O2 Flow Rate % Sodium 134 L (137-145) mmol/L Chloride 109 H (98-107) mmol/L Carbon Dioxide 9 L* (22-30) mmol/L Anion Gap 18.5 H (5-15) MEQ/L BUN 11 (7-17) mg/dL Creatinine 0.61 (0.52-1.04) mg/dL Estimated GFR 127.2 ML/MIN Glucose 180 H (74-106) mg/dL POC Glucometer 212 H 176 H (74 to 106) mg/dL Hemoglobin A1c (4.5-6.0) % Lactic Acid (0.4-2.0) Calcium 8.8 (8.4-10.2) mg/dL Phosphorus 1.1 L (2.5-4.5) mg/dL Magnesium 1.8 (1.6-2.3) mg/dL Total Bilirubin (0.2-1.3) mg/dL AST (14-36) U/L ALT (0-35) U/L Alkaline Phosphatase (38-126) U/L Serum Total Protein (6.3-8.2) g/dL Albumin (3.5-5.0) g/dL Triglycerides (30-150) mg/dL Cholesterol (50-200) mg/dL LDL Cholesterol (30-100) mg/dL HDL Cholesterol (40-60) mg/dL Heart Disease Risk Ratio 03/26/23 03/26/23 03/26/23 Range/Units 06:59 08:02 08:57 WBC (4.0-10.5) x10^3/uL RBC (4.1-5.4) x10^6/uL Hgb (12.0-16.0) g/dL Hct (35-47) % MCV (78-100) fL MCH (26-32) pg MCHC (32-36) g/dL RDW (11.5-14.0) % Plt Count (150-450) x10^3/uL MPV (7.5-11.0) fL Puncture Site pCO2 (35-45) mmHg pO2 (75-100) mmHg Base Excess (-2.0-2.0) O2 Saturation (94-100) g/dF ABG pH (7.35-7.45) ABG HCO3 (22-28) ABG O2 Sat (Measured) (95-100) % [facility]rett Test A-a Gradient a/A Ratio Hemoglobin Carboxyhemoglobin (0.0-6.9) % THgb Methemoglobin (1.4-1.5) % Potassium (3.5-5.1) Temperature C POC O2 Flow Rate % Sodium (137-145) mmol/L Chloride (98-107) mmol/L Carbon Dioxide (22-30) mmol/L Anion Gap (5-15) MEQ/L BUN (7-17) mg/dL Creatinine (0.52-1.04) mg/dL Estimated GFR ML/MIN Glucose (74-106) mg/dL POC Glucometer 127 H 101 159 H (74 to 106) mg/dL Hemoglobin A1c (4.5-6.0) % Lactic Acid (0.4-2.0) Calcium (8.4-10.2) mg/dL Phosphorus (2.5-4.5) mg/dL Magnesium (1.6-2.3) mg/dL Total Bilirubin (0.2-1.3) mg/dL AST (14-36) U/L ALT (0-35) U/L Alkaline Phosphatase (38-126) U/L Serum Total Protein (6.3-8.2) g/dL Albumin (3.5-5.0) g/dL Triglycerides (30-150) mg/dL Cholesterol (50-200) mg/dL LDL Cholesterol (30-100) mg/dL HDL Cholesterol (40-60) mg/dL Heart Disease Risk Ratio 03/26/23 03/26/23 Range/Units 09:59 10:54 WBC (4.0-10.5) x10^3/uL RBC (4.1-5.4) x10^6/uL Hgb (12.0-16.0) g/dL Hct (35-47) % MCV (78-100) fL MCH (26-32) pg MCHC (32-36) g/dL RDW (11.5-14.0) % Plt Count (150-450) x10^3/uL MPV (7.5-11.0) fL Puncture Site pCO2 (35-45) mmHg pO2 (75-100) mmHg Base Excess (-2.0-2.0) O2 Saturation (94-100) g/dF ABG pH (7.35-7.45) ABG HCO3 (22-28) ABG O2 Sat (Measured) (95-100) % [place]rett Test A-a Gradient a/A Ratio Hemoglobin Carboxyhemoglobin (0.0-6.9) % THgb Methemoglobin (1.4-1.5) % Potassium (3.5-5.1) Temperature C POC O2 Flow Rate % Sodium (137-145) mmol/L Chloride (98-107) mmol/L Carbon Dioxide (22-30) mmol/L Anion Gap (5-15) MEQ/L BUN (7-17) mg/dL Creatinine (0.52-1.04) mg/dL Estimated GFR ML/MIN Glucose (74-106) mg/dL POC Glucometer 205 H 224 H (74 to 106) mg/dL Hemoglobin A1c (4.5-6.0) % Lactic Acid (0.4-2.0) Calcium (8.4-10.2) mg/dL Phosphorus (2.5-4.5) mg/dL Magnesium (1.6-2.3) mg/dL Total Bilirubin (0.2-1.3) mg/dL AST (14-36) U/L ALT (0-35) U/L Alkaline Phosphatase (38-126) U/L Serum Total Protein (6.3-8.2) g/dL Albumin (3.5-5.0) g/dL Triglycerides (30-150) mg/dL Cholesterol (50-200) mg/dL LDL Cholesterol (30-100) mg/dL HDL Cholesterol (40-60) mg/dL Heart Disease Risk Ratio Radiology Exams: Radiology Procedures Category Date Time Status CHEST 2 VIEWS (PA AND LAT) Stat Exams 03/25/23 09:31 Completed Assessment/Plan (1) DKA (diabetic ketoacidoses) Current Visit: Yes Status: Acute Qualifiers: Code(s): E13.10 - OTH DIABETES MELLITUS WITH KETOACIDOSIS WITHOUT COMA (2) Sinus arrhythmia Current Visit: Yes Status: Acute Code(s): I49.8 - OTHER SPECIFIED CARDIAC ARRHYTHMIAS (3) Urinary tract infection Current Visit: Yes Status: Resolved Code(s): N39.0 - URINARY TRACT INFECTION, SITE NOT SPECIFIED (4) Fatigue Current Visit: No Status: Acute Code(s): R53.83 - OTHER FATIGUE (5) Hyperglycemia Current Visit: No Status: Acute Code(s): R73.9 - HYPERGLYCEMIA, UNSPECIFIED (6) Nausea & vomiting Current Visit: No Status: Acute Code(s): R11.2 - NAUSEA WITH VOMITING, UNSPECIFIED (7) Marijuana smoker Current Visit: Yes Status: Acute Assessment & Plan: (1) DKA (diabetic ketoacidoses) Current Visit: Yes Status: Acute Qualifiers: Assessment & Plan: - 2:2 N/V , UTI - Pt has not been checking her blood sugars as her meter fell off and she reports she just did not make time to place it back on. - on insulin pump at home - DKA protocol with insulin drip - Labs q4 hr BMP, K+, Phos, Mg+ - NPO due to nausea - Start clear liquid diet when N/V resolved. - phos replaced / - Phos replaced last night - clear liquid diet - Continue insulin gtt - D5 1/2 NS with 20KCL at 150 - Anion Gap 18.5 - CO2 9 Code(s): E13.10 - OTH DIABETES MELLITUS WITH KETOACIDOSIS WITHOUT COMA (2) Sinus arrhythmia Current Visit: Yes Status: Acute Assessment & Plan: - as seen on Tele and EKG - denies Cp - Chest XR - reviewed Code(s): I49.8 - OTHER SPECIFIED CARDIAC ARRHYTHMIAS (3) Urinary tract infection Current Visit: Yes Status: Acute Assessment & Plan: - Rocephin - IVF - UC pending - WBC 16.1 03/26 - UC negative - stopped antibiotic Code(s): N39.0 - URINARY TRACT INFECTION, SITE NOT SPECIFIED (4) Fatigue Current Visit: No Status: Acute Assessment & Plan: - 2:2 DKA, UTI - BR with BRP Code(s): R53.83 - OTHER FATIGUE (5) Hyperglycemia Current Visit: No Status: Acute Assessment & Plan: - 2:2 UTI - In DKA - A1C pending - Lipid panel in AM Code(s): R73.9 - HYPERGLYCEMIA, UNSPECIFIED (6) Nausea & vomiting Current Visit: No Status: Acute Assessment & Plan: - May be r/t UTI, DKA vs. cyclical vomiting due to marijuana use - Zofran PRN 03/26 - sxs resolved - clear liquid diet Code(s): R11.2 - NAUSEA WITH VOMITING, UNSPECIFIED (7) Marijuana smoker Current Visit: Yes Status: Acute Assessment & Plan: - advised cessation - N/V may be r/t cyclical vomiting due to marijuana use- 03/26 - sxs resolved DVT: lovenox PPI: protonix Next of Kin: Alessiochani Kang [phone] D/c plan: 1-2 days Code status: Full Code(s): F12.90 - CANNABIS USE, UNSPECIFIED, UNCOMPLICATED Code(s): F12.90 - CANNABIS USE, UNSPECIFIED, UNCOMPLICATED
[2023-03-26 11:13] LABS: ANION GAP 19.3 MEQ/L (5-15); Calcium 8.1 mg/dL (8.4-10.2); Creatinine 1 0.57 mg/dL (0.52-1.04); EST GLOMERULAR FILTRATION RATE 129.3 ML/MIN; MAGNESIUM 1.7 mg/dL (1.6-2.3); PHOSPHOROUS 1.2 mg/dL (2.5-4.5); Potassium 3.3 mmol/L (3.5-5.1)
[2023-03-26] MEDS ORDERED: Klor Con PO ONE ×2 (11:23→15:29)
[2023-03-26] MEDS ORDERED: Neutra-Phos Packet PO ONE ×2 (12:00→15:38)
[2023-03-26 15:15] LABS: ANION GAP 8.5 MEQ/L (5-15); Calcium 8.2 mg/dL (8.4-10.2); Creatinine 1 0.49 mg/dL (0.52-1.04); EST GLOMERULAR FILTRATION RATE 134.1 ML/MIN; MAGNESIUM 1.6 mg/dL (1.6-2.3); PHOSPHOROUS 0.9 mg/dL (2.5-4.5); Potassium 3.4 mmol/L (3.5-5.1)
[2023-03-26 19:19] LABS: ANION GAP 12.6 MEQ/L (5-15); Calcium 8.2 mg/dL (8.4-10.2); Creatinine 1 0.5 mg/dL (0.52-1.04); EST GLOMERULAR FILTRATION RATE 133.4 ML/MIN; MAGNESIUM 1.6 mg/dL (1.6-2.3); PHOSPHOROUS 2.4 mg/dL (2.5-4.5); Potassium 3.9 mmol/L (3.5-5.1)
[2023-03-26 23:28] LABS: ANION GAP 8.7 MEQ/L (5-15); Calcium 7.8 mg/dL (8.4-10.2); Creatinine 1 0.4 mg/dL (0.52-1.04); EST GLOMERULAR FILTRATION RATE 140.8 ML/MIN; MAGNESIUM 1.6 mg/dL (1.6-2.3); Potassium 3.7 mmol/L (3.5-5.1)
[2023-03-27] MEDS: D5W/0.45NS W/ 20mEq KCl 1000 ML 1,000 ML IV SCH ×3 (01:48→15:13)
[2023-03-27 03:02] LABS: Hematocrit 35.1 % (35-47); Hemoglobin 11.8 g/dL (12.0-16.0); Mean Cell Volume 92.4 fL (78-100); Mean Corpuscular Hemoglobin 31.1 pg (26-32); Mean Corpuscular Hgb Concent. 33.6 g/dL (32-36); Mean Platelet Volume 9.2 fL (7.5-11.0); Platelet Count 288 x10^3/uL (150-450); Red Cell Distribution Width 13.1 % (11.5-14.0); White Blood Count 5.4 x10^3/uL (4.0-10.5)
[2023-03-27 03:15] LABS: ANION GAP 7.5 MEQ/L (5-15); Calcium 7.9 mg/dL (8.4-10.2); Creatinine 1 0.4 mg/dL (0.52-1.04); EST GLOMERULAR FILTRATION RATE 140.8 ML/MIN; MAGNESIUM 1.6 mg/dL (1.6-2.3); PHOSPHOROUS 1.9 mg/dL (2.5-4.5); Potassium 3.7 mmol/L (3.5-5.1)
[2023-03-27 05:10] VITALS: TEMP 97.1
--- NOTE | 2023-03-27 05:47 | PCM.NOTE ---
Date and Time: 03/27/23 0546 Subjective Assessment: MS. Jasso is a 27 year old female with a pmhx of DM type 1 (Dexcom/insulin pump)who presented to ED 03/25/23 with complaints of nausea, vomiting, and abdominal pain for the previous 3-4 days prior to presentation. Patient noted to be non-compliant with dexcom and had not been checking blood glucose levels at home. Lab findings were consistent with DKA and protocol was initiated. Initially the UA was suspicious for UTI, but culture is with no growth. 03/27/23: Met with patient bedside. No complaints this morning other than she would like a diet. Lab findings much improved. Insulin drip can now be d/cd per protocol. She will resume her insulin pump. Denies fever,cough, sob, cp, abdominal pain, DUMAS, dizziness, N/V/D. Most likely can discharge tomorrow. <JONATHAN GOINS - Last Filed: 03/27/23 15:38> Date and Time: 03/27/232124 <KALEN CORADO - Last Filed: 03/27/23 21:26> - Review of Systems Constitutional: No Symptoms Eyes: No Symptoms Ears, Nose, & Throat: No Symptoms Respiratory: No Symptoms Cardiac: No Symptoms Abdominal/Gastrointestinal: No Symptoms Genitourinary Symptoms: No Symptoms Musculoskeletal: No Symptoms Skin: No Symptoms Neurological: No Symptoms Psychological: No Symptoms Endocrine: No Symptoms Hematologic/Lymphatic: No Symptoms Immunological/Allergic: No Symptoms <JONATHAN GOINS - Last Filed: 03/27/23 15:38> Objective Exam General Appearance: no apparent distress Neurologic Exam: alert, oriented x 3, cooperative Skin Exam: normal color Eye Exam: PERRL Ears, Nose, Throat Exam: normal ENT inspection Neck Exam: normal inspection Respiratory Exam: normal breath sounds, lungs clear Cardiovascular Exam: regular rate/rhythm, normal heart sounds Gastrointestinal/Abdomen Exam: soft, normal bowel sounds Extremity Exam: normal inspection, normal range of motion Back Exam: normal inspection <JONATHAN GOINS - Last Filed: 03/27/23 15:38> OBJECTIVE DATA Vital Signs: Vital Signs - 24 hr Temp Pulse Resp BP Pulse Ox 03/27/23 05:10 97.1 F 03/27/23 05:00 72 19 107/70 100 03/27/23 04:00 71 22 110/75 100 03/27/23 03:10 67 18 124/79 100 03/27/23 03:00 97.9 F 03/27/23 02:00 61 20 110/77 100 03/27/23 01:00 67 21 110/63 100 03/27/23 00:01 64 03/27/23 00:00 62 16 108/71 99 03/26/23 23:00 65 15 104/65 100 03/26/23 22:00 68 18 109/66 100 03/26/23 21:00 63 18 91/57 100 03/26/23 20:00 97.4 F 80 11 L 109/72 99 03/26/23 19:00 86 19 109/75 84 L 03/26/23 18:00 82 21 102/59 99 03/26/23 17:00 87 17 106/64 100 03/26/23 16:00 97.7 F 79 20 111/69 100 03/26/23 15:00 85 18 102/69 100 03/26/23 14:00 88 16 102/61 100 03/26/23 13:00 89 21 91/49 100 03/26/23 12:00 97.8 F 88 24 108/71 100 03/26/23 11:08 80 15 106/71 100 03/26/23 10:56 82 20 115/75 100 03/26/23 10:00 97.6 F 91 H 24 111/66 100 03/26/23 09:00 87 27 H 109/68 100 03/26/23 08:00 103 H 21 111/74 98 03/26/23 07:00 95 H 23 103/57 99 03/26/23 05:55 104 H 25 H 99/66 100 Pain Assessment - Last Documented Pain Intensity 0 Intake and Output: Intake & Output 03/24/23 03/25/23 03/26/23 03/27/23 11:59 11:59 11:59 11:59 Intake Total 910 2038 Output Total 1550 1700 Balance -640 338 Weight 45 kg 44.6 kg Lab Results: Lab Results-Last 24 Hours 03/26/23 03/26/23 03/26/23 Range/Units 05:47 06:05 06:59 WBC (4.0-10.5) x10^3/uL RBC (4.1-5.4) x10^6/uL Hgb (12.0-16.0) g/dL Hct (35-47) % MCV (78-100) fL MCH (26-32) pg MCHC (32-36) g/dL RDW (11.5-14.0) % Plt Count (150-450) x10^3/uL MPV (7.5-11.0) fL Sodium 134 L (137-145) mmol/L Potassium 3.5 D (3.5-5.1) mmol/L Chloride 109 H (98-107) mmol/L Carbon Dioxide 9 L* (22-30) mmol/L Anion Gap 18.5 H (5-15) MEQ/L BUN 11 (7-17) mg/dL Creatinine 0.61 (0.52-1.04) mg/dL Estimated GFR 127.2 ML/MIN Glucose 180 H (74-106) mg/dL POC Glucometer 176 H 127 H (74 to 106) mg/dL Calcium 8.8 (8.4-10.2) mg/dL Phosphorus 1.1 L (2.5-4.5) mg/dL Magnesium 1.8 (1.6-2.3) mg/dL 03/26/23 03/26/23 03/26/23 Range/Units 08:02 08:57 09:59 WBC (4.0-10.5) x10^3/uL RBC (4.1-5.4) x10^6/uL Hgb (12.0-16.0) g/dL Hct (35-47) % MCV (78-100) fL MCH (26-32) pg MCHC (32-36) g/dL RDW (11.5-14.0) % Plt Count (150-450) x10^3/uL MPV (7.5-11.0) fL Sodium (137-145) mmol/L Potassium (3.5-5.1) mmol/L Chloride (98-107) mmol/L Carbon Dioxide (22-30) mmol/L Anion Gap (5-15) MEQ/L BUN (7-17) mg/dL Creatinine (0.52-1.04) mg/dL Estimated GFR ML/MIN Glucose (74-106) mg/dL POC Glucometer 101 159 H 205 H (74 to 106) mg/dL Calcium (8.4-10.2) mg/dL Phosphorus (2.5-4.5) mg/dL Magnesium (1.6-2.3) mg/dL 03/26/23 03/26/23 03/26/23 Range/Units 10:52 10:54 11:56 WBC (4.0-10.5) x10^3/uL RBC (4.1-5.4) x10^6/uL Hgb (12.0-16.0) g/dL Hct (35-47) % MCV (78-100) fL MCH (26-32) pg MCHC (32-36) g/dL RDW (11.5-14.0) % Plt Count (150-450) x10^3/uL MPV (7.5-11.0) fL Sodium 133 L (137-145) mmol/L Potassium 3.3 L (3.5-5.1) mmol/L Chloride 108 H (98-107) mmol/L Carbon Dioxide 10 L* (22-30) mmol/L Anion Gap 19.3 H (5-15) MEQ/L BUN 10 (7-17) mg/dL Creatinine 0.57 (0.52-1.04) mg/dL Estimated GFR 129.3 ML/MIN Glucose 227 H (74-106) mg/dL POC Glucometer 224 H 210 H (74 to 106) mg/dL Calcium 8.1 L (8.4-10.2) mg/dL Phosphorus 1.2 L (2.5-4.5) mg/dL Magnesium 1.7 (1.6-2.3) mg/dL 03/26/23 03/26/23 03/26/23 Range/Units 12:55 13:57 14:55 WBC (4.0-10.5) x10^3/uL RBC (4.1-5.4) x10^6/uL Hgb (12.0-16.0) g/dL Hct (35-47) % MCV (78-100) fL MCH (26-32) pg MCHC (32-36) g/dL RDW (11.5-14.0) % Plt Count (150-450) x10^3/uL MPV (7.5-11.0) fL Sodium 132 L (137-145) mmol/L Potassium 3.4 L (3.5-5.1) mmol/L Chloride 111 H (98-107) mmol/L Carbon Dioxide 17 L (22-30) mmol/L Anion Gap 8.5 (5-15) MEQ/L BUN 7 (7-17) mg/dL Creatinine 0.49 L (0.52-1.04) mg/dL Estimated GFR 134.1 ML/MIN Glucose 105 (74-106) mg/dL POC Glucometer 232 H 158 H (74 to 106) mg/dL Calcium 8.2 L (8.4-10.2) mg/dL Phosphorus 0.9 L (2.5-4.5) mg/dL Magnesium 1.6 (1.6-2.3) mg/dL 03/26/23 03/26/23 03/26/23 Range/Units 14:58 16:05 17:04 WBC (4.0-10.5) x10^3/uL RBC (4.1-5.4) x10^6/uL Hgb (12.0-16.0) g/dL Hct (35-47) % MCV (78-100) fL MCH (26-32) pg MCHC (32-36) g/dL RDW (11.5-14.0) % Plt Count (150-450) x10^3/uL MPV (7.5-11.0) fL Sodium (137-145) mmol/L Potassium (3.5-5.1) mmol/L Chloride (98-107) mmol/L Carbon Dioxide (22-30) mmol/L Anion Gap (5-15) MEQ/L BUN (7-17) mg/dL Creatinine (0.52-1.04) mg/dL Estimated GFR ML/MIN Glucose (74-106) mg/dL POC Glucometer 99 115 H 118 H (74 to 106) mg/dL Calcium (8.4-10.2) mg/dL Phosphorus (2.5-4.5) mg/dL Magnesium (1.6-2.3) mg/dL 03/26/23 03/26/23 03/26/23 Range/Units 17:54 18:55 18:58 WBC (4.0-10.5) x10^3/uL RBC (4.1-5.4) x10^6/uL Hgb (12.0-16.0) g/dL Hct (35-47) % MCV (78-100) fL MCH (26-32) pg MCHC (32-36) g/dL RDW (11.5-14.0) % Plt Count (150-450) x10^3/uL MPV (7.5-11.0) fL Sodium 135 L (137-145) mmol/L Potassium 3.9 (3.5-5.1) mmol/L Chloride 110 H (98-107) mmol/L Carbon Dioxide 16 L* (22-30) mmol/L Anion Gap 12.6 (5-15) MEQ/L BUN 6 L (7-17) mg/dL Creatinine 0.50 L (0.52-1.04) mg/dL Estimated GFR 133.4 ML/MIN Glucose 147 H (74-106) mg/dL POC Glucometer 137 H 128 H (74 to 106) mg/dL Calcium 8.2 L (8.4-10.2) mg/dL Phosphorus 2.4 L (2.5-4.5) mg/dL Magnesium 1.6 (1.6-2.3) mg/dL 03/26/23 03/26/23 03/26/23 Range/Units 20:04 21:06 22:02 WBC (4.0-10.5) x10^3/uL RBC (4.1-5.4) x10^6/uL Hgb (12.0-16.0) g/dL Hct (35-47) % MCV (78-100) fL MCH (26-32) pg MCHC (32-36) g/dL RDW (11.5-14.0) % Plt Count (150-450) x10^3/uL MPV (7.5-11.0) fL Sodium (137-145) mmol/L Potassium (3.5-5.1) mmol/L Chloride (98-107) mmol/L Carbon Dioxide (22-30) mmol/L Anion Gap (5-15) MEQ/L BUN (7-17) mg/dL Creatinine (0.52-1.04) mg/dL Estimated GFR ML/MIN Glucose (74-106) mg/dL POC Glucometer 134 H 125 H 134 H (74 to 106) mg/dL Calcium (8.4-10.2) mg/dL Phosphorus (2.5-4.5) mg/dL Magnesium (1.6-2.3) mg/dL 03/26/23 03/26/23 03/26/23 Range/Units 23:06 23:13 23:57 WBC (4.0-10.5) x10^3/uL RBC (4.1-5.4) x10^6/uL Hgb (12.0-16.0) g/dL Hct (35-47) % MCV (78-100) fL MCH (26-32) pg MCHC (32-36) g/dL RDW (11.5-14.0) % Plt Count (150-450) x10^3/uL MPV (7.5-11.0) fL Sodium 133 L (137-145) mmol/L Potassium 3.7 (3.5-5.1) mmol/L Chloride 112 H (98-107) mmol/L Carbon Dioxide 16 L* (22-30) mmol/L Anion Gap 8.7 (5-15) MEQ/L BUN 5 L (7-17) mg/dL Creatinine 0.40 L (0.52-1.04) mg/dL Estimated GFR 140.8 ML/MIN Glucose 162 H (74-106) mg/dL POC Glucometer 151 H 149 H (74 to 106) mg/dL Calcium 7.8 L (8.4-10.2) mg/dL Phosphorus 2.0 L (2.5-4.5) mg/dL Magnesium 1.6 (1.6-2.3) mg/dL 03/27/23 03/27/23 03/27/23 Range/Units 01:09 02:01 02:56 WBC (4.0-10.5) x10^3/uL RBC (4.1-5.4) x10^6/uL Hgb (12.0-16.0) g/dL Hct (35-47) % MCV (78-100) fL MCH (26-32) pg MCHC (32-36) g/dL RDW (11.5-14.0) % Plt Count (150-450) x10^3/uL MPV (7.5-11.0) fL Sodium (137-145) mmol/L Potassium (3.5-5.1) mmol/L Chloride (98-107) mmol/L Carbon Dioxide (22-30) mmol/L Anion Gap (5-15) MEQ/L BUN (7-17) mg/dL Creatinine (0.52-1.04) mg/dL Estimated GFR ML/MIN Glucose (74-106) mg/dL POC Glucometer 139 H 156 H 160 H (74 to 106) mg/dL Calcium (8.4-10.2) mg/dL Phosphorus (2.5-4.5) mg/dL Magnesium (1.6-2.3) mg/dL 03/27/23 03/27/23 03/27/23 Range/Units 02:59 02:59 04:01 WBC 5.4 (4.0-10.5) x10^3/uL RBC 3.80 L (4.1-5.4) x10^6/uL Hgb 11.8 L (12.0-16.0) g/dL Hct 35.1 (35-47) % MCV 92.4 (78-100) fL MCH 31.1 (26-32) pg MCHC 33.6 (32-36) g/dL RDW 13.1 (11.5-14.0) % Plt Count 288 (150-450) x10^3/uL MPV 9.2 (7.5-11.0) fL Sodium 133 L (137-145) mmol/L Potassium 3.7 (3.5-5.1) mmol/L Chloride 111 H (98-107) mmol/L Carbon Dioxide 18 L (22-30) mmol/L Anion Gap 7.5 (5-15) MEQ/L BUN 4 L (7-17) mg/dL Creatinine 0.40 L (0.52-1.04) mg/dL Estimated GFR 140.8 ML/MIN Glucose 176 H (74-106) mg/dL POC Glucometer 148 H (74 to 106) mg/dL Calcium 7.9 L (8.4-10.2) mg/dL Phosphorus 1.9 L (2.5-4.5) mg/dL Magnesium 1.6 (1.6-2.3) mg/dL 03/27/23 Range/Units 05:01 WBC (4.0-10.5) x10^3/uL RBC (4.1-5.4) x10^6/uL Hgb (12.0-16.0) g/dL Hct (35-47) % MCV (78-100) fL MCH (26-32) pg MCHC (32-36) g/dL RDW (11.5-14.0) % Plt Count (150-450) x10^3/uL MPV (7.5-11.0) fL Sodium (137-145) mmol/L Potassium (3.5-5.1) mmol/L Chloride (98-107) mmol/L Carbon Dioxide (22-30) mmol/L Anion Gap (5-15) MEQ/L BUN (7-17) mg/dL Creatinine (0.52-1.04) mg/dL Estimated GFR ML/MIN Glucose (74-106) mg/dL POC Glucometer 166 H (74 to 106) mg/dL Calcium (8.4-10.2) mg/dL Phosphorus (2.5-4.5) mg/dL Magnesium (1.6-2.3) mg/dL Radiology Exams: Radiology Procedures Category Date Time Status CHEST 2 VIEWS (PA AND LAT) Stat Exams 03/25/23 09:31 Completed <JONATHAN GOINS - Last Filed: 03/27/23 15:38> Vital Signs: Vital Signs - 24 hr Temp Pulse Resp BP Pulse Ox 03/27/23 20:00 64 21 99/61 03/27/23 19:00 73 18 99/58 100 03/27/23 18:00 60 23 123/80 03/27/23 17:00 73 21 99/77 03/27/23 16:00 68 20 114/73 03/27/23 15:00 68 20 137/85 03/27/23 14:00 69 18 117/78 03/27/23 13:00 67 19 130/91 100 03/27/23 12:00 65 25 H 108/82 03/27/23 11:00 74 17 108/82 03/27/23 10:00 73 15 118/77 03/27/23 09:00 77 16 113/75 100 03/27/23 08:00 68 15 112/81 100 03/27/23 07:00 77 18 114/81 100 03/27/23 06:00 61 26 H 110/70 100 03/27/23 05:10 97.1 F 03/27/23 05:00 72 19 107/70 100 03/27/23 04:00 71 22 110/75 100 03/27/23 03:10 67 18 124/79 100 03/27/23 03:00 97.9 F 03/27/23 02:00 61 20 110/77 100 03/27/23 01:00 67 21 110/63 100 03/27/23 00:01 64 03/27/23 00:00 62 16 108/71 99 03/26/23 23:00 65 15 104/65 100 03/26/23 22:00 68 18 109/66 100 Pain Assessment - Last Documented Pain Intensity 0 Intake and Output: Intake & Output 03/25/23 03/26/23 03/27/23 03/28/23 11:59 11:59 11:59 11:59 Intake Total 910 2098 3934 Output Total 1550 2600 900 Balance -640 -502 3034 Weight 45 kg 44.6 kg 44.8 kg Lab Results: Lab Results-Last 24 Hours 03/26/23 03/26/23 03/26/23 Range/Units 22:02 23:06 23:13 WBC (4.0-10.5) x10^3/uL RBC (4.1-5.4) x10^6/uL Hgb (12.0-16.0) g/dL Hct (35-47) % MCV (78-100) fL MCH (26-32) pg MCHC (32-36) g/dL RDW (11.5-14.0) % Plt Count (150-450) x10^3/uL MPV (7.5-11.0) fL Sodium 133 L (137-145) mmol/L Potassium 3.7 (3.5-5.1) mmol/L Chloride 112 H (98-107) mmol/L Carbon Dioxide 16 L* (22-30) mmol/L Anion Gap 8.7 (5-15) MEQ/L BUN 5 L (7-17) mg/dL Creatinine 0.40 L (0.52-1.04) mg/dL Estimated GFR 140.8 ML/MIN Glucose 162 H (74-106) mg/dL POC Glucometer 134 H 151 H (74 to 106) mg/dL Calcium 7.8 L (8.4-10.2) mg/dL Phosphorus 2.0 L (2.5-4.5) mg/dL Magnesium 1.6 (1.6-2.3) mg/dL 03/26/23 03/27/23 03/27/23 Range/Units 23:57 01:09 02:01 WBC (4.0-10.5) x10^3/uL RBC (4.1-5.4) x10^6/uL Hgb (12.0-16.0) g/dL Hct (35-47) % MCV (78-100) fL MCH (26-32) pg MCHC (32-36) g/dL RDW (11.5-14.0) % Plt Count (150-450) x10^3/uL MPV (7.5-11.0) fL Sodium (137-145) mmol/L Potassium (3.5-5.1) mmol/L Chloride (98-107) mmol/L Carbon Dioxide (22-30) mmol/L Anion Gap (5-15) MEQ/L BUN (7-17) mg/dL Creatinine (0.52-1.04) mg/dL Estimated GFR ML/MIN Glucose (74-106) mg/dL POC Glucometer 149 H 139 H 156 H (74 to 106) mg/dL Calcium (8.4-10.2) mg/dL Phosphorus (2.5-4.5) mg/dL Magnesium (1.6-2.3) mg/dL 03/27/23 03/27/23 03/27/23 Range/Units 02:56 02:59 02:59 WBC 5.4 (4.0-10.5) x10^3/uL RBC 3.80 L (4.1-5.4) x10^6/uL Hgb 11.8 L (12.0-16.0) g/dL Hct 35.1 (35-47) % MCV 92.4 (78-100) fL MCH 31.1 (26-32) pg MCHC 33.6 (32-36) g/dL RDW 13.1 (11.5-14.0) % Plt Count 288 (150-450) x10^3/uL MPV 9.2 (7.5-11.0) fL Sodium 133 L (137-145) mmol/L Potassium 3.7 (3.5-5.1) mmol/L Chloride 111 H (98-107) mmol/L Carbon Dioxide 18 L (22-30) mmol/L Anion Gap 7.5 (5-15) MEQ/L BUN 4 L (7-17) mg/dL Creatinine 0.40 L (0.52-1.04) mg/dL Estimated GFR 140.8 ML/MIN Glucose 176 H (74-106) mg/dL POC Glucometer 160 H (74 to 106) mg/dL Calcium 7.9 L (8.4-10.2) mg/dL Phosphorus 1.9 L (2.5-4.5) mg/dL Magnesium 1.6 (1.6-2.3) mg/dL 03/27/23 03/27/23 03/27/23 Range/Units 04:01 05:01 06:13 WBC (4.0-10.5) x10^3/uL RBC (4.1-5.4) x10^6/uL Hgb (12.0-16.0) g/dL Hct (35-47) % MCV (78-100) fL MCH (26-32) pg MCHC (32-36) g/dL RDW (11.5-14.0) % Plt Count (150-450) x10^3/uL MPV (7.5-11.0) fL Sodium (137-145) mmol/L Potassium (3.5-5.1) mmol/L Chloride (98-107) mmol/L Carbon Dioxide (22-30) mmol/L Anion Gap (5-15) MEQ/L BUN (7-17) mg/dL Creatinine (0.52-1.04) mg/dL Estimated GFR ML/MIN Glucose (74-106) mg/dL POC Glucometer 148 H 166 H 173 H (74 to 106) mg/dL Calcium (8.4-10.2) mg/dL Phosphorus (2.5-4.5) mg/dL Magnesium (1.6-2.3) mg/dL 03/27/23 03/27/23 03/27/23 Range/Units 06:52 07:10 08:15 WBC (4.0-10.5) x10^3/uL RBC (4.1-5.4) x10^6/uL Hgb (12.0-16.0) g/dL Hct (35-47) % MCV (78-100) fL MCH (26-32) pg MCHC (32-36) g/dL RDW (11.5-14.0) % Plt Count (150-450) x10^3/uL MPV (7.5-11.0) fL Sodium 132 L (137-145) mmol/L Potassium 3.8 (3.5-5.1) mmol/L Chloride 109 H (98-107) mmol/L Carbon Dioxide 18 L (22-30) mmol/L Anion Gap 8.8 (5-15) MEQ/L BUN 3 L (7-17) mg/dL Creatinine 0.40 L (0.52-1.04) mg/dL Estimated GFR 140.8 ML/MIN Glucose 193 H (74-106) mg/dL POC Glucometer 167 H 152 H (74 to 106) mg/dL Calcium 8.1 L (8.4-10.2) mg/dL Phosphorus 1.6 L (2.5-4.5) mg/dL Magnesium 1.5 L (1.6-2.3) mg/dL 03/27/23 03/27/23 03/27/23 Range/Units 10:10 11:04 11:40 WBC (4.0-10.5) x10^3/uL RBC (4.1-5.4) x10^6/uL Hgb (12.0-16.0) g/dL Hct (35-47) % MCV (78-100) fL MCH (26-32) pg MCHC (32-36) g/dL RDW (11.5-14.0) % Plt Count (150-450) x10^3/uL MPV (7.5-11.0) fL Sodium 132 L (137-145) mmol/L Potassium 3.9 (3.5-5.1) mmol/L Chloride 110 H (98-107) mmol/L Carbon Dioxide 18 L (22-30) mmol/L Anion Gap 8.2 (5-15) MEQ/L BUN 2 L (7-17) mg/dL Creatinine 0.36 L (0.52-1.04) mg/dL Estimated GFR 144.4 ML/MIN Glucose 193 H (74-106) mg/dL POC Glucometer 180 H 196 H (74 to 106) mg/dL Calcium 8.2 L (8.4-10.2) mg/dL Phosphorus 1.4 L (2.5-4.5) mg/dL Magnesium 2.2 (1.6-2.3) mg/dL 03/27/23 03/27/23 03/27/23 Range/Units 12:14 13:05 14:14 WBC (4.0-10.5) x10^3/uL RBC (4.1-5.4) x10^6/uL Hgb (12.0-16.0) g/dL Hct (35-47) % MCV (78-100) fL MCH (26-32) pg MCHC (32-36) g/dL RDW (11.5-14.0) % Plt Count (150-450) x10^3/uL MPV (7.5-11.0) fL Sodium (137-145) mmol/L Potassium (3.5-5.1) mmol/L Chloride (98-107) mmol/L Carbon Dioxide (22-30) mmol/L Anion Gap (5-15) MEQ/L BUN (7-17) mg/dL Creatinine (0.52-1.04) mg/dL Estimated GFR ML/MIN Glucose (74-106) mg/dL POC Glucometer 183 H 163 H 155 H (74 to 106) mg/dL Calcium (8.4-10.2) mg/dL Phosphorus (2.5-4.5) mg/dL Magnesium (1.6-2.3) mg/dL 03/27/23 03/27/23 03/27/23 Range/Units 14:53 15:12 16:42 WBC (4.0-10.5) x10^3/uL RBC (4.1-5.4) x10^6/uL Hgb (12.0-16.0) g/dL Hct (35-47) % MCV (78-100) fL MCH (26-32) pg MCHC (32-36) g/dL RDW (11.5-14.0) % Plt Count (150-450) x10^3/uL MPV (7.5-11.0) fL Sodium 133 L (137-145) mmol/L Potassium 3.7 (3.5-5.1) mmol/L Chloride 108 H (98-107) mmol/L Carbon Dioxide 19 L (22-30) mmol/L Anion Gap 9.2 (5-15) MEQ/L BUN < 2 L (7-17) mg/dL Creatinine 0.34 L (0.52-1.04) mg/dL Estimated GFR 146.4 ML/MIN Glucose 178 H (74-106) mg/dL POC Glucometer 157 H 148 H (74 to 106) mg/dL Calcium 8.2 L (8.4-10.2) mg/dL Phosphorus 1.3 L (2.5-4.5) mg/dL Magnesium 2.1 (1.6-2.3) mg/dL 03/27/23 03/27/23 Range/Units 19:10 20:18 WBC (4.0-10.5) x10^3/uL RBC (4.1-5.4) x10^6/uL Hgb (12.0-16.0) g/dL Hct (35-47) % MCV (78-100) fL MCH (26-32) pg MCHC (32-36) g/dL RDW (11.5-14.0) % Plt Count (150-450) x10^3/uL MPV (7.5-11.0) fL Sodium 133 L (137-145) mmol/L Potassium 3.7 (3.5-5.1) mmol/L Chloride 108 H (98-107) mmol/L Carbon Dioxide 18 L (22-30) mmol/L Anion Gap 11.1 (5-15) MEQ/L BUN < 2 L (7-17) mg/dL Creatinine 0.36 L (0.52-1.04) mg/dL Estimated GFR 144.4 ML/MIN Glucose 265 H (74-106) mg/dL POC Glucometer 263 H (74 to 106) mg/dL Calcium 8.2 L (8.4-10.2) mg/dL Phosphorus 2.1 L (2.5-4.5) mg/dL Magnesium 1.9 (1.6-2.3) mg/dL <KALEN CORADO - Last Filed: 03/27/23 21:26> Assessment/Plan (1) DKA (diabetic ketoacidoses) Current Visit: Yes Status: Acute Assessment & Plan: - 2:2 N/V , UTI - Pt has not been checking her blood sugars as her meter fell off and she reports she just did not make time to place it back on. - on insulin pump at home - DKA protocol with insulin drip - Labs q4 hr BMP, K+, Phos, Mg+ - NPO due to nausea - Start clear liquid diet when N/V resolved. - phos replaced 03/26 - Phos replaced last night - clear liquid diet - Continue insulin gtt - D5 1/2 NS with 20KCL at 150 - Anion Gap 18.5 - CO2 9 03/27: -Glucose levels/co2/phos levels now normalizing, insulin gtt d/cd, resume insulin pump Code(s): E13.10 - OTH DIABETES MELLITUS WITH KETOACIDOSIS WITHOUT COMA (2) Sinus arrhythmia Current Visit: Yes Status: Acute Assessment & Plan: - as seen on Tele and EKG - denies Cp - Chest XR - reviewed Code(s): I49.8 - OTHER SPECIFIED CARDIAC ARRHYTHMIAS (3) Urinary tract infection Current Visit: Yes Status: Acute Assessment & Plan: - Rocephin - IVF - UC pending - WBC 16.1 03/26 - UC negative - stopped antibiotic Code(s): N39.0 - URINARY TRACT INFECTION, SITE NOT SPECIFIED (4) Fatigue Current Visit: No Status: Acute Assessment & Plan: - 2:2 DKA, UTI - BR with BRP Code(s): R53.83 - OTHER FATIGUE (5) Hyperglycemia Current Visit: No Status: Acute Assessment & Plan: - 2:2 UTI - In DKA - A1C pending - Lipid panel in AM 03/27: -A1c at 11.18, discussed the importance of good glycemic control and advised follow up with endocrinology once discharged. Patient states she does have insulin and supplies at home Code(s): R73.9 - HYPERGLYCEMIA, UNSPECIFIED (6) Nausea & vomiting Current Visit: No Status: Acute Assessment & Plan: - May be r/t UTI, DKA vs. cyclical vomiting due to marijuana use - Zofran PRN 03/26 - sxs resolved - clear liquid diet 03/27: -Resume low carb diet Code(s): R11.2 - NAUSEA WITH VOMITING, UNSPECIFIED (7) Marijuana smoker Current Visit: Yes Status: Acute Assessment & Plan: - advised cessation - N/V may be r/t cyclical vomiting due to marijuana use- 03/26 - sxs resolved DVT: lovenox PPI: protonix Next of Kin: Haydee Kapadia [phone] D/c plan: 1-2 days Code status: Full Code(s): F12.90 - CANNABIS USE, UNSPECIFIED, UNCOMPLICATED Code(s): E13.10 - OTH DIABETES MELLITUS WITH KETOACIDOSIS WITHOUT COMA (2) Marijuana smoker Current Visit: Yes Status: Acute Code(s): F12.90 - CANNABIS USE, UNSPECIFIED, UNCOMPLICATED (3) Sinus arrhythmia Current Visit: Yes Status: Acute Code(s): I49.8 - OTHER SPECIFIED CARDIAC ARRHYTHMIAS (4) Urinary tract infection Current Visit: Yes Status: Resolved Code(s): N39.0 - URINARY TRACT INFECTION, SITE NOT SPECIFIED (5) Fatigue Current Visit: No Status: Acute Code(s): R53.83 - OTHER FATIGUE (6) Hyperglycemia Current Visit: No Status: Acute Code(s): R73.9 - HYPERGLYCEMIA, UNSPECIFIED (7) Nausea & vomiting Current Visit: No Status: Acute Code(s): R11.2 - NAUSEA WITH VOMITING, UNSPECIFIED <JONATHAN GOINS - Last Filed: 03/27/23 15:38> ISAMAR Encounter - ISAMAR Encounter Attestation ISAMAR Encounter Attestation: "IhavepersonallyslynnandexMARCIO Lopez andhavediscussed pertinent aspects of their care with Jonathan Weeks agree with the history, physical exam (any modifications based on my personal exam will be noted below), assessment, and plan as outlined in original note. Please see immediately below for my summary of findings and additional assessment and plan along with any meaningful corrections/explanations to the Subjective/Objective portions of the ISAMAR note will be noted." My portion of the encounter took place via telemedicine. -Insulin and IVF discontinued with gap closing and improving acidosis. Patient put back on her insulin pump. Will monitor her overnight and DC home tomorrow. <KALEN CORADO - Last Filed: 03/27/23 21:26>
[2023-03-27 07:26] LABS: Calcium 8.1 mg/dL (8.4-10.2); Creatinine 1 0.4 mg/dL (0.52-1.04); EST GLOMERULAR FILTRATION RATE 140.8 ML/MIN; MAGNESIUM 1.5 mg/dL (1.6-2.3); PHOSPHOROUS 1.6 mg/dL (2.5-4.5)
[2023-03-27 07:28] LABS: Potassium 3.8 mmol/L (3.5-5.1)
[2023-03-27 07:29] LABS: ANION GAP 8.8 MEQ/L (5-15)
[2023-03-27] MEDS ORDERED: MAGNESIUM SULF 2 G/50 ML BAG 2 GM/50 ML PIGGYBACK IV ONE (08:00)
[2023-03-27] MEDS: ENOXAPARIN SODIUM SQ SCH (11:23)
[2023-03-27 11:58] LABS: ANION GAP 8.2 MEQ/L (5-15); Calcium 8.2 mg/dL (8.4-10.2); Creatinine 1 0.36 mg/dL (0.52-1.04); EST GLOMERULAR FILTRATION RATE 144.4 ML/MIN; MAGNESIUM 2.2 mg/dL (1.6-2.3); PHOSPHOROUS 1.4 mg/dL (2.5-4.5); Potassium 3.9 mmol/L (3.5-5.1)
[2023-03-27 15:14] LABS: ANION GAP 9.2 MEQ/L (5-15); CHLORIDE 108 mmol/L (98-107); Calcium 8.2 mg/dL (8.4-10.2); Carbon Dioxide 19 mmol/L (22-30); Creatinine 1 0.34 mg/dL (0.52-1.04); EST GLOMERULAR FILTRATION RATE 146.4 ML/MIN; Glucose 178 mg/dL (74-106); MAGNESIUM 2.1 mg/dL (1.6-2.3); PHOSPHOROUS 1.3 mg/dL (2.5-4.5); Potassium 3.7 mmol/L (3.5-5.1); SODIUM 133 mmol/L (137-145)
[2023-03-27 15:16] LABS: BLOOD UREA NITROGEN < 2 mg/dL (7-17)
[2023-03-27 19:29] LABS: ANION GAP 11.1 MEQ/L (5-15); CHLORIDE 108 mmol/L (98-107); Calcium 8.2 mg/dL (8.4-10.2); Carbon Dioxide 18 mmol/L (22-30); Creatinine 1 0.36 mg/dL (0.52-1.04); EST GLOMERULAR FILTRATION RATE 144.4 ML/MIN; Glucose 265 mg/dL (74-106); MAGNESIUM 1.9 mg/dL (1.6-2.3); PHOSPHOROUS 2.1 mg/dL (2.5-4.5); Potassium 3.7 mmol/L (3.5-5.1); SODIUM 133 mmol/L (137-145)
[2023-03-27 19:36] LABS: BLOOD UREA NITROGEN < 2 mg/dL (7-17)
[2023-03-27] MEDS: PATIENT OWN MEDICATION IJ SCH (19:47)
[2023-03-27] MEDS ORDERED: HUMALOG SQ PRN (20:32)
[2023-03-28 04:49] LABS: Hemoglobin 13.1 g/dL (12.0-16.0); Mean Corpuscular Hemoglobin 30.9 pg (26-32); Mean Corpuscular Hgb Concent. 33.6 g/dL (32-36); Mean Platelet Volume 9.2 fL (7.5-11.0); Platelet Count 295 x10^3/uL (150-450); Red Blood Count 4.24 x10^6/uL (4.1-5.4); Red Cell Distribution Width 13.1 % (11.5-14.0); White Blood Count 5.1 x10^3/uL (4.0-10.5)
[2023-03-28 05:07] LABS: ALBUMIN 3.3 g/dL (3.5-5.0); ALKALINE PHOSPHATASE 56 U/L (38-126); ANION GAP 8.6 MEQ/L (5-15); CHLORIDE 109 mmol/L (98-107); Calcium 8.5 mg/dL (8.4-10.2); Carbon Dioxide 21 mmol/L (22-30); Creatinine 1 0.41 mg/dL (0.52-1.04); EST GLOMERULAR FILTRATION RATE 139.9 ML/MIN; Glucose 149 mg/dL (74-106); PHOSPHOROUS 2.6 mg/dL (2.5-4.5); Potassium 3.9 mmol/L (3.5-5.1); SGOT/AST 24 U/L (14-36); SGPT/ALT 14 U/L (0-35); SODIUM 135 mmol/L (137-145); Total Protein 6.2 g/dL (6.3-8.2)
[2023-03-28 05:16] LABS: BLOOD UREA NITROGEN < 2 mg/dL (7-17)
--- NOTE | 2023-03-28 05:56 | PCM.DS ---
Discharge Summary Date of Admission: 03/25/23 12:33 Date of Discharge: 03/28/22 Admitting Physician: CHELE COLEMAN MD Primary Care Provider: NO FAMILY DOCTOR <JONATHAN GOINS - Last Filed: 03/28/23 10:07> Date of Admission: 03/25/23 12:33 Admitting Physician: CHELE COLEMAN MD Primary Care Provider: NO FAMILY DOCTOR <KALEN CORADO - Last Filed: 03/28/23 21:55> Allergies <JONATHAN GOINS - Last Filed: 03/28/23 10:07> <KALEN CORADO - Last Filed: 03/28/23 21:55> Allergies sulfamethoxazole [From Bactrim] Allergy (Verified 03/25/23 09:08) trimethoprim [From Bactrim] Allergy (Verified 03/25/23 09:08) Hospital Summary - Hospital Course Hospital Course: MS. Jasso is a 27 year old female with a pmhx of DM type 1 (Dexcom/insulin pump)who presented to ED 03/25/23 with complaints of nausea, vomiting, and abdominal pain for the previous 3-4 days prior to presentation. Patient noted to be non-compliant with dexcom and had not been checking blood glucose levels at home. Lab findings were consistent with DKA and protocol was initiated. Initially the UA was suspicious for UTI, but culture is with no growth. Patient's blood glucose levels are now at baseline. She has been placed back on her insulin pump. Discussed that THC could be a source of her n/v, advised cessation. Advised patient that her A1c is noted at 11.18 during this hospitalization indicating poor glycemic control. Discussed the importance of maintaining good glycemic control as well as risks of non-compliance with insulin regimen/accu-checks. Advised patient to follow up with [facility] [facility] to discuss further evaluation and possible adjustments needed to insulin pump. Patient is agreeable to plan and ready for discharge. Discharge Note New Diagnosis:DKA New Medications:none Follow Up: PCP/Endocrinology Latest Assessment & Plan (1) DKA (diabetic ketoacidoses) Current Visit: Yes Status: Acute Assessment & Plan: - 2:2 N/V , UTI - Pt has not been checking her blood sugars as her meter fell off and she reports she just did not make time to place it back on. - on insulin pump at home - DKA protocol with insulin drip - Labs q4 hr BMP, K+, Phos, Mg+ - NPO due to nausea - Start clear liquid diet when N/V resolved. - phos replaced 03/26 - Phos replaced last night - clear liquid diet - Continue insulin gtt - D5 2 NS with 20KCL at 150 - Anion Gap 18.5 - CO2 9 03/27: -Glucose levels/co2/phos levels now normalizing, insulin gtt d/cd, resume insulin pump Code(s): E13.10 - OTH DIABETES MELLITUS WITH KETOACIDOSIS WITHOUT COMA (2) Sinus arrhythmia Current Visit: Yes Status: Acute Assessment & Plan: - as seen on Tele and EKG - denies Cp - Chest XR - reviewed Code(s): I49.8 - OTHER SPECIFIED CARDIAC ARRHYTHMIAS (3) Urinary tract infection Current Visit: Yes Status: Acute Assessment & Plan: - Rocephin - IVF - UC pending - WBC 16.1 03/26 - UC negative - stopped antibiotic Code(s): N39.0 - URINARY TRACT INFECTION, SITE NOT SPECIFIED (4) Fatigue Current Visit: No Status: Acute Assessment & Plan: - 2:2 DKA, UTI - BR with BRP Code(s): R53.83 - OTHER FATIGUE (5) Hyperglycemia Current Visit: No Status: Acute Assessment & Plan: - 2:2 UTI - In DKA - A1C pending - Lipid panel in AM 03/27: -A1c at 11.18, discussed the importance of good glycemic control and advised follow up with endocrinology once discharged. Patient states she does have insulin and supplies at home Code(s): R73.9 - HYPERGLYCEMIA, UNSPECIFIED (6) Nausea & vomiting Current Visit: No Status: Acute Assessment & Plan: - May be r/t UTI, DKA vs. cyclical vomiting due to marijuana use - Zofran PRN 03/26 - sxs resolved - clear liquid diet 03/27: -Resume low carb diet Code(s): R11.2 - NAUSEA WITH VOMITING, UNSPECIFIED (7) Marijuana smoker Current Visit: Yes Status: Acute Assessment & Plan: - advised cessation - N/V may be r/t cyclical vomiting due to marijuana use- 03/26 - sxs resolved I spent 35 minutes [id number] with the patient on the day of discharge performing discharge exam, discussing hospital stay and discharge instructions with patient and caregivers, preparation of discharge records, prescriptions & referral forms and addressing any questions/concerns the patient had as documented above. - Vitals & Intake/Output Vital Signs: Vital Signs Temperature 97.1 F 03/27/23 05:10 Pulse Rate 56 L 03/28/23 04:00 Respiratory Rate 17 03/28/23 03:06 Blood Pressure 107/80 03/28/23 03:06 O2 Sat by Pulse Oximetry 100 03/28/23 03:06 Intake & Output: Intake & Output 03/25/23 03/26/23 03/27/23 03/28/23 11:59 11:59 11:59 11:59 Intake Total 910 2098 3934 Output Total 1550 2600 900 Balance -640 -502 3034 Weight 45 kg 44.6 kg 44.8 kg - Lab Result Diagrams: 03/28/23 04:44 03/28/23 04:44 Lab Results-Last 24 Hrs: Lab Results-Last 24 Hours 03/27/23 03/27/23 03/27/23 Range/Units 06:13 06:52 07:10 WBC (4.0-10.5) x10^3/uL RBC (4.1-5.4) x10^6/uL Hgb (12.0-16.0) g/dL Hct (35-47) % MCV (78-100) fL MCH (26-32) pg MCHC (32-36) g/dL RDW (11.5-14.0) % Plt Count (150-450) x10^3/uL MPV (7.5-11.0) fL Sodium 132 L (137-145) mmol/L Potassium 3.8 (3.5-5.1) mmol/L Chloride 109 H (98-107) mmol/L Carbon Dioxide 18 L (22-30) mmol/L Anion Gap 8.8 (5-15) MEQ/L BUN 3 L (7-17) mg/dL Creatinine 0.40 L (0.52-1.04) mg/dL Estimated GFR 140.8 ML/MIN Glucose 193 H (74-106) mg/dL POC Glucometer 173 H 167 H (74 to 106) mg/dL Calcium 8.1 L (8.4-10.2) mg/dL Phosphorus 1.6 L (2.5-4.5) mg/dL Magnesium 1.5 L (1.6-2.3) mg/dL Total Bilirubin (0.2-1.3) mg/dL AST (14-36) U/L ALT (0-35) U/L Alkaline Phosphatase (38-126) U/L Serum Total Protein (6.3-8.2) g/dL Albumin (3.5-5.0) g/dL 03/27/23 03/27/23 03/27/23 Range/Units 08:15 10:10 11:04 WBC (4.0-10.5) x10^3/uL RBC (4.1-5.4) x10^6/uL Hgb (12.0-16.0) g/dL Hct (35-47) % MCV (78-100) fL MCH (26-32) pg MCHC (32-36) g/dL RDW (11.5-14.0) % Plt Count (150-450) x10^3/uL MPV (7.5-11.0) fL Sodium (137-145) mmol/L Potassium (3.5-5.1) mmol/L Chloride (98-107) mmol/L Carbon Dioxide (22-30) mmol/L Anion Gap (5-15) MEQ/L BUN (7-17) mg/dL Creatinine (0.52-1.04) mg/dL Estimated GFR ML/MIN Glucose (74-106) mg/dL POC Glucometer 152 H 180 H 196 H (74 to 106) mg/dL Calcium (8.4-10.2) mg/dL Phosphorus (2.5-4.5) mg/dL Magnesium (1.6-2.3) mg/dL Total Bilirubin (0.2-1.3) mg/dL AST (14-36) U/L ALT (0-35) U/L Alkaline Phosphatase (38-126) U/L Serum Total Protein (6.3-8.2) g/dL Albumin (3.5-5.0) g/dL 03/27/23 03/27/23 03/27/23 Range/Units 11:40 12:14 13:05 WBC (4.0-10.5) x10^3/uL RBC (4.1-5.4) x10^6/uL Hgb (12.0-16.0) g/dL Hct (35-47) % MCV (78-100) fL MCH (26-32) pg MCHC (32-36) g/dL RDW (11.5-14.0) % Plt Count (150-450) x10^3/uL MPV (7.5-11.0) fL Sodium 132 L (137-145) mmol/L Potassium 3.9 (3.5-5.1) mmol/L Chloride 110 H (98-107) mmol/L Carbon Dioxide 18 L (22-30) mmol/L Anion Gap 8.2 (5-15) MEQ/L BUN 2 L (7-17) mg/dL Creatinine 0.36 L (0.52-1.04) mg/dL Estimated GFR 144.4 ML/MIN Glucose 193 H (74-106) mg/dL POC Glucometer 183 H 163 H (74 to 106) mg/dL Calcium 8.2 L (8.4-10.2) mg/dL Phosphorus 1.4 L (2.5-4.5) mg/dL Magnesium 2.2 (1.6-2.3) mg/dL Total Bilirubin (0.2-1.3) mg/dL AST (14-36) U/L ALT (0-35) U/L Alkaline Phosphatase (38-126) U/L Serum Total Protein (6.3-8.2) g/dL Albumin (3.5-5.0) g/dL 03/27/23 03/27/23 03/27/23 Range/Units 14:14 14:53 15:12 WBC (4.0-10.5) x10^3/uL RBC (4.1-5.4) x10^6/uL Hgb (12.0-16.0) g/dL Hct (35-47) % MCV (78-100) fL MCH (26-32) pg MCHC (32-36) g/dL RDW (11.5-14.0) % Plt Count (150-450) x10^3/uL MPV (7.5-11.0) fL Sodium 133 L (137-145) mmol/L Potassium 3.7 (3.5-5.1) mmol/L Chloride 108 H (98-107) mmol/L Carbon Dioxide 19 L (22-30) mmol/L Anion Gap 9.2 (5-15) MEQ/L BUN < 2 L (7-17) mg/dL Creatinine 0.34 L (0.52-1.04) mg/dL Estimated GFR 146.4 ML/MIN Glucose 178 H (74-106) mg/dL POC Glucometer 155 H 157 H (74 to 106) mg/dL Calcium 8.2 L (8.4-10.2) mg/dL Phosphorus 1.3 L (2.5-4.5) mg/dL Magnesium 2.1 (1.6-2.3) mg/dL Total Bilirubin (0.2-1.3) mg/dL AST (14-36) U/L ALT (0-35) U/L Alkaline Phosphatase (38-126) U/L Serum Total Protein (6.3-8.2) g/dL Albumin (3.5-5.0) g/dL 03/27/23 03/27/23 03/27/23 Range/Units 16:42 19:10 20:18 WBC (4.0-10.5) x10^3/uL RBC (4.1-5.4) x10^6/uL Hgb (12.0-16.0) g/dL Hct (35-47) % MCV (78-100) fL MCH (26-32) pg MCHC (32-36) g/dL RDW (11.5-14.0) % Plt Count (150-450) x10^3/uL MPV (7.5-11.0) fL Sodium 133 L (137-145) mmol/L Potassium 3.7 (3.5-5.1) mmol/L Chloride 108 H (98-107) mmol/L Carbon Dioxide 18 L (22-30) mmol/L Anion Gap 11.1 (5-15) MEQ/L BUN < 2 L (7-17) mg/dL Creatinine 0.36 L (0.52-1.04) mg/dL Estimated GFR 144.4 ML/MIN Glucose 265 H (74-106) mg/dL POC Glucometer 148 H 263 H (74 to 106) mg/dL Calcium 8.2 L (8.4-10.2) mg/dL Phosphorus 2.1 L (2.5-4.5) mg/dL Magnesium 1.9 (1.6-2.3) mg/dL Total Bilirubin (0.2-1.3) mg/dL AST (14-36) U/L ALT (0-35) U/L Alkaline Phosphatase (38-126) U/L Serum Total Protein (6.3-8.2) g/dL Albumin (3.5-5.0) g/dL 03/27/23 03/27/23 03/28/23 Range/Units 21:24 23:51 03:10 WBC (4.0-10.5) x10^3/uL RBC (4.1-5.4) x10^6/uL Hgb (12.0-16.0) g/dL Hct (35-47) % MCV (78-100) fL MCH (26-32) pg MCHC (32-36) g/dL RDW (11.5-14.0) % Plt Count (150-450) x10^3/uL MPV (7.5-11.0) fL Sodium (137-145) mmol/L Potassium (3.5-5.1) mmol/L Chloride (98-107) mmol/L Carbon Dioxide (22-30) mmol/L Anion Gap (5-15) MEQ/L BUN (7-17) mg/dL Creatinine (0.52-1.04) mg/dL Estimated GFR ML/MIN Glucose (74-106) mg/dL POC Glucometer 224 H 97 141 H (74 to 106) mg/dL Calcium (8.4-10.2) mg/dL Phosphorus (2.5-4.5) mg/dL Magnesium (1.6-2.3) mg/dL Total Bilirubin (0.2-1.3) mg/dL AST (14-36) U/L ALT (0-35) U/L Alkaline Phosphatase (38-126) U/L Serum Total Protein (6.3-8.2) g/dL Albumin (3.5-5.0) g/dL 03/28/23 03/28/23 Range/Units 04:44 04:44 WBC 5.1 (4.0-10.5) x10^3/uL RBC 4.24 (4.1-5.4) x10^6/uL Hgb 13.1 (12.0-16.0) g/dL Hct 39.0 (35-47) % MCV 92.0 (78-100) fL MCH 30.9 (26-32) pg MCHC 33.6 (32-36) g/dL RDW 13.1 (11.5-14.0) % Plt Count 295 (150-450) x10^3/uL MPV 9.2 (7.5-11.0) fL Sodium 135 L (137-145) mmol/L Potassium 3.9 (3.5-5.1) mmol/L Chloride 109 H (98-107) mmol/L Carbon Dioxide 21 L (22-30) mmol/L Anion Gap 8.6 (5-15) MEQ/L BUN < 2 L (7-17) mg/dL Creatinine 0.41 L (0.52-1.04) mg/dL Estimated GFR 139.9 ML/MIN Glucose 149 H (74-106) mg/dL POC Glucometer (74 to 106) mg/dL Calcium 8.5 (8.4-10.2) mg/dL Phosphorus 2.6 (2.5-4.5) mg/dL Magnesium (1.6-2.3) mg/dL Total Bilirubin 0.50 (0.2-1.3) mg/dL AST 24 (14-36) U/L ALT 14 (0-35) U/L Alkaline Phosphatase 56 (38-126) U/L Serum Total Protein 6.2 L (6.3-8.2) g/dL Albumin 3.3 L (3.5-5.0) g/dL Micro Results-Entire Visit: Microbiology 03/25/23 09:34 Urine Culture - Final Urine, Void <10K NORMAL SKIN ROSARIO PROBABLE SKIN CONTAMINANT Accuchecks Date 03/28/23 Date 03/28/23 Date 03/27/23 Date 03/27/23 Date 03/27/23 Date 03/27/23 Date 03/27/23 Date 03/27/23 Time 03:10 Time 20:10 Time 15:14 Time 11:00 Time 08:49 Time 06:55 Time 06:00 - Procedures and Test Procedures and Tests throughout Hospitalization: Therapy Orders & Screens 03/25/23 12:47 Respiratory Therapy Consult ONCE Comment: Reason For Exam: 03/25/23 13:44 EKG STAT Comment: Diagnosis: DKA <JONATHAN GOINS - Last Filed: 03/28/23 10:07> - Vitals & Intake/Output Vital Signs: Vital Signs Temperature 97.1 F 03/27/23 05:10 Pulse Rate 70 03/28/23 08:00 Respiratory Rate 14 03/28/23 08:00 Blood Pressure 112/76 03/28/23 08:00 O2 Sat by Pulse Oximetry 93 L 03/28/23 08:00 Intake & Output: Intake & Output 03/26/23 03/27/23 03/28/23 03/29/23 11:59 11:59 11:59 11:59 Intake Total 910 2098 4174 Output Total 1550 2600 1900 Balance -640 -502 2274 Weight 44.6 kg 44.8 kg - Lab Result Diagrams: 03/28/23 04:44 03/28/23 04:44 Lab Results-Last 24 Hrs: Lab Results-Last 24 Hours 03/27/23 03/28/23 03/28/23 Range/Units 23:51 03:10 04:44 WBC (4.0-10.5) x10^3/uL RBC (4.1-5.4) x10^6/uL Hgb (12.0-16.0) g/dL Hct (35-47) % MCV (78-100) fL MCH (26-32) pg MCHC (32-36) g/dL RDW (11.5-14.0) % Plt Count (150-450) x10^3/uL MPV (7.5-11.0) fL Sodium (137-145) mmol/L Potassium (3.5-5.1) mmol/L Chloride (98-107) mmol/L Carbon Dioxide (22-30) mmol/L Anion Gap (5-15) MEQ/L BUN (7-17) mg/dL Creatinine (0.52-1.04) mg/dL Estimated GFR ML/MIN Glucose (74-106) mg/dL POC Glucometer 97 141 H (74 to 106) mg/dL Calcium (8.4-10.2) mg/dL Phosphorus (2.5-4.5) mg/dL Magnesium 2.0 (1.6-2.3) mg/dL Total Bilirubin (0.2-1.3) mg/dL AST (14-36) U/L ALT (0-35) U/L Alkaline Phosphatase (38-126) U/L Serum Total Protein (6.3-8.2) g/dL Albumin (3.5-5.0) g/dL 03/28/23 03/28/23 03/28/23 Range/Units 04:44 04:44 07:24 WBC 5.1 (4.0-10.5) x10^3/uL RBC 4.24 (4.1-5.4) x10^6/uL Hgb 13.1 (12.0-16.0) g/dL Hct 39.0 (35-47) % MCV 92.0 (78-100) fL MCH 30.9 (26-32) pg MCHC 33.6 (32-36) g/dL RDW 13.1 (11.5-14.0) % Plt Count 295 (150-450) x10^3/uL MPV 9.2 (7.5-11.0) fL Sodium 135 L (137-145) mmol/L Potassium 3.9 (3.5-5.1) mmol/L Chloride 109 H (98-107) mmol/L Carbon Dioxide 21 L (22-30) mmol/L Anion Gap 8.6 (5-15) MEQ/L BUN < 2 L (7-17) mg/dL Creatinine 0.41 L (0.52-1.04) mg/dL Estimated GFR 139.9 ML/MIN Glucose 149 H (74-106) mg/dL POC Glucometer 129 H (74 to 106) mg/dL Calcium 8.5 (8.4-10.2) mg/dL Phosphorus 2.6 (2.5-4.5) mg/dL Magnesium (1.6-2.3) mg/dL Total Bilirubin 0.50 (0.2-1.3) mg/dL AST 24 (14-36) U/L ALT 14 (0-35) U/L Alkaline Phosphatase 56 (38-126) U/L Serum Total Protein 6.2 L (6.3-8.2) g/dL Albumin 3.3 L (3.5-5.0) g/dL Micro Results-Entire Visit: Microbiology 03/25/23 09:34 Urine Culture - Final Urine, Void <10K NORMAL SKIN ROSARIO PROBABLE SKIN CONTAMINANT Accuchecks Date 03/28/23 Date 03/28/23 Date 03/28/23 Time 08:19 Time 03:10 - Procedures and Test Procedures and Tests throughout Hospitalization: Therapy Orders & Screens 03/25/23 12:47 Respiratory Therapy Consult ONCE Comment: Reason For Exam: 03/25/23 13:44 EKG STAT Comment: Diagnosis: DKA <KALEN CORADO - Last Filed: 03/28/23 21:55> Discharge Exam General Appearance: no apparent distress Neurologic Exam: alert, oriented x 3, cooperative Eye Exam: PERRL Ears, Nose, Throat Exam: normal ENT inspection Neck Exam: normal inspection Respiratory Exam: normal breath sounds, lungs clear Cardiovascular Exam: regular rate/rhythm, normal heart sounds Gastrointestinal/Abdomen Exam: soft, normal bowel sounds Pelvic Exam: deferred Rectal Exam: deferred Back Exam: normal inspection Extremity Exam: normal inspection Skin Exam: normal color <JONATHAN GOINS - Last Filed: 03/28/23 10:07> Final Diagnosis/Problem List - Final Discharge Diagnosis/Problem (1) DKA (diabetic ketoacidoses) Status: Resolved Code(s): E13.10 - OTH DIABETES MELLITUS WITH KETOACIDOSIS WITHOUT COMA (2) Marijuana smoker Status: Chronic Code(s): F12.90 - CANNABIS USE, UNSPECIFIED, UNCOMPLICATED (3) Sinus arrhythmia Status: Resolved Code(s): I49.8 - OTHER SPECIFIED CARDIAC ARRHYTHMIAS (4) Urinary tract infection Status: Resolved Code(s): N39.0 - URINARY TRACT INFECTION, SITE NOT SPECIFIED (5) Fatigue Status: Resolved Code(s): R53.83 - OTHER FATIGUE (6) Hyperglycemia Status: Resolved Code(s): R73.9 - HYPERGLYCEMIA, UNSPECIFIED (7) Nausea & vomiting Status: Resolved Code(s): R11.2 - NAUSEA WITH VOMITING, UNSPECIFIED (8) Hyperglycemia due to type 1 diabetes mellitus Status: Chronic Code(s): E10.65 - TYPE 1 DIABETES MELLITUS WITH HYPERGLYCEMIA <JONATHAN GOINS - Last Filed: 03/28/23 10:07> <JONATHAN GOINS - Last Filed: 03/28/23 10:07> <KALEN CORADO - Last Filed: 03/28/23 21:55> - Discharge Disposition: Home, Self-Care Condition: Stable Prescriptions: Continue Dextroamphetamine/Amphetamine [Dextroamp-Amphet ER 20 mg Cap] 30 mg PO DAILY Aripiprazole 10 mg [Abilify 10 MG] 7 mg PO DAILY Sertraline HCl [Zoloft] 100 mg PO DAILY Insulin Lispro [Humalog] 40 unit SQ DAILY Instructions: Diabetic Ketoacidosis (DC) Follow up with: SUSY ANDERSON [NON-STAFF PHY W/O PRIVILEGES] - 05/11/23 1:40 pm AVIS BUSH MD [ACTIVE STAFF] - 04/05/23 10:45 am Forms: Discharge Instructions ISAMAR Encounter - ISAMAR Encounter Attestation ISAMAR Encounter Attestation: "MARCIO Mabry andhavediscussed pertinent aspects of their care with Jonathan Weeks agree with the history, physical exam (any modifications based on my personal exam will be noted below), assessment, and plan as outlined in original note. Please see immediately below for my summary of findings and additional assessment and plan along with any meaningful corrections/explanations to the Subjective/Objective portions of the ISAMAR note will be noted." My portion of the encounter took place via telemedicine. <KALEN CORADO - Last Filed: 03/28/23 21:55>
[2023-03-28 07:12] VITALS: PULSE 70
[2023-03-28] MEDS: PATIENT OWN MEDICATION IJ SCH (08:53)
[2023-03-28] MEDS: ENOXAPARIN SODIUM SQ SCH (09:05)
[2023-03-28 10:05] VITALS: BP 112/76; RESP 14; O2SAT 93
== END 2023-03-28 10:58 | disposition home or self-care (01) ==
LOC: ED 08:58 → ICU 12:33
PROVIDERS: ADMIT Internal Medicine; ATTEND Internal Medicine
DX: E10.10 Type 1 diabetes mellitus with ketoacidosis without coma (principal); I49.8 Other specified cardiac arrhythmias; N39.0 Urinary tract infection, site not specified; R53.83 Other fatigue; E10.65 Type 1 diabetes mellitus with hyperglycemia; R11.2 Nausea with vomiting, unspecified; F12.90 Cannabis use, unspecified, uncomplicated; Z79.899 Other long term (current) drug therapy; Z20.828 Contact with and (suspected) exposure to other viral communicable diseases
CPT/HCPCS: 0241U; 36000; 36415; 36600; 71046; 80048; 80053; 80061; 80307; 81001; 82375; 82803; 82805; 82947; 83036; 83605; 83690; 83721; 83735; 84100; 84703; 85025; 85027; 87086; 93005; 93041; 93268; 94760; 96360; 96361; 96365; 96367; 96374; 99285; J0696; J1650; J1817; J2405; Q3014; A9270-GY; G0378; J3475

== ENCOUNTER 2023-07-23 09:57 | Observation (INO) | payer OTHER ==
[2023-07-23] MEDS ORDERED: HUMULIN R 100 UNIT in Sodium Chloride 0.9% 100 ML IV PRN (10:38)
[2023-07-23] MEDS ORDERED: Zofran 4 MG/2 ML VIAL ONE (10:46)
[2023-07-23] MEDS ORDERED: Sodium Chloride 0.9% 1000 ML 1,000 ML ONE ×3 (10:46→13:37)
[2023-07-23] MEDS: Zofran 4 MG/2 ML VIAL IV ONE (11:00)
[2023-07-23] MEDS: Sodium Chloride 0.9% 1000 ML 1,000 ML IV STA ×2 (11:00→11:27)
--- NOTE | 2023-07-23 11:08 | ERPHSYRPT ---
- History of Present Illness Time Seen by Provider: 07/23/23 11:05 Source: patient, family Exam Limitations: clinical condition Patient Subjective Stated Complaint: C/O "not feeling well" since last night. Patient indicates that she has been without her insulin for her insulin pump for the past week. States blood sugar was over 300 this am. N/V since last night. States, "I think I'm in DKA." Triage Nursing Assessment: Patient ambulated back to ER. She is alert and oriented; drowsy. Poor skin turgor. Oral mucosa are dry. SHARON GARCIA. Patient is zain slater. Physician History: Patient is 28-year-old female type I diabetic ran out of her insulin pods for 1 week. Her insurance is denying it. Patient started feeling weak and lethargic since yesterday evening has not been able to eat or drink anything and having severe nausea and vomiting. So patient came to the emergency room. Patient is alert but very weak and lethargic. Timing/Duration: yesterday Associated Symptoms: nausea, vomiting Allergies/Adverse Reactions: sulfamethoxazole [From Bactrim] Allergy (Verified 07/23/23 10:24) trimethoprim [From Bactrim] Allergy (Verified 07/23/23 10:24) Home Medications: Dextroamphetamine/Amphetamine [Dextroamp-Amphet ER 20 mg Cap] 30 mg PO DAILY 11/06/21 [History] Aripiprazole 10 mg [Abilify 10 MG] 7 mg PO DAILY 03/25/23 [History] Insulin Lispro [Humalog] 40 unit SQ DAILY 03/25/23 [History] Sertraline HCl [Zoloft] 100 mg PO DAILY 03/25/23 [History] Hx Tetanus, Diphtheria Vaccination/Date Given: Yes Hx Influenza Vaccination/Date Given: Yes Hx Pneumococcal Vaccination/Date Given: No Immunizations Up to Date: Yes Travel Risk - International Travel Have you traveled outside of the country in past 3 weeks: No - Emerging Infectious Disease Are you exhibiting symptoms associated with any current EIDs: No - Review of Systems Constitutional: Fatigue, Lethargy, Malaise, Weakness, No Fever, No Chills Eyes: No Symptoms Ears, Nose, & Throat: No Symptoms Respiratory: No Cough, No Dyspnea Cardiac: No Chest Pain, No Edema, No Syncope Abdominal/Gastrointestinal: No Abdominal Pain, No Nausea, No Vomiting, No Diarrhea Genitourinary Symptoms: No Dysuria Musculoskeletal: No Back Pain, No Neck Pain Skin: No Rash Neurological: No Dizziness, No Focal Weakness, No Sensory Changes Psychological: No Symptoms Endocrine: Other All Other Systems: Reviewed and Negative - Past Medical History Pertinent Past Medical History: Yes Neurological History: No Pertinent History ENT History: No Pertinent History Cardiac History: No Pertinent History Respiratory History: No Pertinent History Endocrine Medical History: Diabetes Type I Musculoskeletal History: No Pertinent History GI Medical History: No Pertinent History History: No Pertinent History Psycho-Social History: Anxiety, Bipolar, Depression Female Reproductive Disorders: No Pertinent History Other Medical History: DIABETES - Past Surgical History Past Surgical History: Yes (d&c june 2016) Neuro Surgical History: No Pertinent History Cardiac: No Pertinent History Respiratory: No Pertinent History Gastrointestinal: No Pertinent History Genitourinary: No Pertinent History Musculoskeletal: No Pertinent History Female Surgical History: Dilation & Curettage, Section Other Surgical History: INSULIN PUMP - Female History Hx Last Menstrual Period: NOW Hx Now: No - Social History Smoking Status: Former smoker How long have you smoked: 2 years Exposure to second hand smoke: No Drug Use: marijuana Patient Lives Alone: No - Nursing Vital Signs Nursing Vital Signs: Initial Vital Signs Temperature 98 F 07/23/23 09:57 Pulse Rate 108 H 07/23/23 09:57 Respiratory Rate 27 H 07/23/23 09:57 Blood Pressure 123/59 07/23/23 09:57 O2 Sat by Pulse Oximetry 100 07/23/23 09:57 Pain Scale Pain Intensity 0 - Physical Exam General Appearance: no apparent distress, alert Eye Exam: PERRL/EOMI, eyes nml inspection Ears, Nose, Throat Exam: TMs normal, pharynx normal, dry mucous membranes Neck Exam: normal inspection, non-tender, supple, full range of motion Respiratory Exam: normal breath sounds, lungs clear, No respiratory distress Cardiovascular Exam: tachycardia, capillary refill >3 sec Gastrointestinal/Abdomen Exam: soft, normal bowel sounds, No tenderness, No mass Back Exam: normal inspection, normal range of motion, No CVA tenderness, No vertebral tenderness Extremity Exam: normal inspection, normal range of motion, pelvis stable Neurologic Exam: alert, oriented x 3, cooperative, normal mood/affect, nml cerebellar function, nml station & gait, sensation nml, No motor deficits Skin Exam: normal color, warm, dry, No rash Lymphatic Exam: No adenopathy SpO2: 100 - Course Nursing assessment & vital signs reviewed: Yes Ordered Tests: Active Orders 24 hr Category Date Time Status EKG-ER Only STAT Care 07/23/23 10:38 Active Oxygen-ED Only Nasal Cannula 2 lpm Care 07/23/23 10:38 Active CHEST 1 VIEW (PORTABLE) Stat Exams 07/23/23 10:38 Taken ABG [ARTERIAL BLOOD GASES] Stat Lab 07/23/23 16:05 Ordered ARTERIAL BLOOD GASES Stat Lab 07/23/23 10:38 Results BMP Stat Lab 07/23/23 16:05 Ordered CBC W DIFF Stat Lab 07/23/23 11:00 Completed CMP Stat Lab 07/23/23 11:00 Completed CMP Stat Lab 07/23/23 13:15 Completed MAGNESIUM Stat Lab 07/23/23 11:00 Completed MAGNESIUM Stat Lab 07/23/23 13:15 Completed POCT GLUCOSE Stat Lab 07/23/23 11:55 Completed POCT GLUCOSE Stat Lab 07/23/23 13:05 Completed POCT GLUCOSE Stat Lab 07/23/23 14:05 Completed UA W/RFX UR CULTURE Stat Lab 07/23/23 11:32 Completed Transfer Order Routine Transfer 07/23/23 Ordered Medication Summary Generic Name Dose Route Start Last Admin Trade Name Freq PRN Reason Stop Dose Admin INSULIN REGULAR IN 0.9 % NACL 100 unit in 100 mls @ 4.45 mls/hr 07/23/23 12:15 07/23/23 14:07 Myxredlin 100 Unit/100 Ml Bag IV 07/24/23 10:43 4.4 mls/hr NOW ONE 4.4 mls/hr Infusion Magnesium Sulfate/Dextrose 100 mls @ 100 mls/hr 07/23/23 12:15 07/23/23 13:17 Magnesium 1 Gm / 100 Ml D5w IV 07/23/23 14:14 100 mls/hr Q1H TRISH Administration Discontinued Medications Generic Name Dose Route Start Last Admin Trade Name Freq PRN Reason Stop Dose Admin Sodium Chloride 1,000 mls @ 999 mls/hr 07/23/23 10:38 07/23/23 12:06 Sodium Chloride 0.9% 1000 Ml IV 07/23/23 11:38 Infused .Q1H1M STA Infusion Sodium Chloride Confirm 07/23/23 10:46 Sodium Chloride 0.9% 1000 Ml Administered 07/23/23 10:47 Dose 1,000 mls @ ud .ROUTE .STK-MED ONE Sodium Chloride 1,000 mls @ 999 mls/hr 07/23/23 11:25 07/23/23 12:43 Sodium Chloride 0.9% 1000 Ml IV 07/23/23 12:25 Infused .Q1H1M STA Infusion Sodium Chloride Confirm 07/23/23 11:24 Sodium Chloride 0.9% 1000 Ml Administered 07/23/23 11:25 Dose 1,000 mls @ ud .ROUTE .STK-MED ONE Sodium Chloride 1,000 mls @ 999 mls/hr 07/23/23 11:30 07/23/23 13:50 Sodium Chloride 0.9% 1000 Ml IV 07/23/23 12:30 125 mls/hr .Q1H1M TRISH Administration INSULIN REGULAR IN 0.9 % NACL Confirm 07/23/23 12:00 Myxredlin 100 Unit/100 Ml Bag Administered 07/23/23 12:01 Dose 100 unit in 100 mls @ ud IV .STK-MED ONE Meropenem 1 gm/ Sodium 100 mls @ 200 mls/hr 07/23/23 12:13 07/23/23 12:18 Chloride IV 07/23/23 12:42 200 mls/hr STAT ONE Administration Sodium Chloride Confirm 07/23/23 12:18 Sodium Chloride 100ml Mini-Bag Plus Administered 07/23/23 12:19 Dose 100 mls @ ud IV .STK-MED ONE Sodium Chloride Confirm 07/23/23 13:37 Sodium Chloride 0.9% 1000 Ml Administered 07/23/23 13:38 Dose 1,000 mls @ ud .ROUTE .STK-MED ONE Meropenem Confirm 07/23/23 12:17 Meropenem 1 Gm Vial Administered 07/23/23 12:18 Dose 1 gm IV .STK-MED ONE Ondansetron HCl 4 mg 07/23/23 10:38 07/23/23 11:00 Ondansetron Hcl 4 Mg/2 Ml Vial IV 07/23/23 10:39 4 mg STAT ONE Administration Ondansetron HCl Confirm 07/23/23 10:46 Ondansetron Hcl 4 Mg/2 Ml Vial Administered 07/23/23 10:47 Dose 4 mg .ROUTE .STK-MED ONE Sodium Bicarbonate 50 meq 07/23/23 11:24 07/23/23 11:35 Sodium Bicarbonate 1 Meq/Ml 50ml Syringe IV 07/23/23 11:25 50 meq STAT ONE Administration Sodium Bicarbonate Confirm 07/23/23 11:34 Sodium Bicarbonate 1 Meq/Ml 50ml Syringe Administered 07/23/23 11:35 Dose 50 meq IV .STK-MED ONE Lab/Rad Data: Laboratory Result Diagrams 07/23/23 11:00 07/23/23 13:15 Laboratory Results 07/23/23 07/23/23 07/23/23 Range/Units 14:05 13:15 13:05 WBC (4.0-10.5) x10^3/uL RBC (4.1-5.4) x10^6/uL Hgb (12.0-16.0) g/dL Hct (35-47) % MCV (78-100) fL MCH (26-32) pg MCHC (32-36) g/dL RDW (11.5-14.0) % Plt Count (150-450) x10^3/uL MPV (7.5-11.0) fL Gran % (36.0-66.0) % Immature Gran % (Auto) (0.00-0.4) % Nucleat RBC Rel Count (0.00-0.1) % Eos # (Auto) (0-0.5) x10^3/uL Immature Gran # (Auto) (0.00-0.03) x10^3u/L Absolute Lymphs (auto) (1.0-4.6) x10^3/uL Absolute Monos (auto) (0.0-1.3) x10^3/uL Absolute Nucleated RBC (0.00-0.01) x10^3u/L Lymphocytes % (24.0-44.0) % Monocytes % (0.0-12.0) % Eosinophils % (0.00-5.0) % Basophils % (0.0-0.4) % Absolute Granulocytes (1.4-6.9) x10^3/uL Basophils # (0-0.4) x10^3/uL Puncture Site pCO2 (35-45) mmHg pO2 (75-100) mmHg Base Excess (-2.0-2.0) O2 Saturation (94-100) g/dF ABG pH (7.35-7.45) ABG HCO3 (22-28) ABG O2 Sat (Measured) (95-100) % Everett Test A-a Gradient a/A Ratio Hemoglobin Carboxyhemoglobin (0.0-6.9) % THgb Methemoglobin (1.4-1.5) % Potassium 4.1 D (3.5-5.1) Temperature C POC O2 Flow Rate % Sodium 139 (135-145) mmol/L Chloride 109 H (98-107) mmol/L Carbon Dioxide < 5 L* (22-30) mmol/L Anion Gap BUN 8 (7-17) mg/dL Creatinine 0.62 (0.52-1.04) mg/dL Estimated GFR 125.9 ML/MIN Glucose 565 H* (74-106) mg/dL POC Glucometer 367 H 516 H* (50 to 500) mg/dL Calcium 7.8 L (8.4-10.2) mg/dL Magnesium 2.0 (1.6-2.3) mg/dL Total Bilirubin 0.50 (0.2-1.3) mg/dL AST 40 H (14-36) U/L ALT 111 H (0-35) U/L Alkaline Phosphatase 127 H (38-126) U/L Serum Total Protein 6.8 (6.3-8.2) g/dL Albumin 3.7 (3.5-5.0) g/dL Urine Color (Yellow) Urine Appearance (Clear) Urine pH (4.6-8.0) Ur Specific Meally (1.005-1.030) Urine Protein (Negative) Urine Glucose (UA) (Negative) mg/dL Urine Ketones (Negative) Urine Blood (Negative) Urine Nitrite (Negative) Urine Bilirubin (Negative) Urine Urobilinogen (0.2) mg/dL Ur Leukocyte Esterase (Negative) U Hyaline Cast (Auto) (0-2) /LPF Urine Microscopic RBC (0-5) /HPF Urine Microscopic WBC (0-5) /HPF Ur Epithelial Cells (None Seen) /HPF Urine Bacteria (None Seen) /HPF Urine Culture Reflexed (NO) 07/23/23 07/23/23 07/23/23 Range/Units 11:55 11:32 11:00 WBC (4.0-10.5) x10^3/uL RBC (4.1-5.4) x10^6/uL Hgb (12.0-16.0) g/dL Hct (35-47) % MCV (78-100) fL MCH (26-32) pg MCHC (32-36) g/dL RDW (11.5-14.0) % Plt Count (150-450) x10^3/uL MPV (7.5-11.0) fL Gran % (36.0-66.0) % Immature Gran % (Auto) (0.00-0.4) % Nucleat RBC Rel Count (0.00-0.1) % Eos # (Auto) (0-0.5) x10^3/uL Immature Gran # (Auto) (0.00-0.03) x10^3u/L Absolute Lymphs (auto) (1.0-4.6) x10^3/uL Absolute Monos (auto) (0.0-1.3) x10^3/uL Absolute Nucleated RBC (0.00-0.01) x10^3u/L Lymphocytes % (24.0-44.0) % Monocytes % (0.0-12.0) % Eosinophils % (0.00-5.0) % Basophils % (0.0-0.4) % Absolute Granulocytes (1.4-6.9) x10^3/uL Basophils # (0-0.4) x10^3/uL Puncture Site pCO2 (35-45) mmHg pO2 (75-100) mmHg Base Excess (-2.0-2.0) O2 Saturation (94-100) g/dF ABG pH (7.35-7.45) ABG HCO3 (22-28) ABG O2 Sat (Measured) (95-100) % Everett Test A-a Gradient a/A Ratio Hemoglobin Carboxyhemoglobin (0.0-6.9) % THgb Methemoglobin (1.4-1.5) % Potassium 5.7 H (3.5-5.1) Temperature C POC O2 Flow Rate % Sodium 134 L (135-145) mmol/L Chloride 101 (98-107) mmol/L Carbon Dioxide < 5 L* (22-30) mmol/L Anion Gap Not Reportable BUN 8 (7-17) mg/dL Creatinine 0.70 (0.52-1.04) mg/dL Estimated GFR 122.3 ML/MIN Glucose 644 H* (74-106) mg/dL POC Glucometer 564 H* (50 to 500) mg/dL Calcium 8.9 (8.4-10.2) mg/dL Magnesium 1.7 (1.6-2.3) mg/dL Total Bilirubin 0.60 (0.2-1.3) mg/dL AST 43 H (14-36) U/L ALT 120 H (0-35) U/L Alkaline Phosphatase 143 H (38-126) U/L Serum Total Protein 7.3 (6.3-8.2) g/dL Albumin 4.2 (3.5-5.0) g/dL Urine Color Yellow (Yellow) Urine Appearance Clear (Clear) Urine pH 5.0 (4.6-8.0) Ur Specific Meally >=1.030 A (1.005-1.030) Urine Protein Trace A (Negative) Urine Glucose (UA) >=1000 A (Negative) mg/dL Urine Ketones >=160 A (Negative) Urine Blood Large A (Negative) Urine Nitrite Negative (Negative) Urine Bilirubin Negative (Negative) Urine Urobilinogen 0.2 (0.2) mg/dL Ur Leukocyte Esterase Negative (Negative) U Hyaline Cast (Auto) 3-5 A (0-2) /LPF Urine Microscopic RBC 3-5 (0-5) /HPF Urine Microscopic WBC 0-2 (0-5) /HPF Ur Epithelial Cells None Seen (None Seen) /HPF Urine Bacteria None Seen (None Seen) /HPF Urine Culture Reflexed NO (NO) 07/23/23 07/23/23 Range/Units 11:00 10:38 WBC 18.6 H (4.0-10.5) x10^3/uL RBC 4.12 (4.1-5.4) x10^6/uL Hgb 12.2 (12.0-16.0) g/dL Hct 40.3 (35-47) % MCV 97.8 (78-100) fL MCH 29.6 (26-32) pg MCHC 30.3 L (32-36) g/dL RDW 14.6 H (11.5-14.0) % Plt Count 565 H (150-450) x10^3/uL MPV 9.7 (7.5-11.0) fL Gran % 84.3 H (36.0-66.0) % Immature Gran % (Auto) 1.2 H (0.00-0.4) % Nucleat RBC Rel Count 0.0 (0.00-0.1) % Eos # (Auto) 0.05 (0-0.5) x10^3/uL Immature Gran # (Auto) 0.22 H (0.00-0.03) x10^3u/L Absolute Lymphs (auto) 1.94 (1.0-4.6) x10^3/uL Absolute Monos (auto) 0.65 (0.0-1.3) x10^3/uL Absolute Nucleated RBC 0.00 (0.00-0.01) x10^3u/L Lymphocytes % 10.4 L (24.0-44.0) % Monocytes % 3.5 (0.0-12.0) % Eosinophils % 0.3 (0.00-5.0) % Basophils % 0.3 (0.0-0.4) % Absolute Granulocytes 15.68 H (1.4-6.9) x10^3/uL Basophils # 0.05 (0-0.4) x10^3/uL Puncture Site Pending pCO2 11 L* (35-45) mmHg pO2 137 H* (75-100) mmHg Base Excess -20.8 L (-2.0-2.0) O2 Saturation 98.0 (94-100) g/dF ABG pH 7.21 L* (7.35-7.45) ABG HCO3 4.4 L* (22-28) ABG O2 Sat (Measured) 99.7 (95-100) % Everett Test Pending A-a Gradient -1 a/A Ratio 1.01 Hemoglobin 12.6 Carboxyhemoglobin 1.1 (0.0-6.9) % THgb Methemoglobin 0.6 L (1.4-1.5) % Potassium 5.8 H (3.5-5.1) Temperature 37.0 C POC O2 Flow Rate 21 % Sodium (135-145) mmol/L Chloride (98-107) mmol/L Carbon Dioxide (22-30) mmol/L Anion Gap BUN (7-17) mg/dL Creatinine (0.52-1.04) mg/dL Estimated GFR ML/MIN Glucose (74-106) mg/dL POC Glucometer (50 to 500) mg/dL Calcium (8.4-10.2) mg/dL Magnesium (1.6-2.3) mg/dL Total Bilirubin (0.2-1.3) mg/dL AST (14-36) U/L ALT (0-35) U/L Alkaline Phosphatase (38-126) U/L Serum Total Protein (6.3-8.2) g/dL Albumin (3.5-5.0) g/dL Urine Color (Yellow) Urine Appearance (Clear) Urine pH (4.6-8.0) Ur Specific Meally (1.005-1.030) Urine Protein (Negative) Urine Glucose (UA) (Negative) mg/dL Urine Ketones (Negative) Urine Blood (Negative) Urine Nitrite (Negative) Urine Bilirubin (Negative) Urine Urobilinogen (0.2) mg/dL Ur Leukocyte Esterase (Negative) U Hyaline Cast (Auto) (0-2) /LPF Urine Microscopic RBC (0-5) /HPF Urine Microscopic WBC (0-5) /HPF Ur Epithelial Cells (None Seen) /HPF Urine Bacteria (None Seen) /HPF Urine Culture Reflexed (NO) - Progress Progress: improved Discussed with : Other Will see patient in: hospital (observation) Counseled pt/family regarding: diagnosis, need for follow-up Medical Desision Making - Independent Historian Additional History obtained from: Mother - Discussion of managment Care discussed with:: hospitalist Reviewed:: Need for additional workup Agreed on:: decision to admit, place in obs Will see patient: in hospital - Diagnostic Testing Diagnostic test were ordered, analyzed, and reviewed by me: Yes Radiological Interpretation: Interpreted by me, Reviewed by me - Risk of complications The pt has a mod risk of morbidity or mortality based on: Need for prescription drug management The pt has a high risk of morbidity or mortality based on: Decision regarding hospitilization or escalation of hosp level of care - Departure Departure Disposition: Observation Clinical Impression: Dehydration Diabetic ketoacidosis Qualifiers: Diabetes mellitus type: type 1 Diabetes mellitus complication detail: without coma Qualified Code(s): E10.10 - Type 1 diabetes mellitus with ketoacidosis without coma Condition: Fair Critical Care Time: Yes Critical Care Time(excluding separately billable procedures): Critical 30-74 mins Referrals: DOCTOR,NO FAMILY [Primary Care Provider] - Follow up/PCP as directed
[2023-07-23 11:19] LABS: A-aADO2 -1; ABG HEMOGLOBIN 12.6; ABG POTASSIUM 5.8 (3.5-5.1); ARTERIAL BLD GAS O2 SATURATION 99.7 % (95-100); ARTERIAL BLOOD GAS BASE EXCESS -20.8 (-2.0-2.0); ARTERIAL BLOOD GAS FIO2 21 %; ARTERIAL BLOOD GAS PO2 137 mmHg (75-100); CARBOXYHEMOGLOBIN 1.1 % THgb (0.0-6.9); HCO3- 4.4 (22-28); Methhemoglobin 0.6 % (1.4-1.5); paO2 pAO1 1.01
[2023-07-23 11:20] LABS: ARTERIAL BLOOD GAS PCO2 11 mmHg (35-45); ARTERIAL BLOOD GAS pH 7.21 (7.35-7.45)
[2023-07-23 11:21] LABS: Absolute Neutrophil Ct (ANC) 15.68 x10^3/uL (1.4-6.9); BASOPHIL % 0.3 % (0.0-0.4); Basophil (Absolute #) 0.05 x10^3/uL (0-0.4); Eosinophil % 0.3 % (0.00-5.0); Eosinophil (Absolute #) 0.05 x10^3/uL (0-0.5); Hematocrit 40.3 % (35-47); Hemoglobin 12.2 g/dL (12.0-16.0); IMMATURE GRAN # 0.22 x10^3u/L (0.00-0.03); IMMATURE GRAN % 1.2 % (0.00-0.4); Lymphocyte (Absolute #) 1.94 x10^3/uL (1.0-4.6); Lymphocytes % 10.4 % (24.0-44.0); Mean Cell Volume 97.8 fL (78-100); Mean Corpuscular Hemoglobin 29.6 pg (26-32); Mean Corpuscular Hgb Concent. 30.3 g/dL (32-36); Mean Platelet Volume 9.7 fL (7.5-11.0); Monocyte (Absolute #) 0.65 x10^3/uL (0.0-1.3); Monocytes % 3.5 % (0.0-12.0); Neutrophil % 84.3 % (36.0-66.0); Platelet Count 565 x10^3/uL (150-450); Red Blood Count 4.12 x10^6/uL (4.1-5.4); Red Cell Distribution Width 14.6 % (11.5-14.0); White Blood Count 18.6 x10^3/uL (4.0-10.5)
[2023-07-23] MEDS ORDERED: SODIUM BICARBONATE 50 MEQ/50 ML ABBOJECT IV ONE (11:34)
[2023-07-23] MEDS: SODIUM BICARBONATE 50 MEQ/50 ML ABBOJECT IV ONE (11:35)
[2023-07-23 11:46] LABS: ALBUMIN 4.2 g/dL (3.5-5.0); ALKALINE PHOSPHATASE 143 U/L (38-126); BLOOD UREA NITROGEN 8 mg/dL (7-17); CHLORIDE 101 mmol/L (98-107); Calcium 8.9 mg/dL (8.4-10.2); EST GLOMERULAR FILTRATION RATE 122.3 ML/MIN; MAGNESIUM 1.7 mg/dL (1.6-2.3); Potassium 5.7 mmol/L (3.5-5.1); SGOT/AST 43 U/L (14-36); SGPT/ALT 120 U/L (0-35); SODIUM 134 mmol/L (135-145); Total Protein 7.3 g/dL (6.3-8.2)
[2023-07-23 11:55] LABS: Glucose 644 mg/dL (74-106)
[2023-07-23 11:56] LABS: Carbon Dioxide < 5 mmol/L (22-30)
[2023-07-23] MEDS ORDERED: MYXREDLIN 100 UNIT/100 ML BAG 100 UNIT/100 ML PLAST..BAG IV ONE (12:00)
[2023-07-23] MEDS: MYXREDLIN 100 UNIT/100 ML BAG 100 UNIT/100 ML PLAST..BAG IV ONE (12:05)
[2023-07-23 12:12] LABS: Appearance Clear (Clear); Bacteria None Seen /HPF (None Seen); Bilirubin Negative (Negative); Blood Large (Negative); Epithelial Cells None Seen /HPF (None Seen); Glucose, Urine >=1000 mg/dL (Negative); Ketones >=160 (Negative); Leukocyte Esterase Negative (Negative); Nitrite Negative (Negative); Protein,Urine Dip Trace (Negative); Specific Gravity >=1.030 (1.005-1.030); Urobilinogen 0.2 mg/dL (0.2); WBC 0-2 /HPF (0-5)
[2023-07-23 12:17] LABS: ADD URINE CULTURE? NO (NO)
[2023-07-23] MEDS ORDERED: Merrem IV ONE (12:17)
[2023-07-23] MEDS: Merrem 1 GM in Sodium Chloride 100ML MINI-BAG PLUS 100 ML IV ONE (12:18)
[2023-07-23] MEDS ORDERED: Sodium Chloride 100ML MINI-BAG PLUS 100 ML IV ONE (12:18)
[2023-07-23] MEDS ORDERED: Magnesium 1 Gm / 100 Ml D5W*** 100 ML IV ONE ×2 (12:27→13:16)
[2023-07-23] MEDS: Magnesium 1 Gm / 100 Ml D5W*** 100 ML IV SCH (12:44)
[2023-07-23 13:36] LABS: ALBUMIN 3.7 g/dL (3.5-5.0); ALKALINE PHOSPHATASE 127 U/L (38-126); BLOOD UREA NITROGEN 8 mg/dL (7-17); CHLORIDE 109 mmol/L (98-107); Calcium 7.8 mg/dL (8.4-10.2); Creatinine 1 0.62 mg/dL (0.52-1.04); EST GLOMERULAR FILTRATION RATE 125.9 ML/MIN; Potassium 4.1 mmol/L (3.5-5.1); SGOT/AST 40 U/L (14-36); SGPT/ALT 111 U/L (0-35); SODIUM 139 mmol/L (135-145); Total Protein 6.8 g/dL (6.3-8.2)
[2023-07-23] MEDS: Sodium Chloride 0.9% 1000 ML 1,000 ML IV SCH (13:50)
[2023-07-23 13:51] LABS: Glucose 565 mg/dL (74-106)
[2023-07-23 13:52] LABS: Carbon Dioxide < 5 mmol/L (22-30)
--- NOTE | 2023-07-23 15:27 | PCM.HP ---
History of Present Illness - Chief Complaint Chief Complaint: diabetic ketoacidosis, Type 1 DM Date: 07/23/23 History of Present Illness: is a 28 year old female with PMHX of type I diabetes, depression, anxiety, bipolar, and marijuana smoker. She states she ran out of her insulin pods for her pump x 1 week. Her insurance is denying coverage. Patient started feeling weak and lethargic since yesterday evening has not been able to eat or drink anything and having severe nausea and vomiting. So patient came to the emergency room. Patient is alert but very weak. She admits to CP in the ER but this has resolved since admitted and now feeling better. In ER glucose was found to be in the 600. Insulin gtt and DKA protocol started. 3 one liter boluses gave in ER. CT of abd ordered and shows entercolitis. She denies any current abd. pain or diarrhea. Chest XR pending. [facility] glucose reading at admission 233. Will continue DKA protocol and keep NPO. - Review of Systems Constitutional: Weakness, No Fever, No Chills Eyes: No Symptoms Ears, Nose, & Throat: No Symptoms Respiratory: No Cough, No Short Of Breath Cardiac: No Chest Pain, No Edema, No Syncope Abdominal/Gastrointestinal: Nausea, Vomiting, No Abdominal Pain, No Diarrhea Genitourinary Symptoms: No Dysuria Musculoskeletal: No Back Pain, No Neck Pain Skin: No Rash Neurological: No Dizziness, No Focal Weakness, No Sensory Changes Psychological: No Symptoms Endocrine: No Symptoms Hematologic/Lymphatic: No Symptoms Immunological/Allergic: No Symptoms Medications & Allergies Home Medications: Home Medication List Dextroamphetamine/Amphetamine [Dextroamp-Amphet ER 20 mg Cap] 30 mg PO DAILY 11/06/21 [History Confirmed 07/23/23] Aripiprazole 10 mg [Abilify 10 MG] 7 mg PO DAILY 03/25/23 [History Confirmed 07/23/23] Insulin Lispro [Humalog] 40 unit SQ DAILY 03/25/23 [History Confirmed 07/23/23] Sertraline HCl [Zoloft] 100 mg PO DAILY 03/25/23 [History Confirmed 07/23/23] Allergies/Adverse Reactions: Allergies Allergy/AdvReac Type Severity Reaction Status Date / Time sulfamethoxazole Allergy Verified 07/23/23 10:24 [From Bactrim] trimethoprim [From Bactrim] Allergy Verified 07/23/23 10:24 - Past Medical History Past Medical History: Yes Neurological History: No Pertinent History ENT History: No Pertinent History Cardiac History: No Pertinent History Respiratory History: No Pertinent History Endocrine Medical History: Diabetes Type I Musculoskelatal History: No Pertinent History GI Medical History: No Pertinent History History: No Pertinent History Pyscho-Social History: Anxiety, Bipolar, Depression Reproductive Disorders: No Pertinent History Comment: DIABETES - Female History Hx Last Menstrual Period: NOW Are you now?: No - Past Surgical History Past Surgical History: Yes (d&c june 2016) Neuro Surgical History: No Pertinent History Cardiac History: No Pertinent History Respiratory Surgery: No Pertinent History GI Surgical History: No Pertinent History Genitourinary Surgical Hx: No Pertinent History Musculskeletal Surgical Hx: No Pertinent History Female Surgical History: Dilation & Curettage, Section Other Surgical History: INSULIN PUMP - Social History Smoking Status: Former smoker How long have you smoked: 2 years Exposure to second hand smoke: No Alcohol: None Drug Use: marijuana - Social Determinants of Health Will the patient participate in the screening: Yes Do you worry about a steady place to live?: No Do you have any problems with any of the following?: No known problems In the past 12 months,have you had to go without utilities?: No Have you or anyone in your house had to go without enough: No Transportation Issues: No Has anyone in your support network made you feel unsafe?: No Does the patient want assistance with any of the above?: No - Physical Exam Vital Signs: Vital Signs - 24 hr Temp Pulse Resp BP BP Pulse Ox 07/23/23 14:30 122 H 29 H 116/73 100 07/23/23 14:15 125 H 21 129/71 100 07/23/23 14:14 100 07/23/23 14:00 126 H 22 116/82 96 07/23/23 13:45 125 H 16 127/71 100 07/23/23 13:30 126 H 21 93/69 100 07/23/23 13:15 126 H 26 H 110/72 100 07/23/23 13:00 115 H 24 119/58 100 07/23/23 12:45 129 H 26 H 92/59 99 07/23/23 12:30 123 H 27 H 109/71 100 07/23/23 12:15 129 H 24 110/41 07/23/23 12:00 133 H 25 H 117/72 07/23/23 11:17 122 H 21 137/79 100 07/23/23 11:14 121 H 29 H 100 07/23/23 10:30 108 H 28 H 115/61 100 07/23/23 09:57 98 F 108 H 27 H 123/59 100 General Appearance: no apparent distress, alert, thin Neurologic Exam: alert, oriented x 3, cooperative, normal mood/affect, nml cerebellar function, nml station & gait, sensation nml, No motor deficits Eye Exam: PERRL/EOMI, eyes nml inspection Ears, Nose, Throat Exam: normal ENT inspection, TMs normal, pharynx normal, moist mucous membranes Neck Exam: normal inspection, non-tender, supple, full range of motion Respiratory Exam: normal breath sounds, lungs clear, No respiratory distress Cardiovascular Exam: regular rate/rhythm, normal heart sounds, normal peripheral pulses Gastrointestinal/Abdomen Exam: soft, normal bowel sounds, No tenderness, No mass Back Exam: normal inspection, normal range of motion, No CVA tenderness, No vertebral tenderness Extremity Exam: normal inspection, normal range of motion, pelvis stable Skin Exam: normal color, warm, dry, No rash Lymphatic Exam: No adenopathy Results - Labs Lab/Micro Results: Lab Results-Last 24 Hours 07/23/23 07/23/23 07/23/23 Range/Units 10:38 11:00 11:00 WBC 18.6 H (4.0-10.5) x10^3/uL RBC 4.12 (4.1-5.4) x10^6/uL Hgb 12.2 (12.0-16.0) g/dL Hct 40.3 (35-47) % MCV 97.8 (78-100) fL MCH 29.6 (26-32) pg MCHC 30.3 L (32-36) g/dL RDW 14.6 H (11.5-14.0) % Plt Count 565 H (150-450) x10^3/uL MPV 9.7 (7.5-11.0) fL Gran % 84.3 H (36.0-66.0) % Immature Gran % (Auto) 1.2 H (0.00-0.4) % Nucleat RBC Rel Count 0.0 (0.00-0.1) % Eos # (Auto) 0.05 (0-0.5) x10^3/uL Immature Gran # (Auto) 0.22 H (0.00-0.03) x10^3u/L Absolute Lymphs (auto) 1.94 (1.0-4.6) x10^3/uL Absolute Monos (auto) 0.65 (0.0-1.3) x10^3/uL Absolute Nucleated RBC 0.00 (0.00-0.01) x10^3u/L Lymphocytes % 10.4 L (24.0-44.0) % Monocytes % 3.5 (0.0-12.0) % Eosinophils % 0.3 (0.00-5.0) % Basophils % 0.3 (0.0-0.4) % Absolute Granulocytes 15.68 H (1.4-6.9) x10^3/uL Basophils # 0.05 (0-0.4) x10^3/uL Puncture Site Pending pCO2 11 L* (35-45) mmHg pO2 137 H* (75-100) mmHg Base Excess -20.8 L (-2.0-2.0) O2 Saturation 98.0 (94-100) g/dF ABG pH 7.21 L* (7.35-7.45) ABG HCO3 4.4 L* (22-28) ABG O2 Sat (Measured) 99.7 (95-100) % Everett Test Pending A-a Gradient -1 a/A Ratio 1.01 Hemoglobin 12.6 Carboxyhemoglobin 1.1 (0.0-6.9) % THgb Methemoglobin 0.6 L (1.4-1.5) % Potassium 5.8 H 5.7 H (3.5-5.1) Temperature 37.0 C POC O2 Flow Rate 21 % Sodium 134 L (135-145) mmol/L Chloride 101 (98-107) mmol/L Carbon Dioxide < 5 L* (22-30) mmol/L Anion Gap Not Reportable BUN 8 (7-17) mg/dL Creatinine 0.70 (0.52-1.04) mg/dL Estimated GFR 122.3 ML/MIN Glucose 644 H* (74-106) mg/dL POC Glucometer (50 to 500) mg/dL Calcium 8.9 (8.4-10.2) mg/dL Magnesium 1.7 (1.6-2.3) mg/dL Total Bilirubin 0.60 (0.2-1.3) mg/dL AST 43 H (14-36) U/L ALT 120 H (0-35) U/L Alkaline Phosphatase 143 H (38-126) U/L Serum Total Protein 7.3 (6.3-8.2) g/dL Albumin 4.2 (3.5-5.0) g/dL Urine Color (Yellow) Urine Appearance (Clear) Urine pH (4.6-8.0) Ur Specific Olin (1.005-1.030) Urine Protein (Negative) Urine Glucose (UA) (Negative) mg/dL Urine Ketones (Negative) Urine Blood (Negative) Urine Nitrite (Negative) Urine Bilirubin (Negative) Urine Urobilinogen (0.2) mg/dL Ur Leukocyte Esterase (Negative) U Hyaline Cast (Auto) (0-2) /LPF Urine Microscopic RBC (0-5) /HPF Urine Microscopic WBC (0-5) /HPF Ur Epithelial Cells (None Seen) /HPF Urine Bacteria (None Seen) /HPF Urine Culture Reflexed (NO) 07/23/23 07/23/23 07/23/23 Range/Units 11:32 11:55 13:05 WBC (4.0-10.5) x10^3/uL RBC (4.1-5.4) x10^6/uL Hgb (12.0-16.0) g/dL Hct (35-47) % MCV (78-100) fL MCH (26-32) pg MCHC (32-36) g/dL RDW (11.5-14.0) % Plt Count (150-450) x10^3/uL MPV (7.5-11.0) fL Gran % (36.0-66.0) % Immature Gran % (Auto) (0.00-0.4) % Nucleat RBC Rel Count (0.00-0.1) % Eos # (Auto) (0-0.5) x10^3/uL Immature Gran # (Auto) (0.00-0.03) x10^3u/L Absolute Lymphs (auto) (1.0-4.6) x10^3/uL Absolute Monos (auto) (0.0-1.3) x10^3/uL Absolute Nucleated RBC (0.00-0.01) x10^3u/L Lymphocytes % (24.0-44.0) % Monocytes % (0.0-12.0) % Eosinophils % (0.00-5.0) % Basophils % (0.0-0.4) % Absolute Granulocytes (1.4-6.9) x10^3/uL Basophils # (0-0.4) x10^3/uL Puncture Site pCO2 (35-45) mmHg pO2 (75-100) mmHg Base Excess (-2.0-2.0) O2 Saturation (94-100) g/dF ABG pH (7.35-7.45) ABG HCO3 (22-28) ABG O2 Sat (Measured) (95-100) % Everett Test A-a Gradient a/A Ratio Hemoglobin Carboxyhemoglobin (0.0-6.9) % THgb Methemoglobin (1.4-1.5) % Potassium (3.5-5.1) Temperature C POC O2 Flow Rate % Sodium (135-145) mmol/L Chloride (98-107) mmol/L Carbon Dioxide (22-30) mmol/L Anion Gap BUN (7-17) mg/dL Creatinine (0.52-1.04) mg/dL Estimated GFR ML/MIN Glucose (74-106) mg/dL POC Glucometer 564 H* 516 H* (50 to 500) mg/dL Calcium (8.4-10.2) mg/dL Magnesium (1.6-2.3) mg/dL Total Bilirubin (0.2-1.3) mg/dL AST (14-36) U/L ALT (0-35) U/L Alkaline Phosphatase (38-126) U/L Serum Total Protein (6.3-8.2) g/dL Albumin (3.5-5.0) g/dL Urine Color Yellow (Yellow) Urine Appearance Clear (Clear) Urine pH 5.0 (4.6-8.0) Ur Specific Olin >=1.030 A (1.005-1.030) Urine Protein Trace A (Negative) Urine Glucose (UA) >=1000 A (Negative) mg/dL Urine Ketones >=160 A (Negative) Urine Blood Large A (Negative) Urine Nitrite Negative (Negative) Urine Bilirubin Negative (Negative) Urine Urobilinogen 0.2 (0.2) mg/dL Ur Leukocyte Esterase Negative (Negative) U Hyaline Cast (Auto) 3-5 A (0-2) /LPF Urine Microscopic RBC 3-5 (0-5) /HPF Urine Microscopic WBC 0-2 (0-5) /HPF Ur Epithelial Cells None Seen (None Seen) /HPF Urine Bacteria None Seen (None Seen) /HPF Urine Culture Reflexed NO (NO) 07/23/23 07/23/23 07/23/23 Range/Units 13:15 14:05 15:18 WBC (4.0-10.5) x10^3/uL RBC (4.1-5.4) x10^6/uL Hgb (12.0-16.0) g/dL Hct (35-47) % MCV (78-100) fL MCH (26-32) pg MCHC (32-36) g/dL RDW (11.5-14.0) % Plt Count (150-450) x10^3/uL MPV (7.5-11.0) fL Gran % (36.0-66.0) % Immature Gran % (Auto) (0.00-0.4) % Nucleat RBC Rel Count (0.00-0.1) % Eos # (Auto) (0-0.5) x10^3/uL Immature Gran # (Auto) (0.00-0.03) x10^3u/L Absolute Lymphs (auto) (1.0-4.6) x10^3/uL Absolute Monos (auto) (0.0-1.3) x10^3/uL Absolute Nucleated RBC (0.00-0.01) x10^3u/L Lymphocytes % (24.0-44.0) % Monocytes % (0.0-12.0) % Eosinophils % (0.00-5.0) % Basophils % (0.0-0.4) % Absolute Granulocytes (1.4-6.9) x10^3/uL Basophils # (0-0.4) x10^3/uL Puncture Site pCO2 (35-45) mmHg pO2 (75-100) mmHg Base Excess (-2.0-2.0) O2 Saturation (94-100) g/dF ABG pH (7.35-7.45) ABG HCO3 (22-28) ABG O2 Sat (Measured) (95-100) % Everett Test A-a Gradient a/A Ratio Hemoglobin Carboxyhemoglobin (0.0-6.9) % THgb Methemoglobin (1.4-1.5) % Potassium 4.1 D (3.5-5.1) Temperature C POC O2 Flow Rate % Sodium 139 (135-145) mmol/L Chloride 109 H (98-107) mmol/L Carbon Dioxide < 5 L* (22-30) mmol/L Anion Gap BUN 8 (7-17) mg/dL Creatinine 0.62 (0.52-1.04) mg/dL Estimated GFR 125.9 ML/MIN Glucose 565 H* (74-106) mg/dL POC Glucometer 367 H 233 H (50 to 500) mg/dL Calcium 7.8 L (8.4-10.2) mg/dL Magnesium 2.0 (1.6-2.3) mg/dL Total Bilirubin 0.50 (0.2-1.3) mg/dL AST 40 H (14-36) U/L ALT 111 H (0-35) U/L Alkaline Phosphatase 127 H (38-126) U/L Serum Total Protein 6.8 (6.3-8.2) g/dL Albumin 3.7 (3.5-5.0) g/dL Urine Color (Yellow) Urine Appearance (Clear) Urine pH (4.6-8.0) Ur Specific Olin (1.005-1.030) Urine Protein (Negative) Urine Glucose (UA) (Negative) mg/dL Urine Ketones (Negative) Urine Blood (Negative) Urine Nitrite (Negative) Urine Bilirubin (Negative) Urine Urobilinogen (0.2) mg/dL Ur Leukocyte Esterase (Negative) U Hyaline Cast (Auto) (0-2) /LPF Urine Microscopic RBC (0-5) /HPF Urine Microscopic WBC (0-5) /HPF Ur Epithelial Cells (None Seen) /HPF Urine Bacteria (None Seen) /HPF Urine Culture Reflexed (NO) Accuchecks Date 07/23/23 Date 07/23/23 Date 07/23/23 Date 07/23/23 Time 14:05 Time 13:05 Time 11:54 Time 10:23 - Radiology Impressions Radiology Exams & Impressions: Radiology Procedures Category Date Time Status CHEST 1 VIEW (PORTABLE) Stat Exams 07/23/23 10:38 Taken Assessment/Plan (1) Diabetic ketoacidosis Current Visit: Yes Status: Acute Qualifiers: Diabetes mellitus type: type 1 Diabetes mellitus complication detail: without coma Qualified Code(s): E10.10 - Type 1 diabetes mellitus with ketoacidosis without coma Assessment & Plan: - ICU bed- tele - DKA protocol started in ER. - A1C - pending - 3L NS 1 liter boluses gave in ER. - Insulin gtt - monitor electrolytes. - Zofran IV for N/V - Follows Dr. Lubin for endocrinology - BMP Q4 - Discuss with case management insulin needs and insurance concerns tomorrow. Code(s): E13.10 - OTH DIABETES MELLITUS WITH KETOACIDOSIS WITHOUT COMA (2) Abdominal pain Current Visit: No Status: Acute Assessment & Plan: - CT abd pelvis 07/23/23: Impression: New CT findings favoring enterocolitis. Incidental GERD. - Resolved since admission - denies diarrhea Code(s): R10.9 - UNSPECIFIED ABDOMINAL PAIN (3) Depression with anxiety Current Visit: Yes Status: Chronic Assessment & Plan: - Continue zoloft Code(s): F41.8 - OTHER SPECIFIED ANXIETY DISORDERS (4) Bipolar 1 disorder Current Visit: Yes Status: Chronic Assessment & Plan: - Continue Abilify VTE: SCD PPI: protonix Next of KIN: Tracy Kapadia - [phone] D/C plan: 1-2 days Code status: Full Code(s): F31.9 - BIPOLAR DISORDER, UNSPECIFIED Telemedicine Encounter - Telemedicine Encounter Telemedicine Encounter: The entirety of this encounter was performed via Telemedicine" This visit was performed using real-time audio and video connection between my location and thepatients locationwith the assistance of a surrogateat the patients location. Written or verbal consent was obtained from the patient/guardian to perform this visit usings[employer] technology. Any patient questions regarding the telemedicine interaction were answered
[2023-07-23] MEDS ORDERED: Zofran 4 MG/2 ML VIAL IV PRN (15:41)
[2023-07-23] MEDS ORDERED: D5W/0.45NS W/ 20mEq KCl 1000 ML 1,000 ML IV ONE (16:04)
[2023-07-23] MEDS: D5W/0.45NS W/ 20mEq KCl 1000 ML 1,000 ML IV SCH (16:07)
[2023-07-23 16:08] LABS: Hematocrit 32.9 % (35-47); Hemoglobin 10.6 g/dL (12.0-16.0); Mean Corpuscular Hemoglobin 30.3 pg (26-32); Mean Corpuscular Hgb Concent. 32.2 g/dL (32-36); Mean Platelet Volume 9.1 fL (7.5-11.0); Platelet Count 329 x10^3/uL (150-450); Red Cell Distribution Width 14.4 % (11.5-14.0); White Blood Count 24.1 x10^3/uL (4.0-10.5)
[2023-07-23 16:17] LABS: ANION GAP 23.1 MEQ/L (5-15); Calcium 7.2 mg/dL (8.4-10.2); Creatinine 1 0.55 mg/dL (0.52-1.04); EST GLOMERULAR FILTRATION RATE 129.6 ML/MIN; Potassium 3.9 mmol/L (3.5-5.1)
[2023-07-23 16:35] LABS: HCG, Quantitative (Inhouse) < 2.39 mIU/ml; MAGNESIUM 2.2 mg/dL (1.6-2.3); PHOSPHOROUS 2.1 mg/dL (2.5-4.5)
[2023-07-23] MEDS: PROTONIX 40 MG IV IV SCH (17:11)
[2023-07-23] MEDS: Neutra-Phos Packet PO ONE (19:38)
--- NOTE | 2023-07-23 19:46 | XRAY ---
Indication: Dehydration. Nausea. Comparison: March 25, 2023 Portable chest unchanged again demonstrating normal heart and lungs. Bony thorax intact again with mild dextroscoliosis. No new/acute findings.
[2023-07-23] MEDS: TYLENOL 325 MG PO PRN (20:13)
[2023-07-23 20:27] LABS: ANION GAP 15.8 MEQ/L (5-15); Calcium 7.3 mg/dL (8.4-10.2); Creatinine 1 0.47 mg/dL (0.52-1.04); EST GLOMERULAR FILTRATION RATE 134.6 ML/MIN; Potassium 3.7 mmol/L (3.5-5.1)
[2023-07-24 01:18] LABS: ANION GAP 13.6 MEQ/L (5-15); Calcium 7.3 mg/dL (8.4-10.2); Creatinine 1 0.44 mg/dL (0.52-1.04); EST GLOMERULAR FILTRATION RATE 136.7 ML/MIN; Potassium 4.2 mmol/L (3.5-5.1)
[2023-07-24 04:56] LABS: Hematocrit 31.9 % (35-47); Hemoglobin 10.3 g/dL (12.0-16.0); Mean Cell Volume 92.5 fL (78-100); Mean Corpuscular Hemoglobin 29.9 pg (26-32); Mean Corpuscular Hgb Concent. 32.3 g/dL (32-36); Mean Platelet Volume 8.8 fL (7.5-11.0); Platelet Count 284 x10^3/uL (150-450); Red Blood Count 3.45 x10^6/uL (4.1-5.4); Red Cell Distribution Width 14.5 % (11.5-14.0); White Blood Count 11.6 x10^3/uL (4.0-10.5)
[2023-07-24 05:13] LABS: ALBUMIN 2.6 g/dL (3.5-5.0); BILIRUBIN,TOTAL 0.4 mg/dL (0.2-1.3); Calcium 7.6 mg/dL (8.4-10.2); Creatinine 1 0.43 mg/dL (0.52-1.04); EST GLOMERULAR FILTRATION RATE 137.5 ML/MIN; Potassium 3.7 mmol/L (3.5-5.1); Total Protein 5.4 g/dL (6.3-8.2)
[2023-07-24] MEDS ORDERED: D5W/0.45NS W/ 20mEq KCl 1000 ML 1,000 ML IV ONE (05:27)
[2023-07-24 07:24] VITALS: RESP 18; TEMP 98.2
[2023-07-24] MEDS ORDERED: NON-FORMULARY ITEM (Insulin Lispro 1 UNIT Ml) SQ SCH (10:00)
[2023-07-24] MEDS ORDERED: NON-FORMULARY ITEM (Sertraline Hcl [Zoloft] 100 MG Tablet) PO SCH (10:00)
[2023-07-24] MEDS: Abilify 10 MG PO SCH (10:12)
[2023-07-24] MEDS: ZOLOFT 50 MG TABLET PO SCH (10:13)
[2023-07-24] MEDS: PROTONIX 40 MG IV IV SCH (10:13)
[2023-07-24] MEDS: MYXREDLIN 100 UNIT/100 ML BAG 100 UNIT/100 ML PLAST..BAG IV SCH (10:16)
[2023-07-24] MEDS: PATIENT OWN MEDICATION SQ SCH (10:20)
[2023-07-24 11:10] LABS: ISTAT K 3.8 mmol/L (3.5-4.9); ISTAT NA 136 mmol/L (138-146)
[2023-07-24 11:11] LABS: ISTAT BUN < 3 mg/dL (8-26); ISTAT CL 109 mmol/L (98-109); ISTAT CO2 19 mmol/L (24-29); ISTAT CREA 0.3 mg/dL (0.6-1.3); ISTAT GLUC 176 mg/dL (70-105); ISTAT iCA 1.19 mmol/L (1.12-1.32)
--- NOTE | 2023-07-24 11:48 | PCM.DS ---
Discharge Summary Date of Admission: 07/23/23 14:57 Date of Discharge: 07/24/23 Admitting Physician: CHELE COLEMAN MD Primary Care Provider: NO FAMILY DOCTOR Allergies Allergies sulfamethoxazole [From Bactrim] Allergy (Verified 07/23/23 10:24) trimethoprim [From Bactrim] Allergy (Verified 07/23/23 10:24) Hospital Summary - Hospital Course Hospital Course: 07/23/23 is a 28 year old female with PMHX of type I diabetes, depression, anxiety, bipolar, and marijuana smoker. She states she ran out of her insulin pods for her pump x 1 week. Her insurance is denying coverage. Patient started feeling weak and lethargic since yesterday evening has not been able to eat or drink anything and having severe nausea and vomiting. So patient came to the emergency room. Patient is alert but very weak. She admits to CP in the ER but this has resolved since admitted and now feeling better. In ER glucose was found to be in the 600. Insulin gtt and DKA protocol started. 3 one liter boluses gave in ER. CT of abd ordered and shows entercolitis. She denies any current abd. pain or diarrhea. Chest XR pending. [facility]rnet glucose reading at admission 233. Will continue DKA protocol and keep NPO. 07/24/23 Pt resting in bed. She reports feeling much better. Labs have improved. Gap closed, carbon dioxide 19. Lantus started and will stop insulin gtt. Clear liquid diet started. Case management has made pt an appointment at 1400 today with endocrinology. She has not f/u since October thus why her insulin could not be refilled. She is agreeable to going to the appointment today. Insulin filled at the pharmacy and ready. Pt to leave at 1300 today if doing well and go straight to appointment. Her s/o is willing to drive her. She denies Cp, SOB, Abd. pain, N/V/D. - Vitals & Intake/Output Vital Signs: Vital Signs Temperature 98.2 F 07/24/23 07:00 Pulse Rate 84 07/24/23 10:00 Respiratory Rate 18 07/24/23 07:00 Blood Pressure 99/70 07/24/23 10:00 O2 Sat by Pulse Oximetry 100 07/24/23 10:00 Intake & Output: Intake & Output 0507/22/23 07/23/23 07/24/23 11:59 11:59 11:59 11:59 Intake Total 2216 Balance 2216 Weight 44.5 kg 46.3 kg - Lab Result Diagrams: 07/24/23 04:45 07/24/23 08:25 Lab Results-Last 24 Hrs: Lab Results-Last 24 Hours 07/23/23 07/23/23 07/23/23 Range/Units 11:00 11:18 11:32 WBC (4.0-10.5) x10^3/uL RBC (4.1-5.4) x10^6/uL Hgb (12.0-16.0) g/dL Hct (35-47) % MCV (78-100) fL MCH (26-32) pg MCHC (32-36) g/dL RDW (11.5-14.0) % Plt Count (150-450) x10^3/uL MPV (7.5-11.0) fL Sodium 134 L (135-145) mmol/L Sodium Direct (138-146) mmol/L Potassium 5.7 H (3.5-5.1) mmol/L Chloride 101 (98-107) mmol/L Carbon Dioxide < 5 L* (22-30) mmol/L Anion Gap Not Reportable BUN 8 (7-17) mg/dL Venous BUN (8-26) mg/dL Creatinine 0.70 (0.52-1.04) mg/dL Estimated GFR 122.3 ML/MIN Glucose 644 H* (74-106) mg/dL POC Glucometer (50 to 500) mg/dL Hemoglobin A1c 13.19 H (4.5-6.0) % Calcium 8.9 (8.4-10.2) mg/dL Ionized Calcium (1.12-1.32) mmol/L Phosphorus (2.5-4.5) mg/dL Magnesium 1.7 (1.6-2.3) mg/dL Total Bilirubin 0.60 (0.2-1.3) mg/dL AST 43 H (14-36) U/L ALT 120 H (0-35) U/L Alkaline Phosphatase 143 H (38-126) U/L Serum Total Protein 7.3 (6.3-8.2) g/dL Albumin 4.2 (3.5-5.0) g/dL Beta HCG, Quant mIU/ml Urine Color Yellow (Yellow) Urine Appearance Clear (Clear) Urine pH 5.0 (4.6-8.0) Ur Specific [place] >=1.030 A (1.005-1.030) Urine Protein Trace A (Negative) Urine Glucose (UA) >=1000 A (Negative) mg/dL Urine Ketones >=160 A (Negative) Urine Blood Large A (Negative) Urine Nitrite Negative (Negative) Urine Bilirubin Negative (Negative) Urine Urobilinogen 0.2 (0.2) mg/dL Ur Leukocyte Esterase Negative (Negative) U Hyaline Cast (Auto) 3-5 A (0-2) /LPF Urine Microscopic RBC 3-5 (0-5) /HPF Urine Microscopic WBC 0-2 (0-5) /HPF Ur Epithelial Cells None Seen (None Seen) /HPF Urine Bacteria None Seen (None Seen) /HPF Urine Culture Reflexed NO (NO) 07/23/23 07/23/23 07/23/23 Range/Units 11:55 13:05 13:15 WBC (4.0-10.5) x10^3/uL RBC (4.1-5.4) x10^6/uL Hgb (12.0-16.0) g/dL Hct (35-47) % MCV (78-100) fL MCH (26-32) pg MCHC (32-36) g/dL RDW (11.5-14.0) % Plt Count (150-450) x10^3/uL MPV (7.5-11.0) fL Sodium 139 (135-145) mmol/L Sodium Direct (138-146) mmol/L Potassium 4.1 D (3.5-5.1) mmol/L Chloride 109 H (98-107) mmol/L Carbon Dioxide < 5 L* (22-30) mmol/L Anion Gap BUN 8 (7-17) mg/dL Venous BUN (8-26) mg/dL Creatinine 0.62 (0.52-1.04) mg/dL Estimated GFR 125.9 ML/MIN Glucose 565 H* (74-106) mg/dL POC Glucometer 564 H* 516 H* (50 to 500) mg/dL Hemoglobin A1c (4.5-6.0) % Calcium 7.8 L (8.4-10.2) mg/dL Ionized Calcium (1.12-1.32) mmol/L Phosphorus (2.5-4.5) mg/dL Magnesium 2.0 (1.6-2.3) mg/dL Total Bilirubin 0.50 (0.2-1.3) mg/dL AST 40 H (14-36) U/L ALT 111 H (0-35) U/L Alkaline Phosphatase 127 H (38-126) U/L Serum Total Protein 6.8 (6.3-8.2) g/dL Albumin 3.7 (3.5-5.0) g/dL Beta HCG, Quant mIU/ml Urine Color (Yellow) Urine Appearance (Clear) Urine pH (4.6-8.0) Ur Specific [place] (1.005-1.030) Urine Protein (Negative) Urine Glucose (UA) (Negative) mg/dL Urine Ketones (Negative) Urine Blood (Negative) Urine Nitrite (Negative) Urine Bilirubin (Negative) Urine Urobilinogen (0.2) mg/dL Ur Leukocyte Esterase (Negative) U Hyaline Cast (Auto) (0-2) /LPF Urine Microscopic RBC (0-5) /HPF Urine Microscopic WBC (0-5) /HPF Ur Epithelial Cells (None Seen) /HPF Urine Bacteria (None Seen) /HPF Urine Culture Reflexed (NO) 07/23/23 07/23/23 07/23/23 Range/Units 14:05 15:18 15:50 WBC (4.0-10.5) x10^3/uL RBC (4.1-5.4) x10^6/uL Hgb (12.0-16.0) g/dL Hct (35-47) % MCV (78-100) fL MCH (26-32) pg MCHC (32-36) g/dL RDW (11.5-14.0) % Plt Count (150-450) x10^3/uL MPV (7.5-11.0) fL Sodium 137 (135-145) mmol/L Sodium Direct (138-146) mmol/L Potassium 3.9 (3.5-5.1) mmol/L Chloride 111 H (98-107) mmol/L Carbon Dioxide 7 L* (22-30) mmol/L Anion Gap 23.1 H BUN 6 L (7-17) mg/dL Venous BUN (8-26) mg/dL Creatinine 0.55 (0.52-1.04) mg/dL Estimated GFR 129.6 ML/MIN Glucose 199 H (74-106) mg/dL POC Glucometer 367 H 233 H (50 to 500) mg/dL Hemoglobin A1c (4.5-6.0) % Calcium 7.2 L (8.4-10.2) mg/dL Ionized Calcium (1.12-1.32) mmol/L Phosphorus (2.5-4.5) mg/dL Magnesium (1.6-2.3) mg/dL Total Bilirubin (0.2-1.3) mg/dL AST (14-36) U/L ALT (0-35) U/L Alkaline Phosphatase (38-126) U/L Serum Total Protein (6.3-8.2) g/dL Albumin (3.5-5.0) g/dL Beta HCG, Quant mIU/ml Urine Color (Yellow) Urine Appearance (Clear) Urine pH (4.6-8.0) Ur Specific [place] (1.005-1.030) Urine Protein (Negative) Urine Glucose (UA) (Negative) mg/dL Urine Ketones (Negative) Urine Blood (Negative) Urine Nitrite (Negative) Urine Bilirubin (Negative) Urine Urobilinogen (0.2) mg/dL Ur Leukocyte Esterase (Negative) U Hyaline Cast (Auto) (0-2) /LPF Urine Microscopic RBC (0-5) /HPF Urine Microscopic WBC (0-5) /HPF Ur Epithelial Cells (None Seen) /HPF Urine Bacteria (None Seen) /HPF Urine Culture Reflexed (NO) 07/23/23 07/23/23 07/23/23 Range/Units 15:50 16:00 16:02 WBC 24.1 H (4.0-10.5) x10^3/uL RBC 3.50 L (4.1-5.4) x10^6/uL Hgb 10.6 L (12.0-16.0) g/dL Hct 32.9 L (35-47) % MCV 94.0 (78-100) fL MCH 30.3 (26-32) pg MCHC 32.2 (32-36) g/dL RDW 14.4 H (11.5-14.0) % Plt Count 329 D (150-450) x10^3/uL MPV 9.1 (7.5-11.0) fL Sodium (135-145) mmol/L Sodium Direct (138-146) mmol/L Potassium (3.5-5.1) mmol/L Chloride (98-107) mmol/L Carbon Dioxide (22-30) mmol/L Anion Gap BUN (7-17) mg/dL Venous BUN (8-26) mg/dL Creatinine (0.52-1.04) mg/dL Estimated GFR ML/MIN Glucose (74-106) mg/dL POC Glucometer 172 H (50 to 500) mg/dL Hemoglobin A1c (4.5-6.0) % Calcium (8.4-10.2) mg/dL Ionized Calcium (1.12-1.32) mmol/L Phosphorus 2.1 L (2.5-4.5) mg/dL Magnesium 2.2 (1.6-2.3) mg/dL Total Bilirubin (0.2-1.3) mg/dL AST (14-36) U/L ALT (0-35) U/L Alkaline Phosphatase (38-126) U/L Serum Total Protein (6.3-8.2) g/dL Albumin (3.5-5.0) g/dL Beta HCG, Quant < 2.39 mIU/ml Urine Color (Yellow) Urine Appearance (Clear) Urine pH (4.6-8.0) Ur Specific [place] (1.005-1.030) Urine Protein (Negative) Urine Glucose (UA) (Negative) mg/dL Urine Ketones (Negative) Urine Blood (Negative) Urine Nitrite (Negative) Urine Bilirubin (Negative) Urine Urobilinogen (0.2) mg/dL Ur Leukocyte Esterase (Negative) U Hyaline Cast (Auto) (0-2) /LPF Urine Microscopic RBC (0-5) /HPF Urine Microscopic WBC (0-5) /HPF Ur Epithelial Cells (None Seen) /HPF Urine Bacteria (None Seen) /HPF Urine Culture Reflexed (NO) 07/23/23 07/23/23 07/23/23 Range/Units 17:10 18:09 19:11 WBC (4.0-10.5) x10^3/uL RBC (4.1-5.4) x10^6/uL Hgb (12.0-16.0) g/dL Hct (35-47) % MCV (78-100) fL MCH (26-32) pg MCHC (32-36) g/dL RDW (11.5-14.0) % Plt Count (150-450) x10^3/uL MPV (7.5-11.0) fL Sodium (135-145) mmol/L Sodium Direct (138-146) mmol/L Potassium (3.5-5.1) mmol/L Chloride (98-107) mmol/L Carbon Dioxide (22-30) mmol/L Anion Gap BUN (7-17) mg/dL Venous BUN (8-26) mg/dL Creatinine (0.52-1.04) mg/dL Estimated GFR ML/MIN Glucose (74-106) mg/dL POC Glucometer 155 H 159 H 157 H (50 to 500) mg/dL Hemoglobin A1c (4.5-6.0) % Calcium (8.4-10.2) mg/dL Ionized Calcium (1.12-1.32) mmol/L Phosphorus (2.5-4.5) mg/dL Magnesium (1.6-2.3) mg/dL Total Bilirubin (0.2-1.3) mg/dL AST (14-36) U/L ALT (0-35) U/L Alkaline Phosphatase (38-126) U/L Serum Total Protein (6.3-8.2) g/dL Albumin (3.5-5.0) g/dL Beta HCG, Quant mIU/ml Urine Color (Yellow) Urine Appearance (Clear) Urine pH (4.6-8.0) Ur Specific [place] (1.005-1.030) Urine Protein (Negative) Urine Glucose (UA) (Negative) mg/dL Urine Ketones (Negative) Urine Blood (Negative) Urine Nitrite (Negative) Urine Bilirubin (Negative) Urine Urobilinogen (0.2) mg/dL Ur Leukocyte Esterase (Negative) U Hyaline Cast (Auto) (0-2) /LPF Urine Microscopic RBC (0-5) /HPF Urine Microscopic WBC (0-5) /HPF Ur Epithelial Cells (None Seen) /HPF Urine Bacteria (None Seen) /HPF Urine Culture Reflexed (NO) 07/23/23 07/23/23 07/23/23 Range/Units 20:01 20:08 21:02 WBC (4.0-10.5) x10^3/uL RBC (4.1-5.4) x10^6/uL Hgb (12.0-16.0) g/dL Hct (35-47) % MCV (78-100) fL MCH (26-32) pg MCHC (32-36) g/dL RDW (11.5-14.0) % Plt Count (150-450) x10^3/uL MPV (7.5-11.0) fL Sodium 135 (135-145) mmol/L Sodium Direct (138-146) mmol/L Potassium 3.7 (3.5-5.1) mmol/L Chloride 112 H (98-107) mmol/L Carbon Dioxide 11 L* (22-30) mmol/L Anion Gap 15.8 H BUN 5 L (7-17) mg/dL Venous BUN (8-26) mg/dL Creatinine 0.47 L (0.52-1.04) mg/dL Estimated GFR 134.6 ML/MIN Glucose 171 H (74-106) mg/dL POC Glucometer 149 H 160 H (50 to 500) mg/dL Hemoglobin A1c (4.5-6.0) % Calcium 7.3 L (8.4-10.2) mg/dL Ionized Calcium (1.12-1.32) mmol/L Phosphorus (2.5-4.5) mg/dL Magnesium (1.6-2.3) mg/dL Total Bilirubin (0.2-1.3) mg/dL AST (14-36) U/L ALT (0-35) U/L Alkaline Phosphatase (38-126) U/L Serum Total Protein (6.3-8.2) g/dL Albumin (3.5-5.0) g/dL Beta HCG, Quant mIU/ml Urine Color (Yellow) Urine Appearance (Clear) Urine pH (4.6-8.0) Ur Specific [place] (1.005-1.030) Urine Protein (Negative) Urine Glucose (UA) (Negative) mg/dL Urine Ketones (Negative) Urine Blood (Negative) Urine Nitrite (Negative) Urine Bilirubin (Negative) Urine Urobilinogen (0.2) mg/dL Ur Leukocyte Esterase (Negative) U Hyaline Cast (Auto) (0-2) /LPF Urine Microscopic RBC (0-5) /HPF Urine Microscopic WBC (0-5) /HPF Ur Epithelial Cells (None Seen) /HPF Urine Bacteria (None Seen) /HPF Urine Culture Reflexed (NO) 07/23/23 07/23/23 07/24/23 Range/Units 22:05 23:01 00:02 WBC (4.0-10.5) x10^3/uL RBC (4.1-5.4) x10^6/uL Hgb (12.0-16.0) g/dL Hct (35-47) % MCV (78-100) fL MCH (26-32) pg MCHC (32-36) g/dL RDW (11.5-14.0) % Plt Count (150-450) x10^3/uL MPV (7.5-11.0) fL Sodium (135-145) mmol/L Sodium Direct (138-146) mmol/L Potassium (3.5-5.1) mmol/L Chloride (98-107) mmol/L Carbon Dioxide (22-30) mmol/L Anion Gap BUN (7-17) mg/dL Venous BUN (8-26) mg/dL Creatinine (0.52-1.04) mg/dL Estimated GFR ML/MIN Glucose (74-106) mg/dL POC Glucometer 138 H 143 H 142 H (50 to 500) mg/dL Hemoglobin A1c (4.5-6.0) % Calcium (8.4-10.2) mg/dL Ionized Calcium (1.12-1.32) mmol/L Phosphorus (2.5-4.5) mg/dL Magnesium (1.6-2.3) mg/dL Total Bilirubin (0.2-1.3) mg/dL AST (14-36) U/L ALT (0-35) U/L Alkaline Phosphatase (38-126) U/L Serum Total Protein (6.3-8.2) g/dL Albumin (3.5-5.0) g/dL Beta HCG, Quant mIU/ml Urine Color (Yellow) Urine Appearance (Clear) Urine pH (4.6-8.0) Ur Specific [place] (1.005-1.030) Urine Protein (Negative) Urine Glucose (UA) (Negative) mg/dL Urine Ketones (Negative) Urine Blood (Negative) Urine Nitrite (Negative) Urine Bilirubin (Negative) Urine Urobilinogen (0.2) mg/dL Ur Leukocyte Esterase (Negative) U Hyaline Cast (Auto) (0-2) /LPF Urine Microscopic RBC (0-5) /HPF Urine Microscopic WBC (0-5) /HPF Ur Epithelial Cells (None Seen) /HPF Urine Bacteria (None Seen) /HPF Urine Culture Reflexed (NO) 07/24/23 07/24/23 07/24/23 Range/Units 00:46 01:01 02:02 WBC (4.0-10.5) x10^3/uL RBC (4.1-5.4) x10^6/uL Hgb (12.0-16.0) g/dL Hct (35-47) % MCV (78-100) fL MCH (26-32) pg MCHC (32-36) g/dL RDW (11.5-14.0) % Plt Count (150-450) x10^3/uL MPV (7.5-11.0) fL Sodium 133 L (135-145) mmol/L Sodium Direct (138-146) mmol/L Potassium 4.2 (3.5-5.1) mmol/L Chloride 111 H (98-107) mmol/L Carbon Dioxide 13 L* (22-30) mmol/L Anion Gap 13.6 BUN 5 L (7-17) mg/dL Venous BUN (8-26) mg/dL Creatinine 0.44 L (0.52-1.04) mg/dL Estimated GFR 136.7 ML/MIN Glucose 164 H (74-106) mg/dL POC Glucometer 161 H 139 H (50 to 500) mg/dL Hemoglobin A1c (4.5-6.0) % Calcium 7.3 L (8.4-10.2) mg/dL Ionized Calcium (1.12-1.32) mmol/L Phosphorus (2.5-4.5) mg/dL Magnesium (1.6-2.3) mg/dL Total Bilirubin (0.2-1.3) mg/dL AST (14-36) U/L ALT (0-35) U/L Alkaline Phosphatase (38-126) U/L Serum Total Protein (6.3-8.2) g/dL Albumin (3.5-5.0) g/dL Beta HCG, Quant mIU/ml Urine Color (Yellow) Urine Appearance (Clear) Urine pH (4.6-8.0) Ur Specific [place] (1.005-1.030) Urine Protein (Negative) Urine Glucose (UA) (Negative) mg/dL Urine Ketones (Negative) Urine Blood (Negative) Urine Nitrite (Negative) Urine Bilirubin (Negative) Urine Urobilinogen (0.2) mg/dL Ur Leukocyte Esterase (Negative) U Hyaline Cast (Auto) (0-2) /LPF Urine Microscopic RBC (0-5) /HPF Urine Microscopic WBC (0-5) /HPF Ur Epithelial Cells (None Seen) /HPF Urine Bacteria (None Seen) /HPF Urine Culture Reflexed (NO) 07/24/23 07/24/23 07/24/23 Range/Units 03:01 04:45 04:45 WBC 11.6 H (4.0-10.5) x10^3/uL RBC 3.45 L (4.1-5.4) x10^6/uL Hgb 10.3 L (12.0-16.0) g/dL Hct 31.9 L (35-47) % MCV 92.5 (78-100) fL MCH 29.9 (26-32) pg MCHC 32.3 (32-36) g/dL RDW 14.5 H (11.5-14.0) % Plt Count 284 (150-450) x10^3/uL MPV 8.8 (7.5-11.0) fL Sodium 134 L (135-145) mmol/L Sodium Direct (138-146) mmol/L Potassium 3.7 (3.5-5.1) mmol/L Chloride 112 H (98-107) mmol/L Carbon Dioxide 13 L* (22-30) mmol/L Anion Gap 13.0 BUN 4 L (7-17) mg/dL Venous BUN (8-26) mg/dL Creatinine 0.43 L (0.52-1.04) mg/dL Estimated GFR 137.5 ML/MIN Glucose 219 H (74-106) mg/dL POC Glucometer 191 H (50 to 500) mg/dL Hemoglobin A1c (4.5-6.0) % Calcium 7.6 L (8.4-10.2) mg/dL Ionized Calcium (1.12-1.32) mmol/L Phosphorus (2.5-4.5) mg/dL Magnesium (1.6-2.3) mg/dL Total Bilirubin 0.40 (0.2-1.3) mg/dL AST 27 (14-36) U/L ALT 86 H (0-35) U/L Alkaline Phosphatase 93 (38-126) U/L Serum Total Protein 5.4 L (6.3-8.2) g/dL Albumin 2.6 L (3.5-5.0) g/dL Beta HCG, Quant mIU/ml Urine Color (Yellow) Urine Appearance (Clear) Urine pH (4.6-8.0) Ur Specific [place] (1.005-1.030) Urine Protein (Negative) Urine Glucose (UA) (Negative) mg/dL Urine Ketones (Negative) Urine Blood (Negative) Urine Nitrite (Negative) Urine Bilirubin (Negative) Urine Urobilinogen (0.2) mg/dL Ur Leukocyte Esterase (Negative) U Hyaline Cast (Auto) (0-2) /LPF Urine Microscopic RBC (0-5) /HPF Urine Microscopic WBC (0-5) /HPF Ur Epithelial Cells (None Seen) /HPF Urine Bacteria (None Seen) /HPF Urine Culture Reflexed (NO) 07/24/23 07/24/23 07/24/23 Range/Units 05:02 05:58 07:07 WBC (4.0-10.5) x10^3/uL RBC (4.1-5.4) x10^6/uL Hgb (12.0-16.0) g/dL Hct (35-47) % MCV (78-100) fL MCH (26-32) pg MCHC (32-36) g/dL RDW (11.5-14.0) % Plt Count (150-450) x10^3/uL MPV (7.5-11.0) fL Sodium (135-145) mmol/L Sodium Direct (138-146) mmol/L Potassium (3.5-5.1) mmol/L Chloride (98-107) mmol/L Carbon Dioxide (22-30) mmol/L Anion Gap BUN (7-17) mg/dL Venous BUN (8-26) mg/dL Creatinine (0.52-1.04) mg/dL Estimated GFR ML/MIN Glucose (74-106) mg/dL POC Glucometer 187 H 218 H 182 H (50 to 500) mg/dL Hemoglobin A1c (4.5-6.0) % Calcium (8.4-10.2) mg/dL Ionized Calcium (1.12-1.32) mmol/L Phosphorus (2.5-4.5) mg/dL Magnesium (1.6-2.3) mg/dL Total Bilirubin (0.2-1.3) mg/dL AST (14-36) U/L ALT (0-35) U/L Alkaline Phosphatase (38-126) U/L Serum Total Protein (6.3-8.2) g/dL Albumin (3.5-5.0) g/dL Beta HCG, Quant mIU/ml Urine Color (Yellow) Urine Appearance (Clear) Urine pH (4.6-8.0) Ur Specific [place] (1.005-1.030) Urine Protein (Negative) Urine Glucose (UA) (Negative) mg/dL Urine Ketones (Negative) Urine Blood (Negative) Urine Nitrite (Negative) Urine Bilirubin (Negative) Urine Urobilinogen (0.2) mg/dL Ur Leukocyte Esterase (Negative) U Hyaline Cast (Auto) (0-2) /LPF Urine Microscopic RBC (0-5) /HPF Urine Microscopic WBC (0-5) /HPF Ur Epithelial Cells (None Seen) /HPF Urine Bacteria (None Seen) /HPF Urine Culture Reflexed (NO) 07/24/23 07/24/23 07/24/23 Range/Units 08:01 08:25 09:03 WBC (4.0-10.5) x10^3/uL RBC (4.1-5.4) x10^6/uL Hgb (12.0-16.0) g/dL Hct (35-47) % MCV (78-100) fL MCH (26-32) pg MCHC (32-36) g/dL RDW (11.5-14.0) % Plt Count (150-450) x10^3/uL MPV (7.5-11.0) fL Sodium (135-145) mmol/L Sodium Direct 136 L (138-146) mmol/L Potassium 3.8 (3.5-5.1) mmol/L Chloride 109 (98-107) mmol/L Carbon Dioxide 19 L (22-30) mmol/L Anion Gap BUN (7-17) mg/dL Venous BUN < 3 L (8-26) mg/dL Creatinine 0.3 L (0.52-1.04) mg/dL Estimated GFR ML/MIN Glucose 176 H (74-106) mg/dL POC Glucometer 163 H 144 H (50 to 500) mg/dL Hemoglobin A1c (4.5-6.0) % Calcium (8.4-10.2) mg/dL Ionized Calcium 1.19 (1.12-1.32) mmol/L Phosphorus Pending (2.5-4.5) mg/dL Magnesium (1.6-2.3) mg/dL Total Bilirubin (0.2-1.3) mg/dL AST (14-36) U/L ALT (0-35) U/L Alkaline Phosphatase (38-126) U/L Serum Total Protein (6.3-8.2) g/dL Albumin (3.5-5.0) g/dL Beta HCG, Quant mIU/ml Urine Color (Yellow) Urine Appearance (Clear) Urine pH (4.6-8.0) Ur Specific [place] (1.005-1.030) Urine Protein (Negative) Urine Glucose (UA) (Negative) mg/dL Urine Ketones (Negative) Urine Blood (Negative) Urine Nitrite (Negative) Urine Bilirubin (Negative) Urine Urobilinogen (0.2) mg/dL Ur Leukocyte Esterase (Negative) U Hyaline Cast (Auto) (0-2) /LPF Urine Microscopic RBC (0-5) /HPF Urine Microscopic WBC (0-5) /HPF Ur Epithelial Cells (None Seen) /HPF Urine Bacteria (None Seen) /HPF Urine Culture Reflexed (NO) 07/24/23 07/24/23 Range/Units 10:08 11:04 WBC (4.0-10.5) x10^3/uL RBC (4.1-5.4) x10^6/uL Hgb (12.0-16.0) g/dL Hct (35-47) % MCV (78-100) fL MCH (26-32) pg MCHC (32-36) g/dL RDW (11.5-14.0) % Plt Count (150-450) x10^3/uL MPV (7.5-11.0) fL Sodium (135-145) mmol/L Sodium Direct (138-146) mmol/L Potassium (3.5-5.1) mmol/L Chloride (98-107) mmol/L Carbon Dioxide (22-30) mmol/L Anion Gap BUN (7-17) mg/dL Venous BUN (8-26) mg/dL Creatinine (0.52-1.04) mg/dL Estimated GFR ML/MIN Glucose (74-106) mg/dL POC Glucometer 120 H 109 H (50 to 500) mg/dL Hemoglobin A1c (4.5-6.0) % Calcium (8.4-10.2) mg/dL Ionized Calcium (1.12-1.32) mmol/L Phosphorus (2.5-4.5) mg/dL Magnesium (1.6-2.3) mg/dL Total Bilirubin (0.2-1.3) mg/dL AST (14-36) U/L ALT (0-35) U/L Alkaline Phosphatase (38-126) U/L Serum Total Protein (6.3-8.2) g/dL Albumin (3.5-5.0) g/dL Beta HCG, Quant mIU/ml Urine Color (Yellow) Urine Appearance (Clear) Urine pH (4.6-8.0) Ur Specific [place] (1.005-1.030) Urine Protein (Negative) Urine Glucose (UA) (Negative) mg/dL Urine Ketones (Negative) Urine Blood (Negative) Urine Nitrite (Negative) Urine Bilirubin (Negative) Urine Urobilinogen (0.2) mg/dL Ur Leukocyte Esterase (Negative) U Hyaline Cast (Auto) (0-2) /LPF Urine Microscopic RBC (0-5) /HPF Urine Microscopic WBC (0-5) /HPF Ur Epithelial Cells (None Seen) /HPF Urine Bacteria (None Seen) /HPF Urine Culture Reflexed (NO) Micro Results-Entire Visit: Accuchecks Date 07/24/23 Date 05/06/07/23/23 Date 07/23/23 Date 07/23/23 Date 07/23/23 Date 07/23/23 Date 07/23/23 Date 07/23/23 Time 07:05 Time 04:00 Time 22:00 Time 22:00 Time 22:00 Time 14:05 Time 14:05 Time 13:05 Time 11:54 - Radiology Exams Ordered Rad Exams-Entire Visit: Radiology Procedures Category Date Time Status CHEST 1 VIEW (PORTABLE) Stat Exams 07/23/23 10:38 Completed - Procedures and Test Procedures and Tests throughout Hospitalization: Therapy Orders & Screens 07/23/23 16:45 ST Screen per Nursing Assess ONCE Comment: Protocol Order Physician Instructions: Greater than [address] Admission Screening Reason For Exam: Triggered on Admission Diagnosis: diabetic ketoacidosis, Type 1 DM CVA/Dyshpagia/Aphasia: No Cognitive Deficits: No Dehydration/Nutrition Deficit: Yes Reflux: No Oral-Motor Difficulties: No Pneumonia: No Care Home Resident: No Total Points: 5 Discharge Exam General Appearance: no apparent distress, alert Neurologic Exam: alert, oriented x 3, cooperative, normal mood/affect, nml cerebellar function, sensation nml, No motor deficits Eye Exam: PERRL, EOMI, eyes nml inspection Ears, Nose, Throat Exam: normal ENT inspection, pharynx normal, moist mucous membranes Neck Exam: normal inspection, non-tender, supple, full range of motion Respiratory Exam: normal breath sounds, lungs clear, No respiratory distress Cardiovascular Exam: regular rate/rhythm, normal heart sounds Gastrointestinal/Abdomen Exam: soft, No tenderness, No mass Pelvic Exam: deferred Rectal Exam: deferred Back Exam: normal inspection, normal range of motion, No CVA tenderness, No vertebral tenderness Extremity Exam: normal inspection, normal range of motion Skin Exam: normal color, warm, dry Final Diagnosis/Problem List - Final Discharge Diagnosis/Problem (1) Diabetic ketoacidosis Current Visit: Yes Status: Resolved Code(s): E13.10 - OTH DIABETES MELLITUS WITH KETOACIDOSIS WITHOUT COMA (2) Abdominal pain Current Visit: No Status: Resolved Code(s): R10.9 - UNSPECIFIED ABDOMINAL PAIN (3) Depression with anxiety Current Visit: Yes Status: Chronic Code(s): F41.8 - OTHER SPECIFIED ANXIETY DISORDERS (4) Bipolar 1 disorder Current Visit: Yes Status: Chronic Assessment & Plan: (1) Diabetic ketoacidosis Current Visit: Yes Status: Acute Qualifiers: Diabetes mellitus type: type 1 Diabetes mellitus complication detail: without coma Qualified Code(s): E10.10 - Type 1 diabetes mellitus with ketoacidosis without coma Assessment & Plan: - ICU bed- tele - DKA protocol started in ER. - A1C - pending - 3L NS 1 liter boluses gave in ER. - Insulin gtt - monitor electrolytes. - Zofran IV for N/V - Follows Dr. Lubin for endocrinology - BMP Q4 - Discuss with case management insulin needs and insurance concerns tomorrow. 5/6 - resolved - Lantus 10units then stop insulin gtt per protocol - Clear liquid diet started- advance as tolerated - F/u with endocrinology today at 1400 - supervisor capacitor processing insulin from pharmacy today Code(s): E13.10 - OTH DIABETES MELLITUS WITH KETOACIDOSIS WITHOUT COMA (2) Abdominal pain Current Visit: No Status: Acute Assessment & Plan: - CT abd pelvis 07/23/23: Impression: New CT findings favoring enterocolitis. Incidental GERD. - Resolved since admission - denies diarrhea 07/23 - resolved Code(s): R10.9 - UNSPECIFIED ABDOMINAL PAIN (3) Depression with anxiety Current Visit: Yes Status: Chronic Assessment & Plan: - Continue zoloft Code(s): F41.8 - OTHER SPECIFIED ANXIETY DISORDERS (4) Bipolar 1 disorder Current Visit: Yes Status: Chronic Assessment & Plan: - Continue Abilify Code(s): F31.9 - BIPOLAR DISORDER, UNSPECIFIED - Discharge Discharge Date: 07/24/23 Disposition: Home, Self-Care Condition: Fair Prescriptions: Continue Dextroamphetamine/Amphetamine [Dextroamp-Amphet ER 20 mg Cap] 30 mg PO DAILY Aripiprazole 10 mg [Abilify 10 MG] 7 mg PO DAILY Sertraline HCl [Zoloft] 100 mg PO DAILY Insulin Lispro [Humalog] 40 unit SQ DAILY Follow up with: DOCTOR,NO FAMILY [Primary Care Provider] -
[2023-07-24] MEDS: Lantus Insulin SQ ONE (12:01)
[2023-07-24 12:12] VITALS: BP 96/70; PULSE 87; O2SAT 98
[2023-07-24 17:02] LABS: ABG SITE RIGHT RADIAL; ALLEN TEST OK? YES
[2023-07-25] MEDS ORDERED: Lantus Insulin SQ ONE (11:36)
== END 2023-07-24 13:17 | disposition home or self-care (01) ==
LOC: ED 09:57 → ICU 14:57
PROVIDERS: ADMIT Internal Medicine; ATTEND Internal Medicine
DX: E10.10 Type 1 diabetes mellitus with ketoacidosis without coma (principal); R10.9 Unspecified abdominal pain; F41.8 Other specified anxiety disorders; F31.9 Bipolar disorder, unspecified; Z79.899 Other long term (current) drug therapy
CPT/HCPCS: 36000; 36415; 36600; 71045; 80047; 80048; 80053; 81001; 82375; 82803; 82947; 83036; 83735; 84100; 84702; 85025; 85027; 93005; 93268; 96374; 96375; 99285; 99291; J2405; J3475; Q3014; A9270-GY; G0378

== ENCOUNTER 2024-04-30 04:09 | Inpatient (IN) | payer OTHER ==
--- NOTE | 2024-04-30 04:14 | ERPHSYRPT ---
- History of Present Illness Time Seen by Provider: 04/30/24 04:13 Historian: patient, EMS, old records Exam Limitations: no limitations Physician History: This is a 28-year-old insulin-dependent diabetic white female patient of Dr. Bush who was brought to the emergency department by the paramedics secondary to patient complaint of vomiting, shortness of breath and back spasms. She states she also feels as though she is going to have a panic attack. Patient vomited twice in the last 24 hours. Patient has an insulin pump and place in this far she is aware it is functioning. Her symptoms became worse at approximately 2 AM and she arrives to the emergency department at 4:15 AM. Her room air oxygen saturation level is 100%. Patient denies abdominal pain. Patient denies chest pain. Patient has a history of anxiety, panic disorder and bipolar disorder. Timing/Duration: yesterday Activities at Onset: none Severity of Pain-Max: none Severity of Pain-Current: none Modifying Factors: Improves With: vomiting (Patient states she vomited twice in 24 hours) Associated Symptoms: nausea, shortness of breath, vomiting (Patient states that she vomited twice in 24 hours), weakness, No chest pain Previous symptoms: same symptoms as today, no recent treatment Allergies/Adverse Reactions: sulfamethoxazole [From Bactrim] Allergy (Verified 04/30/24 04:22) trimethoprim [From Bactrim] Allergy (Verified 04/30/24 04:22) Home Medications: Dextroamphetamine/Amphetamine [Dextroamp-Amphet ER 20 mg Cap] 30 mg PO DAILY 11/06/21 [History] Aripiprazole 10 mg [Abilify 10 MG] 7 mg PO DAILY 03/25/23 [History] Insulin Lispro [Humalog] 40 unit SQ DAILY 03/25/23 [History] Sertraline HCl [Zoloft] 100 mg PO DAILY 03/25/23 [History] Hx Tetanus, Diphtheria Vaccination/Date Given: Yes Hx Influenza Vaccination/Date Given: Yes Hx Pneumococcal Vaccination/Date Given: No Travel Risk - International Travel Have you traveled outside of the country in past 3 weeks: No - Emerging Infectious Disease Are you exhibiting symptoms associated with any current EIDs: No Symptoms: Vomitting - Review of Systems Constitutional: Weakness Eyes: No Symptoms Ears, Nose, & Throat: No Symptoms Respiratory: Dyspnea Cardiac: No Symptoms Abdominal/Gastrointestinal: Nausea, Vomiting Genitourinary Symptoms: No Symptoms Musculoskeletal: No Symptoms Skin: No Symptoms Neurological: No Symptoms Psychological: No Symptoms Endocrine: No Symptoms Hematologic/Lymphatic: No Symptoms Immunological/Allergic: No Symptoms All Other Systems: Reviewed and Negative - Past Medical History Pertinent Past Medical History: Yes Neurological History: No Pertinent History ENT History: No Pertinent History Cardiac History: No Pertinent History Respiratory History: No Pertinent History Endocrine Medical History: Diabetes Type I Musculoskeletal History: No Pertinent History GI Medical History: No Pertinent History History: No Pertinent History Psycho-Social History: Anxiety, Bipolar, Depression Female Reproductive Disorders: No Pertinent History Other Medical History: DIABETES - Past Surgical History Past Surgical History: Yes (d&c june 2016) Neuro Surgical History: No Pertinent History Cardiac: No Pertinent History Respiratory: No Pertinent History Gastrointestinal: No Pertinent History Genitourinary: No Pertinent History Musculoskeletal: No Pertinent History Female Surgical History: Dilation & Curettage, Section Other Surgical History: INSULIN PUMP - Female History Hx Last Menstrual Period: MAR 31 2013 - Social History Smoking Status: Former smoker How long have you smoked: 2 years Exposure to second hand smoke: No Drug Use: marijuana Patient Lives Alone: No - Social Determinants of Health Will the patient participate in the screening: Yes Do you worry about a steady place to live?: No In the past 12 months,have you had to go without utilities?: No Transportation Issues: No Has anyone in your support network made you feel unsafe?: No Have you or anyone in your house had to go without enough: No - Nursing Vital Signs Nursing Vital Signs: Initial Vital Signs Temperature 97.3 F 04/30/24 04:12 Pulse Rate 106 H 04/30/24 04:12 Respiratory Rate 18 04/30/24 04:12 Blood Pressure 152/87 04/30/24 04:12 O2 Sat by Pulse Oximetry 100 04/30/24 04:12 Pain Scale Pain Intensity 0 - Physical Exam General Appearance: mild distress, alert, anxiety Eye Exam: PERRL/EOMI, eyes nml inspection Ears, Nose, Throat Exam: normal ENT inspection, moist mucous membranes Neck Exam: normal inspection, non-tender, supple, full range of motion Respiratory Exam: normal breath sounds, lungs clear, airway intact, No chest tenderness, No respiratory distress Cardiovascular Exam: tachycardia Gastrointestinal/Abdomen Exam: soft, normal bowel sounds, No tenderness Pelvic Exam: not done Rectal Exam: not done Back Exam: normal inspection, normal range of motion, No CVA tenderness, No vertebral tenderness Extremity Exam: normal inspection, normal range of motion, pelvis stable Neurologic Exam: alert, oriented x 3, cooperative, emt i/85 II-XII nml as tested, sensation nml Skin Exam: normal color, warm, dry Lymphatic Exam: No adenopathy SpO2 Interpretation: normal O2 Delivery: Room Air - Course Nursing assessment & vital signs reviewed: Yes Ordered Tests: Active Orders 24 hr Category Date Time Status Gym Manager STAT Care 04/30/24 04:14 Active IV Insertion STAT Care 04/30/24 04:14 Active POCT Glucose Check STAT Care 04/30/24 04:15 Active Pulse Oximetry (ED) STAT Care 04/30/24 04:14 Active CBC W DIFF Stat Lab 04/30/24 04:30 Completed CMP Stat Lab 04/30/24 04:30 Completed Lactic Acid Urgent Lab 04/30/24 04:30 Completed MAGNESIUM Stat Lab 04/30/24 04:30 Completed MONO SCREEN Stat Lab 04/30/24 04:30 Completed POCT GLUCOSE Stat Lab 04/30/24 04:16 Completed UA W/RFX UR CULTURE Stat Lab 04/30/24 04:14 Ordered Medication Summary Discontinued Medications Generic Name Dose Route Start Last Admin Trade Name Aidenq PRN Reason Stop Dose Admin Sodium Chloride 1,000 mls @ 999 mls/hr 04/30/24 04:14 04/30/24 04:30 Sodium Chloride 0.9% 1000 Ml IV 04/30/24 05:14 999 mls/hr .Q1H1M STA Administration Sodium Chloride Confirm 04/30/24 04:26 Sodium Chloride 0.9% 1000 Ml Administered 04/30/24 04:27 Dose 1,000 mls @ ud .ROUTE .STK-MED ONE Insulin Human Regular 12 unit 04/30/24 04:27 04/30/24 04:33 Insulin Regular, Human 1 Unit IV 04/30/24 04:28 12 unit STAT ONE Administration Insulin Human Regular Confirm 04/30/24 04:33 Insulin Regular, Human 1 Unit Administered 04/30/24 04:34 Dose 12 unit .ROUTE .STK-MED ONE Lorazepam 0.5 mg 04/30/24 04:43 04/30/24 04:50 Lorazepam 2 Mg/1 Ml 2 Mg Vial IV 04/30/24 04:44 0.5 mg STAT ONE Administration Lorazepam Confirm 04/30/24 04:49 Lorazepam 2 Mg/1 Ml 2 Mg Vial Administered 04/30/24 04:50 Dose 2 mg .ROUTE .STK-MED ONE Ondansetron HCl 4 mg 04/30/24 04:14 04/30/24 04:30 Ondansetron Hcl 4 Mg/2 Ml Vial IV 04/30/24 04:15 4 mg STAT ONE Administration Ondansetron HCl Confirm 04/30/24 04:26 Ondansetron Hcl 4 Mg/2 Ml Vial Administered 04/30/24 04:27 Dose 4 mg .ROUTE .STK-MED ONE Lab/Rad Data: Laboratory Result Diagrams 04/30/24 04:30 04/30/24 04:30 Laboratory Results 04/30/24 04/30/24 04/30/24 Range/Units 04:32 04:30 04:30 WBC (3.98-10.04) x10^3/uL RBC (3.93-5.22) x10^6/uL Hgb (11.2-15.7) g/dL Hct (34.1-44.9) % MCV (79.4-94.8) fL MCH (25.6-32.2) pg MCHC (32.2-35.5) g/dL RDW (11.7-14.4) % Plt Count (182-369) x10^3/uL MPV (9.4-12.3) fL Gran % (34.0-71.1) % Immature Gran % (Auto) (0.001-0.429) % Nucleat RBC Rel Count (0.00-0.2) % Eos # (Auto) (0.04-0.36) x10^3/uL Immature Gran # (Auto) (0.001-0.031) x10^3u/L Absolute Lymphs (auto) (1.18-3.74) x10^3/uL Absolute Monos (auto) (0.24-0.86) x10^3/uL Absolute Nucleated RBC (0.00-0.012) x10^3u/L Lymphocytes % (19.3-51.7) % Monocytes % (4.7-12.5) % Eosinophils % (0.7-5.8) % Basophils % (0.1-1.2) % Absolute Granulocytes (1.56-6.13) x10^3/uL Basophils # (0.01-0.08) x10^3/uL Sodium (135-145) mmol/L Potassium (3.5-5.1) mmol/L Chloride (98-107) mmol/L Carbon Dioxide (22-30) mmol/L Anion Gap BUN (7-17) mg/dL Creatinine (0.52-1.04) mg/dL Estimated GFR ML/MIN Glucose (74-106) mg/dL POC Glucometer (74 to 106) mg/dL Lactic Acid 2.3 H (0.4-2.0) Calcium (8.4-10.2) mg/dL Magnesium (1.6-2.3) mg/dL Total Bilirubin (0.2-1.3) mg/dL AST (14-36) U/L ALT (0-35) U/L Alkaline Phosphatase (38-126) U/L Serum Total Protein (6.3-8.2) g/dL Albumin (3.5-5.0) g/dL Monoscreen NEGATIVE (NEGATIVE) Influenza Type A Ag NEGATIVE (NEGATIVE) Influenza Type B Ag NEGATIVE (NEGATIVE) RSV (PCR) NEGATIVE (NEGATIVE) SARS-CoV-2 (PCR) NEGATIVE (NEGATIVE) Slides for Path Review 04/30/24 04/30/24 04/30/24 Range/Units 04:30 04:30 04:16 WBC 24.2 H (3.98-10.04) x10^3/uL RBC 5.61 H (3.93-5.22) x10^6/uL Hgb 14.4 (11.2-15.7) g/dL Hct 49.9 H (34.1-44.9) % MCV 88.9 (79.4-94.8) fL MCH 25.7 (25.6-32.2) pg MCHC 28.9 L (32.2-35.5) g/dL RDW 15.9 H (11.7-14.4) % Plt Count 566 H (182-369) x10^3/uL MPV 9.7 (9.4-12.3) fL Gran % 87.3 H (34.0-71.1) % Immature Gran % (Auto) 1.3 H (0.001-0.429) % Nucleat RBC Rel Count 0.0 (0.00-0.2) % Eos # (Auto) 0.11 (0.04-0.36) x10^3/uL Immature Gran # (Auto) 0.32 H (0.001-0.031) x10^3u/L Absolute Lymphs (auto) 1.86 (1.18-3.74) x10^3/uL Absolute Monos (auto) 0.60 (0.24-0.86) x10^3/uL Absolute Nucleated RBC 0.00 (0.00-0.012) x10^3u/L Lymphocytes % 7.7 L (19.3-51.7) % Monocytes % 2.5 L (4.7-12.5) % Eosinophils % 0.5 L (0.7-5.8) % Basophils % 0.7 (0.1-1.2) % Absolute Granulocytes 21.15 H (1.56-6.13) x10^3/uL Basophils # 0.17 H (0.01-0.08) x10^3/uL Sodium 137 (135-145) mmol/L Potassium 5.3 H (3.5-5.1) mmol/L Chloride 106 (98-107) mmol/L Carbon Dioxide < 5 L* (22-30) mmol/L Anion Gap TNP BUN 6 L (7-17) mg/dL Creatinine 0.82 (0.52-1.04) mg/dL Estimated GFR 101.1 ML/MIN Glucose 465 H (74-106) mg/dL POC Glucometer 406 H (74 to 106) mg/dL Lactic Acid (0.4-2.0) Calcium 9.0 (8.4-10.2) mg/dL Magnesium 1.8 (1.6-2.3) mg/dL Total Bilirubin 1.10 (0.2-1.3) mg/dL AST 45 H (14-36) U/L ALT 25 (0-35) U/L Alkaline Phosphatase 130 H (38-126) U/L Serum Total Protein 9.5 H (6.3-8.2) g/dL Albumin 5.3 H (3.5-5.0) g/dL Monoscreen (NEGATIVE) Influenza Type A Ag (NEGATIVE) Influenza Type B Ag (NEGATIVE) RSV (PCR) (NEGATIVE) SARS-CoV-2 (PCR) (NEGATIVE) Slides for Path Review YES - Progress Progress: improved Progress Note: 04/30/24 04:47 My medical decision making and the assignment of at least moderate complexity to this patient's medical issue today is based on review of the patient's past medical history, review the patient's medication list, reviewed patient drug allergy list, history present illness and physical findings on examination. The workup in this patient includes intravenous line placement, infusion normal saline solution, infusion of Zofran, CBC, CMP, lactic acid level, urinalysis, test and magnesium level, and providing the patient with an intravenous dose of Ativan for both anxiety and back spasms. Differential diagnosis includes but is not limited to dehydration, DKA, urinary tract infection, viral illness, electrolyte abnormalities, 04/30/24 05:16 I interpreted the laboratory results that have been completed. The patient has a leukocytosis and diabetic ketoacidosis. Her lactic acid is elevated. We are awaiting her urinalysis. Patient also has hyperglycemia. I spoke with our telehospitalist, Dr. Silverman. I reviewed the patient history, presenting complaint, laboratory data results. We will place this patient in observation and follow the DKA standing orders. Discussed with : Mely Counseled pt/family regarding: lab results, diagnosis Medical Desision Making - Independent Historian Additional History obtained from: Family - Diagnostic Testing Diagnostic test were ordered, analyzed, and reviewed by me: Yes - Risk of complications The pt has a high risk of morbidity or mortality based on: Decision regarding hospitilization or escalation of hosp level of care - Departure Departure Disposition: Observation Clinical Impression: DKA (diabetic ketoacidosis) Condition: Fair Critical Care Time: Yes Critical Care Time(excluding separately billable procedures): Critical 30-74 mins (45) Referrals: AVIS BUSH MD [ACTIVE STAFF] - Follow up/PCP as directed
[2024-04-30] MEDS ORDERED: Zofran 4 MG/2 ML VIAL ONE (04:26)
[2024-04-30] MEDS ORDERED: Sodium Chloride 0.9% 1000 ML 1,000 ML ONE ×2 (04:26→05:45)
[2024-04-30] MEDS: Sodium Chloride 0.9% 1000 ML 1,000 ML IV STA (04:30)
[2024-04-30] MEDS: Zofran 4 MG/2 ML VIAL IV ONE (04:30)
[2024-04-30] MEDS: HUMULIN R IV ONE (04:33)
[2024-04-30] MEDS ORDERED: HUMULIN R ONE (04:33)
[2024-04-30 04:34] LABS: Absolute Neutrophil Ct (ANC) 21.15 x10^3/uL (1.56-6.13); BASOPHIL % 0.7 % (0.1-1.2); Basophil (Absolute #) 0.17 x10^3/uL (0.01-0.08); Eosinophil % 0.5 % (0.7-5.8); Eosinophil (Absolute #) 0.11 x10^3/uL (0.04-0.36); Hematocrit 49.9 % (34.1-44.9); Hemoglobin 14.4 g/dL (11.2-15.7); IMMATURE GRAN # 0.32 x10^3u/L (0.001-0.031); IMMATURE GRAN % 1.3 % (0.001-0.429); Lymphocyte (Absolute #) 1.86 x10^3/uL (1.18-3.74); Lymphocytes % 7.7 % (19.3-51.7); Mean Cell Volume 88.9 fL (79.4-94.8); Mean Corpuscular Hemoglobin 25.7 pg (25.6-32.2); Mean Corpuscular Hgb Concent. 28.9 g/dL (32.2-35.5); Mean Platelet Volume 9.7 fL (9.4-12.3); Monocytes % 2.5 % (4.7-12.5); Neutrophil % 87.3 % (34.0-71.1); Platelet Count 566 x10^3/uL (182-369); Red Blood Count 5.61 x10^6/uL (3.93-5.22); Red Cell Distribution Width 15.9 % (11.7-14.4); White Blood Count 24.2 x10^3/uL (3.98-10.04)
[2024-04-30 04:47] LABS: ALBUMIN 5.3 g/dL (3.5-5.0); ALKALINE PHOSPHATASE 130 U/L (38-126); BLOOD UREA NITROGEN 6 mg/dL (7-17); CHLORIDE 106 mmol/L (98-107); Creatinine 1 0.82 mg/dL (0.52-1.04); EST GLOMERULAR FILTRATION RATE 101.1 ML/MIN; Glucose 465 mg/dL (74-106); MAGNESIUM 1.8 mg/dL (1.6-2.3); Potassium 5.3 mmol/L (3.5-5.1); SGOT/AST 45 U/L (14-36); SGPT/ALT 25 U/L (0-35); SODIUM 137 mmol/L (135-145); Total Protein 9.5 g/dL (6.3-8.2)
[2024-04-30] MEDS ORDERED: Ativan 2 MG/1 ML VIAL ONE (04:49)
[2024-04-30] MEDS: Ativan 2 MG/1 ML VIAL IV ONE (04:50)
[2024-04-30 04:58] LABS: Carbon Dioxide < 5 mmol/L (22-30)
[2024-04-30 05:14] LABS: INFLUENZA A NEGATIVE (NEGATIVE); INFLUENZA B NEGATIVE (NEGATIVE); RESPIRATORY SYNCTIAL VIRUS NEGATIVE (NEGATIVE); SARS-CoV-2 Xpert Express NEGATIVE (NEGATIVE)
[2024-04-30 05:20] LABS: Slide Review 1 YES
[2024-04-30] MEDS ORDERED: SODIUM BICARBONATE 50 MEQ/50 ML ABBOJECT IV ONE (05:48)
[2024-04-30] MEDS: SODIUM BICARBONATE 50 MEQ/50 ML ABBOJECT IV ONE (05:49)
[2024-04-30] MEDS: Sodium Chloride 0.9% 1000 ML 1,000 ML IV SCH (05:50)
[2024-04-30] MEDS ORDERED: MYXREDLIN 100 UNIT/100 ML BAG 100 UNIT/100 ML PLAST..BAG IV ONE (05:53)
[2024-04-30 05:58] LABS: VBG BASE EXCESS -27.4 (-2.0-2.0); VBG CARBOXYHEMOGLOBIN 6.7 % T HGB (0.0-6.9); VBG HCO3- 4.1 meq/L (22-28); VBG HEMOGLOBIN 15.5; VBG O2 SATURATION 83.2 (95-100); VBG POTASSIUM 5.3 (3.5-5.1); VBG pH 6.92 (7.32-7.42)
[2024-04-30] MEDS: MYXREDLIN 100 UNIT/100 ML BAG 100 UNIT/100 ML PLAST..BAG IV PRN ×2 (06:00→09:52)
[2024-04-30 06:01] LABS: Appearance Clear (Clear); Bacteria None Seen /HPF (None Seen); Bilirubin Negative (Negative); Blood Large (Negative); Epithelial Cells Rare /HPF (None Seen); Glucose, Urine >=1000 mg/dL (Negative); Ketones >=160 (Negative); Leukocyte Esterase Negative (Negative); Nitrite Negative (Negative); Protein,Urine Dip 300 (Negative); Specific Gravity 1.025 (1.005-1.030); Urobilinogen 0.2 mg/dL (0.2); WBC 0-2 /HPF (0-5)
[2024-04-30] MEDS: Dextrose 5% -0.45 NaCl 1000 ML 1,000 ML IV SCH (08:28)
[2024-04-30 09:04] LABS: Absolute Neutrophil Ct (ANC) 22.16 x10^3/uL (1.56-6.13); BASOPHIL % 0.5 % (0.1-1.2); Basophil (Absolute #) 0.12 x10^3/uL (0.01-0.08); Eosinophil % 0.1 % (0.7-5.8); Eosinophil (Absolute #) 0.02 x10^3/uL (0.04-0.36); Hematocrit 43.5 % (34.1-44.9); Hemoglobin 12.5 g/dL (11.2-15.7); IMMATURE GRAN # 0.34 x10^3u/L (0.001-0.031); IMMATURE GRAN % 1.4 % (0.001-0.429); Lymphocyte (Absolute #) 1.36 x10^3/uL (1.18-3.74); Lymphocytes % 5.5 % (19.3-51.7); Mean Cell Volume 89.9 fL (79.4-94.8); Mean Corpuscular Hemoglobin 25.8 pg (25.6-32.2); Mean Corpuscular Hgb Concent. 28.7 g/dL (32.2-35.5); Monocyte (Absolute #) 0.92 x10^3/uL (0.24-0.86); Monocytes % 3.7 % (4.7-12.5); Neutrophil % 88.8 % (34.0-71.1); Platelet Count 348 x10^3/uL (182-369); Red Blood Count 4.84 x10^6/uL (3.93-5.22); Red Cell Distribution Width 15.3 % (11.7-14.4); White Blood Count 24.9 x10^3/uL (3.98-10.04)
[2024-04-30 09:15] LABS: ALBUMIN 4.7 g/dL (3.5-5.0); ALKALINE PHOSPHATASE 110 U/L (38-126); BLOOD UREA NITROGEN 5 mg/dL (7-17); CHLORIDE 116 mmol/L (98-107); Calcium 8.3 mg/dL (8.4-10.2); Creatinine 1 0.69 mg/dL (0.52-1.04); EST GLOMERULAR FILTRATION RATE 122.7 ML/MIN; Glucose 111 mg/dL (74-106); MAGNESIUM 1.5 mg/dL (1.6-2.3); Potassium 4.1 mmol/L (3.5-5.1); SGOT/AST 29 U/L (14-36); SGPT/ALT 21 U/L (0-35); SODIUM 143 mmol/L (135-145)
[2024-04-30 09:23] LABS: VBG BASE EXCESS -23.5 (-2.0-2.0); VBG CARBOXYHEMOGLOBIN 1.2 % T HGB (0.0-6.9); VBG HCO3- 3.3 meq/L (22-28); VBG HEMOGLOBIN 11.8; VBG O2 SATURATION 99.3 (95-100); VBG POTASSIUM 4.2 (3.5-5.1)
[2024-04-30 09:24] LABS: VBG pH 7.13 (7.32-7.42)
[2024-04-30 09:47] LABS: Carbon Dioxide < 5 mmol/L (22-30)
--- NOTE | 2024-04-30 09:48 | PCM.HP ---
History of Present Illness - Chief Complaint Chief Complaint: DKA Date: 04/30/24 History of Present Illness: This is a 28-year-old insulin-dependent diabetic white female patient of Dr. Galeana who was brought to the emergency department by the paramedics secondary to patient complaint of vomiting, shortness of breath and back spasms. She states she also felt as though she was going to have a panic attack. Patient vomited twice in the last 24 hours. Patient has an insulin pump in place in ER and felt it was functioning properly. Her symptoms became worse at approximately 2 AM and she arrived to the emergency department at 4:15 AM. Her room air oxygen saturation level was 100%. Patient denies abdominal pain. Patient denies chest pain. Patient has a history of anxiety, panic disorder and bipolar disorder. On admission mother in room with pt. Pt states she has no idea was brought this on but suddenly became ill. Flu/COVID/RSV negative. On admission she was started on the DKA protocol. Insulin gtt started and labs redrawn. D%NS started per protocol without the potassium as K= was elevated in the ER . Repeat lactic acid normal. Pt states she is starting to feel better. Will Continue to monitor labs and vitals in the ICU. - Review of Systems Constitutional: No Fever, No Chills Eyes: No Symptoms Ears, Nose, & Throat: No Symptoms Respiratory: Short Of Breath, No Cough Cardiac: No Chest Pain, No Edema, No Syncope Abdominal/Gastrointestinal: Vomiting, No Abdominal Pain, No Nausea, No Diarrhea Genitourinary Symptoms: No Dysuria Musculoskeletal: No Back Pain, No Neck Pain Skin: No Rash Neurological: No Dizziness, No Focal Weakness, No Sensory Changes Psychological: No Symptoms Endocrine: No Symptoms Hematologic/Lymphatic: No Symptoms Immunological/Allergic: No Symptoms Medications & Allergies Home Medications: Home Medication List Dextroamphetamine/Amphetamine [Dextroamp-Amphet ER 20 mg Cap] 30 mg PO DAILY 11/06/21 [History Confirmed 04/30/24] Aripiprazole 10 mg [Abilify 10 MG] 7 mg PO DAILY 03/25/23 [History Confirmed 04/30/24] Insulin Lispro [Humalog] 40 unit SQ DAILY 03/25/23 [History Confirmed 04/30/24] Sertraline HCl [Zoloft] 100 mg PO DAILY 03/25/23 [History Confirmed 04/30/24] Ergocalciferol (Vitamin D2) [Vitamin D2] 1,250 mcg PO SA 04/30/24 [History Confirmed 04/30/24] Allergies/Adverse Reactions: Allergies Allergy/AdvReac Type Severity Reaction Status Date / Time sulfamethoxazole Allergy Verified 04/30/24 04:22 [From Bactrim] trimethoprim [From Bactrim] Allergy Verified 04/30/24 04:22 - Past Medical History Past Medical History: Yes Neurological History: No Pertinent History ENT History: No Pertinent History Cardiac History: No Pertinent History Respiratory History: No Pertinent History Endocrine Medical History: Diabetes Type I Musculoskelatal History: No Pertinent History GI Medical History: No Pertinent History History: No Pertinent History Pyscho-Social History: Anxiety, Bipolar, Depression Reproductive Disorders: No Pertinent History Comment: DIABETES - Female History Are you now?: No - Past Surgical History Past Surgical History: Yes (d&c june 2016) Neuro Surgical History: No Pertinent History Cardiac History: No Pertinent History Respiratory Surgery: No Pertinent History GI Surgical History: No Pertinent History Genitourinary Surgical Hx: No Pertinent History Musculskeletal Surgical Hx: No Pertinent History Female Surgical History: Dilation & Curettage, Section Other Surgical History: INSULIN PUMP - Social History Smoking Status: Former smoker How long have you smoked: 2 years Exposure to second hand smoke: No Alcohol: None Drug Use: marijuana - Social Determinants of Health Will the patient participate in the screening: Yes Do you worry about a steady place to live?: No Do you have any problems with any of the following?: No known problems In the past 12 months,have you had to go without utilities?: No Have you or anyone in your house had to go without enough: No Transportation Issues: No Has anyone in your support network made you feel unsafe?: No Does the patient want assistance with any of the above?: No - Physical Exam Vital Signs: Vital Signs - 24 hr Temp Pulse Resp BP BP Pulse Ox 04/30/24 09:19 98.2 F 113 H 28 H 120/72 100 04/30/24 07:00 112 H 23 113/64 100 04/30/24 06:30 111 H 23 113/73 100 04/30/24 06:00 124 H 21 122/78 100 04/30/24 05:30 133 H 29 H 138/117 100 04/30/24 05:00 122 H 21 126/77 100 04/30/24 04:30 121 H 25 H 137/82 100 04/30/24 04:14 100 04/30/24 04:12 97.3 F 113 H 23 152/87 152/87 100 General Appearance: no apparent distress, alert, thin Neurologic Exam: alert, oriented x 3, cooperative, normal mood/affect, nml cerebellar function, nml station & gait, sensation nml, No motor deficits Eye Exam: PERRL/EOMI, eyes nml inspection Ears, Nose, Throat Exam: normal ENT inspection, TMs normal, pharynx normal, moist mucous membranes Neck Exam: normal inspection, non-tender, supple, full range of motion Respiratory Exam: normal breath sounds, lungs clear, No respiratory distress Cardiovascular Exam: regular rate/rhythm, normal heart sounds, normal peripheral pulses, tachycardia Gastrointestinal/Abdomen Exam: soft, normal bowel sounds, No tenderness, No mass Back Exam: normal inspection, normal range of motion, No CVA tenderness, No vertebral tenderness Extremity Exam: normal inspection, normal range of motion, pelvis stable Skin Exam: normal color, warm, dry, pale, No rash Lymphatic Exam: No adenopathy Results - Labs Lab/Micro Results: Lab Results-Last 24 Hours 04/30/24 04/30/24 04/30/24 Range/Units 04:16 04:30 04:30 WBC 24.2 H (3.98-10.04) x10^3/uL RBC 5.61 H (3.93-5.22) x10^6/uL Hgb 14.4 (11.2-15.7) g/dL Hct 49.9 H (34.1-44.9) % MCV 88.9 (79.4-94.8) fL MCH 25.7 (25.6-32.2) pg MCHC 28.9 L (32.2-35.5) g/dL RDW 15.9 H (11.7-14.4) % Plt Count 566 H (182-369) x10^3/uL MPV 9.7 (9.4-12.3) fL Gran % 87.3 H (34.0-71.1) % Immature Gran % (Auto) 1.3 H (0.001-0.429) % Nucleat RBC Rel Count 0.0 (0.00-0.2) % Eos # (Auto) 0.11 (0.04-0.36) x10^3/uL Immature Gran # (Auto) 0.32 H (0.001-0.031) x10^3u/L Absolute Lymphs (auto) 1.86 (1.18-3.74) x10^3/uL Absolute Monos (auto) 0.60 (0.24-0.86) x10^3/uL Absolute Nucleated RBC 0.00 (0.00-0.012) x10^3u/L Lymphocytes % 7.7 L (19.3-51.7) % Monocytes % 2.5 L (4.7-12.5) % Eosinophils % 0.5 L (0.7-5.8) % Basophils % 0.7 (0.1-1.2) % Absolute Granulocytes 21.15 H (1.56-6.13) x10^3/uL Basophils # 0.17 H (0.01-0.08) x10^3/uL pO2/FiO2 Ratio % VBG pH (7.32-7.42) VBG pCO2 at Pat Temp (42-55) mm/Hg VBG pO2 at Pat Temp (25-40) mm/Hg VBG HCO3 (22-28) meq/L VBG O2 Sat (Jason) (95-100) VBG Base Excess (-2.0-2.0) VBG Hemoglobin VBG Carboxyhemoglobin (0.0-6.9) % T HGB POC Potassium (3.5-5.1) Sodium 137 (135-145) mmol/L Potassium 5.3 H (3.5-5.1) mmol/L Chloride 106 (98-107) mmol/L Carbon Dioxide < 5 L* (22-30) mmol/L Anion Gap TNP BUN 6 L (7-17) mg/dL Creatinine 0.82 (0.52-1.04) mg/dL Estimated GFR 101.1 ML/MIN Glucose 465 H (74-106) mg/dL POC Glucometer 406 H (74 to 106) mg/dL Lactic Acid (0.4-2.0) Calcium 9.0 (8.4-10.2) mg/dL Magnesium 1.8 (1.6-2.3) mg/dL Total Bilirubin 1.10 (0.2-1.3) mg/dL AST 45 H (14-36) U/L ALT 25 (0-35) U/L Alkaline Phosphatase 130 H (38-126) U/L Serum Total Protein 9.5 H (6.3-8.2) g/dL Albumin 5.3 H (3.5-5.0) g/dL Urine Color (Yellow) Urine Appearance (Clear) Urine pH (4.6-8.0) Ur Specific Melcroft (1.005-1.030) Urine Protein (Negative) Urine Glucose (UA) (Negative) mg/dL Urine Ketones (Negative) Urine Blood (Negative) Urine Nitrite (Negative) Urine Bilirubin (Negative) Urine Urobilinogen (0.2) mg/dL Ur Leukocyte Esterase (Negative) U Hyaline Cast (Auto) (0-2) /LPF Urine Microscopic RBC (0-5) /HPF Urine Microscopic WBC (0-5) /HPF Ur Epithelial Cells (None Seen) /HPF Urine Bacteria (None Seen) /HPF Urine Culture Reflexed (NO) Monoscreen (NEGATIVE) Influenza Type A Ag (NEGATIVE) Influenza Type B Ag (NEGATIVE) RSV (PCR) (NEGATIVE) SARS-CoV-2 (PCR) (NEGATIVE) Slides for Path Review YES 04/30/24 04/30/24 04/30/24 Range/Units 04:30 04:30 04:32 WBC (3.98-10.04) x10^3/uL RBC (3.93-5.22) x10^6/uL Hgb (11.2-15.7) g/dL Hct (34.1-44.9) % MCV (79.4-94.8) fL MCH (25.6-32.2) pg MCHC (32.2-35.5) g/dL RDW (11.7-14.4) % Plt Count (182-369) x10^3/uL MPV (9.4-12.3) fL Gran % (34.0-71.1) % Immature Gran % (Auto) (0.001-0.429) % Nucleat RBC Rel Count (0.00-0.2) % Eos # (Auto) (0.04-0.36) x10^3/uL Immature Gran # (Auto) (0.001-0.031) x10^3u/L Absolute Lymphs (auto) (1.18-3.74) x10^3/uL Absolute Monos (auto) (0.24-0.86) x10^3/uL Absolute Nucleated RBC (0.00-0.012) x10^3u/L Lymphocytes % (19.3-51.7) % Monocytes % (4.7-12.5) % Eosinophils % (0.7-5.8) % Basophils % (0.1-1.2) % Absolute Granulocytes (1.56-6.13) x10^3/uL Basophils # (0.01-0.08) x10^3/uL pO2/FiO2 Ratio % VBG pH (7.32-7.42) VBG pCO2 at Pat Temp (42-55) mm/Hg VBG pO2 at Pat Temp (25-40) mm/Hg VBG HCO3 (22-28) meq/L VBG O2 Sat (Jason) (95-100) VBG Base Excess (-2.0-2.0) VBG Hemoglobin VBG Carboxyhemoglobin (0.0-6.9) % T HGB POC Potassium (3.5-5.1) Sodium (135-145) mmol/L Potassium (3.5-5.1) mmol/L Chloride (98-107) mmol/L Carbon Dioxide (22-30) mmol/L Anion Gap BUN (7-17) mg/dL Creatinine (0.52-1.04) mg/dL Estimated GFR ML/MIN Glucose (74-106) mg/dL POC Glucometer (74 to 106) mg/dL Lactic Acid 2.3 H (0.4-2.0) Calcium (8.4-10.2) mg/dL Magnesium (1.6-2.3) mg/dL Total Bilirubin (0.2-1.3) mg/dL AST (14-36) U/L ALT (0-35) U/L Alkaline Phosphatase (38-126) U/L Serum Total Protein (6.3-8.2) g/dL Albumin (3.5-5.0) g/dL Urine Color (Yellow) Urine Appearance (Clear) Urine pH (4.6-8.0) Ur Specific Melcroft (1.005-1.030) Urine Protein (Negative) Urine Glucose (UA) (Negative) mg/dL Urine Ketones (Negative) Urine Blood (Negative) Urine Nitrite (Negative) Urine Bilirubin (Negative) Urine Urobilinogen (0.2) mg/dL Ur Leukocyte Esterase (Negative) U Hyaline Cast (Auto) (0-2) /LPF Urine Microscopic RBC (0-5) /HPF Urine Microscopic WBC (0-5) /HPF Ur Epithelial Cells (None Seen) /HPF Urine Bacteria (None Seen) /HPF Urine Culture Reflexed (NO) Monoscreen NEGATIVE (NEGATIVE) Influenza Type A Ag NEGATIVE (NEGATIVE) Influenza Type B Ag NEGATIVE (NEGATIVE) RSV (PCR) NEGATIVE (NEGATIVE) SARS-CoV-2 (PCR) NEGATIVE (NEGATIVE) Slides for Path Review 04/30/24 04/30/24 04/30/24 Range/Units 05:31 05:38 05:45 WBC (3.98-10.04) x10^3/uL RBC (3.93-5.22) x10^6/uL Hgb (11.2-15.7) g/dL Hct (34.1-44.9) % MCV (79.4-94.8) fL MCH (25.6-32.2) pg MCHC (32.2-35.5) g/dL RDW (11.7-14.4) % Plt Count (182-369) x10^3/uL MPV (9.4-12.3) fL Gran % (34.0-71.1) % Immature Gran % (Auto) (0.001-0.429) % Nucleat RBC Rel Count (0.00-0.2) % Eos # (Auto) (0.04-0.36) x10^3/uL Immature Gran # (Auto) (0.001-0.031) x10^3u/L Absolute Lymphs (auto) (1.18-3.74) x10^3/uL Absolute Monos (auto) (0.24-0.86) x10^3/uL Absolute Nucleated RBC (0.00-0.012) x10^3u/L Lymphocytes % (19.3-51.7) % Monocytes % (4.7-12.5) % Eosinophils % (0.7-5.8) % Basophils % (0.1-1.2) % Absolute Granulocytes (1.56-6.13) x10^3/uL Basophils # (0.01-0.08) x10^3/uL pO2/FiO2 Ratio 21.0 % VBG pH 6.92 L* (7.32-7.42) VBG pCO2 at Pat Temp 20 L* (42-55) mm/Hg VBG pO2 at Pat Temp 58 H (25-40) mm/Hg VBG HCO3 4.1 L* (22-28) meq/L VBG O2 Sat (Jason) 83.2 L (95-100) VBG Base Excess -27.4 L (-2.0-2.0) VBG Hemoglobin 15.5 VBG Carboxyhemoglobin 6.7 (0.0-6.9) % T HGB POC Potassium 5.3 H (3.5-5.1) Sodium (135-145) mmol/L Potassium (3.5-5.1) mmol/L Chloride (98-107) mmol/L Carbon Dioxide (22-30) mmol/L Anion Gap BUN (7-17) mg/dL Creatinine (0.52-1.04) mg/dL Estimated GFR ML/MIN Glucose (74-106) mg/dL POC Glucometer 274 H (74 to 106) mg/dL Lactic Acid (0.4-2.0) Calcium (8.4-10.2) mg/dL Magnesium (1.6-2.3) mg/dL Total Bilirubin (0.2-1.3) mg/dL AST (14-36) U/L ALT (0-35) U/L Alkaline Phosphatase (38-126) U/L Serum Total Protein (6.3-8.2) g/dL Albumin (3.5-5.0) g/dL Urine Color Yellow (Yellow) Urine Appearance Clear (Clear) Urine pH 5.0 (4.6-8.0) Ur Specific Melcroft 1.025 (1.005-1.030) Urine Protein 300 A (Negative) Urine Glucose (UA) >=1000 A (Negative) mg/dL Urine Ketones >=160 A (Negative) Urine Blood Large A (Negative) Urine Nitrite Negative (Negative) Urine Bilirubin Negative (Negative) Urine Urobilinogen 0.2 (0.2) mg/dL Ur Leukocyte Esterase Negative (Negative) U Hyaline Cast (Auto) 11-20 (0-2) /LPF Urine Microscopic RBC 11-20 A (0-5) /HPF Urine Microscopic WBC 0-2 (0-5) /HPF Ur Epithelial Cells Rare (None Seen) /HPF Urine Bacteria None Seen (None Seen) /HPF Urine Culture Reflexed YES (NO) Monoscreen (NEGATIVE) Influenza Type A Ag (NEGATIVE) Influenza Type B Ag (NEGATIVE) RSV (PCR) (NEGATIVE) SARS-CoV-2 (PCR) (NEGATIVE) Slides for Path Review 04/30/24 04/30/24 04/30/24 Range/Units 06:36 07:00 08:08 WBC (3.98-10.04) x10^3/uL RBC (3.93-5.22) x10^6/uL Hgb (11.2-15.7) g/dL Hct (34.1-44.9) % MCV (79.4-94.8) fL MCH (25.6-32.2) pg MCHC (32.2-35.5) g/dL RDW (11.7-14.4) % Plt Count (182-369) x10^3/uL MPV (9.4-12.3) fL Gran % (34.0-71.1) % Immature Gran % (Auto) (0.001-0.429) % Nucleat RBC Rel Count (0.00-0.2) % Eos # (Auto) (0.04-0.36) x10^3/uL Immature Gran # (Auto) (0.001-0.031) x10^3u/L Absolute Lymphs (auto) (1.18-3.74) x10^3/uL Absolute Monos (auto) (0.24-0.86) x10^3/uL Absolute Nucleated RBC (0.00-0.012) x10^3u/L Lymphocytes % (19.3-51.7) % Monocytes % (4.7-12.5) % Eosinophils % (0.7-5.8) % Basophils % (0.1-1.2) % Absolute Granulocytes (1.56-6.13) x10^3/uL Basophils # (0.01-0.08) x10^3/uL pO2/FiO2 Ratio % VBG pH (7.32-7.42) VBG pCO2 at Pat Temp (42-55) mm/Hg VBG pO2 at Pat Temp (25-40) mm/Hg VBG HCO3 (22-28) meq/L VBG O2 Sat (Jason) (95-100) VBG Base Excess (-2.0-2.0) VBG Hemoglobin VBG Carboxyhemoglobin (0.0-6.9) % T HGB POC Potassium (3.5-5.1) Sodium (135-145) mmol/L Potassium (3.5-5.1) mmol/L Chloride (98-107) mmol/L Carbon Dioxide (22-30) mmol/L Anion Gap BUN (7-17) mg/dL Creatinine (0.52-1.04) mg/dL Estimated GFR ML/MIN Glucose (74-106) mg/dL POC Glucometer 178 H 89 (74 to 106) mg/dL Lactic Acid 0.8 (0.4-2.0) Calcium (8.4-10.2) mg/dL Magnesium (1.6-2.3) mg/dL Total Bilirubin (0.2-1.3) mg/dL AST (14-36) U/L ALT (0-35) U/L Alkaline Phosphatase (38-126) U/L Serum Total Protein (6.3-8.2) g/dL Albumin (3.5-5.0) g/dL Urine Color (Yellow) Urine Appearance (Clear) Urine pH (4.6-8.0) Ur Specific Melcroft (1.005-1.030) Urine Protein (Negative) Urine Glucose (UA) (Negative) mg/dL Urine Ketones (Negative) Urine Blood (Negative) Urine Nitrite (Negative) Urine Bilirubin (Negative) Urine Urobilinogen (0.2) mg/dL Ur Leukocyte Esterase (Negative) U Hyaline Cast (Auto) (0-2) /LPF Urine Microscopic RBC (0-5) /HPF Urine Microscopic WBC (0-5) /HPF Ur Epithelial Cells (None Seen) /HPF Urine Bacteria (None Seen) /HPF Urine Culture Reflexed (NO) Monoscreen (NEGATIVE) Influenza Type A Ag (NEGATIVE) Influenza Type B Ag (NEGATIVE) RSV (PCR) (NEGATIVE) SARS-CoV-2 (PCR) (NEGATIVE) Slides for Path Review 04/30/24 04/30/24 04/30/24 Range/Units 08:50 09:06 09:19 WBC 24.9 H (3.98-10.04) x10^3/uL RBC 4.84 (3.93-5.22) x10^6/uL Hgb 12.5 (11.2-15.7) g/dL Hct 43.5 (34.1-44.9) % MCV 89.9 (79.4-94.8) fL MCH 25.8 (25.6-32.2) pg MCHC 28.7 L (32.2-35.5) g/dL RDW 15.3 H (11.7-14.4) % Plt Count 348 D (182-369) x10^3/uL MPV 10.0 (9.4-12.3) fL Gran % 88.8 H (34.0-71.1) % Immature Gran % (Auto) 1.4 H (0.001-0.429) % Nucleat RBC Rel Count 0.0 (0.00-0.2) % Eos # (Auto) 0.02 L (0.04-0.36) x10^3/uL Immature Gran # (Auto) 0.34 H (0.001-0.031) x10^3u/L Absolute Lymphs (auto) 1.36 (1.18-3.74) x10^3/uL Absolute Monos (auto) 0.92 H (0.24-0.86) x10^3/uL Absolute Nucleated RBC 0.00 (0.00-0.012) x10^3u/L Lymphocytes % 5.5 L (19.3-51.7) % Monocytes % 3.7 L (4.7-12.5) % Eosinophils % 0.1 L (0.7-5.8) % Basophils % 0.5 (0.1-1.2) % Absolute Granulocytes 22.16 H (1.56-6.13) x10^3/uL Basophils # 0.12 H (0.01-0.08) x10^3/uL pO2/FiO2 Ratio 21.0 % VBG pH 7.13 L* (7.32-7.42) VBG pCO2 at Pat Temp 10 L* (42-55) mm/Hg VBG pO2 at Pat Temp 121 H (25-40) mm/Hg VBG HCO3 3.3 L* (22-28) meq/L VBG O2 Sat (Jason) 99.3 (95-100) VBG Base Excess -23.5 L (-2.0-2.0) VBG Hemoglobin 11.8 VBG Carboxyhemoglobin 1.2 (0.0-6.9) % T HGB POC Potassium 4.2 (3.5-5.1) Sodium (135-145) mmol/L Potassium (3.5-5.1) mmol/L Chloride (98-107) mmol/L Carbon Dioxide (22-30) mmol/L Anion Gap BUN (7-17) mg/dL Creatinine (0.52-1.04) mg/dL Estimated GFR ML/MIN Glucose (74-106) mg/dL POC Glucometer 123 H (74 to 106) mg/dL Lactic Acid (0.4-2.0) Calcium (8.4-10.2) mg/dL Magnesium (1.6-2.3) mg/dL Total Bilirubin (0.2-1.3) mg/dL AST (14-36) U/L ALT (0-35) U/L Alkaline Phosphatase (38-126) U/L Serum Total Protein (6.3-8.2) g/dL Albumin (3.5-5.0) g/dL Urine Color (Yellow) Urine Appearance (Clear) Urine pH (4.6-8.0) Ur Specific Melcroft (1.005-1.030) Urine Protein (Negative) Urine Glucose (UA) (Negative) mg/dL Urine Ketones (Negative) Urine Blood (Negative) Urine Nitrite (Negative) Urine Bilirubin (Negative) Urine Urobilinogen (0.2) mg/dL Ur Leukocyte Esterase (Negative) U Hyaline Cast (Auto) (0-2) /LPF Urine Microscopic RBC (0-5) /HPF Urine Microscopic WBC (0-5) /HPF Ur Epithelial Cells (None Seen) /HPF Urine Bacteria (None Seen) /HPF Urine Culture Reflexed (NO) Monoscreen (NEGATIVE) Influenza Type A Ag (NEGATIVE) Influenza Type B Ag (NEGATIVE) RSV (PCR) (NEGATIVE) SARS-CoV-2 (PCR) (NEGATIVE) Slides for Path Review Accuchecks Date 04/30/24 Date 04/30/24 Date 04/30/24 Time 07:01 Time 05:32 Time 04:18 - Other Procedures and Tests Respiratory Therapy 04/30/24 08:48 Oxygen Nasal Cannula 2 lpm Assessment/Plan (1) DKA (diabetic ketoacidosis) Current Visit: Yes Status: Acute Qualifiers: Diabetes mellitus type: type 1 Diabetes mellitus complication detail: without coma Qualified Code(s): E10.10 - Type 1 diabetes mellitus with ketoacidosis without coma Assessment & Plan: - DKA protocol - Labs Q4 hr - NPO- may have ice chips - A1C pending - Tele- ICU - IVF - Insulin gtt - follows Dr. Salas - endocrinology Code(s): E11.10 - TYPE 2 DIABETES MELLITUS WITH KETOACIDOSIS WITHOUT COMA (2) Hyperkalemia Current Visit: Yes Status: Acute Assessment & Plan: - repeat labs ordered on admission to IP unit- repeat 4.1- ok - K+ 5.3 in ER Code(s): E87.5 - HYPERKALEMIA (3) Leukocytosis Current Visit: Yes Status: Acute Assessment & Plan: - CBC, CMP reviewed - CXR pending - flu/covid/ RSV negative Code(s): D72.829 - ELEVATED WHITE BLOOD CELL COUNT, UNSPECIFIED (4) Metabolic acidosis Current Visit: Yes Status: Acute Assessment & Plan: - Co2 <5 - on DKA protocol- trend labs Q 4 hours. - consider bicarb gtt Code(s): E87.20 - ACIDOSIS, UNSPECIFIED (5) Tachycardia Current Visit: Yes Status: Acute Assessment & Plan: - 2:2 DKA - ICU tele Code(s): R00.0 - TACHYCARDIA, UNSPECIFIED (6) Nausea & vomiting Current Visit: Yes Status: Resolved Assessment & Plan: - resolved - PRN antiemetic Code(s): R11.2 - NAUSEA WITH VOMITING, UNSPECIFIED (7) Bipolar 1 disorder Current Visit: No Status: Chronic Assessment & Plan: - continue home meds Code(s): F31.9 - BIPOLAR DISORDER, UNSPECIFIED (8) Depression with anxiety Current Visit: No Status: Chronic Assessment & Plan: - continue home meds VTE: Lovenox PPI: Protonix Next of KIN: Mother D/C plan: 1-2 days Code status: full Code(s): F41.8 - OTHER SPECIFIED ANXIETY DISORDERS
[2024-04-30] MEDS ORDERED: NON-FORMULARY ITEM (Sertraline Hcl [Zoloft] 100 MG Tablet) PO SCH (10:00)
[2024-04-30] MEDS ORDERED: Abilify 10 MG PO SCH (10:00)
[2024-04-30] MEDS ORDERED: Zofran 4 MG/2 ML VIAL IV PRN (10:03)
[2024-04-30 10:05] LABS: Slide Review 1 YES
--- NOTE | 2024-04-30 10:14 | XRAY ---
Indication: Short of breath. Comparison: July 23, 2023 Portable chest demonstrates new right middle lobe infiltrate/atelectasis. Remaining heart and lungs unremarkable. Bony thorax intact.
[2024-04-30] MEDS ORDERED: MEDICATION INTERVENTION MC SCH (10:30)
[2024-04-30] MEDS: PROTONIX 40 MG IV IV SCH (12:15)
[2024-04-30] MEDS: Magnesium 1 Gm / 100 Ml D5W*** 100 ML IV ONE (12:45)
[2024-04-30 12:56] LABS: BLOOD UREA NITROGEN 4 mg/dL (7-17); CHLORIDE 118 mmol/L (98-107); Calcium 8.2 mg/dL (8.4-10.2); Creatinine 1 0.77 mg/dL (0.52-1.04); Potassium 3.6 mmol/L (3.5-5.1); SODIUM 142 mmol/L (135-145)
[2024-04-30] MEDS: ROCEPHIN 1 GM / 100 ML NaCl 1 GM/100 ML IVPB IV SCH (12:56)
[2024-04-30 13:01] LABS: Carbon Dioxide < 5 mmol/L (22-30)
[2024-04-30] MEDS ORDERED: Glutose 15 GM ORAL GEL PO PRN (13:04)
[2024-04-30] MEDS ORDERED: GlucaGen 1 MG IM PRN (13:04)
[2024-04-30 13:05] LABS: Glucose 50 mg/dL (74-106)
[2024-04-30] MEDS: D50W 50 ml Abboject IV PRN (13:06)
[2024-04-30] MEDS: ENOXAPARIN SODIUM SQ SCH (13:22)
[2024-04-30] MEDS: SODIUM BICARBONATE PO SCH (14:11)
[2024-04-30] MEDS: ZOLOFT 50 MG TABLET PO SCH (14:11)
[2024-04-30] MEDS: Zithromax 500 MG/ 250 ML NaCl Premix 500 MG/250 ML IVPB IV SCH (14:19)
[2024-04-30 17:04] LABS: ANION GAP 17.4 MEQ/L (5-15); Calcium 8.1 mg/dL (8.4-10.2); Creatinine 1 0.65 mg/dL (0.52-1.04); EST GLOMERULAR FILTRATION RATE 124.5 ML/MIN; Potassium 3.1 mmol/L (3.5-5.1)
[2024-04-30] MEDS: POTASSIUM CHLORIDE 20 mEq IN WATER 100ML 100 ML IV SCH (17:55)
[2024-04-30] MEDS: MAGNESIUM SULF 2 G/50 ML BAG 2 GM/50 ML PIGGYBACK IV ONE (18:01)
[2024-04-30 20:31] LABS: ANION GAP 16.1 MEQ/L (5-15); Creatinine 1 0.57 mg/dL (0.52-1.04); EST GLOMERULAR FILTRATION RATE 128.5 ML/MIN; Potassium 3.1 mmol/L (3.5-5.1)
[2024-05-01 00:54] LABS: ANION GAP 13.4 MEQ/L (5-15); Calcium 7.7 mg/dL (8.4-10.2); Creatinine 1 0.55 mg/dL (0.52-1.04); EST GLOMERULAR FILTRATION RATE 129.6 ML/MIN
[2024-05-01] MEDS ORDERED: D5W/0.45NS W/ 20mEq KCl 1000 ML 1,000 ML IV ONE (02:47)
[2024-05-01] MEDS: D5W/0.45NS W/ 20mEq KCl 1000 ML 1,000 ML IV SCH (02:51)
[2024-05-01 04:42] LABS: Hematocrit 31.8 % (34.1-44.9); Hemoglobin 10.1 g/dL (11.2-15.7); Mean Cell Volume 83.7 fL (79.4-94.8); Mean Corpuscular Hemoglobin 26.6 pg (25.6-32.2); Mean Corpuscular Hgb Concent. 31.8 g/dL (32.2-35.5); Mean Platelet Volume 9.2 fL (9.4-12.3); Platelet Count 309 x10^3/uL (182-369); Red Cell Distribution Width 15.9 % (11.7-14.4)
[2024-05-01 04:46] LABS: VBG BASE EXCESS -12.1 (-2.0-2.0); VBG CARBOXYHEMOGLOBIN 2.9 % T HGB (0.0-6.9); VBG HCO3- 12.8 meq/L (22-28); VBG HEMOGLOBIN 10.9; VBG O2 SATURATION 97.4 (95-100); VBG POTASSIUM 3.9 (3.5-5.1); VBG pH 7.3 (7.32-7.42)
[2024-05-01 04:59] LABS: ANION GAP 13.1 MEQ/L (5-15); Calcium 7.9 mg/dL (8.4-10.2); Creatinine 1 0.45 mg/dL (0.52-1.04); MAGNESIUM 1.9 mg/dL (1.6-2.3); PHOSPHOROUS 1.3 mg/dL (2.5-4.5); Potassium 3.9 mmol/L (3.5-5.1)
[2024-05-01 08:41] LABS: Calcium 7.9 mg/dL (8.4-10.2); Creatinine 1 0.51 mg/dL (0.52-1.04); EST GLOMERULAR FILTRATION RATE 131.9 ML/MIN; Potassium 3.9 mmol/L (3.5-5.1)
[2024-05-01] MEDS: Neutra-Phos Packet PO ONE ×2 (09:06→15:57)
[2024-05-01] MEDS: TYLENOL 325 MG PO PRN (09:06)
[2024-05-01] MEDS ORDERED: TYLENOL 325 MG ONE (09:06)
[2024-05-01] MEDS: Sodium Bicarbonate 50 MEQ/50 ML VIAL*** 150 MEQ in Dextrose 5%/Water IV Soln. 1000 ML 1... IV SCH (10:58)
--- NOTE | 2024-05-01 11:22 | PCM.NOTE ---
Date and Time: 05/01/24 1116 Subjective Assessment: 04/30/24 This is a 28-year-old insulin-dependent diabetic white female patient of Dr. Galeana who was brought to the emergency department by the paramedics secondary to patient complaint of vomiting, shortness of breath and back spasms. She states she also felt as though she was going to have a panic attack. Patient vomited twice in the last 24 hours. Patient has an insulin pump in place in ER and felt it was functioning properly. Her symptoms became worse at approximately 2 AM and she arrived to the emergency department at 4:15 AM. Her room air oxygen saturation level was 100%. Patient denies abdominal pain. Patient denies chest pain. Patient has a history of anxiety, panic disorder and bipolar disorder. On admission mother in room with pt. Pt states she has no idea was brought this on but suddenly became ill. Flu/COVID/RSV negative. On admission she was started on the DKA protocol. Insulin gtt started and labs redrawn. D5NS started per protocol without the potassium as K+ was elevated in the ER . Repeat lactic acid normal. Pt states she is starting to feel better. Will Continue to monitor labs and vitals in the ICU. 05/01/24 Pt resting in bed. Labs overall improving. She remains on the insulin gtt as her Co2 is < 18. Gap is closed. Started bicarb gtt. Pt has pneumonia as seen on CXR yesterday. She was started on IV antibiotics yesterday as well. She is room air 100%. She is no longer having N/V so started on a clear liquid diet with diabetic features. Phos low at 1.3 and replaced today. Pt states she is feeling better today. She denies any further concerns at this time. - Review of Systems Constitutional: No Fever, No Chills Eyes: No Symptoms Ears, Nose, & Throat: No Symptoms Respiratory: No Cough, No Short Of Breath Cardiac: No Chest Pain, No Edema, No Syncope Abdominal/Gastrointestinal: No Abdominal Pain, No Nausea, No Vomiting, No Diarrhea Genitourinary Symptoms: No Dysuria Musculoskeletal: No Back Pain, No Neck Pain Skin: No Rash Neurological: No Dizziness, No Focal Weakness, No Sensory Changes Psychological: No Symptoms Endocrine: No Symptoms Hematologic/Lymphatic: No Symptoms Immunological/Allergic: No Symptoms Objective Exam General Appearance: no apparent distress, alert, thin Neurologic Exam: alert, oriented x 3, cooperative, normal mood/affect, nml cerebellar function, sensation nml, No motor deficits Skin Exam: normal color, warm, dry Eye Exam: PERRL, EOMI, eyes nml inspection Ears, Nose, Throat Exam: normal ENT inspection, pharynx normal, moist mucous membranes Neck Exam: normal inspection, non-tender, supple, full range of motion Respiratory Exam: normal breath sounds, lungs clear, No respiratory distress Cardiovascular Exam: regular rate/rhythm, normal heart sounds Gastrointestinal/Abdomen Exam: soft, No tenderness, No mass Extremity Exam: normal inspection, normal range of motion Back Exam: normal inspection, normal range of motion, No CVA tenderness, No vertebral tenderness Pelvic Exam: deferred Rectal Exam: deferred Objective Data Vital Signs: Vital Signs - 24 hr Temp Pulse Resp BP BP Pulse Ox 05/01/24 11:07 88 17 146/82 100 05/01/24 11:00 98 H 25 H 161/108 100 05/01/24 10:00 85 25 H 136/81 100 05/01/24 09:00 98.0 F 85 12 115/63 99 05/01/24 08:00 98.1 F 79 23 126/75 99 05/01/24 07:00 93 H 17 119/64 99 05/01/24 06:00 71 22 97/65 99 05/01/24 05:00 74 23 101/59 98 05/01/24 04:00 97.5 F 74 19 118/70 99 05/01/24 03:00 71 18 136/73 99 05/01/24 02:00 71 19 128/68 99 05/01/24 01:03 71 19 126/88 98 05/01/24 00:01 68 05/01/24 00:00 97.7 F 68 20 122/63 98 04/30/24 23:00 67 23 121/65 99 04/30/24 22:00 74 21 114/70 100 04/30/24 21:00 74 19 119/73 100 04/30/24 20:00 97.3 F 84 14 116/72 100 04/30/24 19:02 90 23 108/66 100 04/30/24 17:26 97.5 F 100 H 25 H 123/61 100 04/30/24 16:00 107 H 04/30/24 12:00 81 04/30/24 11:55 98.6 F 91 H 26 H 138/79 100 04/30/24 11:39 98 H 138/79 100 Pain Assessment - Last Documented Pain Intensity 1 Pain Scale Used 0-10 Pain Scale Intake and Output: Intake & Output 04/28/24 04/29/24 04/30/24 05/01/24 11:59 11:59 11:59 11:59 Intake Total 4566 Output Total 1950 Balance 2616 Weight 47.1 kg 49.6 kg Lab Results: Lab Results-Last 24 Hours 04/30/24 04/30/24 04/30/24 Range/Units 11:53 12:30 13:09 WBC (3.98-10.04) x10^3/uL RBC (3.93-5.22) x10^6/uL Hgb (11.2-15.7) g/dL Hct (34.1-44.9) % MCV (79.4-94.8) fL MCH (25.6-32.2) pg MCHC (32.2-35.5) g/dL RDW (11.7-14.4) % Plt Count (182-369) x10^3/uL MPV (9.4-12.3) fL pO2/FiO2 Ratio % VBG pH (7.32-7.42) VBG pCO2 at Pat Temp (42-55) mm/Hg VBG pO2 at Pat Temp (25-40) mm/Hg VBG HCO3 (22-28) meq/L VBG O2 Sat (Jason) (95-100) VBG Base Excess (-2.0-2.0) VBG Hemoglobin VBG Carboxyhemoglobin (0.0-6.9) % T HGB POC Potassium (3.5-5.1) Sodium 142 (135-145) mmol/L Potassium 3.6 (3.5-5.1) mmol/L Chloride 118 H (98-107) mmol/L Carbon Dioxide < 5 L* (22-30) mmol/L Anion Gap (5-15) MEQ/L BUN 4 L (7-17) mg/dL Creatinine 0.77 (0.52-1.04) mg/dL Estimated GFR 109.0 ML/MIN Glucose 50 L (74-106) mg/dL POC Glucometer 175 H 69 L (74 to 106) mg/dL Calcium 8.2 L (8.4-10.2) mg/dL Phosphorus (2.5-4.5) mg/dL Magnesium (1.6-2.3) mg/dL 04/30/24 04/30/24 04/30/24 Range/Units 13:37 14:31 15:34 WBC (3.98-10.04) x10^3/uL RBC (3.93-5.22) x10^6/uL Hgb (11.2-15.7) g/dL Hct (34.1-44.9) % MCV (79.4-94.8) fL MCH (25.6-32.2) pg MCHC (32.2-35.5) g/dL RDW (11.7-14.4) % Plt Count (182-369) x10^3/uL MPV (9.4-12.3) fL pO2/FiO2 Ratio % VBG pH (7.32-7.42) VBG pCO2 at Pat Temp (42-55) mm/Hg VBG pO2 at Pat Temp (25-40) mm/Hg VBG HCO3 (22-28) meq/L VBG O2 Sat (Jason) (95-100) VBG Base Excess (-2.0-2.0) VBG Hemoglobin VBG Carboxyhemoglobin (0.0-6.9) % T HGB POC Potassium (3.5-5.1) Sodium (135-145) mmol/L Potassium (3.5-5.1) mmol/L Chloride (98-107) mmol/L Carbon Dioxide (22-30) mmol/L Anion Gap (5-15) MEQ/L BUN (7-17) mg/dL Creatinine (0.52-1.04) mg/dL Estimated GFR ML/MIN Glucose (74-106) mg/dL POC Glucometer 179 H 142 H 133 H (74 to 106) mg/dL Calcium (8.4-10.2) mg/dL Phosphorus (2.5-4.5) mg/dL Magnesium (1.6-2.3) mg/dL 04/30/24 04/30/24 04/30/24 Range/Units 16:29 16:45 17:33 WBC (3.98-10.04) x10^3/uL RBC (3.93-5.22) x10^6/uL Hgb (11.2-15.7) g/dL Hct (34.1-44.9) % MCV (79.4-94.8) fL MCH (25.6-32.2) pg MCHC (32.2-35.5) g/dL RDW (11.7-14.4) % Plt Count (182-369) x10^3/uL MPV (9.4-12.3) fL pO2/FiO2 Ratio % VBG pH (7.32-7.42) VBG pCO2 at Pat Temp (42-55) mm/Hg VBG pO2 at Pat Temp (25-40) mm/Hg VBG HCO3 (22-28) meq/L VBG O2 Sat (Jason) (95-100) VBG Base Excess (-2.0-2.0) VBG Hemoglobin VBG Carboxyhemoglobin (0.0-6.9) % T HGB POC Potassium (3.5-5.1) Sodium 138 (135-145) mmol/L Potassium 3.1 L (3.5-5.1) mmol/L Chloride 115 H (98-107) mmol/L Carbon Dioxide 8 L* (22-30) mmol/L Anion Gap 17.4 H (5-15) MEQ/L BUN 4 L (7-17) mg/dL Creatinine 0.65 (0.52-1.04) mg/dL Estimated GFR 124.5 ML/MIN Glucose 99 (74-106) mg/dL POC Glucometer 102 64 L (74 to 106) mg/dL Calcium 8.1 L (8.4-10.2) mg/dL Phosphorus (2.5-4.5) mg/dL Magnesium (1.6-2.3) mg/dL 04/30/24 04/30/24 04/30/24 Range/Units 18:08 18:34 19:27 WBC (3.98-10.04) x10^3/uL RBC (3.93-5.22) x10^6/uL Hgb (11.2-15.7) g/dL Hct (34.1-44.9) % MCV (79.4-94.8) fL MCH (25.6-32.2) pg MCHC (32.2-35.5) g/dL RDW (11.7-14.4) % Plt Count (182-369) x10^3/uL MPV (9.4-12.3) fL pO2/FiO2 Ratio % VBG pH (7.32-7.42) VBG pCO2 at Pat Temp (42-55) mm/Hg VBG pO2 at Pat Temp (25-40) mm/Hg VBG HCO3 (22-28) meq/L VBG O2 Sat (Jason) (95-100) VBG Base Excess (-2.0-2.0) VBG Hemoglobin VBG Carboxyhemoglobin (0.0-6.9) % T HGB POC Potassium (3.5-5.1) Sodium (135-145) mmol/L Potassium (3.5-5.1) mmol/L Chloride (98-107) mmol/L Carbon Dioxide (22-30) mmol/L Anion Gap (5-15) MEQ/L BUN (7-17) mg/dL Creatinine (0.52-1.04) mg/dL Estimated GFR ML/MIN Glucose (74-106) mg/dL POC Glucometer 116 H 78 51 L (74 to 106) mg/dL Calcium (8.4-10.2) mg/dL Phosphorus (2.5-4.5) mg/dL Magnesium (1.6-2.3) mg/dL 04/30/24 04/30/24 04/30/24 Range/Units 19:59 20:15 20:59 WBC (3.98-10.04) x10^3/uL RBC (3.93-5.22) x10^6/uL Hgb (11.2-15.7) g/dL Hct (34.1-44.9) % MCV (79.4-94.8) fL MCH (25.6-32.2) pg MCHC (32.2-35.5) g/dL RDW (11.7-14.4) % Plt Count (182-369) x10^3/uL MPV (9.4-12.3) fL pO2/FiO2 Ratio % VBG pH (7.32-7.42) VBG pCO2 at Pat Temp (42-55) mm/Hg VBG pO2 at Pat Temp (25-40) mm/Hg VBG HCO3 (22-28) meq/L VBG O2 Sat (Jason) (95-100) VBG Base Excess (-2.0-2.0) VBG Hemoglobin VBG Carboxyhemoglobin (0.0-6.9) % T HGB POC Potassium (3.5-5.1) Sodium 136 (135-145) mmol/L Potassium 3.1 L (3.5-5.1) mmol/L Chloride 114 H (98-107) mmol/L Carbon Dioxide 10 L* (22-30) mmol/L Anion Gap 16.1 H (5-15) MEQ/L BUN 4 L (7-17) mg/dL Creatinine 0.57 (0.52-1.04) mg/dL Estimated GFR 128.5 ML/MIN Glucose 140 H (74-106) mg/dL POC Glucometer 153 H 141 H (74 to 106) mg/dL Calcium 8.0 L (8.4-10.2) mg/dL Phosphorus (2.5-4.5) mg/dL Magnesium (1.6-2.3) mg/dL 04/30/24 04/30/24 04/30/24 Range/Units 21:58 22:56 23:54 WBC (3.98-10.04) x10^3/uL RBC (3.93-5.22) x10^6/uL Hgb (11.2-15.7) g/dL Hct (34.1-44.9) % MCV (79.4-94.8) fL MCH (25.6-32.2) pg MCHC (32.2-35.5) g/dL RDW (11.7-14.4) % Plt Count (182-369) x10^3/uL MPV (9.4-12.3) fL pO2/FiO2 Ratio % VBG pH (7.32-7.42) VBG pCO2 at Pat Temp (42-55) mm/Hg VBG pO2 at Pat Temp (25-40) mm/Hg VBG HCO3 (22-28) meq/L VBG O2 Sat (Jason) (95-100) VBG Base Excess (-2.0-2.0) VBG Hemoglobin VBG Carboxyhemoglobin (0.0-6.9) % T HGB POC Potassium (3.5-5.1) Sodium (135-145) mmol/L Potassium (3.5-5.1) mmol/L Chloride (98-107) mmol/L Carbon Dioxide (22-30) mmol/L Anion Gap (5-15) MEQ/L BUN (7-17) mg/dL Creatinine (0.52-1.04) mg/dL Estimated GFR ML/MIN Glucose (74-106) mg/dL POC Glucometer 102 100 105 (74 to 106) mg/dL Calcium (8.4-10.2) mg/dL Phosphorus (2.5-4.5) mg/dL Magnesium (1.6-2.3) mg/dL 05/01/24 05/01/24 05/01/24 Range/Units 00:39 01:00 01:53 WBC (3.98-10.04) x10^3/uL RBC (3.93-5.22) x10^6/uL Hgb (11.2-15.7) g/dL Hct (34.1-44.9) % MCV (79.4-94.8) fL MCH (25.6-32.2) pg MCHC (32.2-35.5) g/dL RDW (11.7-14.4) % Plt Count (182-369) x10^3/uL MPV (9.4-12.3) fL pO2/FiO2 Ratio % VBG pH (7.32-7.42) VBG pCO2 at Pat Temp (42-55) mm/Hg VBG pO2 at Pat Temp (25-40) mm/Hg VBG HCO3 (22-28) meq/L VBG O2 Sat (Jason) (95-100) VBG Base Excess (-2.0-2.0) VBG Hemoglobin VBG Carboxyhemoglobin (0.0-6.9) % T HGB POC Potassium (3.5-5.1) Sodium 135 (135-145) mmol/L Potassium 4.0 D (3.5-5.1) mmol/L Chloride 116 H (98-107) mmol/L Carbon Dioxide 11 L* (22-30) mmol/L Anion Gap 13.4 (5-15) MEQ/L BUN 3 L (7-17) mg/dL Creatinine 0.55 (0.52-1.04) mg/dL Estimated GFR 129.6 ML/MIN Glucose 121 H (74-106) mg/dL POC Glucometer 119 H 175 H (74 to 106) mg/dL Calcium 7.7 L (8.4-10.2) mg/dL Phosphorus (2.5-4.5) mg/dL Magnesium (1.6-2.3) mg/dL 05/01/24 05/01/24 05/01/24 Range/Units 01:56 02:55 03:54 WBC (3.98-10.04) x10^3/uL RBC (3.93-5.22) x10^6/uL Hgb (11.2-15.7) g/dL Hct (34.1-44.9) % MCV (79.4-94.8) fL MCH (25.6-32.2) pg MCHC (32.2-35.5) g/dL RDW (11.7-14.4) % Plt Count (182-369) x10^3/uL MPV (9.4-12.3) fL pO2/FiO2 Ratio % VBG pH (7.32-7.42) VBG pCO2 at Pat Temp (42-55) mm/Hg VBG pO2 at Pat Temp (25-40) mm/Hg VBG HCO3 (22-28) meq/L VBG O2 Sat (Jason) (95-100) VBG Base Excess (-2.0-2.0) VBG Hemoglobin VBG Carboxyhemoglobin (0.0-6.9) % T HGB POC Potassium (3.5-5.1) Sodium (135-145) mmol/L Potassium (3.5-5.1) mmol/L Chloride (98-107) mmol/L Carbon Dioxide (22-30) mmol/L Anion Gap (5-15) MEQ/L BUN (7-17) mg/dL Creatinine (0.52-1.04) mg/dL Estimated GFR ML/MIN Glucose (74-106) mg/dL POC Glucometer 125 H 131 H 116 H (74 to 106) mg/dL Calcium (8.4-10.2) mg/dL Phosphorus (2.5-4.5) mg/dL Magnesium (1.6-2.3) mg/dL 05/01/24 05/01/24 05/01/24 Range/Units 04:40 04:40 04:40 WBC 11.0 H (3.98-10.04) x10^3/uL RBC 3.80 L (3.93-5.22) x10^6/uL Hgb 10.1 L (11.2-15.7) g/dL Hct 31.8 L (34.1-44.9) % MCV 83.7 D (79.4-94.8) fL MCH 26.6 (25.6-32.2) pg MCHC 31.8 L (32.2-35.5) g/dL RDW 15.9 H (11.7-14.4) % Plt Count 309 (182-369) x10^3/uL MPV 9.2 L (9.4-12.3) fL pO2/FiO2 Ratio 21.0 % VBG pH 7.30 L (7.32-7.42) VBG pCO2 at Pat Temp 26 L (42-55) mm/Hg VBG pO2 at Pat Temp 75 H (25-40) mm/Hg VBG HCO3 12.8 L* (22-28) meq/L VBG O2 Sat (Jason) 97.4 (95-100) VBG Base Excess -12.1 L (-2.0-2.0) VBG Hemoglobin 10.9 VBG Carboxyhemoglobin 2.9 (0.0-6.9) % T HGB POC Potassium 3.9 (3.5-5.1) Sodium 136 (135-145) mmol/L Potassium 3.9 (3.5-5.1) mmol/L Chloride 116 H (98-107) mmol/L Carbon Dioxide 10 L* (22-30) mmol/L Anion Gap 13.1 (5-15) MEQ/L BUN 2 L (7-17) mg/dL Creatinine 0.45 L (0.52-1.04) mg/dL Estimated GFR 136.0 ML/MIN Glucose 130 H (74-106) mg/dL POC Glucometer (74 to 106) mg/dL Calcium 7.9 L (8.4-10.2) mg/dL Phosphorus 1.3 L (2.5-4.5) mg/dL Magnesium 1.9 (1.6-2.3) mg/dL 05/01/24 05/01/24 05/01/24 Range/Units 05:01 06:01 06:59 WBC (3.98-10.04) x10^3/uL RBC (3.93-5.22) x10^6/uL Hgb (11.2-15.7) g/dL Hct (34.1-44.9) % MCV (79.4-94.8) fL MCH (25.6-32.2) pg MCHC (32.2-35.5) g/dL RDW (11.7-14.4) % Plt Count (182-369) x10^3/uL MPV (9.4-12.3) fL pO2/FiO2 Ratio % VBG pH (7.32-7.42) VBG pCO2 at Pat Temp (42-55) mm/Hg VBG pO2 at Pat Temp (25-40) mm/Hg VBG HCO3 (22-28) meq/L VBG O2 Sat (Jason) (95-100) VBG Base Excess (-2.0-2.0) VBG Hemoglobin VBG Carboxyhemoglobin (0.0-6.9) % T HGB POC Potassium (3.5-5.1) Sodium (135-145) mmol/L Potassium (3.5-5.1) mmol/L Chloride (98-107) mmol/L Carbon Dioxide (22-30) mmol/L Anion Gap (5-15) MEQ/L BUN (7-17) mg/dL Creatinine (0.52-1.04) mg/dL Estimated GFR ML/MIN Glucose (74-106) mg/dL POC Glucometer 124 H 136 H 148 H (74 to 106) mg/dL Calcium (8.4-10.2) mg/dL Phosphorus (2.5-4.5) mg/dL Magnesium (1.6-2.3) mg/dL 05/01/24 05/01/24 05/01/24 Range/Units 08:00 08:20 09:04 WBC (3.98-10.04) x10^3/uL RBC (3.93-5.22) x10^6/uL Hgb (11.2-15.7) g/dL Hct (34.1-44.9) % MCV (79.4-94.8) fL MCH (25.6-32.2) pg MCHC (32.2-35.5) g/dL RDW (11.7-14.4) % Plt Count (182-369) x10^3/uL MPV (9.4-12.3) fL pO2/FiO2 Ratio % VBG pH (7.32-7.42) VBG pCO2 at Pat Temp (42-55) mm/Hg VBG pO2 at Pat Temp (25-40) mm/Hg VBG HCO3 (22-28) meq/L VBG O2 Sat (Jason) (95-100) VBG Base Excess (-2.0-2.0) VBG Hemoglobin VBG Carboxyhemoglobin (0.0-6.9) % T HGB POC Potassium (3.5-5.1) Sodium 136 (135-145) mmol/L Potassium 3.9 (3.5-5.1) mmol/L Chloride 117 H (98-107) mmol/L Carbon Dioxide 11 L* (22-30) mmol/L Anion Gap 12.0 (5-15) MEQ/L BUN 2 L (7-17) mg/dL Creatinine 0.51 L (0.52-1.04) mg/dL Estimated GFR 131.9 ML/MIN Glucose 155 H (74-106) mg/dL POC Glucometer 148 H 164 H (74 to 106) mg/dL Calcium 7.9 L (8.4-10.2) mg/dL Phosphorus (2.5-4.5) mg/dL Magnesium (1.6-2.3) mg/dL 05/01/24 05/01/24 Range/Units 10:13 11:13 WBC (3.98-10.04) x10^3/uL RBC (3.93-5.22) x10^6/uL Hgb (11.2-15.7) g/dL Hct (34.1-44.9) % MCV (79.4-94.8) fL MCH (25.6-32.2) pg MCHC (32.2-35.5) g/dL RDW (11.7-14.4) % Plt Count (182-369) x10^3/uL MPV (9.4-12.3) fL pO2/FiO2 Ratio % VBG pH (7.32-7.42) VBG pCO2 at Pat Temp (42-55) mm/Hg VBG pO2 at Pat Temp (25-40) mm/Hg VBG HCO3 (22-28) meq/L VBG O2 Sat (Jason) (95-100) VBG Base Excess (-2.0-2.0) VBG Hemoglobin VBG Carboxyhemoglobin (0.0-6.9) % T HGB POC Potassium (3.5-5.1) Sodium (135-145) mmol/L Potassium (3.5-5.1) mmol/L Chloride (98-107) mmol/L Carbon Dioxide (22-30) mmol/L Anion Gap (5-15) MEQ/L BUN (7-17) mg/dL Creatinine (0.52-1.04) mg/dL Estimated GFR ML/MIN Glucose (74-106) mg/dL POC Glucometer 146 H 129 H (74 to 106) mg/dL Calcium (8.4-10.2) mg/dL Phosphorus (2.5-4.5) mg/dL Magnesium (1.6-2.3) mg/dL Radiology Exams: Radiology Procedures Category Date Time Status CHEST 1 VIEW (PORTABLE) Routine Exams 04/30/24 09:43 Completed Multi-Disciplinary Progress Notes: Multi-Disciplinary Progress Notes 05/01/24 09:53 Case Management Note by Adrienne Gonzalez S/W NURSE AND REVIEWED CHART- NO NEW NEEDS ANTICIPATED AT DC, PATIENT NORMALLY INDEPENDENT AND LIVES WITH HER PARENTS AND REPORTED ON ADMISSION THAT SHE HAS ALL OF HER DIABETIC SUPPLIES AT HOME Initialized on 05/01/24 09:53 - END OF NOTE Assessment/Plan (1) DKA (diabetic ketoacidosis) Current Visit: Yes Status: Acute Qualifiers: Diabetes mellitus type: type 1 Diabetes mellitus complication detail: without coma Qualified Code(s): E10.10 - Type 1 diabetes mellitus with ketoacidosis without coma Code(s): E11.10 - TYPE 2 DIABETES MELLITUS WITH KETOACIDOSIS WITHOUT COMA (2) Hyperkalemia Current Visit: Yes Status: Acute Code(s): E87.5 - HYPERKALEMIA (3) Leukocytosis Current Visit: Yes Status: Acute Code(s): D72.829 - ELEVATED WHITE BLOOD CELL COUNT, UNSPECIFIED (4) Metabolic acidosis Current Visit: Yes Status: Acute Code(s): E87.20 - ACIDOSIS, UNSPECIFIED (5) Tachycardia Current Visit: Yes Status: Acute Code(s): R00.0 - TACHYCARDIA, UNSPECIFIED (6) Nausea & vomiting Current Visit: Yes Status: Resolved Code(s): R11.2 - NAUSEA WITH VOMITING, UNSPECIFIED (7) Bipolar 1 disorder Current Visit: No Status: Chronic Code(s): F31.9 - BIPOLAR DISORDER, UNSPECIFIED (8) Depression with anxiety Current Visit: No Status: Chronic Assessment & Plan: (1) DKA (diabetic ketoacidosis) Current Visit: Yes Status: Acute Qualifiers: Diabetes mellitus type: type 1 Diabetes mellitus complication detail: without coma Qualified Code(s): E10.10 - Type 1 diabetes mellitus with ketoacidosis without coma Assessment & Plan: - DKA protocol - Labs Q4 hr - NPO- may have ice chips - A1C pending - Tele- ICU - IVF - Insulin gtt - follows Dr. Salas - endocrinology 05/01 - A1C pending - start Clear liquid diet, N/V resolved - IVF - insulin gtt - DKA protocol - Phos low and replaced - CBC, CMP reviewed - labs Q4 hours per protocol - gap closed - Co2 11- when > 18 may stop insulin gtt Code(s): E11.10 - TYPE 2 DIABETES MELLITUS WITH KETOACIDOSIS WITHOUT COMA (2) Hyperkalemia Current Visit: Yes Status: Acute Assessment & Plan: - repeat labs ordered on admission to IP unit- repeat 4.1- ok - K+ 5.3 in ER 05/01 - resolved Code(s): E87.5 - HYPERKALEMIA (3) Leukocytosis Current Visit: Yes Status: Acute Assessment & Plan: - CBC, CMP reviewed - CXR reviewed- + pneumonia - flu/covid/ RSV negative 05/01 - WBC 11- improved - 2:2 pneumonia Code(s): D72.829 - ELEVATED WHITE BLOOD CELL COUNT, UNSPECIFIED (4) Metabolic acidosis Current Visit: Yes Status: Acute Assessment & Plan: - Co2 <5 - on DKA protocol- trend labs Q 4 hours. - consider bicarb gtt - PO bicarb started 05/01 - bicarb gtt - CO2 this AM 11 Code(s): E87.20 - ACIDOSIS, UNSPECIFIED (5) Tachycardia Current Visit: Yes Status: Acute Assessment & Plan: - 2:2 DKA - ICU tele 05/01 - resolved Code(s): R00.0 - TACHYCARDIA, UNSPECIFIED (6) Nausea & vomiting Current Visit: Yes Status: Resolved Assessment & Plan: - resolved - PRN antiemetic 05/01 - start clear liquid diet with diabetic features Code(s): R11.2 - NAUSEA WITH VOMITING, UNSPECIFIED (7) Bipolar 1 disorder Current Visit: No Status: Chronic Assessment & Plan: - continue home meds Code(s): F31.9 - BIPOLAR DISORDER, UNSPECIFIED (8) Depression with anxiety Current Visit: No Status: Chronic Assessment & Plan: - continue home meds Code(s): F41.8 - OTHER SPECIFIED ANXIETY DISORDERS Code(s): F41.8 - OTHER SPECIFIED ANXIETY DISORDERS (9) Pneumonia Current Visit: Yes Status: Acute Qualifiers: Pneumonia type: due to unspecified organism Laterality: right Lung location: middle lobe of lung Qualified Code(s): J18.9 - Pneumonia, unspecified organism Assessment & Plan: - CXR: Portable chest demonstrates new right middle lobe infiltrate/atelectasis. Remaining heart and lungs unremarkable. Bony thorax intact. - IV antibiotics - RA 100% VTE: Lovenox PPI: Protonix Next of KIN: Mother D/C plan: 1-2 days Code status: full Code(s): J18.9 - PNEUMONIA, UNSPECIFIED ORGANISM
[2024-05-01 12:57] LABS: CHLORIDE 115 mmol/L (98-107); Calcium 7.7 mg/dL (8.4-10.2); Creatinine 1 0.51 mg/dL (0.52-1.04); EST GLOMERULAR FILTRATION RATE 131.9 ML/MIN; Glucose 175 mg/dL (74-106); Potassium 3.7 mmol/L (3.5-5.1); SODIUM 137 mmol/L (135-145)
[2024-05-01 13:16] LABS: BLOOD UREA NITROGEN < 2 mg/dL (7-17)
[2024-05-01 13:17] LABS: Carbon Dioxide 12 mmol/L (22-30)
[2024-05-02 05:03] LABS: Hematocrit 30.2 % (34.1-44.9); Hemoglobin 9.6 g/dL (11.2-15.7); Mean Cell Volume 81.4 fL (79.4-94.8); Mean Corpuscular Hemoglobin 25.9 pg (25.6-32.2); Mean Corpuscular Hgb Concent. 31.8 g/dL (32.2-35.5); Mean Platelet Volume 9.4 fL (9.4-12.3); Platelet Count 300 x10^3/uL (182-369); Red Blood Count 3.71 x10^6/uL (3.93-5.22); Red Cell Distribution Width 15.9 % (11.7-14.4); White Blood Count 4.2 x10^3/uL (3.98-10.04)
--- NOTE | 2024-05-02 05:37 | PCM.NOTE ---
Date and Time: 05/02/24 0534 Subjective Assessment: Ms. Corona is a 28-year-old insulin-dependent diabetic white female who presented to ED via EMS after experiencing vomiting, shortness of breath and back spasms. She states she also felt as though she was going to have a panic attack. Patient vomited twice in the last 24 hours. Patient has an insulin p ump in place in ER and felt it was functioning properly. Upon arrival to ED patient was mildly tachycardic otherwise stable vitals.Lav findings remarkable for leukocytosis with WBC at 24.9, hypokalemia, hyponatremia, hyperglycemia, GAP, and metabolic acidosis.ABG with primay metabolic acidosis and secondary respiratory alkalosis. CXR with new right middle lobe infiltrate. Patient admitted with DKA and found to have pneumonia during hospital course. IP treatment with DKA protocol. Now on bicarb drip for non resolving acidosis. Pneumonia treatment with Ceftriaxone and azithromycin. Patient remains on insulin drip per DKA protocol. 05/02: Met with patient bedside. Endorses overall improvement. DKA has resolved. Insulin/bicarb drip has been discontinued. Patient is to bring in insulin pump today - until then will have moderate SSI. Labs with hypokalemia, hypomagnesemia, and low phosphate. Will correct. Most likely can discharge this evening or tomorrow pending clinical response to resumption of diet/insulin. - Review of Systems Constitutional: No Symptoms Eyes: No Symptoms Ears, Nose, & Throat: No Symptoms Respiratory: No Symptoms Cardiac: No Symptoms Abdominal/Gastrointestinal: Nausea, Vomiting Genitourinary Symptoms: No Symptoms Musculoskeletal: No Symptoms Skin: No Symptoms Neurological: No Symptoms Psychological: No Symptoms Endocrine: No Symptoms Hematologic/Lymphatic: No Symptoms Immunological/Allergic: No Symptoms Objective Exam General Appearance: no apparent distress Neurologic Exam: alert, oriented x 3, cooperative Skin Exam: normal color Eye Exam: PERRL Ears, Nose, Throat Exam: normal ENT inspection Neck Exam: normal inspection Respiratory Exam: normal breath sounds, lungs clear Cardiovascular Exam: regular rate/rhythm, normal heart sounds Gastrointestinal/Abdomen Exam: soft, normal bowel sounds Extremity Exam: normal inspection Back Exam: normal inspection Pelvic Exam: deferred Rectal Exam: deferred Objective Data Vital Signs: Vital Signs - 24 hr Temp Pulse Resp BP Pulse Ox 05/02/24 05:00 68 22 113/71 99 05/02/24 04:00 97.5 F 65 21 135/91 100 05/02/24 03:00 73 26 H 144/88 99 05/02/24 02:00 67 22 114/61 98 05/02/24 01:00 76 21 132/87 99 05/02/24 00:01 63 05/02/24 00:00 97.5 F 63 23 115/63 98 05/01/24 23:00 61 23 153/92 98 05/01/24 22:00 64 22 126/89 99 05/01/24 21:00 78 24 115/74 99 05/01/24 20:00 97.5 F 66 16 124/74 100 05/01/24 19:00 83 14 121/73 100 05/01/24 18:00 98.1 F 88 15 139/94 99 05/01/24 17:00 98.1 F 81 24 130/93 99 05/01/24 16:01 97.9 F 86 25 H 138/79 99 05/01/24 16:00 77 05/01/24 15:00 98.0 F 77 12 142/64 99 05/01/24 14:00 98.1 F 86 22 125/83 98 05/01/24 13:00 84 22 120/73 100 05/01/24 12:00 98 F 88 24 125/81 99 05/01/24 11:07 88 17 146/82 100 05/01/24 11:00 98 H 25 H 161/108 100 05/01/24 10:00 85 25 H 136/81 100 05/01/24 09:00 98.0 F 85 12 115/63 99 05/01/24 08:00 98.1 F 79 23 126/75 99 05/01/24 07:00 93 H 17 119/64 99 05/01/24 06:00 71 22 97/65 99 Pain Assessment - Last Documented Pain Intensity 3 Pain Scale Used 0-10 Pain Scale Intake and Output: Intake & Output 04/29/24 04/30/24 05/01/24 05/02/24 11:59 11:59 11:59 11:59 Intake Total 4567 3839 Output Total 1950 1950 Balance 2616 1889 Weight 47.1 kg 49.6 kg Lab Results: Lab Results-Last 24 Hours 05/01/24 05/01/24 05/01/24 Range/Units 04:25 04:40 06:01 WBC (3.98-10.04) x10^3/uL RBC (3.93-5.22) x10^6/uL Hgb (11.2-15.7) g/dL Hct (34.1-44.9) % MCV (79.4-94.8) fL MCH (25.6-32.2) pg MCHC (32.2-35.5) g/dL RDW (11.7-14.4) % Plt Count (182-369) x10^3/uL MPV (9.4-12.3) fL Sodium 136 (135-145) mmol/L Potassium 3.9 (3.5-5.1) mmol/L Chloride 116 H (98-107) mmol/L Carbon Dioxide 10 L* (22-30) mmol/L Anion Gap 13.1 (5-15) MEQ/L BUN 2 L (7-17) mg/dL Creatinine 0.45 L (0.52-1.04) mg/dL Estimated GFR 136.0 ML/MIN Glucose 130 H (74-106) mg/dL POC Glucometer 136 H (74 to 106) mg/dL Hemoglobin A1c 10.18 H (4.5-6.0) % Calcium 7.9 L (8.4-10.2) mg/dL Phosphorus 1.3 L (2.5-4.5) mg/dL Magnesium 1.9 (1.6-2.3) mg/dL 05/01/24 05/01/24 05/01/24 Range/Units 06:59 08:00 08:20 WBC (3.98-10.04) x10^3/uL RBC (3.93-5.22) x10^6/uL Hgb (11.2-15.7) g/dL Hct (34.1-44.9) % MCV (79.4-94.8) fL MCH (25.6-32.2) pg MCHC (32.2-35.5) g/dL RDW (11.7-14.4) % Plt Count (182-369) x10^3/uL MPV (9.4-12.3) fL Sodium 136 (135-145) mmol/L Potassium 3.9 (3.5-5.1) mmol/L Chloride 117 H (98-107) mmol/L Carbon Dioxide 11 L* (22-30) mmol/L Anion Gap 12.0 (5-15) MEQ/L BUN 2 L (7-17) mg/dL Creatinine 0.51 L (0.52-1.04) mg/dL Estimated GFR 131.9 ML/MIN Glucose 155 H (74-106) mg/dL POC Glucometer 148 H 148 H (74 to 106) mg/dL Hemoglobin A1c (4.5-6.0) % Calcium 7.9 L (8.4-10.2) mg/dL Phosphorus (2.5-4.5) mg/dL Magnesium (1.6-2.3) mg/dL 05/01/24 05/01/24 05/01/24 Range/Units 09:04 10:13 11:13 WBC (3.98-10.04) x10^3/uL RBC (3.93-5.22) x10^6/uL Hgb (11.2-15.7) g/dL Hct (34.1-44.9) % MCV (79.4-94.8) fL MCH (25.6-32.2) pg MCHC (32.2-35.5) g/dL RDW (11.7-14.4) % Plt Count (182-369) x10^3/uL MPV (9.4-12.3) fL Sodium (135-145) mmol/L Potassium (3.5-5.1) mmol/L Chloride (98-107) mmol/L Carbon Dioxide (22-30) mmol/L Anion Gap (5-15) MEQ/L BUN (7-17) mg/dL Creatinine (0.52-1.04) mg/dL Estimated GFR ML/MIN Glucose (74-106) mg/dL POC Glucometer 164 H 146 H 129 H (74 to 106) mg/dL Hemoglobin A1c (4.5-6.0) % Calcium (8.4-10.2) mg/dL Phosphorus (2.5-4.5) mg/dL Magnesium (1.6-2.3) mg/dL 05/01/24 05/01/24 05/01/24 Range/Units 12:10 12:40 13:07 WBC (3.98-10.04) x10^3/uL RBC (3.93-5.22) x10^6/uL Hgb (11.2-15.7) g/dL Hct (34.1-44.9) % MCV (79.4-94.8) fL MCH (25.6-32.2) pg MCHC (32.2-35.5) g/dL RDW (11.7-14.4) % Plt Count (182-369) x10^3/uL MPV (9.4-12.3) fL Sodium 137 (135-145) mmol/L Potassium 3.7 (3.5-5.1) mmol/L Chloride 115 H (98-107) mmol/L Carbon Dioxide 12 L* (22-30) mmol/L Anion Gap 14.0 (5-15) MEQ/L BUN < 2 L (7-17) mg/dL Creatinine 0.51 L (0.52-1.04) mg/dL Estimated GFR 131.9 ML/MIN Glucose 175 H (74-106) mg/dL POC Glucometer 155 H 175 H (74 to 106) mg/dL Hemoglobin A1c (4.5-6.0) % Calcium 7.7 L (8.4-10.2) mg/dL Phosphorus (2.5-4.5) mg/dL Magnesium (1.6-2.3) mg/dL 05/01/24 05/01/24 05/01/24 Range/Units 14:01 14:04 15:10 WBC (3.98-10.04) x10^3/uL RBC (3.93-5.22) x10^6/uL Hgb (11.2-15.7) g/dL Hct (34.1-44.9) % MCV (79.4-94.8) fL MCH (25.6-32.2) pg MCHC (32.2-35.5) g/dL RDW (11.7-14.4) % Plt Count (182-369) x10^3/uL MPV (9.4-12.3) fL Sodium (135-145) mmol/L Potassium (3.5-5.1) mmol/L Chloride (98-107) mmol/L Carbon Dioxide (22-30) mmol/L Anion Gap (5-15) MEQ/L BUN (7-17) mg/dL Creatinine (0.52-1.04) mg/dL Estimated GFR ML/MIN Glucose (74-106) mg/dL POC Glucometer 179 H 171 H (74 to 106) mg/dL Hemoglobin A1c (4.5-6.0) % Calcium (8.4-10.2) mg/dL Phosphorus 1.3 L (2.5-4.5) mg/dL Magnesium (1.6-2.3) mg/dL 05/01/24 05/01/24 05/01/24 Range/Units 15:59 17:04 18:13 WBC (3.98-10.04) x10^3/uL RBC (3.93-5.22) x10^6/uL Hgb (11.2-15.7) g/dL Hct (34.1-44.9) % MCV (79.4-94.8) fL MCH (25.6-32.2) pg MCHC (32.2-35.5) g/dL RDW (11.7-14.4) % Plt Count (182-369) x10^3/uL MPV (9.4-12.3) fL Sodium (135-145) mmol/L Potassium (3.5-5.1) mmol/L Chloride (98-107) mmol/L Carbon Dioxide (22-30) mmol/L Anion Gap (5-15) MEQ/L BUN (7-17) mg/dL Creatinine (0.52-1.04) mg/dL Estimated GFR ML/MIN Glucose (74-106) mg/dL POC Glucometer 131 H 92 83 (74 to 106) mg/dL Hemoglobin A1c (4.5-6.0) % Calcium (8.4-10.2) mg/dL Phosphorus (2.5-4.5) mg/dL Magnesium (1.6-2.3) mg/dL 05/01/24 05/01/24 05/01/24 Range/Units 19:07 20:03 20:59 WBC (3.98-10.04) x10^3/uL RBC (3.93-5.22) x10^6/uL Hgb (11.2-15.7) g/dL Hct (34.1-44.9) % MCV (79.4-94.8) fL MCH (25.6-32.2) pg MCHC (32.2-35.5) g/dL RDW (11.7-14.4) % Plt Count (182-369) x10^3/uL MPV (9.4-12.3) fL Sodium (135-145) mmol/L Potassium (3.5-5.1) mmol/L Chloride (98-107) mmol/L Carbon Dioxide (22-30) mmol/L Anion Gap (5-15) MEQ/L BUN (7-17) mg/dL Creatinine (0.52-1.04) mg/dL Estimated GFR ML/MIN Glucose (74-106) mg/dL POC Glucometer 88 133 H 138 H (74 to 106) mg/dL Hemoglobin A1c (4.5-6.0) % Calcium (8.4-10.2) mg/dL Phosphorus (2.5-4.5) mg/dL Magnesium (1.6-2.3) mg/dL 05/01/24 05/01/24 05/01/24 Range/Units 21:50 22:58 23:56 WBC (3.98-10.04) x10^3/uL RBC (3.93-5.22) x10^6/uL Hgb (11.2-15.7) g/dL Hct (34.1-44.9) % MCV (79.4-94.8) fL MCH (25.6-32.2) pg MCHC (32.2-35.5) g/dL RDW (11.7-14.4) % Plt Count (182-369) x10^3/uL MPV (9.4-12.3) fL Sodium (135-145) mmol/L Potassium (3.5-5.1) mmol/L Chloride (98-107) mmol/L Carbon Dioxide (22-30) mmol/L Anion Gap (5-15) MEQ/L BUN (7-17) mg/dL Creatinine (0.52-1.04) mg/dL Estimated GFR ML/MIN Glucose (74-106) mg/dL POC Glucometer 156 H 171 H 165 H (74 to 106) mg/dL Hemoglobin A1c (4.5-6.0) % Calcium (8.4-10.2) mg/dL Phosphorus (2.5-4.5) mg/dL Magnesium (1.6-2.3) mg/dL 05/02/24 05/02/24 05/02/24 Range/Units 00:52 01:52 02:58 WBC (3.98-10.04) x10^3/uL RBC (3.93-5.22) x10^6/uL Hgb (11.2-15.7) g/dL Hct (34.1-44.9) % MCV (79.4-94.8) fL MCH (25.6-32.2) pg MCHC (32.2-35.5) g/dL RDW (11.7-14.4) % Plt Count (182-369) x10^3/uL MPV (9.4-12.3) fL Sodium (135-145) mmol/L Potassium (3.5-5.1) mmol/L Chloride (98-107) mmol/L Carbon Dioxide (22-30) mmol/L Anion Gap (5-15) MEQ/L BUN (7-17) mg/dL Creatinine (0.52-1.04) mg/dL Estimated GFR ML/MIN Glucose (74-106) mg/dL POC Glucometer 143 H 152 H 112 H (74 to 106) mg/dL Hemoglobin A1c (4.5-6.0) % Calcium (8.4-10.2) mg/dL Phosphorus (2.5-4.5) mg/dL Magnesium (1.6-2.3) mg/dL 05/02/24 05/02/24 05/02/24 Range/Units 03:56 04:25 04:45 WBC 4.2 (3.98-10.04) x10^3/uL RBC 3.71 L (3.93-5.22) x10^6/uL Hgb 9.6 L (11.2-15.7) g/dL Hct 30.2 L (34.1-44.9) % MCV 81.4 (79.4-94.8) fL MCH 25.9 (25.6-32.2) pg MCHC 31.8 L (32.2-35.5) g/dL RDW 15.9 H (11.7-14.4) % Plt Count 300 (182-369) x10^3/uL MPV 9.4 (9.4-12.3) fL Sodium (135-145) mmol/L Potassium (3.5-5.1) mmol/L Chloride (98-107) mmol/L Carbon Dioxide (22-30) mmol/L Anion Gap (5-15) MEQ/L BUN (7-17) mg/dL Creatinine (0.52-1.04) mg/dL Estimated GFR ML/MIN Glucose (74-106) mg/dL POC Glucometer 92 136 H (74 to 106) mg/dL Hemoglobin A1c (4.5-6.0) % Calcium (8.4-10.2) mg/dL Phosphorus (2.5-4.5) mg/dL Magnesium (1.6-2.3) mg/dL Radiology Exams: Radiology Procedures Category Date Time Status CHEST 1 VIEW (PORTABLE) Routine Exams 04/30/24 09:43 Completed Multi-Disciplinary Progress Notes: Multi-Disciplinary Progress Notes 05/01/24 09:53 Case Management Note by Adrienne Gonzalez S/[employer] NURSE AND REVIEWED CHART- NO NEW NEEDS ANTICIPATED AT DC, PATIENT NORMALLY INDEPENDENT AND LIVES WITH HER PARENTS AND REPORTED ON ADMISSION THAT SHE HAS ALL OF HER DIABETIC SUPPLIES AT HOME Initialized on 05/01/24 09:53 - END OF NOTE Assessment/Plan (1) DKA (diabetic ketoacidosis) Current Visit: Yes Status: Acute Qualifiers: Diabetes mellitus type: type 1 Diabetes mellitus complication detail: without coma Qualified Code(s): E10.10 - Type 1 diabetes mellitus with ketoacidosis without coma Assessment & Plan: - A1C 10.18 - follows Dr. Salas - endocrinology -N/V resolved - gap closed - Co2 reviewed and WNL - -DKA has resolved -Insulin drip and bicarb drip have been discontinued -Awaiting insulin pump - SSI until it is resumed -ADA diet -replace phos, mg, and K+ per protocol -CMP/CBC reviewed -can transfer to [facility] from ICU Code(s): E11.10 - TYPE 2 DIABETES MELLITUS WITH KETOACIDOSIS WITHOUT COMA (2) Hyperkalemia Current Visit: Yes Status: Acute Assessment & Plan: - resolved -Monitor renal/lytes closely Code(s): E87.5 - HYPERKALEMIA (3) Leukocytosis Current Visit: Yes Status: Acute Assessment & Plan: -Most likely secondary to pneumonia - CBC, CMP reviewed - CXR reviewed- + pneumonia - flu/covid/ RSV negative -Continue ceftriaxone/azithromycin Code(s): D72.829 - ELEVATED WHITE BLOOD CELL COUNT, UNSPECIFIED (4) Metabolic acidosis Current Visit: Yes Status: Acute Assessment & Plan: - Co2 reviewed and <5 on admission - on DKA protocol- trend labs Q 4 hours. - bicarb gtt initiated 05/01 Code(s): E87.20 - ACIDOSIS, UNSPECIFIED (5) Pneumonia Current Visit: Yes Status: Acute Qualifiers: Pneumonia type: due to unspecified organism Laterality: right Lung location: middle lobe of lung Qualified Code(s): J18.9 - Pneumonia, unspecified organism Assessment & Plan: - CXR demonstrates new right middle lobe infiltrate/atelectasis. - continue ceftriaxone/azithromycin -Supplemental oxygen as needed to maintain spo2 > 92% currently at baseline RA Code(s): J18.9 - PNEUMONIA, UNSPECIFIED ORGANISM (6) Tachycardia Current Visit: Yes Status: Acute Assessment & Plan: - 2:2 DKA - resolved Code(s): R00.0 - TACHYCARDIA, UNSPECIFIED (7) Nausea & vomiting Current Visit: Yes Status: Resolved Assessment & Plan: - resolved - PRN antiemetic - clear liquid diet with diabetic features Code(s): R11.2 - NAUSEA WITH VOMITING, UNSPECIFIED (8) Bipolar 1 disorder Current Visit: No Status: Chronic Assessment & Plan: - continue home meds Code(s): F31.9 - BIPOLAR DISORDER, UNSPECIFIED (9) Depression with anxiety Current Visit: No Status: Chronic Assessment & Plan: - continue home meds Code(s): F41.8 - OTHER SPECIFIED ANXIETY DISORDERS (10) Hyperglycemia due to type 1 diabetes mellitus Current Visit: No Status: Chronic Assessment & Plan: -See DKA VTE: Lovenox PPI: Protonix Next of KIN: Mother D/C plan: 1-2 days Code status: full Code(s): E10.65 - TYPE 1 DIABETES MELLITUS WITH HYPERGLYCEMIA
[2024-05-02 07:37] LABS: ALBUMIN 2.8 g/dL (3.5-5.0); ALKALINE PHOSPHATASE 65 U/L (38-126); ANION GAP 9.7 MEQ/L (5-15); CHLORIDE 110 mmol/L (98-107); Calcium 7.4 mg/dL (8.4-10.2); Carbon Dioxide 21 mmol/L (22-30); Creatinine 1 0.42 mg/dL (0.52-1.04); EST GLOMERULAR FILTRATION RATE 138.3 ML/MIN; Glucose 127 mg/dL (74-106); MAGNESIUM 1.3 mg/dL (1.6-2.3); PHOSPHOROUS 1.7 mg/dL (2.5-4.5); SGOT/AST 21 U/L (14-36); SGPT/ALT 16 U/L (0-35); SODIUM 137 mmol/L (135-145); Total Protein 5.4 g/dL (6.3-8.2)
[2024-05-02 07:40] LABS: BLOOD UREA NITROGEN < 2 mg/dL (7-17)
[2024-05-02] MEDS: Klor Con PO SCH (08:32)
[2024-05-02] MEDS: MAGNESIUM SULF 2 G/50 ML BAG 2 GM/50 ML PIGGYBACK IV ONE (08:32)
[2024-05-02] MEDS: Neutra-Phos Packet PO ONE (08:32)
[2024-05-02] MEDS: Compazine 10 MG/2 ML IV PRN (10:52)
[2024-05-02] MEDS: HUMALOG SQ PRN ×2 (12:20→13:10)
[2024-05-02] MEDS: Sodium Chloride 0.9% 1000 ML 1,000 ML IV SCH (14:19)
[2024-05-02] MEDS: POTASSIUM CHLORIDE 20 mEq IN WATER 100ML 100 ML IV SCH (14:19)
[2024-05-02] MEDS: HUMALOG SQ SCH (17:20)
--- NOTE | 2024-05-02 22:29 | TM.IN ---
Tele-Medicine Incident Note - Incident Note Tel-Medicine Incident Note: 05/02/24 5778 Notified by nursing that family unable to bring patient's insulin pump. Patient was transitioned off of insulin drip earlier today for DKA without first giving any basal insulin. However, at that time, the assumption was that she would be getting her insulin pump. As the pump is not available, patient will need basal insulin. Patient's last insulin drip rate was 1.5 units/h, corresponding to a dose of 36 units/day. Typically cover half of that with basal insulin. Given that patient wants to move back to her insulin pump, we will use insulin NPH as it only has a duration of 12 hours. If patient's insulin pump is available tomorrow morning, the NPH can be stopped. Otherwise, we will continue at 9 units BID until insulin is available. Patient also has just 3 units of insulin scheduled with meals. Martinez Tenorio MD Telemedicine Hospitalist [facility] Telemedicine Encounter - Telemedicine Encounter Telemedicine Encounter: "The entirety of this encounter was performed via Telemedicine" This visit was performed using real-time audio and video connection between my location and thepatients locationwith the assistance of a surrogateat the patients location. Written or verbal consent was obtained from the patient/guardian to perform this visit [facility]. Any patient questions regarding the telemedicine interaction were answered.
[2024-05-02] MEDS: Novolin N SQ SCH (22:33)
[2024-05-03 05:04] LABS: Absolute Neutrophil Ct (ANC) 2.71 x10^3/uL (1.56-6.13); BASOPHIL % 0.4 % (0.1-1.2); Basophil (Absolute #) 0.02 x10^3/uL (0.01-0.08); Eosinophil % 1.9 % (0.7-5.8); Eosinophil (Absolute #) 0.09 x10^3/uL (0.04-0.36); Hematocrit 32.1 % (34.1-44.9); IMMATURE GRAN # 0.01 x10^3u/L (0.001-0.031); IMMATURE GRAN % 0.2 % (0.001-0.429); Lymphocytes % 35.1 % (19.3-51.7); Mean Cell Volume 83.4 fL (79.4-94.8); Mean Corpuscular Hgb Concent. 31.2 g/dL (32.2-35.5); Mean Platelet Volume 9.8 fL (9.4-12.3); Monocyte (Absolute #) 0.31 x10^3/uL (0.24-0.86); Monocytes % 6.4 % (4.7-12.5); Platelet Count 315 x10^3/uL (182-369); Red Blood Count 3.85 x10^6/uL (3.93-5.22); Red Cell Distribution Width 16.7 % (11.7-14.4); White Blood Count 4.8 x10^3/uL (3.98-10.04)
--- NOTE | 2024-05-03 05:18 | PCM.NOTE ---
Date and Time: 05/03/24 05 Subjective Assessment: Ms. Corona is a 28-year-old insulin-dependent diabetic white female who presented to ED via EMS after experiencing vomiting, shortness of breath and back spasms. She states she also felt as though she was going to have a panic attack. Patient vomited twice in the last 24 hours. Patient has an insulin p ump in place in ER and felt it was functioning properly. Upon arrival to ED patient was mildly tachycardic otherwise stable vitals.Lav findings remarkable for leukocytosis with WBC at 24.9, hypokalemia, hyponatremia, hyperglycemia, GAP, and metabolic acidosis.ABG with primay metabolic acidosis and secondary respiratory alkalosis. CXR with new right middle lobe infiltrate. Patient admitted with DKA and found to have pneumonia during hospital course. IP treatment with DKA protocol. Now on bicarb drip for non resolving acidosis. Pneumonia treatment with Ceftriaxone and azithromycin. Patient remains on insulin drip per DKA protocol. 05/02: Met with patient bedside. Endorses overall improvement. DKA has resolved. Insulin/bicarb drip has been discontinued. Patient is to bring in insulin pump today - until then will have moderate SSI. Labs with hypokalemia, hypomagnesemia, and low phosphate. Will correct. Most likely can discharge this evening or tomorrow pending clinical response to resumption of diet/insulin. Objective Data Vital Signs: Vital Signs - 24 hr Temp Pulse Resp BP Pulse Ox 05/03/24 04:01 96.9 F 79 13 117/74 100 05/03/24 04:00 79 05/03/24 03:00 104 H 27 H 119/76 98 05/03/24 02:00 96 H 24 136/90 97 05/03/24 01:00 81 18 103/71 99 05/03/24 00:01 81 05/03/24 00:00 97.1 F 81 0 L 105/67 98 05/02/24 23:00 84 9 L 106/62 99 05/02/24 22:00 73 22 122/76 98 05/02/24 21:00 98 H 13 124/84 98 05/02/24 20:00 97.3 F 84 9 L 122/76 99 05/02/24 19:00 103 H 21 128/80 05/02/24 18:00 105 H 24 130/89 05/02/24 17:00 107 H 18 126/93 05/02/24 16:00 97.7 F 127 H 28 H 141/88 98 05/02/24 15:00 118 H 24 128/85 99 05/02/24 14:00 121 H 23 125/89 98 05/02/24 13:00 113 H 20 127/90 99 05/02/24 12:30 107 H 22 131/91 100 05/02/24 12:29 105 H 22 100 05/02/24 12:20 121 H 7 L 05/02/24 12:00 98.2 F 123 H 05/02/24 11:00 126/90 05/02/24 10:00 126 H 19 134/74 99 05/02/24 09:00 96 H 23 129/86 99 05/02/24 08:00 98.7 F 103 H 16 123/85 99 05/02/24 07:00 71 16 129/80 98 05/02/24 06:00 65 22 109/66 100 Pain Assessment - Last Documented Pain Intensity 0 Pain Scale Used 0-10 Pain Scale Intake and Output: Intake & Output 04/30/24 05/01/24 05/02/24 05/03/24 11:59 11:59 11:59 11:59 Intake Total 4562 7232 1226 Output Total 9362 2650 1250 Balance 2616 9112 -24 Weight 47.1 kg 49.6 kg 49.6 kg Lab Results: Lab Results-Last 24 Hours 05/02/24 05/02/24 05/02/24 Range/Units 04:25 05:55 06:49 Sodium 137 (135-145) mmol/L Potassium 3.0 L* (3.5-5.1) mmol/L Chloride 110 H (98-107) mmol/L Carbon Dioxide 21 L (22-30) mmol/L Anion Gap 9.7 (5-15) MEQ/L BUN < 2 L (7-17) mg/dL Creatinine 0.42 L (0.52-1.04) mg/dL Estimated GFR 138.3 ML/MIN Glucose 127 H (74-106) mg/dL POC Glucometer 182 H TNP (74 to 106) mg/dL Calcium 7.4 L (8.4-10.2) mg/dL Phosphorus 1.7 L (2.5-4.5) mg/dL Magnesium 1.3 L (1.6-2.3) mg/dL Total Bilirubin 0.30 (0.2-1.3) mg/dL AST 21 (14-36) U/L ALT 16 (0-35) U/L Alkaline Phosphatase 65 (38-126) U/L Serum Total Protein 5.4 L (6.3-8.2) g/dL Albumin 2.8 L (3.5-5.0) g/dL 05/02/24 05/02/24 05/02/24 Range/Units 06:52 07:41 08:07 Sodium (135-145) mmol/L Potassium (3.5-5.1) mmol/L Chloride (98-107) mmol/L Carbon Dioxide (22-30) mmol/L Anion Gap (5-15) MEQ/L BUN (7-17) mg/dL Creatinine (0.52-1.04) mg/dL Estimated GFR ML/MIN Glucose (74-106) mg/dL POC Glucometer 193 H 181 H (74 to 106) mg/dL Calcium (8.4-10.2) mg/dL Phosphorus (2.5-4.5) mg/dL Magnesium 1.2 L (1.6-2.3) mg/dL Total Bilirubin (0.2-1.3) mg/dL AST (14-36) U/L ALT (0-35) U/L Alkaline Phosphatase (38-126) U/L Serum Total Protein (6.3-8.2) g/dL Albumin (3.5-5.0) g/dL 05/02/24 05/02/24 05/02/24 Range/Units 09:12 10:14 12:04 Sodium (135-145) mmol/L Potassium 3.7 D (3.5-5.1) mmol/L Chloride (98-107) mmol/L Carbon Dioxide (22-30) mmol/L Anion Gap (5-15) MEQ/L BUN (7-17) mg/dL Creatinine (0.52-1.04) mg/dL Estimated GFR ML/MIN Glucose (74-106) mg/dL POC Glucometer 225 H 386 H (74 to 106) mg/dL Calcium (8.4-10.2) mg/dL Phosphorus (2.5-4.5) mg/dL Magnesium (1.6-2.3) mg/dL Total Bilirubin (0.2-1.3) mg/dL AST (14-36) U/L ALT (0-35) U/L Alkaline Phosphatase (38-126) U/L Serum Total Protein (6.3-8.2) g/dL Albumin (3.5-5.0) g/dL 05/02/24 05/02/24 05/02/24 Range/Units 13:02 13:35 14:02 Sodium (135-145) mmol/L Potassium 3.0 L* (3.5-5.1) mmol/L Chloride (98-107) mmol/L Carbon Dioxide (22-30) mmol/L Anion Gap (5-15) MEQ/L BUN (7-17) mg/dL Creatinine (0.52-1.04) mg/dL Estimated GFR ML/MIN Glucose (74-106) mg/dL POC Glucometer 369 H 277 H (74 to 106) mg/dL Calcium (8.4-10.2) mg/dL Phosphorus (2.5-4.5) mg/dL Magnesium (1.6-2.3) mg/dL Total Bilirubin (0.2-1.3) mg/dL AST (14-36) U/L ALT (0-35) U/L Alkaline Phosphatase (38-126) U/L Serum Total Protein (6.3-8.2) g/dL Albumin (3.5-5.0) g/dL 05/02/24 05/02/24 05/02/24 Range/Units 14:57 16:08 17:14 Sodium (135-145) mmol/L Potassium (3.5-5.1) mmol/L Chloride (98-107) mmol/L Carbon Dioxide (22-30) mmol/L Anion Gap (5-15) MEQ/L BUN (7-17) mg/dL Creatinine (0.52-1.04) mg/dL Estimated GFR ML/MIN Glucose (74-106) mg/dL POC Glucometer 214 H 129 H 112 H (74 to 106) mg/dL Calcium (8.4-10.2) mg/dL Phosphorus (2.5-4.5) mg/dL Magnesium (1.6-2.3) mg/dL Total Bilirubin (0.2-1.3) mg/dL AST (14-36) U/L ALT (0-35) U/L Alkaline Phosphatase (38-126) U/L Serum Total Protein (6.3-8.2) g/dL Albumin (3.5-5.0) g/dL 05/02/24 05/02/24 05/02/24 Range/Units 18:40 20:20 21:55 Sodium (135-145) mmol/L Potassium 4.4 D (3.5-5.1) mmol/L Chloride (98-107) mmol/L Carbon Dioxide (22-30) mmol/L Anion Gap (5-15) MEQ/L BUN (7-17) mg/dL Creatinine (0.52-1.04) mg/dL Estimated GFR ML/MIN Glucose (74-106) mg/dL POC Glucometer 117 H 161 H (74 to 106) mg/dL Calcium (8.4-10.2) mg/dL Phosphorus (2.5-4.5) mg/dL Magnesium (1.6-2.3) mg/dL Total Bilirubin (0.2-1.3) mg/dL AST (14-36) U/L ALT (0-35) U/L Alkaline Phosphatase (38-126) U/L Serum Total Protein (6.3-8.2) g/dL Albumin (3.5-5.0) g/dL 05/02/24 05/03/24 05/03/24 Range/Units 23:00 00:00 03:57 Sodium (135-145) mmol/L Potassium 3.9 (3.5-5.1) mmol/L Chloride (98-107) mmol/L Carbon Dioxide (22-30) mmol/L Anion Gap (5-15) MEQ/L BUN (7-17) mg/dL Creatinine (0.52-1.04) mg/dL Estimated GFR ML/MIN Glucose (74-106) mg/dL POC Glucometer 120 H 94 (74 to 106) mg/dL Calcium (8.4-10.2) mg/dL Phosphorus (2.5-4.5) mg/dL Magnesium (1.6-2.3) mg/dL Total Bilirubin (0.2-1.3) mg/dL AST (14-36) U/L ALT (0-35) U/L Alkaline Phosphatase (38-126) U/L Serum Total Protein (6.3-8.2) g/dL Albumin (3.5-5.0) g/dL 05/03/24 Range/Units 05:07 Sodium (135-145) mmol/L Potassium (3.5-5.1) mmol/L Chloride (98-107) mmol/L Carbon Dioxide (22-30) mmol/L Anion Gap (5-15) MEQ/L BUN (7-17) mg/dL Creatinine (0.52-1.04) mg/dL Estimated GFR ML/MIN Glucose (74-106) mg/dL POC Glucometer 113 H (74 to 106) mg/dL Calcium (8.4-10.2) mg/dL Phosphorus (2.5-4.5) mg/dL Magnesium (1.6-2.3) mg/dL Total Bilirubin (0.2-1.3) mg/dL AST (14-36) U/L ALT (0-35) U/L Alkaline Phosphatase (38-126) U/L Serum Total Protein (6.3-8.2) g/dL Albumin (3.5-5.0) g/dL Multi-Disciplinary Progress Notes: Multi-Disciplinary Progress Notes 05/02/24 10:30 (created 05/02/24 12:42) Case Management Note by Adrienne Gonzalez S/W PATIENT- SHE CONTINUES TO DENY ANY NEW NEEDS AT TIME OF DC, SHE PLANS TO RETURN HOME TO HER PLF AT TIME OF DC. SHE AGAIN REPORTS SHE HAS ALL OF HER DIABETIC SUPPLIES AT HOME Initialized on 05/02/24 12:42 - END OF NOTE Assessment/Plan (1) DKA (diabetic ketoacidosis) Current Visit: Yes Status: Acute Qualifiers: Diabetes mellitus type: type 1 Diabetes mellitus complication detail: without coma Qualified Code(s): E10.10 - Type 1 diabetes mellitus with ketoacidosis without coma Assessment & Plan: - A1C 10.18 - follows Dr. Salas - endocrinology -N/V resolved - gap closed - Co2 reviewed and WNL - -DKA has resolved -Insulin drip and bicarb drip have been discontinued -Awaiting insulin pump - SSI until it is resumed -ADA diet -replace phos, mg, and K+ per protocol -CMP/CBC reviewed -can transfer to [facility] bed from ICU Code(s): E11.10 - TYPE 2 DIABETES MELLITUS WITH KETOACIDOSIS WITHOUT COMA (2) Hyperkalemia Current Visit: Yes Status: Acute Assessment & Plan: - resolved -Monitor renal/lytes closely Code(s): E87.5 - HYPERKALEMIA (3) Leukocytosis Current Visit: Yes Status: Acute Assessment & Plan: -Most likely secondary to pneumonia - CBC, CMP reviewed - CXR reviewed- + pneumonia - flu/covid/ RSV negative -Continue ceftriaxone/azithromycin Code(s): D72.829 - ELEVATED WHITE BLOOD CELL COUNT, UNSPECIFIED (4) Metabolic acidosis Current Visit: Yes Status: Acute Assessment & Plan: - Co2 reviewed and <5 on admission - on DKA protocol- trend labs Q 4 hours. - bicarb gtt initiated 05/01 Code(s): E87.20 - ACIDOSIS, UNSPECIFIED (5) Pneumonia Current Visit: Yes Status: Acute Qualifiers: Pneumonia type: due to unspecified organism Laterality: right Lung location: middle lobe of lung Qualified Code(s): J18.9 - Pneumonia, unspecified organism Assessment & Plan: - CXR demonstrates new right middle lobe infiltrate/atelectasis. - continue ceftriaxone/azithromycin -Supplemental oxygen as needed to maintain spo2 > 92% currently at baseline RA Code(s): J18.9 - PNEUMONIA, UNSPECIFIED ORGANISM (6) Tachycardia Current Visit: Yes Status: Acute Assessment & Plan: - 2:2 DKA - resolved Code(s): R00.0 - TACHYCARDIA, UNSPECIFIED (7) Nausea & vomiting Current Visit: Yes Status: Resolved Assessment & Plan: - resolved - PRN antiemetic - clear liquid diet with diabetic features Code(s): R11.2 - NAUSEA WITH VOMITING, UNSPECIFIED (8) Bipolar 1 disorder Current Visit: No Status: Chronic Assessment & Plan: - continue home meds Code(s): F31.9 - BIPOLAR DISORDER, UNSPECIFIED (9) Depression with anxiety Current Visit: No Status: Chronic Assessment & Plan: - continue home meds Code(s): F41.8 - OTHER SPECIFIED ANXIETY DISORDERS (10) Hyperglycemia due to type 1 diabetes mellitus Current Visit: No Status: Chronic Assessment & Plan: -See DKA VTE: Lovenox PPI: Protonix Next of KIN: Mother D/C plan: 1-2 days Code status: full Code(s): E11.10 - TYPE 2 DIABETES MELLITUS WITH KETOACIDOSIS WITHOUT COMA (2) Hyperkalemia Current Visit: Yes Status: Acute Code(s): E87.5 - HYPERKALEMIA (3) Leukocytosis Current Visit: Yes Status: Acute Code(s): D72.829 - ELEVATED WHITE BLOOD CELL COUNT, UNSPECIFIED (4) Metabolic acidosis Current Visit: Yes Status: Acute Code(s): E87.20 - ACIDOSIS, UNSPECIFIED (5) Pneumonia Current Visit: Yes Status: Acute Qualifiers: Pneumonia type: due to unspecified organism Laterality: right Lung location: middle lobe of lung Qualified Code(s): J18.9 - Pneumonia, unspecified organism Code(s): J18.9 - PNEUMONIA, UNSPECIFIED ORGANISM (6) Tachycardia Current Visit: Yes Status: Acute Code(s): R00.0 - TACHYCARDIA, UNSPECIFIED (7) Nausea & vomiting Current Visit: Yes Status: Resolved Code(s): R11.2 - NAUSEA WITH VOMITING, UNSPECIFIED (8) Bipolar 1 disorder Current Visit: No Status: Chronic Code(s): F31.9 - BIPOLAR DISORDER, UNSPECIFIED (9) Depression with anxiety Current Visit: No Status: Chronic Code(s): F41.8 - OTHER SPECIFIED ANXIETY DISORDERS (10) Hyperglycemia due to type 1 diabetes mellitus Current Visit: No Status: Chronic Code(s): E10.65 - TYPE 1 DIABETES MELLITUS WITH HYPERGLYCEMIA
[2024-05-03 05:19] LABS: ALBUMIN 2.9 g/dL (3.5-5.0); ALKALINE PHOSPHATASE 61 U/L (38-126); ANION GAP 8.9 MEQ/L (5-15); CHLORIDE 108 mmol/L (98-107); Calcium 7.9 mg/dL (8.4-10.2); Carbon Dioxide 25 mmol/L (22-30); Creatinine 1 0.49 mg/dL (0.52-1.04); EST GLOMERULAR FILTRATION RATE 133.2 ML/MIN; Glucose 98 mg/dL (74-106); Potassium 3.5 mmol/L (3.5-5.1); SGOT/AST 25 U/L (14-36); SGPT/ALT 17 U/L (0-35); SODIUM 138 mmol/L (135-145); Total Protein 5.4 g/dL (6.3-8.2)
[2024-05-03 05:26] LABS: BLOOD UREA NITROGEN < 2 mg/dL (7-17)
[2024-05-03 05:37] LABS: MAGNESIUM 1.9 mg/dL (1.6-2.3); PHOSPHOROUS 2.1 mg/dL (2.5-4.5)
[2024-05-03] MEDS: Neutra-Phos Packet PO ONE (09:04)
[2024-05-03 09:17] VITALS: O2SAT 100
--- NOTE | 2024-05-03 10:21 | PCM.DS ---
Discharge Summary Date of Admission: 04/30/24 08:05 Date of Discharge: 05/03/24 Admitting Physician: HARRISON SNYDER MD Primary Care Provider: DOLORES KHAN DO Allergies Allergies sulfamethoxazole [From Bactrim] Allergy (Verified 04/30/24 04:22) trimethoprim [From Bactrim] Allergy (Verified 04/30/24 04:22) Hospital Summary - Hospital Course Hospital Course: Ms. Corona is a 28-year-old insulin-dependent diabetic white female who presented to ED via EMS after experiencing vomiting, shortness of breath and back spasms. She states she also felt as though she was going to have a panic attack. Patient vomited twice in the last 24 hours. Patient has an insulin pump in place in ER and felt it was functioning properly. Upon arrival to ED zain robles was mildly tachycardic otherwise stable vitals.Lav findings remarkable for leukocytosis with WBC at 24.9, hypokalemia, hyponatremia, hyperglycemia, GAP, and metabolic acidosis.ABG with primay metabolic acidosis and secondary respiratory alkalosis. Ucult with no growth on final culture. CXR with new right middle lobe infiltrate. Patient admitted with DKA and found to have pneumonia during hospital course. IP treatment with DKA protocol and bicarb drip for non resolving acidosis. Pneumonia treatment with Ceftriaxone and azithromycin. DKA has resolved. Dyspnea and cough have improved with patient on RA. Blood glucose levels stable. Patient is tolerating ADA diet with no n/v. Patient currently on insulin pump at home. Patient states pump is functioning properly and has insulin and supplies at home and does not need refills. No one is available to bring it to the hospital. Advised patient to resume insulin pump at home. She is to monitor glucose levels closely with follow up scheduled with Dr. Galaviz next week. Will dismiss on cefuroxime for pneumonia. Labs and vitals stable. Patient agreeable to plan and stable for discharge. Discharge Note New Diagnosis: DKA/ pneumonia New Medications: Cefuroxime - continue insulin pump Follow Up: PCP/endocrinology I spent 35 minutes [id number] with the patient on the day of discharge performing discharge exam, discussing hospital stay and discharge instructions with patient and caregivers, preparation of discharge records, prescriptions & referral forms and addressing any questions/concerns the patient had as documented above. - Vitals & Intake/Output Vital Signs: Vital Signs Temperature 96.9 F 05/03/24 04:01 Pulse Rate 82 05/03/24 09:00 Respiratory Rate 17 05/03/24 09:00 Blood Pressure 109/67 05/03/24 09:00 O2 Sat by Pulse Oximetry 100 05/03/24 09:00 Intake & Output: Intake & Output 04/30/24 05/01/24 05/02/24 05/03/24 11:59 11:59 11:59 11:59 Intake Total 4566 7239 1346 Output Total 5128 2650 1250 Balance 2616 4582 96 Weight 47.1 kg 49.6 kg 52.6 kg - Lab Result Diagrams: 05/03/24 04:10 05/03/24 04:10 Lab Results-Last 24 Hrs: Lab Results-Last 24 Hours 05/02/24 05/02/24 05/02/24 Range/Units 10:14 12:04 13:02 WBC (3.98-10.04) x10^3/uL RBC (3.93-5.22) x10^6/uL Hgb (11.2-15.7) g/dL Hct (34.1-44.9) % MCV (79.4-94.8) fL MCH (25.6-32.2) pg MCHC (32.2-35.5) g/dL RDW (11.7-14.4) % Plt Count (182-369) x10^3/uL MPV (9.4-12.3) fL Gran % (34.0-71.1) % Immature Gran % (Auto) (0.001-0.429) % Nucleat RBC Rel Count (0.00-0.2) % Eos # (Auto) (0.04-0.36) x10^3/uL Immature Gran # (Auto) (0.001-0.031) x10^3u/L Absolute Lymphs (auto) (1.18-3.74) x10^3/uL Absolute Monos (auto) (0.24-0.86) x10^3/uL Absolute Nucleated RBC (0.00-0.012) x10^3u/L Lymphocytes % (19.3-51.7) % Monocytes % (4.7-12.5) % Eosinophils % (0.7-5.8) % Basophils % (0.1-1.2) % Absolute Granulocytes (1.56-6.13) x10^3/uL Basophils # (0.01-0.08) x10^3/uL Sodium (135-145) mmol/L Potassium 3.7 D (3.5-5.1) mmol/L Chloride (98-107) mmol/L Carbon Dioxide (22-30) mmol/L Anion Gap (5-15) MEQ/L BUN (7-17) mg/dL Creatinine (0.52-1.04) mg/dL Estimated GFR ML/MIN Glucose (74-106) mg/dL POC Glucometer 386 H 369 H (74 to 106) mg/dL Calcium (8.4-10.2) mg/dL Phosphorus (2.5-4.5) mg/dL Magnesium (1.6-2.3) mg/dL Total Bilirubin (0.2-1.3) mg/dL AST (14-36) U/L ALT (0-35) U/L Alkaline Phosphatase (38-126) U/L Serum Total Protein (6.3-8.2) g/dL Albumin (3.5-5.0) g/dL 05/02/24 05/02/24 05/02/24 Range/Units 13:35 14:02 14:57 WBC (3.98-10.04) x10^3/uL RBC (3.93-5.22) x10^6/uL Hgb (11.2-15.7) g/dL Hct (34.1-44.9) % MCV (79.4-94.8) fL MCH (25.6-32.2) pg MCHC (32.2-35.5) g/dL RDW (11.7-14.4) % Plt Count (182-369) x10^3/uL MPV (9.4-12.3) fL Gran % (34.0-71.1) % Immature Gran % (Auto) (0.001-0.429) % Nucleat RBC Rel Count (0.00-0.2) % Eos # (Auto) (0.04-0.36) x10^3/uL Immature Gran # (Auto) (0.001-0.031) x10^3u/L Absolute Lymphs (auto) (1.18-3.74) x10^3/uL Absolute Monos (auto) (0.24-0.86) x10^3/uL Absolute Nucleated RBC (0.00-0.012) x10^3u/L Lymphocytes % (19.3-51.7) % Monocytes % (4.7-12.5) % Eosinophils % (0.7-5.8) % Basophils % (0.1-1.2) % Absolute Granulocytes (1.56-6.13) x10^3/uL Basophils # (0.01-0.08) x10^3/uL Sodium (135-145) mmol/L Potassium 3.0 L* (3.5-5.1) mmol/L Chloride (98-107) mmol/L Carbon Dioxide (22-30) mmol/L Anion Gap (5-15) MEQ/L BUN (7-17) mg/dL Creatinine (0.52-1.04) mg/dL Estimated GFR ML/MIN Glucose (74-106) mg/dL POC Glucometer 277 H 214 H (74 to 106) mg/dL Calcium (8.4-10.2) mg/dL Phosphorus (2.5-4.5) mg/dL Magnesium (1.6-2.3) mg/dL Total Bilirubin (0.2-1.3) mg/dL AST (14-36) U/L ALT (0-35) U/L Alkaline Phosphatase (38-126) U/L Serum Total Protein (6.3-8.2) g/dL Albumin (3.5-5.0) g/dL 05/02/24 05/02/24 05/02/24 Range/Units 16:08 17:14 18:40 WBC (3.98-10.04) x10^3/uL RBC (3.93-5.22) x10^6/uL Hgb (11.2-15.7) g/dL Hct (34.1-44.9) % MCV (79.4-94.8) fL MCH (25.6-32.2) pg MCHC (32.2-35.5) g/dL RDW (11.7-14.4) % Plt Count (182-369) x10^3/uL MPV (9.4-12.3) fL Gran % (34.0-71.1) % Immature Gran % (Auto) (0.001-0.429) % Nucleat RBC Rel Count (0.00-0.2) % Eos # (Auto) (0.04-0.36) x10^3/uL Immature Gran # (Auto) (0.001-0.031) x10^3u/L Absolute Lymphs (auto) (1.18-3.74) x10^3/uL Absolute Monos (auto) (0.24-0.86) x10^3/uL Absolute Nucleated RBC (0.00-0.012) x10^3u/L Lymphocytes % (19.3-51.7) % Monocytes % (4.7-12.5) % Eosinophils % (0.7-5.8) % Basophils % (0.1-1.2) % Absolute Granulocytes (1.56-6.13) x10^3/uL Basophils # (0.01-0.08) x10^3/uL Sodium (135-145) mmol/L Potassium 4.4 D (3.5-5.1) mmol/L Chloride (98-107) mmol/L Carbon Dioxide (22-30) mmol/L Anion Gap (5-15) MEQ/L BUN (7-17) mg/dL Creatinine (0.52-1.04) mg/dL Estimated GFR ML/MIN Glucose (74-106) mg/dL POC Glucometer 129 H 112 H (74 to 106) mg/dL Calcium (8.4-10.2) mg/dL Phosphorus (2.5-4.5) mg/dL Magnesium (1.6-2.3) mg/dL Total Bilirubin (0.2-1.3) mg/dL AST (14-36) U/L ALT (0-35) U/L Alkaline Phosphatase (38-126) U/L Serum Total Protein (6.3-8.2) g/dL Albumin (3.5-5.0) g/dL 05/02/24 05/02/24 05/02/24 Range/Units 20:20 21:55 23:00 WBC (3.98-10.04) x10^3/uL RBC (3.93-5.22) x10^6/uL Hgb (11.2-15.7) g/dL Hct (34.1-44.9) % MCV (79.4-94.8) fL MCH (25.6-32.2) pg MCHC (32.2-35.5) g/dL RDW (11.7-14.4) % Plt Count (182-369) x10^3/uL MPV (9.4-12.3) fL Gran % (34.0-71.1) % Immature Gran % (Auto) (0.001-0.429) % Nucleat RBC Rel Count (0.00-0.2) % Eos # (Auto) (0.04-0.36) x10^3/uL Immature Gran # (Auto) (0.001-0.031) x10^3u/L Absolute Lymphs (auto) (1.18-3.74) x10^3/uL Absolute Monos (auto) (0.24-0.86) x10^3/uL Absolute Nucleated RBC (0.00-0.012) x10^3u/L Lymphocytes % (19.3-51.7) % Monocytes % (4.7-12.5) % Eosinophils % (0.7-5.8) % Basophils % (0.1-1.2) % Absolute Granulocytes (1.56-6.13) x10^3/uL Basophils # (0.01-0.08) x10^3/uL Sodium (135-145) mmol/L Potassium 3.9 (3.5-5.1) mmol/L Chloride (98-107) mmol/L Carbon Dioxide (22-30) mmol/L Anion Gap (5-15) MEQ/L BUN (7-17) mg/dL Creatinine (0.52-1.04) mg/dL Estimated GFR ML/MIN Glucose (74-106) mg/dL POC Glucometer 117 H 161 H (74 to 106) mg/dL Calcium (8.4-10.2) mg/dL Phosphorus (2.5-4.5) mg/dL Magnesium (1.6-2.3) mg/dL Total Bilirubin (0.2-1.3) mg/dL AST (14-36) U/L ALT (0-35) U/L Alkaline Phosphatase (38-126) U/L Serum Total Protein (6.3-8.2) g/dL Albumin (3.5-5.0) g/dL 05/03/24 05/03/24 05/03/24 Range/Units 00:00 03:57 04:10 WBC 4.8 (3.98-10.04) x10^3/uL RBC 3.85 L (3.93-5.22) x10^6/uL Hgb 10.0 L (11.2-15.7) g/dL Hct 32.1 L (34.1-44.9) % MCV 83.4 (79.4-94.8) fL MCH 26.0 (25.6-32.2) pg MCHC 31.2 L (32.2-35.5) g/dL RDW 16.7 H (11.7-14.4) % Plt Count 315 (182-369) x10^3/uL MPV 9.8 (9.4-12.3) fL Gran % 56.0 (34.0-71.1) % Immature Gran % (Auto) 0.2 (0.001-0.429) % Nucleat RBC Rel Count 0.0 (0.00-0.2) % Eos # (Auto) 0.09 (0.04-0.36) x10^3/uL Immature Gran # (Auto) 0.01 (0.001-0.031) x10^3u/L Absolute Lymphs (auto) 1.70 (1.18-3.74) x10^3/uL Absolute Monos (auto) 0.31 (0.24-0.86) x10^3/uL Absolute Nucleated RBC 0.00 (0.00-0.012) x10^3u/L Lymphocytes % 35.1 (19.3-51.7) % Monocytes % 6.4 (4.7-12.5) % Eosinophils % 1.9 (0.7-5.8) % Basophils % 0.4 (0.1-1.2) % Absolute Granulocytes 2.71 (1.56-6.13) x10^3/uL Basophils # 0.02 (0.01-0.08) x10^3/uL Sodium (135-145) mmol/L Potassium (3.5-5.1) mmol/L Chloride (98-107) mmol/L Carbon Dioxide (22-30) mmol/L Anion Gap (5-15) MEQ/L BUN (7-17) mg/dL Creatinine (0.52-1.04) mg/dL Estimated GFR ML/MIN Glucose (74-106) mg/dL POC Glucometer 120 H 94 (74 to 106) mg/dL Calcium (8.4-10.2) mg/dL Phosphorus (2.5-4.5) mg/dL Magnesium (1.6-2.3) mg/dL Total Bilirubin (0.2-1.3) mg/dL AST (14-36) U/L ALT (0-35) U/L Alkaline Phosphatase (38-126) U/L Serum Total Protein (6.3-8.2) g/dL Albumin (3.5-5.0) g/dL 05/03/24 05/03/24 05/03/24 Range/Units 04:10 04:10 05:07 WBC (3.98-10.04) x10^3/uL RBC (3.93-5.22) x10^6/uL Hgb (11.2-15.7) g/dL Hct (34.1-44.9) % MCV (79.4-94.8) fL MCH (25.6-32.2) pg MCHC (32.2-35.5) g/dL RDW (11.7-14.4) % Plt Count (182-369) x10^3/uL MPV (9.4-12.3) fL Gran % (34.0-71.1) % Immature Gran % (Auto) (0.001-0.429) % Nucleat RBC Rel Count (0.00-0.2) % Eos # (Auto) (0.04-0.36) x10^3/uL Immature Gran # (Auto) (0.001-0.031) x10^3u/L Absolute Lymphs (auto) (1.18-3.74) x10^3/uL Absolute Monos (auto) (0.24-0.86) x10^3/uL Absolute Nucleated RBC (0.00-0.012) x10^3u/L Lymphocytes % (19.3-51.7) % Monocytes % (4.7-12.5) % Eosinophils % (0.7-5.8) % Basophils % (0.1-1.2) % Absolute Granulocytes (1.56-6.13) x10^3/uL Basophils # (0.01-0.08) x10^3/uL Sodium 138 (135-145) mmol/L Potassium 3.5 (3.5-5.1) mmol/L Chloride 108 H (98-107) mmol/L Carbon Dioxide 25 (22-30) mmol/L Anion Gap 8.9 (5-15) MEQ/L BUN < 2 L (7-17) mg/dL Creatinine 0.49 L (0.52-1.04) mg/dL Estimated GFR 133.2 ML/MIN Glucose 98 (74-106) mg/dL POC Glucometer 113 H (74 to 106) mg/dL Calcium 7.9 L (8.4-10.2) mg/dL Phosphorus 2.1 L (2.5-4.5) mg/dL Magnesium 1.9 (1.6-2.3) mg/dL Total Bilirubin 0.30 (0.2-1.3) mg/dL AST 25 (14-36) U/L ALT 17 (0-35) U/L Alkaline Phosphatase 61 (38-126) U/L Serum Total Protein 5.4 L (6.3-8.2) g/dL Albumin 2.9 L (3.5-5.0) g/dL 05/03/24 Range/Units 09:13 WBC (3.98-10.04) x10^3/uL RBC (3.93-5.22) x10^6/uL Hgb (11.2-15.7) g/dL Hct (34.1-44.9) % MCV (79.4-94.8) fL MCH (25.6-32.2) pg MCHC (32.2-35.5) g/dL RDW (11.7-14.4) % Plt Count (182-369) x10^3/uL MPV (9.4-12.3) fL Gran % (34.0-71.1) % Immature Gran % (Auto) (0.001-0.429) % Nucleat RBC Rel Count (0.00-0.2) % Eos # (Auto) (0.04-0.36) x10^3/uL Immature Gran # (Auto) (0.001-0.031) x10^3u/L Absolute Lymphs (auto) (1.18-3.74) x10^3/uL Absolute Monos (auto) (0.24-0.86) x10^3/uL Absolute Nucleated RBC (0.00-0.012) x10^3u/L Lymphocytes % (19.3-51.7) % Monocytes % (4.7-12.5) % Eosinophils % (0.7-5.8) % Basophils % (0.1-1.2) % Absolute Granulocytes (1.56-6.13) x10^3/uL Basophils # (0.01-0.08) x10^3/uL Sodium (135-145) mmol/L Potassium (3.5-5.1) mmol/L Chloride (98-107) mmol/L Carbon Dioxide (22-30) mmol/L Anion Gap (5-15) MEQ/L BUN (7-17) mg/dL Creatinine (0.52-1.04) mg/dL Estimated GFR ML/MIN Glucose (74-106) mg/dL POC Glucometer 155 H (74 to 106) mg/dL Calcium (8.4-10.2) mg/dL Phosphorus (2.5-4.5) mg/dL Magnesium (1.6-2.3) mg/dL Total Bilirubin (0.2-1.3) mg/dL AST (14-36) U/L ALT (0-35) U/L Alkaline Phosphatase (38-126) U/L Serum Total Protein (6.3-8.2) g/dL Albumin (3.5-5.0) g/dL Micro Results-Entire Visit: Microbiology 04/30/24 05:38 Urine Culture - Final Clean Catch Midstream NO GROWTH Accuchecks Date 05/03/24 Date 05/03/24 Date 05/03/24 Date 05/03/24 Date 05/02/24 Date 05/02/24 Date 05/02/24 Date 05/02/24 Time 09:12 Time 05:07 Time 03:57 Time 00:00 Time 21:55 Time 20:20 Time 15:09 Time 12:25 - Procedures and Test Procedures and Tests throughout Hospitalization: Therapy Orders & Screens 04/30/24 08:48 Oxygen Nasal Cannula 2 lpm Comment: 2-4L NC to keep sats >95% Diagnosis: DKA Discharge Exam General Appearance: no apparent distress Neurologic Exam: alert, oriented x 3, cooperative Eye Exam: PERRL Ears, Nose, Throat Exam: normal ENT inspection Neck Exam: normal inspection Respiratory Exam: normal breath sounds, lungs clear Cardiovascular Exam: regular rate/rhythm, normal heart sounds Gastrointestinal/Abdomen Exam: soft, normal bowel sounds Pelvic Exam: deferred Rectal Exam: deferred Back Exam: normal inspection Extremity Exam: normal inspection Skin Exam: normal color Final Diagnosis/Problem List - Final Discharge Diagnosis/Problem (1) DKA (diabetic ketoacidosis) Current Visit: Yes Status: Resolved Code(s): E11.10 - TYPE 2 DIABETES MELLI TUS WITH KETOACIDOSIS WITHOUT COMA (2) Hyperkalemia Current Visit: Yes Status: Resolved Code(s): E87.5 - HYPERKALEMIA (3) Leukocytosis Current Visit: Yes Status: Resolved Code(s): D72.829 - ELEVATED WHITE BLOOD CELL COUNT, UNSPECIFIED (4) Metabolic acidosis Current Visit: Yes Status: Resolved Code(s): E87.20 - ACIDOSIS, UNSPECIFIED (5) Pneumonia Current Visit: Yes Status: Acute Code(s): J18.9 - PNEUMONIA, UNSPECIFIED ORGANISM (6) Tachycardia Current Visit: Yes Status: Resolved Code(s): R00.0 - TACHYCARDIA, UNSPECIF IED (7) Nausea & vomiting Current Visit: Yes Status: Resolved Code(s): R11.2 - NAUSEA WITH VOMITING, UNSPECIFIED (8) Bipolar 1 disorder Current Visit: No Status: Chronic Code(s): F31.9 - BIPOLAR DISORDER, UNS PECIFIED (9) Depression with anxiety Current Visit: No Status: Chronic Code(s): F41.8 - OTHER SPECIFIED ANXIETY DISORDERS (10) Hyperglycemia due to type 1 diabetes mellitus Current Visit: No Status: Chronic Code(s): E10.65 - TYPE 1 DIABETES MELLITUS WITH HYPERGLYCEMIA - Discharge Discharge Date: 05/03/24 Disposition: Home, Self-Care Condition: Fair Prescriptions: New cefuroxime axetiL [Cefuroxime] 500 mg PO BID 7 Days #14 tablet Continue Dextroamphetamine/Amphetamine [Dextroamp-Amphet ER 20 mg Cap] 30 mg PO DAILY Aripiprazole 10 mg [Abilify 10 MG] 7 mg PO DAILY Sertraline HCl [Zoloft] 100 mg PO DAILY Ergocalciferol (Vitamin D2) [Vitamin D2] 1,250 mcg PO SA Changed Insulin Lispro [Humalog] See Rx Instructions .ROUTE .COMPLEX #0 Follow up with: DOLORES KHAN DO [Primary Care Provider] - 05/07/24 9:30 am ANAYA GALAVIZ [NON-STAFF PHY W/O PRIVILEGES] - 05/09/24 10:45 am
[2024-05-03 11:28] VITALS: TEMP 97.3
[2024-05-03 12:23] VITALS: BP 139/96; PULSE 117; RESP 10
[2024-05-04] MEDS ORDERED: VITAMIN D2 PO SCH (10:00)
== END 2024-05-03 12:44 | disposition home or self-care (01) | DRG 637 ==
LOC: ED 04:09 → OBSVTOIN 08:05 → ICU 08:05
PROVIDERS: ADMIT Internal Medicine; ATTEND Internal Medicine
PROC: 06HN33Z Insertion of Infusion Device into Left Femoral Vein, Percutaneous Approach (ICD-10-PCS; principal; 2024-04-30)
DX: E10.10 Type 1 diabetes mellitus with ketoacidosis without coma (principal); J18.9 Pneumonia, unspecified organism; E87.5 Hyperkalemia; D72.829 Elevated white blood cell count, unspecified; R11.2 Nausea with vomiting, unspecified; R00.0 Tachycardia, unspecified; F31.9 Bipolar disorder, unspecified; F41.8 Other specified anxiety disorders; E10.65 Type 1 diabetes mellitus with hyperglycemia; Z79.899 Other long term (current) drug therapy
CPT/HCPCS: 0241U; 36415; 71045; 80048; 80053; 81001; 82805; 82947; 83036; 83605; 83735; 84100; 84132; 85025; 85027; 86308; 87086; 93041; 94760; 96360; 96365; 96374; 96375; 99285; 99291; J0456; J0696; J1650; J1815; J1817; J2060; J2405; J3475; J3480; Q3014; A9270-GY